=== PATIENT | male | born 1960 | race African-American/Black ===

== ENCOUNTER 2017-01-14 07:03 | Inpatient (IN) | payer BC, OTHER ==
--- NOTE | 2017-01-14 07:24 | PDOC ---
Attending Attestation - Resident Resident Name: Shane Bhatia - ED Attending Attestation I have performed the following: I have examined & evaluated the patient, The case was reviewed & discussed with the resident, I agree w/resident's findings & plan, Exceptions are as noted - HPI HPI: 56 yo M history COPD/asthma presents with SOB. He states that for the past 2 days he has had a cough producing yellow sputum. His shortness of breath has been progressively worsening. He denies fever, chills, chest pain. He tried nebs at home, but he has not improved. No recent abx. He has been admitted for COPD in the past. He smokes a few cigarettes per day, he has cut down over the past few years. - Physicial Exam PE: GENERAL: Awake, alert, and fully oriented, in no acute distress. HEAD: No signs of trauma EYES: PERRLA, EOMI, sclera anicteric, conjunctiva clear ENT: Auricles normal inspection, hearing grossly normal, nares patent, oropharynx clear without exudates. Moist mucosa NECK: Normal ROM, supple, no lymphadenopathy, JVD, or masses LUNGS: +Mild tachypnea. +Pursed lip breathing. Dec air entry B/L with diffuse rhonchi, exp wheezes. Speaking full sentences. HEART: Tachycardic, normal S1 and S2, no murmurs, rubs or gallops ABDOMEN: Soft, nontender, normoactive bowel sounds. No guarding, no rebound. No masses EXTREMITIES: Normal range of motion, no edema. No clubbing or cyanosis. No cords, erythema, or tenderness NEUROLOGICAL: Cranial nerves II through XII grossly intact. Normal speech, normal gait SKIN: Warm, Dry, normal turgor, no rashes or lesions noted. - Medical Decision Making 56 yo M with asthma/COPD presents with exacerbation. Will obtain labs, flu swab , CXR for further evaluation. Will give levaquin empirically for suspected bronchitis, which will also cover for pna if CXR is positive for infiltrate. Will admit.
[2017-01-14] MEDS ORDERED: MAGNESIUM SULF 50% (8.12 MEQ/2 ML-1 GM VIAL) IVPB ONE (07:45)
[2017-01-14] MEDS ORDERED: LEVOFLOXACIN 750 MG IVPB 150 ML IVPB ONE ×2 (07:53→08:06)
--- NOTE | 2017-01-14 07:53 | PDOC ---
History of Present Illness <Jaquelin De Leon - Last Filed: 01/14/17 10:48> - General History Source: Patient Exam Limitations: No Limitations - History of Present Illness Initial Comments: 01/14/17 07:49 56 yo M with significant PMHx of NIDDM, smoker, asthma and copd presents with 2 day history of increased shortness of breath. He states that for the past 2 days he has had cold symtoms and breathing has worsened. His home inhalers did not improve his breathing which prompted call to EMS. SOB accompanied by productive cough of yellow sputum. Multiple hospitalizations in past for similar issues , but never been intubated. Denies fevers, CP, REYNAGA, palpitations, N/V. 01/14/17 08:11 Timing/Duration: reports: getting worse Severity: reports: moderate Possible Cause: Yes: smoke exposure Modifying Factors: improves with: oxygen Associated Symptoms: reports: cough, nasal drainage, shortness of breath Aspirin Received prior to arrival: Yes: unknown Beta Blayne Contraindications(Core Measure): Yes: Not Prescribed Beta Blayne Given by EMS(Core Measure): No Beta Blayne Taken at Home(Core Measure): No Beta Blayne Not Indicated at this Time(Core Measure): No <Shane Bhatia - Last Filed: 01/14/17 14:44> - General Chief Complaint: Shortness of Breath Stated Complaint: DIFFICULTY BREATHING Time Seen by Provider: 01/14/17 07:18 Past History <Jaquelin De Leon - Last Filed: 01/14/17 10:48> - Travel Traveled outside of the country in the last 30 days: No Close contact w/someone who was outside of country & ill: No - Past Medical History Anemia: No Asthma: Yes Cancer: No Cardiac Disorders: No CVA: No COPD: Yes CHF: No Dementia: No Diabetes: Yes (DM) GI Disorders: No Disorders: No HTN: Yes Hypercholesterolemia: No Liver Disease: No Seizures: No Thyroid Disease: No - Surgical History Abdominal Surgery: No Appendectomy: No Cardiac Surgery: No Cholecystectomy: No Lung Surgery: No Neurologic Surgery: No - Immunization History Immunization Up to Date: Yes - Psycho/Social/Smoking Cessation Hx Anxiety: No Suicidal Ideation: No Smoking History: Current every day smoker Have you smoked in the past 12 months: No Number of Cigarettes Smoked Daily: 5 Information on smoking cessation initiated: No 'Breaking Loose' booklet given: 06/28/16 Hx Alcohol Use: No Drug/Substance Use Hx: No Substance Use Type: None Hx Substance Use Treatment: No <Shane Bhatia - Last Filed: 01/14/17 14:44> - Past Medical History Allergies/Adverse Reactions: Allergies Allergy/AdvReac Type Severity Reaction Status Date / Time No Known Allergies Allergy Verified 12/05/15 06:08 Home Medications: Ambulatory Orders Metformin HCl [Glucophage -] 500 mg PO BID 09/15/15 Ergocalciferol (Vitamin D2) [Vitamin D] 50,000 unit PO Q7D 10/09/15 Simvastatin [Zocor -] 20 mg PO HS 10/09/15 Budesonide/Formeterol Fumarate [SYMBICORT 160/4.5mcg -] 2 puff IH BID #0 inhaler 12/09/15 Albuterol Sulfate [Proair Respiclick] 90 mcg IH Q6H 06/28/16 Budesonide/Formeterol Fumarate [SYMBICORT 160/4.5mcg -] 1 inh PO BID 01/14/17 Tiotropium [place] [Spiriva] 1 inh IH DAILY 01/14/17 Respiratory Specific PMHX - Complaint Specific PMHX Angina: No Bronchitis: No Pneumonia: No Pulmonary Embolus: No TB (Tuberculosis): No <Shane Bhatia - Last Filed: 01/14/17 14:44> Review of Systems - Review of Systems Constitutional: No: Chills, Fever HEENTM: No: Throat Swelling, Difficulty Swallowing Respiratory: Yes: Cough, Shortness of Breath, Wheezing, Productive cough Cardiac (ROS): No: Chest Pain, Edema, Palpitations ABD/GI: No: Nausea, Vomiting : No: Dysuria Neurological: No: Headache <Shane Bhatia - Last Filed: 01/14/17 14:44> *Physical Exam - Vital Signs Last Vital Signs Temp Pulse Resp BP Pulse Ox 98.3 F 92 H 20 122/80 95 01/14/17 07:30 01/14/17 09:45 01/14/17 10:37 01/14/17 09:45 01/14/17 10:37 <Jaquelin De Leon - Last Filed: 01/14/17 10:48> - Vital Signs Last Vital Signs Temp Pulse Resp BP Pulse Ox 98.3 F 108 H 22 120/78 88 L 01/14/17 07:30 01/14/17 07:30 01/14/17 07:30 01/14/17 07:30 01/14/17 07:30 - Physical Exam General Appearance: Yes: Mild Distress HEENT: positive: ASHWINI, Normal ENT Inspection Neck: positive: Supple Respiratory/Chest: positive: Decreased Breath Sounds, Rhonchi, Wheezing Cardiovascular: positive: Regular Rhythm, Regular Rate, S1, S2. negative: Edema , JVD, Murmur Vascular Pulses: Dorsalis-Pedis (R): 2+, Doralis-Pedis (L): 2+ Gastrointestinal/Abdominal: positive: Normal Bowel Sounds, Soft. negative: Tender Neurologic: positive: Fully Oriented, Alert, Normal Mood/Affect <Shane Bhatia - Last Filed: 01/14/17 14:44> ED Treatment Course - LABORATORY CBC & Chemistry Diagram: 01/14/17 07:52 01/14/17 07:52 - ADDITIONAL ORDERS Additional order review: Laboratory Results 01/14/17 07:52 Sodium 145 Potassium 4.1 Chloride 104 Carbon Dioxide 38 H Anion Gap 3 L BUN 7 D Creatinine 1.1 Creat Clearance w eGFR > 60 Random Glucose 140 H Calcium 8.7 Total Bilirubin 0.5 D AST 14 L ALT 19 D Alkaline Phosphatase 100 Total Protein 6.8 Albumin 3.5 01/14/17 07:52 Influenza Types A,B Antigen (NEREIDA) - Final Nasopharyngeal Swab - Final 01/14/17 07:52 RBC 4.78 MCV 93.5 MCHC 32.3 RDW 13.5 MPV 9.4 Neutrophils % 82.9 H Lymphocytes % 11.2 Monocytes % 4.9 Eosinophils % 0.6 D Basophils % 0.4 - Medications Given in the ED: ED Medications Discontinued Medications Generic Name Dose Route Start Last Admin Trade Name Freq PRN Reason Stop Dose Admin Albuterol/Ipratropium 1 amp 01/14/17 08:00 01/14/17 08:51 Duoneb - NEB 01/14/17 08:46 1 amp Q15M [facility] Administration Levofloxacin 150 mls @ 100 mls/hr 01/14/17 07:53 01/14/17 08:47 Levaquin 750 Mg Premixed Ivpb - IVPB 01/14/17 09:22 100 mls/hr ONCE ONE Administration Magnesium Sulfate 2 gm 01/14/17 07:45 01/14/17 08:18 Magnesium Sulfate IVPB 01/14/17 07:46 2 gm ONCE ONE Administration <Jaquelin De Leon - Last Filed: 01/14/17 10:48> - LABORATORY CBC & Chemistry Diagram: 01/14/17 07:52 01/14/17 07:52 <Shane Bhatia - Last Filed: 01/14/17 14:44> Medical Decision Making - Medical Decision Making 01/14/17 08:04 56 yo M smoker with PMHx of NIDDM, asthma and COPD presents to ER with acute hypoxic respirtory failure. Given Decadron 10mg and Duoneb by EMS. O2 sat on arrival 85% on RA and Peak Flow 80. Will give Duonebs, Mg, Levaquin and supplemental O2 . Labs sent- CBC, CMP , CXR, and rapid Flu. 01/14/17 14:43 ABG shows chronic retention of CO2 O2 sat 94% on 3L NC Decision made to admit to non cardiac tele. <Shane Bhatia - Last Filed: 01/14/17 14:44> *DC/Admit/Observation/Transfer - Discharge Dispostion Admit: Yes <Jaquelin De Leon - Last Filed: 01/14/17 10:48> - Discharge Dispostion Admit: Yes <Shane Bhatia - Last Filed: 01/14/17 14:44> Diagnosis at time of Disposition: COPD exacerbation, Bronchitis, Asthma exacerbation, Hypoxia - Discharge Dispostion Condition at time of disposition: Guarded
[2017-01-14] MEDS: ALBUTEROL SO4 2.5/IPRATROPIUM 0.5 INH SOL 3 ML VIAL.NEB. NEB SCH ×6 (08:00→23:10)
[2017-01-14] MEDS ORDERED: MAGNESIUM SULF 50% (8.12 MEQ/2 ML-1 GM VIAL) ONE (08:06)
[2017-01-14] MEDS ORDERED: ALBUTEROL SO4 2.5/IPRATROPIUM 0.5 INH SOL 3 ML VIAL.NEB. NEB ONE (08:06)
[2017-01-14 08:28] LABS: BASOPHIL 0.4 % (0-2.0); EOSINOPHIL 0.6 % (0-4.5); MCH 30.2 pg (25.7-33.7); MCHC 32.3 g/dl (32.0-35.9); MEAN CELL VOLUME 93.5 fl (80-96); MEAN PLT VOLUME 9.4 fl (7.5-11.1); NEUTROPHILS 82.9 % (42.8-82.8); PLATELET COUNT 128 K/MM3 (134-434); RDW 13.5 % (11.9-15.9); WHITE BLOOD COUNT 8.3 K/mm3 (4.0-10.0)
[2017-01-14 08:56] LABS: ALBUMIN 3.5 g/dl (3.4-5.0); ALK PHOS 100 U/L (45-117); ANION GAP 3 (8-16); BILIRUBIN,TOTAL 0.5 mg/dL (0.2-1.0); CALCIUM 8.7 mg/dL (8.5-10.1); CO2 38 mmol/L (21-32); COCKROFT - GAULT 93.4; CREATININE 1.1 mg/dL (0.7-1.3); GLUCOSE,RANDOM 140 mg/dL (74-106); SGOT/AST 14 U/L (15-37); SGPT/ALT 19 U/L (12-78); TOT PROT 6.8 g/dl (6.4-8.2)
[2017-01-14 11:00] LABS: ARTERIAL BLD GAS O2 SATURATION 90.7 % (90-98.9); ARTERIAL BLOOD GAS BASE EXCESS 3.7 meq/l (-2-2); ARTERIAL BLOOD GAS HCO3 32.4 meq/L (22-26)
[2017-01-14 11:02] LABS: ARTERIAL BLOOD GAS pH 7.29 (7.35-7.45)
[2017-01-14 11:03] LABS: ALLENS TEST POSITIVE; ART PUNCT SITE RIGHT RADIAL; ARTERIAL BLOOD GAS PO2 67.9 mmHg (80-100); LPM/O2% 3LPM; PT. ON O2? YES; TYPE OF O2 NASAL
[2017-01-14] MEDS ORDERED: INSULIN REGULAR HUMAN 100 UNITS/ML *VIAL ONE (12:43)
[2017-01-14] MEDS ORDERED: INSULIN (NOVOLOG) ASPART 100 UNITS/ML 10ML VIAL SQ ONE (12:50)
--- NOTE | 2017-01-14 14:02 | HP ---
DATE OF ADMISSION: DATE OF DICTATION: 01/14/2017 HISTORY OF PRESENT ILLNESS: This is a 56-year-old male patient of known to have COPD, came to the emergency room this morning with complaints of short of breath. Patient received oxygen and antibiotics and steroids. Doing better now. Still complaining of short of breath. Being admitted with a diagnosis of acute exacerbation of bronchial asthma and COPD. PHYSICAL EXAMINATION: Vital Signs: Blood pressure is 140/80, pulse 72, respiration 20, temperature 98. HEENT: Unremarkable. Neck: Supple. No JVD. Lungs: Few wheezes in both bases. Heart: S1, S2 normal. No S3, S4. Abdomen: Soft. Extremities: Legs: No edema. Neurological: Alert, oriented. LABORATORY REPORTS: WBC 8, hemoglobin 14, hematocrit 44, platelet 128. Chemistry: Electrolytes are normal. Blood gas: PH 7.29, PCO2 70, PO2 67. This is on oxygen, 3 L, nasal cannula. Chest x-ray: No acute pathology. IMPRESSION: Exacerbation of chronic obstructive pulmonary disease. Bronchial asthma. PLAN: Admit to regular floor or telemetry. Continue present medications. Will follow. Erica [id number]
[2017-01-14 15:22] VITALS: BMI 24.5
--- NOTE | 2017-01-14 15:56 | CON.PULM ---
Consult Consult Specialty:: PULMONARY Referred by:: DAT Reason for Consultation:: SOB - History of Present Illness Chief Complaint: SOB History of Present Illness: 56 yo M history COPD/asthma presents with SOB. He states that for the past 2 days he has had a cough producing yellow sputum. His shortness of breath has been progressively worsening. He denies fever, chills, chest pain. He tried nebs at home, but he has not improved. No recent abx. He has been admitted for COPD in the past. He smokes a few cigarettes per day, he has cut down over the past few years. - History Source History Provided By: Patient, Medical Record Limitations to Obtaining History: No Limitations - Past Medical History PURCHASING ASSISTANT: No: Alzheimer's Cardio/Vascular: No: AFIB Pulmonary: Yes: COPD. No: O2 Dependent Gastrointestinal: No: Ascites Hepatobiliary: No: Cirrhosis Renal/: No: Renal Failure Heme/Onc: No: Anemia Infectious Disease: No: AIDS Psych: No: Addictions Endocrine: Yes: Diabetes Mellitus - Past Surgical History Past Surgical History: Yes: Tonsillectomy - Alcohol/Substance Use Hx Alcohol Use: No - Smoking History Smoking history: Current every day smoker Have you smoked in the past 12 months: No Aproximately how many cigarettes per day: 5 - Social History Place of : [facility] History of Recent Travel: No Home Medications - Allergies Allergies/Adverse Reactions: Allergies Allergy/AdvReac Type Severity Reaction Status Date / Time No Known Allergies Allergy Verified 12/05/15 06:08 - Home Medications Home Medications: Ambulatory Orders Metformin HCl [Glucophage -] 500 mg PO BID 09/15/15 Ergocalciferol (Vitamin D2) [Vitamin D] 50,000 unit PO Q7D 10/09/15 Simvastatin [Zocor -] 20 mg PO HS 10/09/15 Albuterol Sulfate [Proair Respiclick] 90 mcg IH Q6H 06/28/16 Budesonide/Formeterol Fumarate [SYMBICORT 160/4.5mcg -] 1 inh PO BID 01/14/17 Tiotropium [place] [Spiriva] 1 inh IH DAILY 01/14/17 Family Disease History - Family Disease History Family History: Unremarkable Review of Systems - Review of Systems Cardiovascular: denies: Chest Pain Respiratory: reports: Cough, Exercise Intolerance, SOB, SOB on Exertion, Wheezing. denies: Hemoptysis Gastrointestinal: reports: No Symptoms Genitourinary: reports: No Symptoms Musculoskeletal: reports: No Symptoms Physical Exam Vital Sings: Vital Signs Temperature 98.3 F 01/14/17 15:15 Pulse Rate 92 H 01/14/17 15:15 Respiratory Rate 28 H 01/14/17 15:15 Blood Pressure 133/82 01/14/17 15:15 O2 Sat by Pulse Oximetry (%) 94 L 01/14/17 15:15 Constitutional: Yes: Calm Eyes: Yes: EOM Intact HENT: Yes: Normocephalic Neck: Yes: Trachea Midline Cardiovascular: Yes: S1, S2 Respiratory: Yes: Diminished (BILATERALLY) Gastrointestinal: Yes: Soft Edema: No Neurological: Yes: Alert Labs: ABG Results ABG pH 7.29 (7.35-7.45) L 01/14/17 10:55 ABG pCO2 at Pt Temp 70.2 mmHg (35-45) H* 01/14/17 10:55 ABG pO2 at Pt Temp 67.9 mmHg (80-100) L 01/14/17 10:55 ABG HCO3 32.4 meq/L (22-26) H 01/14/17 10:55 ABG O2 Sat (Measured) 90.7 % (90-98.9) 01/14/17 10:55 ABG O2 Content 17.6 % vol (15-22) 01/14/17 10:55 ABG Base Excess 3.7 meq/l (-2-2) H 01/14/17 10:55 Imaging - Results Chest X-ray: Image Reviewed Cat Scan: Image Reviewed Problem List - Problems (1) COPD exacerbation Code(s): J44.1 - CHRONIC OBSTRUCTIVE PULMONARY DISEASE W (ACUTE) EXACERBATION (2) Hypoxia Code(s): R09.02 - HYPOXEMIA (3) Acute and chronic respiratory failure with hypercapnia Code(s): J96.22 - ACUTE AND CHRONIC RESPIRATORY FAILURE WITH HYPERCAPNIA Assessment/Plan ACUTE ON CHRONIC HYPERCAPNEIC RESPIRATORY FAILURE DUE TO A/E COPD ACTIVE SMOKER O2/MAY NEED NIPPV/BRONCHODILATORS/CHEST PT SPUTUM CULTURE/ANTIBIOTICS/STEROIDS WILL FOLLOW Kat CHEEMA MD
--- NOTE | 2017-01-14 16:19 | EKG ---
Test Reason : Blood Pressure : / mmHG Vent. Rate : 107 BPM Atrial Rate : 107 BPM P-R Int : 170 ms QRS Dur : 078 ms QT Int : 342 ms P-R-T Axes : 072 066 072 degrees QTc Int : 456 ms SINUS TACHYCARDIA SEPTAL INFARCT (CITED ON OR BEFORE 15-SEP-2015) ABNORMAL ECG WHEN COMPARED WITH ECG OF 05-DEC-2015 06:13, QUESTIONABLE CHANGE IN INITIAL FORCES OF SEPTAL LEADS Confirmed by SURESH GRANADOS MD ([id number]) on 01/14/2017 4:19:26 PM Referred By: Confirmed By:SURESH GRANADOS MD
[2017-01-14] MEDS: methylPREDNISolone NA SUCC 40 MG/1 ML VIAL IVPB SCH ×2 (17:38→22:18)
[2017-01-14] MEDS: ROFLUMILAST 500 MCG TABLET PO SCH (17:39)
[2017-01-14] MEDS: metFORMIN HCL 500 MG TABLET (FP) PO SCH (17:39)
[2017-01-14] MEDS: BUDESONIDE/FORMETEROL FUMARATE 160/4.5 mcg INHALER IH SCH (22:18)
[2017-01-14] MEDS: ATORVASTATIN CA 10 MG TABLET (FP) PO SCH (22:18)
[2017-01-14] MEDS: ACLIDINIUM BROMIDE 400 MCG/INH AERO.POWD IH SCH (22:19)
[2017-01-15] MEDS: methylPREDNISolone NA SUCC 40 MG/1 ML VIAL IVPB SCH ×4 (03:32→21:22)
[2017-01-15] MEDS: metFORMIN HCL 500 MG TABLET (FP) PO SCH ×2 (06:14→17:25)
[2017-01-15] MEDS: ALBUTEROL SO4 2.5/IPRATROPIUM 0.5 INH SOL 3 ML VIAL.NEB. NEB SCH (06:28)
[2017-01-15 08:09] LABS: MCH 30.5 pg (25.7-33.7); MCHC 32.4 g/dl (32.0-35.9); MEAN CELL VOLUME 94.1 fl (80-96); MEAN PLT VOLUME 9.5 fl (7.5-11.1); PLATELET COUNT 144 K/MM3 (134-434); RDW 13.6 % (11.9-15.9); WHITE BLOOD COUNT 7.3 K/mm3 (4.0-10.0)
[2017-01-15 08:39] LABS: CALCIUM 8.6 mg/dL (8.5-10.1); COCKROFT - GAULT 86.21
--- NOTE | 2017-01-15 09:54 | PN ---
Progress Note, Physician Chief Complaint: SOB less History of Present Illness: Case discussed with Dr Mora His RA O2 sat very low 76 % - Current Medication List Current Medications: Active Medications Aclidinium [place] (Tudorza -) 1 puff IH BID [facility] Last Admin: 01/14/17 22:19 Dose: 1 puff Albuterol/Ipratropium (Duoneb -) 1 amp NEB QIDR [facility] Last Admin: 01/15/17 06:28 Dose: 1 amp Atorvastatin Calcium (Lipitor -) 10 mg PO HS [facility] Last Admin: 01/14/17 22:18 Dose: 10 mg Budesonide/Formoterol Fumarate (Symbicort 160/4.5mcg -) 1 puff IH BID [facility] Last Admin: 01/14/17 22:18 Dose: 1 puff Ceftriaxone Sodium (Rocephin 1gm Ivpb (Pre-Docked)) 1 gm IVPB DAILY [facility] Metformin HCl (Glucophage -) 500 mg PO BIDAC [facility] Last Admin: 01/15/17 06:14 Dose: 500 mg Methylprednisolone Sodium Succinate (Solu-Medrol -) 40 mg IVPB Q6H-IV [facility] Last Admin: 01/15/17 08:53 Dose: 40 mg Roflumilast (Daliresp -) 500 mcg PO DAILY [facility] Last Admin: 01/14/17 17:39 Dose: 500 mcg - Objective Vital Signs: Vital Signs Temperature 97.9 F 01/15/17 08:39 Pulse Rate 93 H 01/15/17 08:39 Respiratory Rate 20 01/15/17 08:39 Blood Pressure 128/70 01/15/17 08:39 O2 Sat by Pulse Oximetry (%) 98 01/15/17 04:30 Constitutional: Yes: Calm Eyes: Yes: WNL HENT: Yes: WNL Neck: Yes: WNL Cardiovascular: Yes: Regular Rate and Rhythm Respiratory: Yes: Poor Air Entry Gastrointestinal: Yes: WNL ...Rectal Exam: Yes: Deferred Genitourinary: Yes: WNL Breast(s): Yes: WNL Musculoskeletal: Yes: WNL Neurological: Yes: Alert Labs: CBC, BMP 01/15/17 05:35 01/15/17 05:35 Assessment/Plan Continue same trt
[2017-01-15] MEDS ORDERED: CEFTRIAXONE 1 GM in DEXTROSE 5%-WATER - 50 ML IVPB SCH (10:00)
--- NOTE | 2017-01-15 10:25 | PN ---
Progress Note (short form) - Note Progress Note: PULMONARY SUBJECTIVE IMPROVEMENT VSS/AFEBRILE ANICTERIC DISTANT BREATH SOUNDS S1S2 BS+ SOFT NO EDEMA LABS/MEDS/NOTES/IMAGING REVIEWED (1) COPD exacerbation Code(s): J44.1 - CHRONIC OBSTRUCTIVE PULMONARY DISEASE W (ACUTE) EXACERBATION (2) Hypoxia Code(s): R09.02 - HYPOXEMIA (3) Acute and chronic respiratory failure with hypercapnia Code(s): J96.22 - ACUTE AND CHRONIC RESPIRATORY FAILURE WITH HYPERCAPNIA Assessment/Plan ACUTE ON CHRONIC HYPERCAPNEIC RESPIRATORY FAILURE DUE TO A/E COPD ACTIVE SMOKER O2/MAY NEED NIPPV/BRONCHODILATORS/CHEST PT SPUTUM CULTURE/ANTIBIOTICS/STEROIDS CT CHEST R DENI GONZALEZ Problem List - Problems (1) COPD exacerbation Code(s): J44.1 - CHRONIC OBSTRUCTIVE PULMONARY DISEASE W (ACUTE) EXACERBATION (2) Hypoxia Code(s): R09.02 - HYPOXEMIA (3) Acute and chronic respiratory failure with hypercapnia Code(s): J96.22 - ACUTE AND CHRONIC RESPIRATORY FAILURE WITH HYPERCAPNIA
[2017-01-15] MEDS ORDERED: PT OWN MED DRAWER 7, Y5N ONE (10:39)
[2017-01-15] MEDS: ACLIDINIUM BROMIDE 400 MCG/INH AERO.POWD IH SCH ×2 (10:47→21:22)
[2017-01-15] MEDS: BUDESONIDE/FORMETEROL FUMARATE 160/4.5 mcg INHALER IH SCH ×2 (10:47→21:22)
[2017-01-15] MEDS: cefTRIAXone 1 GM/50 ML BAG (PRE-DOCKED) IVPB SCH (10:47)
[2017-01-15] MEDS: ROFLUMILAST 500 MCG TABLET PO SCH (10:47)
[2017-01-15] MEDS: ALBUTEROL SO4 0.083% IH SOL 2.5 MG/3 ML VIAL.NEB. NEB SCH ×2 (17:58→23:21)
[2017-01-15] MEDS: ATORVASTATIN CA 10 MG TABLET (FP) PO SCH (21:22)
[2017-01-16] MEDS: methylPREDNISolone NA SUCC 40 MG/1 ML VIAL IVPB SCH ×3 (04:43→18:42)
[2017-01-16] MEDS: metFORMIN HCL 500 MG TABLET (FP) PO SCH ×2 (06:09→17:07)
[2017-01-16] MEDS: ALBUTEROL SO4 0.083% IH SOL 2.5 MG/3 ML VIAL.NEB. NEB SCH ×3 (06:30→18:19)
[2017-01-16] MEDS ORDERED: PT OWN MED DRAWER 7, Y5N ONE (09:25)
[2017-01-16] MEDS: cefTRIAXone 1 GM/50 ML BAG (PRE-DOCKED) IVPB SCH (09:27)
[2017-01-16] MEDS: ROFLUMILAST 500 MCG TABLET PO SCH (09:27)
[2017-01-16] MEDS: ACLIDINIUM BROMIDE 400 MCG/INH AERO.POWD IH SCH ×2 (09:28→21:27)
[2017-01-16] MEDS: BUDESONIDE/FORMETEROL FUMARATE 160/4.5 mcg INHALER IH SCH ×2 (09:29→21:26)
--- NOTE | 2017-01-16 09:45 | PN ---
Progress Note, Physician Chief Complaint: Feels better History of Present Illness: CT of chest no infiltrate - Current Medication List Current Medications: Active Medications Aclidinium [place] (Tudorza -) 1 puff IH BID [facility] Last Admin: 01/16/17 09:28 Dose: 1 puff Albuterol Sulfate (Ventolin 0.083% Nebulizer Soln -) 1 amp NEB QIDR [facility] Last Admin: 01/16/17 06:30 Dose: 1 amp Atorvastatin Calcium (Lipitor -) 10 mg PO HS [facility] Last Admin: 01/15/17 21:22 Dose: 10 mg Budesonide/Formoterol Fumarate (Symbicort 160/4.5mcg -) 1 puff IH BID [facility] Last Admin: 01/16/17 09:29 Dose: 1 puff Ceftriaxone Sodium (Rocephin 1gm Ivpb (Pre-Docked)) 1 gm IVPB DAILY [facility] Last Admin: 01/16/17 09:27 Dose: 1 gm Metformin HCl (Glucophage -) 500 mg PO BIDAC [facility] Last Admin: 01/16/17 06:09 Dose: 500 mg Methylprednisolone Sodium Succinate (Solu-Medrol -) 40 mg IVPB Q6H-IV [facility] Last Admin: 01/16/17 09:27 Dose: 40 mg Roflumilast (Daliresp -) 500 mcg PO DAILY [facility] Last Admin: 01/16/17 09:27 Dose: 500 mcg - Objective Vital Signs: Vital Signs Temperature 97.9 F 01/16/17 05:29 Pulse Rate 77 01/16/17 05:29 Respiratory Rate 20 01/16/17 05:29 Blood Pressure 131/79 01/16/17 05:29 O2 Sat by Pulse Oximetry (%) 98 01/16/17 01:34 Constitutional: Yes: No Distress Eyes: Yes: WNL HENT: Yes: WNL Neck: Yes: WNL Cardiovascular: Yes: WNL Respiratory: Yes: Poor Air Entry Gastrointestinal: Yes: WNL ...Rectal Exam: Yes: Deferred Genitourinary: Yes: WNL Breast(s): Yes: WNL Edema: No Integumentary: Yes: WNL Neurological: Yes: Alert Labs: CBC, BMP 01/15/17 05:35 01/15/17 05:35 Assessment/Plan O2 sat on 500cc nasal = 92%
--- NOTE | 2017-01-16 11:48 | PN ---
Progress Note, Physician History of Present Illness: PULMONARY ALERT,FEELING BETTER,LESS DYSPNEIC,-CP - Current Medication List Current Medications: Active Medications Aclidinium [place] (Tudorza -) 1 puff IH BID [facility] Last Admin: 01/16/17 09:28 Dose: 1 puff Albuterol Sulfate (Ventolin 0.083% Nebulizer Soln -) 1 amp NEB QIDR [facility] Last Admin: 01/16/17 06:30 Dose: 1 amp Atorvastatin Calcium (Lipitor -) 10 mg PO HS [facility] Last Admin: 01/15/17 21:22 Dose: 10 mg Budesonide/Formoterol Fumarate (Symbicort 160/4.5mcg -) 1 puff IH BID [facility] Last Admin: 01/16/17 09:29 Dose: 1 puff Ceftriaxone Sodium (Rocephin 1gm Ivpb (Pre-Docked)) 1 gm IVPB DAILY [facility] Last Admin: 01/16/17 09:27 Dose: 1 gm Metformin HCl (Glucophage -) 500 mg PO BIDAC [facility] Last Admin: 01/16/17 06:09 Dose: 500 mg Methylprednisolone Sodium Succinate (Solu-Medrol -) 40 mg IVPB Q6H-IV [facility] Last Admin: 01/16/17 09:27 Dose: 40 mg Roflumilast (Daliresp -) 500 mcg PO DAILY [facility] Last Admin: 01/16/17 09:27 Dose: 500 mcg - Objective Vital Signs: Vital Signs Temperature 97.9 F 01/16/17 05:29 Pulse Rate 77 01/16/17 05:29 Respiratory Rate 20 01/16/17 05:29 Blood Pressure 131/79 01/16/17 05:29 O2 Sat by Pulse Oximetry (%) 98 01/16/17 01:34 Constitutional: Yes: Well Nourished, Calm Eyes: Yes: WNL HENT: Yes: WNL Neck: Yes: WNL Cardiovascular: Yes: Regular Rate and Rhythm, S1, S2 Respiratory: Yes: Diminished Gastrointestinal: Yes: Normal Bowel Sounds, Soft Extremities: Yes: WNL Edema: No Labs: Assessment/Plan (1) COPD exacerbation Code(s): J44.1 - CHRONIC OBSTRUCTIVE PULMONARY DISEASE W (ACUTE) EXACERBATION (2) Hypoxia Code(s): R09.02 - HYPOXEMIA (3) Acute and chronic respiratory failure with hypercapnia Code(s): J96.22 - ACUTE AND CHRONIC RESPIRATORY FAILURE WITH HYPERCAPNIA Assessment/Plan ACUTE ON CHRONIC HYPERCAPNEIC RESPIRATORY FAILURE DUE TO A/E COPD IMPROVING ACTIVE SMOKER O2 INHALED BRONCHODILATORS CHEST PT ANTIBIOTICS STEROID TAPER OUTPATIENT PUL[facility] DR GUERRIER Problem List - Problems (1) COPD exacerbation Code(s): J44.1 - CHRONIC OBSTRUCTIVE PULMONARY DISEASE W (ACUTE) EXACERBATION (2) Hypoxia Code(s): R09.02 - HYPOXEMIA (3) Acute and chronic respiratory failure with hypercapnia Code(s): J96.22 - ACUTE AND CHRONIC RESPIRATORY FAILURE WITH HYPERCAPNIA
[2017-01-16] MEDS: ATORVASTATIN CA 10 MG TABLET (FP) PO SCH (21:26)
[2017-01-17] MEDS: ALBUTEROL SO4 0.083% IH SOL 2.5 MG/3 ML VIAL.NEB. NEB SCH ×4 (00:01→18:54)
[2017-01-17] MEDS: methylPREDNISolone NA SUCC 40 MG/1 ML VIAL IVPB SCH ×3 (01:41→17:01)
[2017-01-17] MEDS: metFORMIN HCL 500 MG TABLET (FP) PO SCH ×2 (06:36→17:01)
--- NOTE | 2017-01-17 09:29 | PN ---
Progress Note, Physician Chief Complaint: Feels better History of Present Illness: Pre and post exercise o2 sat ordered - Current Medication List Current Medications: Active Medications Aclidinium [place] (Tudorza -) 1 puff IH BID [facility] [place] Last Admin: 01/16/17 21:27 Dose: 1 puff Albuterol Sulfate (Ventolin 0.083% Nebulizer Soln -) 1 amp NEB QIDR [facility] Last Admin: 01/17/17 06:18 Dose: 1 amp Atorvastatin Calcium (Lipitor -) 10 mg PO HS [facility] [place] Last Admin: 01/16/17 21:26 Dose: 10 mg Budesonide/Formoterol Fumarate (Symbicort 160/4.5mcg -) 1 puff IH BID [facility] [place] Last Admin: 01/16/17 21:26 Dose: 1 puff Ceftriaxone Sodium (Rocephin 1gm Ivpb (Pre-Docked)) 1 gm IVPB DAILY [facility] [place] Last Admin: 01/16/17 09:27 Dose: 1 gm Metformin HCl (Glucophage -) 500 mg PO BIDAC [facility] [place] Last Admin: 01/17/17 06:36 Dose: 500 mg Methylprednisolone Sodium Succinate (Solu-Medrol -) 40 mg IVPB Q8H-IV [facility] Last Admin: 01/17/17 01:41 Dose: 40 mg Roflumilast (Daliresp -) 500 mcg PO DAILY [facility] Last Admin: 01/16/17 09:27 Dose: 500 mcg - Objective Vital Signs: Vital Signs Temperature 97.6 F 01/17/17 06:00 Pulse Rate 77 01/17/17 06:00 Respiratory Rate 20 01/17/17 06:00 Blood Pressure 115/70 01/17/17 06:00 O2 Sat by Pulse Oximetry (%) 95 01/17/17 01:13 Constitutional: Yes: No Distress Eyes: Yes: WNL HENT: Yes: WNL Cardiovascular: Yes: WNL Respiratory: Yes: WNL, Poor Air Entry Gastrointestinal: Yes: WNL ...Rectal Exam: Yes: Deferred Genitourinary: Yes: WNL Breast(s): Yes: WNL Edema: No Neurological: Yes: Alert ...Motor Strength: WNL Psychiatric: Yes: Alert Labs: CBC, BMP 01/15/17 05:35 01/15/17 05:35 Assessment/Plan will see how his pre and post o2 sat
[2017-01-17] MEDS: ACLIDINIUM BROMIDE 400 MCG/INH AERO.POWD IH SCH ×2 (09:56→21:24)
[2017-01-17] MEDS: cefTRIAXone 1 GM/50 ML BAG (PRE-DOCKED) IVPB SCH (09:56)
[2017-01-17] MEDS: ROFLUMILAST 500 MCG TABLET PO SCH (09:56)
[2017-01-17] MEDS: BUDESONIDE/FORMETEROL FUMARATE 160/4.5 mcg INHALER IH SCH ×2 (09:56→21:23)
--- NOTE | 2017-01-17 12:13 | PN ---
Progress Note, Physician History of Present Illness: PULMONARY ALERT,+PAEZ ,BUT OVERALL FEELING BETTER - Current Medication List Current Medications: Active Medications Aclidinium [place] (Tudorza -) 1 puff IH BID [facility] Last Admin: 01/17/17 09:56 Dose: 1 puff Albuterol Sulfate (Ventolin 0.083% Nebulizer Soln -) 1 amp NEB QIDR [facility] Last Admin: 01/17/17 06:18 Dose: 1 amp Atorvastatin Calcium (Lipitor -) 10 mg PO HS [facility] Last Admin: 01/16/17 21:26 Dose: 10 mg Budesonide/Formoterol Fumarate (Symbicort 160/4.5mcg -) 1 puff IH BID [facility] Last Admin: 01/17/17 09:56 Dose: 1 puff Ceftriaxone Sodium (Rocephin 1gm Ivpb (Pre-Docked)) 1 gm IVPB DAILY [facility] Last Admin: 01/17/17 09:56 Dose: 1 gm Metformin HCl (Glucophage -) 500 mg PO BIDAC [facility] Last Admin: 01/17/17 06:36 Dose: 500 mg Methylprednisolone Sodium Succinate (Solu-Medrol -) 40 mg IVPB Q8H-IV [facility] Last Admin: 01/17/17 09:56 Dose: 40 mg Roflumilast (Daliresp -) 500 mcg PO DAILY [facility] Last Admin: 01/17/17 09:56 Dose: 500 mcg - Objective Vital Signs: Vital Signs Temperature 98.0 F 01/17/17 09:00 Pulse Rate 92 H 01/17/17 11:28 Respiratory Rate 20 01/17/17 09:00 Blood Pressure 126/65 01/17/17 09:00 O2 Sat by Pulse Oximetry (%) 97 01/17/17 11:28 Constitutional: Yes: Well Nourished, Calm Eyes: Yes: WNL HENT: Yes: WNL Neck: Yes: WNL Cardiovascular: Yes: Regular Rate and Rhythm, S1, S2 Respiratory: Yes: Wheezes (FEW SCATTTERED ELSA WHEEZES) Gastrointestinal: Yes: Normal Bowel Sounds, Soft Extremities: Yes: WNL Edema: No Labs: CBC, BMP Assessment/Plan (1) COPD exacerbation Code(s): J44.1 - CHRONIC OBSTRUCTIVE PULMONARY DISEASE W (ACUTE) EXACERBATION (2) Hypoxia Code(s): R09.02 - HYPOXEMIA (3) Acute and chronic respiratory failure with hypercapnia Code(s): J96.22 - ACUTE AND CHRONIC RESPIRATORY FAILURE WITH HYPERCAPNIA Assessment/Plan ACUTE ON CHRONIC HYPERCAPNEIC RESPIRATORY FAILURE DUE TO A/E COPD IMPROVING ACTIVE SMOKER O2 INHALED BRONCHODILATORS CHEST PT ANTIBIOTICS CONTINUE STEROID TAPER OUTPATIENT PULMONARY REHAB DR GUERRIER Problem List - Problems (1) COPD exacerbation Code(s): J44.1 - CHRONIC OBSTRUCTIVE PULMONARY DISEASE W (ACUTE) EXACERBATION (2) Hypoxia Code(s): R09.02 - HYPOXEMIA (3) Acute and chronic respiratory failure with hypercapnia Code(s): J96.22 - ACUTE AND CHRONIC RESPIRATORY FAILURE WITH HYPERCAPNIA
[2017-01-17] MEDS: ATORVASTATIN CA 10 MG TABLET (FP) PO SCH (21:23)
[2017-01-18] MEDS: ALBUTEROL SO4 0.083% IH SOL 2.5 MG/3 ML VIAL.NEB. NEB SCH ×4 (00:12→18:30)
[2017-01-18] MEDS: methylPREDNISolone NA SUCC 40 MG/1 ML VIAL IVPB SCH ×3 (01:47→17:13)
[2017-01-18] MEDS: metFORMIN HCL 500 MG TABLET (FP) PO SCH ×2 (06:39→17:08)
--- NOTE | 2017-01-18 09:29 | PN ---
Progress Note, Physician Chief Complaint: Feels better History of Present Illness: Room air o2 sat low 86 Advised pulmonary rehab - Current Medication List Current Medications: Active Medications Aclidinium [place] (Tudorza -) 1 puff IH BID [facility] Last Admin: 01/17/17 21:24 Dose: 1 puff Albuterol Sulfate (Ventolin 0.083% Nebulizer Soln -) 1 amp NEB QIDR [facility] Last Admin: 01/18/17 06:41 Dose: 1 amp Atorvastatin Calcium (Lipitor -) 10 mg PO HS [facility] Last Admin: 01/17/17 21:23 Dose: 10 mg Budesonide/Formoterol Fumarate (Symbicort 160/4.5mcg -) 1 puff IH BID [facility] Last Admin: 01/17/17 21:23 Dose: 1 puff Ceftriaxone Sodium (Rocephin 1gm Ivpb (Pre-Docked)) 1 gm IVPB DAILY [facility] Last Admin: 01/17/17 09:56 Dose: 1 gm Metformin HCl (Glucophage -) 500 mg PO BIDAC [facility] Last Admin: 01/18/17 06:39 Dose: 500 mg Methylprednisolone Sodium Succinate (Solu-Medrol -) 40 mg IVPB Q8H-IV [facility] Last Admin: 01/18/17 01:47 Dose: 40 mg Roflumilast (Daliresp -) 500 mcg PO DAILY [facility] Last Admin: 01/17/17 09:56 Dose: 500 mcg - Objective Vital Signs: Vital Signs Temperature 97.9 F 01/18/17 06:00 Pulse Rate 80 01/18/17 06:00 Respiratory Rate 20 01/18/17 06:00 Blood Pressure 126/76 01/18/17 06:00 O2 Sat by Pulse Oximetry (%) 99 01/18/17 01:29 Constitutional: Yes: No Distress Eyes: Yes: WNL Cardiovascular: Yes: WNL Respiratory: Yes: Poor Air Entry Gastrointestinal: Yes: WNL ...Rectal Exam: Yes: Deferred Genitourinary: Yes: WNL Musculoskeletal: Yes: WNL Edema: No Labs: CBC, BMP 01/15/17 05:35 01/15/17 05:35 Assessment/Plan DC tele
[2017-01-18] MEDS ORDERED: PT OWN MED DRAWER 7, Y5N ONE (10:03)
[2017-01-18] MEDS: ACLIDINIUM BROMIDE 400 MCG/INH AERO.POWD IH SCH ×2 (10:16→22:16)
[2017-01-18] MEDS: BUDESONIDE/FORMETEROL FUMARATE 160/4.5 mcg INHALER IH SCH ×2 (10:16→22:17)
[2017-01-18] MEDS: cefTRIAXone 1 GM/50 ML BAG (PRE-DOCKED) IVPB SCH (10:16)
[2017-01-18] MEDS: ROFLUMILAST 500 MCG TABLET PO SCH (10:16)
--- NOTE | 2017-01-18 12:41 | PN ---
Progress Note, Physician History of Present Illness: pulmnonary alert,less dyspneic,O2sat 89% on ra - Current Medication List Current Medications: Active Medications Aclidinium [place] (Tudorza -) 1 puff IH BID [facility] Last Admin: 01/18/17 10:16 Dose: 1 puff Albuterol Sulfate (Ventolin 0.083% Nebulizer Soln -) 1 amp NEB QIDR [facility] Last Admin: 01/18/17 11:28 Dose: 1 amp Atorvastatin Calcium (Lipitor -) 10 mg PO HS [facility] Last Admin: 01/17/17 21:23 Dose: 10 mg Budesonide/Formoterol Fumarate (Symbicort 160/4.5mcg -) 1 puff IH BID [facility] Last Admin: 01/18/17 10:16 Dose: 1 puff Ceftriaxone Sodium (Rocephin 1gm Ivpb (Pre-Docked)) 1 gm IVPB DAILY [facility] Last Admin: 01/18/17 10:16 Dose: 1 gm Metformin HCl (Glucophage -) 500 mg PO BIDAC [facility] Last Admin: 01/18/17 06:39 Dose: 500 mg Methylprednisolone Sodium Succinate (Solu-Medrol -) 40 mg IVPB Q8H-IV [facility] Last Admin: 01/18/17 10:16 Dose: 40 mg Roflumilast (Daliresp -) 500 mcg PO DAILY [facility] Last Admin: 01/18/17 10:16 Dose: 500 mcg - Objective Vital Signs: Vital Signs Temperature 98.2 F 01/18/17 09:00 Pulse Rate 75 01/18/17 09:44 Respiratory Rate 20 01/18/17 09:00 Blood Pressure 132/62 01/18/17 09:00 O2 Sat by Pulse Oximetry (%) 94 L 01/18/17 09:44 Constitutional: Yes: Well Nourished, Calm Eyes: Yes: WNL HENT: Yes: WNL Neck: Yes: WNL Cardiovascular: Yes: Regular Rate and Rhythm, S1, S2 Respiratory: Yes: Diminished Gastrointestinal: Yes: WNL Extremities: Yes: WNL Edema: No Labs: Assessment/Plan (1) COPD exacerbation Code(s): J44.1 - CHRONIC OBSTRUCTIVE PULMONARY DISEASE W (ACUTE) EXACERBATION (2) Hypoxia Code(s): R09.02 - HYPOXEMIA (3) Acute and chronic respiratory failure with hypercapnia Code(s): J96.22 - ACUTE AND CHRONIC RESPIRATORY FAILURE WITH HYPERCAPNIA Assessment/Plan ACUTE ON CHRONIC HYPERCAPNEIC RESPIRATORY FAILURE DUE TO A/E COPD IMPROVING ACTIVE SMOKER O2 INHALED BRONCHODILATORS CHEST PT ANTIBIOTICS CONTINUE STEROID TAPER OUTPATIENT PULMONARY REHAB DR GUERRIER Problem List - Problems (1) COPD exacerbation Code(s): J44.1 - CHRONIC OBSTRUCTIVE PULMONARY DISEASE W (ACUTE) EXACERBATION (2) Hypoxia Code(s): R09.02 - HYPOXEMIA (3) Acute and chronic respiratory failure with hypercapnia Code(s): J96.22 - ACUTE AND CHRONIC RESPIRATORY FAILURE WITH HYPERCAPNIA
[2017-01-18 14:21] LABS: ARTERIAL BLD GAS O2 SATURATION 88.1 % (90-98.9); ARTERIAL BLOOD GAS BASE EXCESS 5.1 meq/l (-2-2); ARTERIAL BLOOD GAS HCO3 29.9 meq/L (22-26); ARTERIAL BLOOD GAS pH 7.43 (7.35-7.45)
[2017-01-18 14:22] LABS: ALLENS TEST POSITIVE; ART PUNCT SITE RIGHT RADIAL; LPM/O2% 21%; PT. ON O2? NO; TYPE OF O2 ROOM AIR
[2017-01-18 14:23] LABS: ARTERIAL BLOOD GAS PO2 58.1 mmHg (80-100)
[2017-01-18] MEDS: ATORVASTATIN CA 10 MG TABLET (FP) PO SCH (22:16)
[2017-01-19] MEDS: ALBUTEROL SO4 0.083% IH SOL 2.5 MG/3 ML VIAL.NEB. NEB SCH ×3 (00:05→11:05)
[2017-01-19] MEDS: methylPREDNISolone NA SUCC 40 MG/1 ML VIAL IVPB SCH ×2 (02:21→10:19)
[2017-01-19] MEDS: metFORMIN HCL 500 MG TABLET (FP) PO SCH (06:45)
--- NOTE | 2017-01-19 09:49 | DS ---
Physical Examination Vital Signs: Vital Signs Temperature 97.9 F 01/19/17 06:00 Pulse Rate 76 01/19/17 06:00 Respiratory Rate 20 01/19/17 06:00 Blood Pressure 137/60 01/19/17 06:00 O2 Sat by Pulse Oximetry (%) 96 01/18/17 21:00 Findings/Remarks: COPD admitted with exacerbation Improved, DC home Constitutional: Yes: No Distress Eyes: Yes: WNL HENT: Yes: WNL Neck: Yes: WNL Cardiovascular: Yes: WNL Respiratory: Yes: WNL Gastrointestinal: Yes: WNL ...Rectal Exam: Yes: Deferred Renal/: Yes: WNL Musculoskeletal: Yes: WNL Edema: No Neurological: Yes: Alert ...Motor Strength: WNL Psychiatric: Yes: Alert Labs: CBC, BMP 01/15/17 05:35 01/15/17 05:35 Discharge Summary Reason For Visit: COPD EXACERBATION,BRONCHITIS Current Active Problems Acute and chronic respiratory failure with hypercapnia (Acute) Asthma exacerbation (Acute) Bronchitis (Acute) COPD exacerbation (Acute) Hypoxia (Acute) Condition: Guarded - Instructions Referrals: Irvin Hernandez MD [Primary Care Provider] - - Home Medications Comprehensive Discharge Medication List: Ambulatory Orders Metformin HCl [Glucophage -] 500 mg PO BID 09/15/15 Ergocalciferol (Vitamin D2) [Vitamin D] 50,000 unit PO Q7D 10/09/15 Simvastatin [Zocor -] 20 mg PO HS 10/09/15 Albuterol Sulfate [Proair Respiclick] 90 mcg IH Q6H 06/28/16 Budesonide/Formeterol Fumarate [SYMBICORT 160/4.5mcg -] 1 inh PO BID 01/14/17 Tiotropium [place] [Spiriva] 1 inh IH DAILY 01/14/17
[2017-01-19] MEDS: BUDESONIDE/FORMETEROL FUMARATE 160/4.5 mcg INHALER IH SCH (10:19)
[2017-01-19] MEDS: ROFLUMILAST 500 MCG TABLET PO SCH (10:20)
[2017-01-19] MEDS: ACLIDINIUM BROMIDE 400 MCG/INH AERO.POWD IH SCH (10:20)
[2017-01-19] MEDS: cefTRIAXone 1 GM/50 ML BAG (PRE-DOCKED) IVPB SCH (10:36)
[2017-01-19 14:53] VITALS: BP 132/86; PULSE 98; TEMP 98.1
== END 2017-01-19 16:23 | disposition home or self-care (01) | DRG 189 ==
LOC: JER 07:03 → JERBED 10:48 → J4W 15:41 → J5S 01-18 21:11
PROVIDERS: ADMIT Internal Medicine; ATTEND Internal Medicine
PROC: 5A09357 Assistance with Respiratory Ventilation, Less than 24 Consecutive Hours, Continuous Positive Airway Pressure (ICD-10-PCS; principal; 2017-01-18)
DX: J96.22 Acute and chronic respiratory failure with hypercapnia (principal); J44.1 Chronic obstructive pulmonary disease with (acute) exacerbation; J44.0 Chronic obstructive pulmonary disease with (acute) lower respiratory infection; J45.901 Unspecified asthma with (acute) exacerbation; F17.210 Nicotine dependence, cigarettes, uncomplicated; E11.9 Type 2 diabetes mellitus without complications; J40 Bronchitis, not specified as acute or chronic
CPT/HCPCS: 36415; 36600; 71010-TC; 71250-TC; 80048; 80053; 82803; 85025; 85027; 87040; 87070; 87205; 87804; 93005; 93010; 94150; 94640; 94660; 94667; 94761; 97116-GP; 97161-GP; 99285-25

== ENCOUNTER 2017-02-02 00:17 | Emergency (ER) | payer BC, OTHER ==
--- NOTE | 2017-02-02 00:23 | PDOC ---
[id number]: No Limitations - History of Present Illness Initial Comments: 02/02/17 01:17 The patient is a 56 year old male brought via EMS, with a significant past medical history of COPD, Diabetes mellitus and HTN, who presents to the emergency department with fever, diaphoresis and shortness of breath onset today. The patient was in the ED on 01/14/2017 for COPD exacerbation and was admitted after a Chest X-Ray revealed pneumonia. The patient was discharged on with antibiotics which he finished 2 days ago. The patient denies chest pain, headache and dizziness. Denies chills, nausea, vomit, diarrhea and constipation. Denies dysuria, frequency, urgency and hematuria. Allergies: None Past surgical history: None reported Social history: Cigarette use (5 daily). No alcohol or drug use reported <Stephen Jimenez - Last Filed: 02/02/17 01:11> <Feng Harris - Last Filed: 02/12/17 09:06> - General Chief Complaint: Shortness of Breath Stated Complaint: FLU-LIKE SYMPTOMS Time Seen by Provider: 02/02/17 00:22 Past History <Stephen Jimenez - Last Filed: 02/02/17 01:11> - Past Medical History Anemia: No Asthma: Yes Cancer: No Cardiac Disorders: No CVA: No COPD: Yes CHF: No Dementia: No Diabetes: Yes (DM) GI Disorders: No Disorders: No HTN: Yes Hypercholesterolemia: No Liver Disease: No Seizures: No Thyroid Disease: No - Surgical History Abdominal Surgery: No Appendectomy: No Cardiac Surgery: No Cholecystectomy: No Lung Surgery: No Neurologic Surgery: No - Immunization History Immunization Up to Date: Yes - Psycho/Social/Smoking Cessation Hx Anxiety: No Suicidal Ideation: No Smoking History: Current every day smoker Have you smoked in the past 12 months: No Number of Cigarettes Smoked Daily: 5 'Breaking Loose' booklet given: 06/28/16 Hx Alcohol Use: No Drug/Substance Use Hx: No Substance Use Type: None Hx Substance Use Treatment: No <Feng Harris - Last Filed: 02/12/17 09:06> - Past Medical History Allergies/Adverse Reactions: Allergies Allergy/AdvReac Type Severity Reaction Status Date / Time No Known Allergies Allergy Verified 02/02/17 00:21 Home Medications: Ambulatory Orders Metformin HCl [Glucophage -] 500 mg PO BID 09/15/15 Ergocalciferol (Vitamin D2) [Vitamin D] 50,000 unit PO Q7D 10/09/15 Simvastatin [Zocor -] 20 mg PO HS 10/09/15 Albuterol Sulfate [Proair Respiclick] 90 mcg IH Q6H 06/28/16 Budesonide/Formeterol Fumarate [SYMBICORT 160/4.5mcg -] 1 inh PO BID 01/14/17 Tiotropium [place] [Spiriva] 1 inh IH DAILY 01/14/17 Levofloxacin [Levaquin] 750 mg PO DAILY #7 tablet 02/02/17 Methylprednisolone [Medrol Dose [place]] 4 mg PO ASDIR #21 tablet 02/02/17 Review of Systems - Review of Systems Able to Perform ROS?: Yes Comments:: 02/02/17 01:16 GENERAL/CONSTITUTIONAL: +Fever, diaphoresis. No chills. No weakness. HEAD, EYES, EARS, NOSE AND THROAT: No change in vision. No ear pain or discharge. No sore throat. CARDIOVASCULAR: +Shortness of breath. No chest pain. RESPIRATORY: No cough, wheezing, or hemoptysis. GASTROINTESTINAL: No nausea, vomiting, diarrhea or constipation. GENITOURINARY: No dysuria, frequency, or change in urination. MUSCULOSKELETAL: No joint or muscle swelling or pain. No neck or back pain. SKIN: No rash NEUROLOGIC: No headache, vertigo, loss of consciousness, or change in strength/ sensation. ENDOCRINE: No increased thirst. No abnormal weight change HEMATOLOGIC/LYMPHATIC: No anemia, easy bleeding, or history of blood clots. ALLERGIC/IMMUNOLOGIC: No hives or skin allergy. <Stephen Jimenez - Last Filed: 02/02/17 01:11> *Physical Exam - Vital Signs Last Vital Signs Temp Pulse Resp BP Pulse Ox 98.8 F 112 H 20 106/70 94 L 02/02/17 00:21 02/02/17 00:21 02/02/17 00:21 02/02/17 00:21 02/02/17 00:21 - Physical Exam Comments: 02/02/17 01:16 GENERAL: Awake, alert, and fully oriented, in no acute distress HEAD: No signs of trauma, normocephalic, atraumatic EYES: PERRLA, EOMI, sclera anicteric, conjunctiva clear ENT: Auricles normal inspection, hearing grossly normal, nares patent, oropharynx clear without exudates. Moist mucosa NECK: Normal ROM, supple, no lymphadenopathy, JVD, or masses LUNGS: No distress, speaks full sentences. +End expiratory wheezing bilaterally. HEART: Regular rate and rhythm, normal S1 and S2, no murmurs, rubs or gallops, peripheral pulses normal and equal bilaterally. ABDOMEN: Soft, nontender, normoactive bowel sounds. No guarding, no rebound. No masses EXTREMITIES: Normal inspection, Normal range of motion, no edema. No clubbing or cyanosis. NEUROLOGICAL: Cranial nerves II through XII grossly intact. Normal speech, normal gait, no focal sensorimotor deficits SKIN: Warm, Dry, normal turgor, no rashes or lesions noted. <Stephen Jimenez - Last Filed: 02/02/17 01:11> ED Treatment Course - LABORATORY CBC & Chemistry Diagram: 02/02/17 01:45 02/02/17 01:45 <Feng Harris - Last Filed: 02/12/17 09:06> *DC/Admit/Observation/Transfer - Attestations Scribe Attestion: 02/02/17 01:17 Documentation prepared by Stephen Jimenez, acting as medical accounts receivable specialist for Feng Harris DO <Stephen Jimenez - Last Filed: 02/02/17 01:11> - Attestations Physician Attestion: 02/02/17 00:23 I, Dr. Feng Harris, attest that this document has been prepared under my direction and personally reviewed by me in its entirety. I further attest, that it accurately reflects all work, treatment, procedures and medical decision -making performed by me. <Feng Harris - Last Filed: 02/12/17 09:06> Diagnosis at time of Disposition: COPD exacerbation - Discharge Dispostion Disposition: HOME Condition at time of disposition: Improved - Prescriptions Prescriptions: Levofloxacin [Levaquin] 750 mg PO DAILY #7 tablet Methylprednisolone [Medrol Dose [place]] 4 mg PO ASDIR #21 tablet - Referrals Referrals: Jose Deng [Primary Care Provider] - - Patient Instructions Printed Discharge Instructions: DI for Chronic Obstructive Pulmonary Disease
[2017-02-02] MEDS ORDERED: methylPREDNISolone NA SUCC 125 MG/2 ML VIAL IVPB ONE (00:32)
[2017-02-02] MEDS ORDERED: ALBUTEROL SO4 2.5/IPRATROPIUM 0.5 INH SOL 3 ML VIAL.NEB. NEB ONE (00:32)
[2017-02-02] MEDS ORDERED: ALBUTEROL SO4 0.083% IH SOL 2.5 MG/3 ML VIAL.NEB. NEB ONE (00:32)
[2017-02-02 00:43] VITALS: BP 106/70; PULSE 112; TEMP 98.8; BMI 21.8
[2017-02-02] MEDS ORDERED: LEVOFLOXACIN 750 MG IVPB 150 ML IVPB ONE (01:33)
[2017-02-02 02:03] LABS: VENOUS BLOOD GAS HCO3 31.6 meq/L (19-25)
[2017-02-02 02:04] LABS: VENOUS PH 7.31 (7.32-7.42)
[2017-02-02 02:06] LABS: BASOPHIL 0.2 % (0-2.0); EOSINOPHIL 0.2 % (0-4.5); MCH 29.2 pg (25.7-33.7); MCHC 31.8 g/dl (32.0-35.9); MEAN CELL VOLUME 91.7 fl (80-96); MEAN PLT VOLUME 8.8 fl (7.5-11.1); NEUTROPHILS 84.4 % (42.8-82.8); PLATELET COUNT 138 K/MM3 (134-434); RDW 13.5 % (11.9-15.9)
[2017-02-02 02:17] LABS: ARTERIAL BLOOD GAS BASE EXCESS 2.8 meq/l (-2-2); ARTERIAL BLOOD GAS HCO3 28.7 meq/L (22-26); ARTERIAL BLOOD GAS pH 7.36 (7.35-7.45)
[2017-02-02 02:18] LABS: ALLENS TEST POSITIVE; ART PUNCT SITE RIGHT RADIAL
[2017-02-02 02:19] LABS: LPM/O2% 4; PT. ON O2? YES; TYPE OF O2 NASAL CANNULA
[2017-02-02 02:20] LABS: ARTERIAL BLD GAS O2 SATURATION 99.6 % (90-98.9)
[2017-02-02 02:21] LABS: INR 0.95 (0.82-1.09); PROTHROMBIN TIME (PATIENT) 10.4 SEC (9.98-11.88)
[2017-02-02 02:22] LABS: METHEMOGLOBIN 1.1 % (0.4-1.5)
[2017-02-02 02:30] LABS: ALBUMIN 2.9 g/dl (3.4-5.0); ANION GAP 8 (8-16); BILIRUBIN,TOTAL 0.4 mg/dL (0.2-1.0); CALCIUM 8.8 mg/dL (8.5-10.1); CO2 32 mmol/L (21-32); COCKROFT - GAULT 71.84; CREATININE 1.2 mg/dL (0.7-1.3); GLUCOSE,RANDOM 146 mg/dL (74-106); SGPT/ALT 43 U/L (12-78); TOT PROT 5.9 g/dl (6.4-8.2)
[2017-02-02 02:32] LABS: ALK PHOS 102 U/L (45-117); TROPONIN I < 0.02 ng/ml (0.00-0.05)
[2017-02-02 02:34] LABS: SGOT/AST 19 U/L (15-37)
--- NOTE | 2017-02-02 05:00 | PDOC ---
*Physical Exam - Vital Signs Last Vital Signs Temp Pulse Resp BP Pulse Ox 98.8 F 112 H 20 106/70 94 L 02/02/17 00:21 02/02/17 00:21 02/02/17 00:21 02/02/17 00:21 02/02/17 00:21 ED Treatment Course - LABORATORY CBC & Chemistry Diagram: 02/02/17 01:45 02/02/17 01:45 - ADDITIONAL ORDERS Additional order review: Laboratory Results 02/02/17 02/02/17 02/02/17 02:10 02:10 02:00 INR Puncture Site Right radial ABG pH 7.36 ABG pCO2 at Pt Temp 51.6 H ABG pO2 at Pt Temp 188.0 H* ABG HCO3 28.7 H ABG O2 Sat (Measured) 99.6 H* ABG O2 Content 18.6 ABG Base Excess 2.8 H Keo Test Positive VBG pH 7.31 L POC VBG pCO2 65.4 H* POC VBG pO2 40.0 Mixed VBG HCO3 31.6 H Carboxyhemoglobin 3.1 H Methemoglobin 1.1 O2 Delivery Device Nasal cannula Oxygen Flow Rate 4 Sodium Potassium Chloride Carbon Dioxide Anion Gap BUN Creatinine Creat Clearance w eGFR Random Glucose Lactic Acid Calcium Total Bilirubin AST ALT Alkaline Phosphatase Creatine Kinase Creatine Kinase Index CK-MB (CK-2) CK-MB (CK-2) Rel Index Troponin I Total Protein Albumin 02/02/17 02/02/17 02/02/17 01:45 01:45 01:45 INR Puncture Site ABG pH ABG pCO2 at Pt Temp ABG pO2 at Pt Temp ABG HCO3 ABG O2 Sat (Measured) ABG O2 Content ABG Base Excess Keo Test VBG pH POC VBG pCO2 POC VBG pO2 Mixed VBG HCO3 Carboxyhemoglobin Methemoglobin O2 Delivery Device Oxygen Flow Rate Sodium 143 Potassium 4.7 Chloride 103 Carbon Dioxide 32 Anion Gap 8 BUN 11 Creatinine 1.2 Creat Clearance w eGFR > 60 Random Glucose 146 H Lactic Acid 1.227 Calcium 8.8 Total Bilirubin 0.4 AST 19 D ALT 43 D Alkaline Phosphatase 102 Creatine Kinase 180 Creatine Kinase Index 1.7 CK-MB (CK-2) 3.044 CK-MB (CK-2) Rel Index Cancelled Troponin I < 0.02 Total Protein 5.9 L Albumin 2.9 L 02/02/17 01:45 INR 0.95 Puncture Site ABG pH ABG pCO2 at Pt Temp ABG pO2 at Pt Temp ABG HCO3 ABG O2 Sat (Measured) ABG O2 Content ABG Base Excess Keo Test VBG pH POC VBG pCO2 POC VBG pO2 Mixed VBG HCO3 Carboxyhemoglobin Methemoglobin O2 Delivery Device Oxygen Flow Rate Sodium Potassium Chloride Carbon Dioxide Anion Gap BUN Creatinine Creat Clearance w eGFR Random Glucose Lactic Acid Calcium Total Bilirubin AST ALT Alkaline Phosphatase Creatine Kinase Creatine Kinase Index CK-MB (CK-2) CK-MB (CK-2) Rel Index Troponin I Total Protein Albumin 02/02/17 01:45 RBC 4.58 MCV 91.7 MCHC 31.8 L RDW 13.5 MPV 8.8 Neutrophils % 84.4 H Lymphocytes % 9.1 Monocytes % 6.1 Eosinophils % 0.2 Basophils % 0.2 - Medications Given in the ED: ED Medications Discontinued Medications Generic Name Dose Route Start Last Admin Trade Name Freq PRN Reason Stop Dose Admin Albuterol Sulfate 2 amp 02/02/17 00:32 02/02/17 02:14 Ventolin 0.083% Nebulizer Soln - NEB 02/02/17 00:33 2 amp ONCE ONE Administration Albuterol/Ipratropium 1 amp 02/02/17 00:32 02/02/17 02:14 Duoneb - NEB 02/02/17 00:33 1 amp ONCE ONE Administration Levofloxacin 150 mls @ 100 mls/hr 02/02/17 01:33 02/02/17 02:51 Levaquin 750 Mg Premixed Ivpb - IVPB 02/02/17 03:02 100 mls/hr ONCE ONE Administration Methylprednisolone Sodium Succinate 125 mg 02/02/17 00:32 02/02/17 02:14 Solu-Medrol - IVPB 02/02/17 00:33 125 mg ONCE ONE Administration *DC/Admit/Observation/Transfer Diagnosis at time of Disposition: COPD exacerbation - Discharge Dispostion Disposition: HOME Condition at time of disposition: Improved Admit: No - Referrals Referrals: Jose Deng [Primary Care Provider] - - Patient Instructions Printed Discharge Instructions: DI for Chronic Obstructive Pulmonary Disease - Post Discharge Activity
--- NOTE | 2017-02-02 13:25 | EKG ---
Test Reason : Blood Pressure : / mmHG Vent. Rate : 110 BPM Atrial Rate : 110 BPM P-R Int : 160 ms QRS Dur : 076 ms QT Int : 302 ms P-R-T Axes : 077 081 069 degrees QTc Int : 408 ms SINUS TACHYCARDIA OTHERWISE NORMAL ECG WHEN COMPARED WITH ECG OF 14-JAN-2017 07:36, QT HAS SHORTENED Confirmed by MICHELLE BUTLER MD ([id number]) on 02/02/2017 1:25:10 PM Referred By: Confirmed By:MICHELLE BUTLER MD
== END 2017-02-02 06:37 | disposition home or self-care (01) ==
LOC: JER 00:17
PROC: 3E0F7GC Introduction of Other Therapeutic Substance into Respiratory Tract, Via Natural or Artificial Opening (ICD-10-PCS; principal; 2017-02-02)
PROC: 3E0F7GC Introduction of Other Therapeutic Substance into Respiratory Tract, Via Natural or Artificial Opening (ICD-10-PCS; 2017-02-02)
PROC: 3E033GC Introduction of Other Therapeutic Substance into Peripheral Vein, Percutaneous Approach (ICD-10-PCS; 2017-02-02)
PROC: 3E03329 Introduction of Other Anti-infective into Peripheral Vein, Percutaneous Approach (ICD-10-PCS; 2017-02-02)
DX: J44.1 Chronic obstructive pulmonary disease with (acute) exacerbation (principal); J45.909 Unspecified asthma, uncomplicated; E11.9 Type 2 diabetes mellitus without complications; Z79.84 Long term (current) use of oral hypoglycemic drugs; I10 Essential (primary) hypertension; F17.210 Nicotine dependence, cigarettes, uncomplicated
CPT/HCPCS: 36415; 36600; 71010-TC; 80053; 82375; 82550; 82553; 82803; 83050; 83605; 84484; 85025; 85610; 87040; 93005; 93010; 99281-25; 99283-25

== ENCOUNTER 2017-07-16 08:07 | Inpatient (IN) | payer BC, OTHER ==
[2017-07-16] MEDS ORDERED: methylPREDNISolone NA SUCC 125 MG/2 ML VIAL IVPB ONE (08:50)
[2017-07-16] MEDS: ALBUTEROL SO4 2.5/IPRATROPIUM 0.5 INH SOL 3 ML VIAL.NEB. NEB SCH ×6 (08:56→23:10)
[2017-07-16] MEDS ORDERED: methylPREDNISolone NA SUCC 125 MG/2 ML VIAL ONE (09:12)
[2017-07-16 09:16] LABS: BASOPHIL 0.5 % (0-2.0); EOSINOPHIL 0.3 % (0-4.5); MCH 28.8 pg (25.7-33.7); MCHC 31.9 g/dl (32.0-35.9); MEAN CELL VOLUME 90.3 fl (80-96); MEAN PLT VOLUME 9.6 fl (7.5-11.1); NEUTROPHILS 82.1 % (42.8-82.8); PLATELET COUNT 180 K/MM3 (134-434); RDW 13.5 % (11.9-15.9); WHITE BLOOD COUNT 17.3 K/mm3 (4.0-10.0)
[2017-07-16] MEDS ORDERED: ALBUTEROL SO4 2.5/IPRATROPIUM 0.5 INH SOL 3 ML VIAL.NEB. NEB ONE (09:17)
[2017-07-16 09:42] LABS: ALBUMIN 3.3 g/dl (3.4-5.0); ALK PHOS 120 U/L (45-117); ANION GAP 3 (8-16); BILIRUBIN,TOTAL 0.3 mg/dL (0.2-1.0); CALCIUM 8.4 mg/dL (8.5-10.1); CO2 36 mmol/L (21-32); CREATININE 1.1 mg/dL (0.7-1.3); GLUCOSE,RANDOM 122 mg/dL (74-106); SGOT/AST 9 U/L (15-37); SGPT/ALT 15 U/L (12-78); TOT PROT 6.9 g/dl (6.4-8.2)
--- NOTE | 2017-07-16 10:46 | PDOC ---
History of Present Illness - General Chief Complaint: Asthma Stated Complaint: ASTHMA Time Seen by Provider: 07/16/17 08:34 History Source: Patient Exam Limitations: No Limitations - History of Present Illness Initial Comments: 07/16/17 11:31 56-year-old male with history of COPD, asthma and is a current every day smoker presents with cough, wheezing, and difficulty breathing with minimal exertion x 2 days. Patient states has been using his nebulizer machine along with his inhaler for the past day with minimal improvement and so decided to come to the ER today. Patient states last episode of bronchitis was approximately 4 months ago and denies any recent hospitalizations, recent travel, fever, chills, chest pain, nausea, or change in activity. Patient is a resident at [facility] and is currently on a Medrol pack. Timing/Duration: reports: yesterday Severity: reports: moderate Possible Cause: Yes: frequent episodes Modifying Factors: improves with: activity, albuterol inhaler, albuterol nebulizer, coughing Associated Symptoms: reports: cough, shortness of breath, wheezing. denies: fever/chills, headache, lightheadedness, muscle aches, nasal congestion, nasal drainage Past History - Travel Traveled outside of the country in the last 30 days: No Close contact w/someone who was outside of country & ill: No - Past Medical History Allergies/Adverse Reactions: Allergies Allergy/AdvReac Type Severity Reaction Status Date / Time No Known Allergies Allergy Verified 02/02/17 00:21 Home Medications: Ambulatory Orders Metformin HCl [Glucophage -] 500 mg PO BID 09/15/15 Ergocalciferol (Vitamin D2) [Vitamin D] 50,000 unit PO Q7D 10/09/15 Simvastatin [Zocor -] 20 mg PO HS 10/09/15 Albuterol Sulfate [Proair Respiclick] 90 mcg IH Q6H 06/28/16 Budesonide/Formeterol Fumarate [SYMBICORT 160/4.5mcg -] 1 inh PO BID 01/14/17 Tiotropium [place] [Spiriva] 1 inh IH DAILY 01/14/17 Methylprednisolone [Medrol Dose Andrew] 4 mg PO ASDIR #21 tablet 02/02/17 Anemia: No Asthma: Yes Cancer: No Cardiac Disorders: No CVA: No COPD: Yes CHF: No Dementia: No Diabetes: Yes (DM) GI Disorders: No Disorders: No HTN: Yes Hypercholesterolemia: No Liver Disease: No Seizures: No Thyroid Disease: No - Surgical History Abdominal Surgery: No Appendectomy: No Cardiac Surgery: No Cholecystectomy: No Lung Surgery: No Neurologic Surgery: No - Immunization History Immunization Up to Date: Yes - Suicide/Smoking/Psychosocial Hx Smoking History: Former smoker Have you smoked in the past 12 months: No Number of Cigarettes Smoked Daily: 5 Information on smoking cessation initiated: No 'Breaking Loose' booklet given: 06/28/16 Hx Alcohol Use: No Drug/Substance Use Hx: No Substance Use Type: None Hx Substance Use Treatment: No Patient Lives Alone: No Lives with/in: assisted living Respiratory Specific PMHX - Complaint Specific PMHX Angina: No Bronchitis: No Pneumonia: No Pulmonary Embolus: No TB (Tuberculosis): No Review of Systems - Review of Systems Able to Perform ROS?: No Is the patient limited Azeri proficient: No Constitutional: No: Symptoms Reported HEENTM: No: Symptoms Reported Respiratory: Yes: Cough, Shortness of Breath, Wheezing Cardiac (ROS): No: Symptoms Reported ABD/GI: No: Symptoms Reported : No: Symptoms Reported Musculoskeletal: No: Symptoms Reported Integumentary: No: Symptoms Reported Neurological: No: Symptoms reported Endocrine: No: Symptoms Reported Hematologic/Lymphatic: No: Symptoms Reported *Physical Exam - Vital Signs Last Vital Signs Temp Pulse Resp BP Pulse Ox 97.9 F 113 H 16 113/51 98 07/16/17 08:26 07/16/17 08:26 07/16/17 08:26 07/16/17 08:26 07/16/17 08:26 - Physical Exam General Appearance: Yes: Nourished, Appropriately Dressed. No: Apparent Distress HEENT: positive: EOMI, ASHWINI. negative: Pale Conjunctivae Neck: positive: Supple Respiratory/Chest: positive: Accessory Muscle Use (mild intercostal), Decreased Breath Sounds (at bases). negative: Respiratory Distress, Wheezing Cardiovascular: positive: Regular Rhythm, Regular Rate. negative: Murmur Gastrointestinal/Abdominal: positive: Soft. negative: Tenderness Musculoskeletal: negative: CVA Tenderness Extremity: positive: Normal Capillary Refill. negative: Pedal Edema Integumentary: positive: Normal Color, Warm, Moist Neurologic: positive: Motor Strength 5/5 (ambulatory) Heart Score/ECG Review - ECG Intrepretation Rhythm: Regular Rhythm (rate 109. no st elevation or depression. intervals are regular) ED Treatment Course - LABORATORY CBC & Chemistry Diagram: 07/16/17 08:55 07/16/17 08:55 - ADDITIONAL ORDERS Additional order review: Laboratory Results 07/16/17 10 08:55 08:55 Sodium 143 Potassium 4.7 Chloride 104 Carbon Dioxide 36 H Anion Gap 3 L BUN 10 Creatinine 1.1 Creat Clearance w eGFR > 60 Random Glucose 122 H Lactic Acid 1.0 Calcium 8.4 L Total Bilirubin 0.3 D AST 9 L D ALT 15 D Alkaline Phosphatase 120 H Total Protein 6.9 Albumin 3.3 L 07/16/17 08:55 RBC 4.80 MCV 90.3 MCHC 31.9 L RDW 13.5 MPV 9.6 Neutrophils % 82.1 Lymphocytes % 10.6 Monocytes % 6.5 Eosinophils % 0.3 Basophils % 0.5 - RADIOLOGY Radiology Studies Ordered: Category Date Time Status CHEST X-RAY PORTABLE* [RAD] Stat Radiology 07/16/17 08:50 Completed - Medications Given in the ED: ED Medications Discontinued Medications Generic Name Dose Route Start Last Admin Trade Name Freq PRN Reason Stop Dose Admin Albuterol/Ipratropium 1 amp 07/16/17 09:00 07/16/17 10:08 Duoneb - NEB 07/16/17 09:46 1 amp Q15M LAURITA Administration Methylprednisolone Sodium Succinate 125 mg 07/16/17 08:50 07/16/17 08:56 Solu-Medrol - IVPB 07/16/17 08:51 125 mg ONCE ONE Administration Medical Decision Making - Critical Care Time Total Critical Care Time (minutes): 50 Critical Care Statement: The care of this patient involved high complexity decision making to prevent further life threatening deterioration of the patient 's condition and/or to evaluate & treat vital organ system(s) failure or risk of failure. - Medical Decision Making 07/16/17 10:37 Patient with here complaining of respiratory difficulty wheezing along with cough. Patient is a current every day smoker and is also on Metro presently. Patient states completed his Levaquin about 4-5 months ago for bronchitis. Patient has no other complaints at this time. Patient exam has decreased breath sounds the bases along with an O2 sat of 91% at best dropping down to the mid 80s. patient also with expiratory wheeze bilateral. Patient ordered for labs including lactic acid and blood cultures. Patient also ordered for DuoNeb 4 along with Solu-Medrol IV. 07/16/17 11:39 Chest x-ray negative. Patient with heart rate ranging anywhere from 92-105. Patient be ordered for CT of the chest with contrast due to elevated d-dimer. Patient completed his for DuoNeb. no expiratory wheeze auscultated. Laboratory Tests 07/16/17 07/16/17 07/16/17 08:55 08:55 08:55 WBC 17.3 H Hgb 13.8 Hct 43.3 Plt Count 180 D Neutrophils % 82.1 D-Dimer 267 H Sodium 143 Potassium 4.7 Chloride 104 Carbon Dioxide 36 H Anion Gap 3 L BUN 10 Creatinine 1.1 Creat Clearance w eGFR > 60 Random Glucose 122 H Lactic Acid Calcium 8.4 L Alkaline Phosphatase 120 H Total Protein 6.9 Albumin 3.3 L 07/16/17 08:55 WBC Hgb Hct Plt Count Neutrophils % D-Dimer Sodium Potassium Chloride Carbon Dioxide Anion Gap BUN Creatinine Creat Clearance w eGFR Random Glucose Lactic Acid 1.0 Calcium Alkaline Phosphatase Total Protein Albumin 07/16/17 12:04 Patient while sleeping oxygen level did drop to 85% patient will be ordered for 2 L of oxygen via nasal cannula. Case discussed with Dr. Vito Donald and accepted to practice stating to admit under Dr. Hernandez. *DC/Admit/Observation/Transfer Diagnosis at time of Disposition: COPD exacerbation, Hypoxia - Discharge Dispostion Admit: Yes
--- NOTE | 2017-07-16 12:51 | PDOC ---
*Physical Exam - Vital Signs Last Vital Signs Temp Pulse Resp BP Pulse Ox 97.9 F 113 H 16 113/51 98 07/16/17 08:26 07/16/17 08:26 07/16/17 08:26 07/16/17 08:26 07/16/17 08:26 ED Treatment Course - LABORATORY CBC & Chemistry Diagram: 07/16/17 08:55 07/16/17 08:55 - ADDITIONAL ORDERS Additional order review: Laboratory Results 07/16/17 07/16/17 07/16/17 08:55 08:55 08:55 D-Dimer 267 H Sodium 143 Potassium 4.7 Chloride 104 Carbon Dioxide 36 H Anion Gap 3 L BUN 10 Creatinine 1.1 Creat Clearance w eGFR > 60 Random Glucose 122 H Lactic Acid 1.0 Calcium 8.4 L Total Bilirubin 0.3 D AST 9 L D ALT 15 D Alkaline Phosphatase 120 H Total Protein 6.9 Albumin 3.3 L 07/16/17 08:55 RBC 4.80 MCV 90.3 MCHC 31.9 L RDW 13.5 MPV 9.6 Neutrophils % 82.1 Lymphocytes % 10.6 Monocytes % 6.5 Eosinophils % 0.3 Basophils % 0.5 - Medications Given in the ED: ED Medications Discontinued Medications Generic Name Dose Route Start Last Admin Trade Name Freq PRN Reason Stop Dose Admin Albuterol/Ipratropium 1 amp 07/16/17 09:00 07/16/17 10:08 Duoneb - NEB 07/16/17 09:46 1 amp Q15M LAURITA Administration Methylprednisolone Sodium Succinate 125 mg 07/16/17 08:50 07/16/17 08:56 Solu-Medrol - IVPB 07/16/17 08:51 125 mg ONCE ONE Administration Medical Decision Making - Medical Decision Making 07/16/17 12:50 Pt seen by the Advanced Practice Provider under my direct supervision Ancillary studies reviewed I agree with plan as outlined by the Advanced Practice Provider *DC/Admit/Observation/Transfer Diagnosis at time of Disposition: COPD exacerbation, Hypoxia - Referrals Referrals: Irvin Hernandez MD [Primary Care Provider] - - Patient Instructions - Post Discharge Activity
[2017-07-16 15:09] VITALS: BMI 22.8
--- NOTE | 2017-07-16 15:27 | EKG ---
Test Reason : Blood Pressure : / mmHG Vent. Rate : 109 BPM Atrial Rate : 109 BPM P-R Int : 178 ms QRS Dur : 074 ms QT Int : 326 ms P-R-T Axes : 064 087 072 degrees QTc Int : 439 ms SINUS TACHYCARDIA BASELINE ARTIFACT SEPTAL INFARCT , AGE UNDETERMINED ABNORMAL ECG WHEN COMPARED WITH ECG OF 02-FEB-2017 02:24, NO SIGNIFICANT CHANGE WAS FOUND CLINICAL CORRELATION IS RECOMMENDED Confirmed by LATOYA HOWE MD ([id number]) on 07/16/2017 3:26:55 PM Referred By: Confirmed By:LATOYA HOWE MD
[2017-07-16] MEDS ORDERED: PT OWN MED DRAWER 7, Y5N ONE (17:20)
[2017-07-16] MEDS: methylPREDNISolone NA SUCC 125 MG/2 ML VIAL IVPB SCH (17:56)
[2017-07-16] MEDS: metFORMIN HCL 500 MG TABLET (FP) PO SCH (17:56)
[2017-07-16] MEDS: ATORVASTATIN CA 10 MG TABLET (FP) PO SCH (21:04)
[2017-07-17] MEDS: methylPREDNISolone NA SUCC 125 MG/2 ML VIAL IVPB SCH ×3 (03:21→17:38)
[2017-07-17] MEDS: metFORMIN HCL 500 MG TABLET (FP) PO SCH ×2 (06:06→17:37)
[2017-07-17] MEDS: ALBUTEROL SO4 2.5/IPRATROPIUM 0.5 INH SOL 3 ML VIAL.NEB. NEB SCH ×2 (06:50→11:05)
[2017-07-17 07:46] LABS: MCH 28.6 pg (25.7-33.7); MCHC 31.3 g/dl (32.0-35.9); MEAN CELL VOLUME 91.3 fl (80-96); MEAN PLT VOLUME 9.9 fl (7.5-11.1); PLATELET COUNT 184 K/MM3 (134-434); WHITE BLOOD COUNT 15.8 K/mm3 (4.0-10.0)
[2017-07-17 08:12] LABS: ALBUMIN 3.1 g/dl (3.4-5.0); ANION GAP 4 (8-16); CALCIUM 9.3 mg/dL (8.5-10.1); CO2 35 mmol/L (21-32)
[2017-07-17 08:18] LABS: ALK PHOS 117 U/L (45-117); BILIRUBIN,TOTAL 0.2 mg/dL (0.2-1.0); GLUCOSE,RANDOM 134 mg/dL (74-106); SGOT/AST 8 U/L (15-37); SGPT/ALT 15 U/L (12-78); TOT PROT 6.7 g/dl (6.4-8.2)
--- NOTE | 2017-07-17 09:43 | HP ---
DATE OF ADMISSION: HISTORY: The patient is a 56-year-old male with a past medical history of COPD, asthma, diabetes who came to the emergency room with complaints of cough, wheezing, difficulty breathing with minimal exertion for 2 days. The patient is a chronic smoker. The patient used a nebulizer machine at home, but there was no relief, so the patient decided to come to the emergency room. The patient has a history of bronchitis 4 months ago. No chest pain, no palpitations, no fever. The patient lives in [facility]. The patient is currently on Medrol starr prescribed by physician outside. States that the symptoms were persistent and getting worse and came to the emergency room. PAST MEDICAL HISTORY: Significant for asthma, COPD, diabetes, hypertension, smoker. SOCIAL HISTORY: Living at assisted living. MEDICATIONS: Metformin, Zocor, vitamin D2, ProAir, Symbicort, Spiriva, Medrol starr. ALLERGIES: No known drug allergies. REVIEW OF SYSTEMS: General Examination: No apparent distress. Respiratory: Shortness of breath, wheezing. Cardiovascular: Nothing significant. Endocrine: The patient is diabetic. Central nervous system: Nothing significant. Neuromuscular: Nothing significant. PHYSICAL EXAMINATION: Vital Signs: In the emergency room, temperature 97.9, blood pressure 113/51, pulse rate 113, respirations 18. As per the ER, the saturation was 91% at rest, and it was dropping down to mid 80s when he was getting up from the bed. Expiratory wheezing was present. Chest: Bilateral wheezing and rhonchi present. Cardiovascular: First and 2nd sound normal. Abdomen: Soft. No tenderness. No distention. Bowel sounds present. Extremities: No edema. Musculoskeletal: Normal. Central Nervous System: No apparent motor or sensory deficit. Reflex normal. LABORATORIES: WBC 17.3, hemoglobin 13.8, hematocrit 43.3, platelets 180. Comprehensive panel normal. Lactic acid , calcium 8.4, D-dimer 267, ALT 16, alkaline phosphatase 120. Blood culture no growth. Chest x-ray, no acute pathology. Calcification at the humeral head present. EKG: Sinus rhythm, septal infarct. CT chest, no pulmonary embolism, no pneumonia. Upper lobe central lobular emphysematous lung. Bilateral pulmonary nodule. Recommend short-term follow up. The patient was given oxygen and nebulizer treatment in the emergency room. IMPRESSION: Admitted on the floor with admitting diagnosis of COPD exacerbation, hypoxemia, diabetes. PLAN: Nasal oxygen, bronchodilators, IV steroids, Symbicort, Spiriva, Solu-Medrol IV 60 mg IV 8 hours. Pulmonary consult. ADA diet ordered. Patient stable on the floor. LILIA LAYTON M.D. [id number]
--- NOTE | 2017-07-17 09:46 | PN ---
Progress Note, Physician Chief Complaint: Pt lying in bed,afebrile,Wheezing present,mild sob present Pt is on nasal oxygen labs noted blood cul negative,Ct chest findings noted showscentrilobular emphysematous changes,bilateral pul nodules,no pneumonia,no PE - Current Medication List Current Medications: Active Medications Albuterol/Ipratropium (Duoneb -) 1 amp NEB QIDR [facility] Last Admin: 07/17/17 06:50 Dose: Not Given Atorvastatin Calcium (Lipitor -) 10 mg PO HS [facility] Last Admin: 07/16/17 21:04 Dose: 10 mg Ergocalciferol (Drisdol -) 50,000 unit PO Q7D@1000 [facility] Influenza Virus Vaccine Quadrival (Flulaval Quad [id number]) 60 mcg IM .ONCE ONE Stop: 07/17/17 10:01 Metformin HCl (Glucophage -) 500 mg PO BIDAC [facility] Last Admin: 07/17/17 06:06 Dose: 500 mg Methylprednisolone Sodium Succinate (Solu-Medrol -) 60 mg IVPB Q8H-IV [facility] Last Admin: 07/17/17 03:21 Dose: 60 mg Tiotropium [place] (Spiriva -) 1 puff IH DAILY [facility] - Objective Vital Signs: Vital Signs Temperature 98.1 F 07/17/17 06:37 Pulse Rate 92 H 07/17/17 06:37 Respiratory Rate 20 07/17/17 06:37 Blood Pressure 121/79 07/17/17 06:37 O2 Sat by Pulse Oximetry (%) 95 07/16/17 21:00 Constitutional: Yes: No Distress Eyes: Yes: Conjunctiva Clear HENT: Yes: Atraumatic Neck: Yes: Supple Cardiovascular: Yes: Regular Rate and Rhythm Respiratory: Yes: Regular, Diminished, On Nasal O2, Rhonchi, Wheezes Gastrointestinal: Yes: Normal Bowel Sounds, Soft Musculoskeletal: Yes: WNL Extremities: Yes: WNL Edema: No Peripheral Pulses WNL: Yes Neurological: Yes: WNL, Alert, Oriented ...Motor Strength: WNL Psychiatric: Yes: WNL, Alert Labs: CBC, BMP 07/17/17 06:45 07/17/17 06:45 - ....Imaging Chest X-ray: Report Reviewed Cat Scan: Report Reviewed EKG: Report Reviewed Assessment/Plan SOB,COPD excacerbation./ASTHMA Hypoxia URI DM Hypercholestrolemia, Hyperkalemia PLAN OXYGEN continue Bronchodialators IV steroids monitor sugar ZPAK Keyexalate Monitor LABS Pul consult
[2017-07-17] MEDS ORDERED: FLU VACCINE QUAD 60 MCG/0.5 ML (MDV 17-18) IM ONE (10:00)
[2017-07-17] MEDS ORDERED: SODIUM POLYSTYRENE SULFONATE 15 GM/60 ML BOTTLE PO ONE (10:15)
[2017-07-17] MEDS ORDERED: PT OWN MED DRAWER 7, Y5N ONE (10:30)
[2017-07-17] MEDS: AZITHROMYCIN 250 MG TABLET PO SCH (10:39)
[2017-07-17] MEDS: TIOTROPIUM BROMIDE 18 MCG/INH (DEVICE W/ 5 CAPSULES) IH SCH (10:41)
--- NOTE | 2017-07-17 11:49 | CON.PULM ---
Consult Consult Specialty:: PULM/CCM Referred by:: DAT Reason for Consultation:: SOB - History of Present Illness Chief Complaint: SOB History of Present Illness: 56 F, COPD due to previous smoking. He tells me that he quit last year since he stopped hanging out with people who smoke. Apparent history of asthma as well. Admitted via the ER due to a few days of progressive cough, wheezing, and PAEZ with minimal exertion. Reports that his BD TX have been providing minimal improvement. No travel history or sick contacts. No fever or chills. No hemoptysis. CT : Bilateral emphysematous changes. Bilateral calcified and noncalcified nodules, the largest being 7 mm. Some of these nodules were present on previous imaging. - History Source History Provided By: Patient Limitations to Obtaining History: No Limitations - Past Medical History Pulmonary: Yes: COPD. No: O2 Dependent Endocrine: Yes: Diabetes Mellitus - Past Surgical History Past Surgical History: Yes: Tonsillectomy - Alcohol/Substance Use Hx Alcohol Use: No - Smoking History Smoking history: Former smoker Have you smoked in the past 12 months: No Aproximately how many cigarettes per day: 5 - Social History History of Recent Travel: No Home Medications - Allergies Allergies/Adverse Reactions: Allergies Allergy/AdvReac Type Severity Reaction Status Date / Time No Known Allergies Allergy Verified 02/02/17 00:21 - Home Medications Home Medications: Ambulatory Orders Metformin HCl [Glucophage -] 500 mg PO BID 09/15/15 Ergocalciferol (Vitamin D2) [Vitamin D] 50,000 unit PO Q7D 10/09/15 Simvastatin [Zocor -] 20 mg PO HS 10/09/15 Albuterol Sulfate [Proair Respiclick] 90 mcg IH Q6H 06/28/16 Tiotropium [place] [Spiriva] 1 inh IH DAILY 01/14/17 Albuterol 0.083% Nebulizer Ema [Ventolin 0.083% Nebulizer Soln -] 1 neb NEB Q6H PRN 07/16/17 Review of Systems - Review of Systems Constitutional: reports: Lethargy, Malaise, Weakness. denies: Chills, Fever, Night Sweats, Unintentional Wgt. Loss Eyes: reports: No Symptoms HENT: reports: No Symptoms Neck: reports: No Symptoms Cardiovascular: reports: Shortness of Breath. denies: Chest Pain, Edema, Palpitations Respiratory: reports: Cough, Exercise Intolerance, SOB, SOB on Exertion, Wheezing. denies: Hemoptysis, Snoring Gastrointestinal: reports: No Symptoms Genitourinary: reports: No Symptoms Breasts: reports: No Symptoms Reported Musculoskeletal: reports: No Symptoms Integumentary: reports: No Symptoms Neurological: reports: No Symptoms Endocrine: reports: No Symptoms Hematology/Lymphatic: reports: No Symptoms Psychiatric: reports: No Symptoms Physical Exam Vital Sings: Vital Signs Temperature 98.1 F 07/17/17 06:37 Pulse Rate 92 H 07/17/17 06:37 Respiratory Rate 20 07/17/17 06:37 Blood Pressure 121/79 07/17/17 06:37 O2 Sat by Pulse Oximetry (%) 95 07/16/17 21:00 Constitutional: Yes: No Distress Eyes: Yes: Conjunctiva Clear, EOM Intact HENT: Yes: Atraumatic, Normocephalic Neck: Yes: Supple, Trachea Midline Cardiovascular: Yes: Regular Rate and Rhythm Respiratory: Yes: Cough, Diminished, On BiPap, Rhonchi, Tachypnea, Wheezes. No : Accessory Muscle Use, Stridor ...Inspection: Yes: WNL ...Clubbing: No Gastrointestinal: Yes: Normal Bowel Sounds, Soft Renal/: Yes: WNL Musculoskeletal: Yes: WNL Extremities: Yes: WNL Edema: No Peripheral Pulses WNL: Yes Integumentary: Yes: WNL Neurological: Yes: WNL, Alert, Oriented ...Motor Strength: WNL Psychiatric: Yes: WNL, Alert, Oriented Labs: CBC, BMP 07/17/17 06:45 07/17/17 06:45 Imaging - Results Chest X-ray: Report Reviewed, Image Reviewed Cat Scan: Report Reviewed, Image Reviewed Problem List - Problems (1) COPD exacerbation Code(s): J44.1 - CHRONIC OBSTRUCTIVE PULMONARY DISEASE W (ACUTE) EXACERBATION (2) Hypoxia Code(s): R09.02 - HYPOXEMIA (3) Bronchitis Code(s): J40 - BRONCHITIS, NOT SPECIFIED ACUTE OR CHRONIC (4) COPD (chronic obstructive pulmonary disease) Code(s): J44.9 - CHRONIC OBSTRUCTIVE PULMONARY DISEASE, UNSPECIFIED Qualifiers : COPD type: unspecified COPD Qualified Code(s): J44.9 - Chronic obstructive pulmonary disease, unspecified; J44.9 - Chronic obstructive pulmonary disease, unspecified; J44.9 - Chronic obstructive pulmonary disease, unspecified; J44.9 - Chronic obstructive pulmonary disease, unspecified (5) Pulmonary nodules Code(s): R91.8 - OTHER NONSPECIFIC ABNORMAL FINDING OF LUNG FIELD Assessment/Plan Medrol BD TX O2 as needed Smoking cessation discussed Avoid IRAIS with LAMA -> change to Albuterol PRN PFTs once stable as an outpatient Noted Z max Will need repeat CT In 3 months to follow 7 mm nodule. VTE prophylaxis Will follow Thank you. Dr Kelsey
[2017-07-17] MEDS ORDERED: ALBUTEROL SO4 0.083% IH SOL 2.5 MG/3 ML VIAL.NEB. NEB PRN (11:54)
[2017-07-17] MEDS: ARFORMOTEROL TARTRATE 15 MCG/2 ML VIAL NEB SCH ×2 (14:05→22:29)
[2017-07-17] MEDS: ERGOCALCIFEROL (VITAMIN D2) 50,000 UNIT CAPSULE (FP) PO SCH (15:16)
[2017-07-17] MEDS: ATORVASTATIN CA 10 MG TABLET (FP) PO SCH (21:28)
[2017-07-18] MEDS: methylPREDNISolone NA SUCC 125 MG/2 ML VIAL IVPB SCH ×3 (01:18→17:47)
[2017-07-18] MEDS: metFORMIN HCL 500 MG TABLET (FP) PO SCH ×2 (06:17→17:48)
[2017-07-18 07:15] LABS: BASOPHIL 0.3 % (0-2.0); MCH 28.3 pg (25.7-33.7); MCHC 31.4 g/dl (32.0-35.9); MEAN PLT VOLUME 9.7 fl (7.5-11.1); NEUTROPHILS 91.7 % (42.8-82.8); PLATELET COUNT 209 K/MM3 (134-434); RDW 13.6 % (11.9-15.9); WHITE BLOOD COUNT 15.2 K/mm3 (4.0-10.0)
[2017-07-18 07:40] LABS: ALBUMIN 3.1 g/dl (3.4-5.0); ANION GAP 6 (8-16); BILIRUBIN,TOTAL 0.3 mg/dL (0.2-1.0); CALCIUM 9.1 mg/dL (8.5-10.1); CO2 35 mmol/L (21-32); CREATININE 1.1 mg/dL (0.7-1.3); GLUCOSE,RANDOM 138 mg/dL (74-106); SGPT/ALT 13 U/L (12-78); TOT PROT 6.7 g/dl (6.4-8.2)
[2017-07-18 07:41] LABS: ALK PHOS 101 U/L (45-117); SGOT/AST 4 U/L (15-37)
[2017-07-18] MEDS: ARFORMOTEROL TARTRATE 15 MCG/2 ML VIAL NEB SCH ×2 (09:18→22:00)
[2017-07-18] MEDS ORDERED: PT OWN MED DRAWER 7, Y5N ONE (09:26)
--- NOTE | 2017-07-18 09:34 | PN ---
Progress Note, Physician Chief Complaint: Pt lying in bed,afebrile,Wheezing present,mild sob present Pt is on nasal oxygen labs noted blood cul negative,Ct chest findings noted showscentrilobular emphysematous changes,bilateral pul nodules,no pneumonia,no PE - Current Medication List Current Medications: Active Medications Albuterol Sulfate (Ventolin 0.083% Nebulizer Soln -) 1 amp NEB Q4H PRN PRN Reason: SHORT OF BREATH/WHEEZING Arformoterol Tartrate ([place]rov[place] (Restricted To Pulmonology/Resp) -) 1 amp NEB BID [facility] Last Admin: 07/18/17 09:18 Dose: 1 amp Atorvastatin Calcium (Lipitor -) 10 mg PO HS [facility] Last Admin: 07/17/17 21:28 Dose: 10 mg Azithromycin (Zithromax -) 500 mg PO DAILY [facility] Last Admin: 07/17/17 10:39 Dose: 500 mg Ergocalciferol (Drisdol -) 50,000 unit PO Q7D@1000 [facility] Last Admin: 07/17/17 15:16 Dose: 50,000 unit Metformin HCl (Glucophage -) 500 mg PO BIDAC [facility] Last Admin: 07/18/17 06:17 Dose: 500 mg Methylprednisolone Sodium Succinate (Solu-Medrol -) 60 mg IVPB Q8H-IV [facility] Last Admin: 07/18/17 01:18 Dose: 60 mg Tiotropium [place] (Spiriva -) 1 puff IH DAILY [facility] Last Admin: 07/17/17 10:41 Dose: 1 puff - Objective Vital Signs: Vital Signs Temperature 97.8 F 07/18/17 06:00 Pulse Rate 88 07/18/17 06:00 Respiratory Rate 20 07/18/17 06:00 Blood Pressure 149/69 07/18/17 06:00 O2 Sat by Pulse Oximetry (%) 95 07/17/17 21:00 Constitutional: Yes: No Distress Eyes: Yes: Conjunctiva Clear HENT: Yes: Atraumatic, Normocephalic Neck: Yes: Supple, Trachea Midline Cardiovascular: Yes: Regular Rate and Rhythm Respiratory: Yes: Regular, Cough, On Nasal O2, Rhonchi, Wheezes Gastrointestinal: Yes: Normal Bowel Sounds Musculoskeletal: Yes: WNL Extremities: Yes: WNL Edema: No Peripheral Pulses WNL: Yes Neurological: Yes: WNL, Alert ...Motor Strength: WNL Psychiatric: Yes: WNL, Alert Labs: CBC, BMP 07/18/17 06:30 07/18/17 06:30 Assessment/Plan SOB,COPD excacerbation./ASTHMA Hypoxia URI DM Hypercholestrolemia, PLAN OXYGEN continue Bronchodialators IV steroids monitor sugar ZPAK Monitor LABS Pul f/u
[2017-07-18] MEDS: AZITHROMYCIN 250 MG TABLET PO SCH (09:39)
[2017-07-18] MEDS: TIOTROPIUM BROMIDE 18 MCG/INH (DEVICE W/ 5 CAPSULES) IH SCH (09:41)
--- NOTE | 2017-07-18 10:48 | PN ---
Progress Note (short form) - Note Progress Note: Ambulating in the hallway. Feels better but still with congested cough with thick/green secretions. No CP. Intake & Output 07/15/17 07/16/17 07/17/17 07/18/17 23:59 23:59 23:59 23:59 Intake Total 1100 Balance 1100 Weight 150 lb Last Vital Signs Temp Pulse Resp BP Pulse Ox 97.8 F 88 20 149/69 95 07/18/17 06:00 07/18/17 06:00 07/18/17 06:00 07/18/17 06:00 07/17/17 21:00 Active Medications Albuterol Sulfate (Ventolin 0.083% Nebulizer Soln -) 1 amp NEB Q4H PRN PRN Reason: SHORT OF BREATH/WHEEZING Arformoterol Tartrate (Brovana (Restricted To Pulmonology/Resp) -) 1 amp NEB BID [facility] Last Admin: 07/18/17 09:18 Dose: 1 amp Atorvastatin Calcium (Lipitor -) 10 mg PO HS [facility] Last Admin: 07/17/17 21:28 Dose: 10 mg Azithromycin (Zithromax -) 500 mg PO DAILY [facility] Last Admin: 07/18/17 09:39 Dose: 500 mg Ergocalciferol (Drisdol -) 50,000 unit PO Q7D@1000 [facility] Last Admin: 07/17/17 15:16 Dose: 50,000 unit Metformin HCl (Glucophage -) 500 mg PO BIDAC [facility] Last Admin: 07/18/17 06:17 Dose: 500 mg Methylprednisolone Sodium Succinate (Solu-Medrol -) 60 mg IVPB Q8H-IV [facility] Last Admin: 07/18/17 09:39 Dose: 60 mg Tiotropium [place] (Spiriva -) 1 puff IH DAILY [facility] Last Admin: 07/18/17 09:41 Dose: 1 puff Constitutional: Yes: No Distress Eyes: Yes: Conjunctiva Clear, EOM Intact HENT: Yes: Atraumatic, Normocephalic Neck: Yes: Supple, Trachea Midline Cardiovascular: Yes: Regular Rate and Rhythm Respiratory: Yes: Cough, Diminished, rhonchi, less wheezes. No: Accessory Muscle Use, Stridor ...Inspection: Yes: WNL ...Clubbing: No Gastrointestinal: Yes: Normal Bowel Sounds, Soft Renal/: Yes: WNL Musculoskeletal: Yes: WNL Extremities: Yes: WNL Edema: No Peripheral Pulses WNL: Yes Integumentary: Yes: WNL Neurological: Yes: WNL, Alert, Oriented ...Motor Strength: WNL Psychiatric: Yes: WNL, Alert, Oriented Labs: Laboratory Results - last 24 hr 07/17/17 07/17/17 07/18/17 16:43 21:29 05:33 WBC RBC Hgb Hct MCV MCH MCHC RDW Plt Count MPV Neutrophils % Lymphocytes % Monocytes % Eosinophils % Basophils % Sodium Potassium Chloride Carbon Dioxide Anion Gap BUN Creatinine Creat Clearance w eGFR POC Glucometer 148 130 166 Random Glucose Calcium Total Bilirubin AST ALT Alkaline Phosphatase Total Protein Albumin 07/18/17 07/18/17 06:30 06:30 WBC 15.2 H RBC 4.77 Hgb 13.5 Hct 42.9 MCV 90.0 MCH 28.3 MCHC 31.4 L RDW 13.6 Plt Count 209 MPV 9.7 Neutrophils % 91.7 H Lymphocytes % 5.5 L D Monocytes % 2.5 L Eosinophils % 0.0 D Basophils % 0.3 Sodium 142 Potassium 4.9 Chloride 101 Carbon Dioxide 35 H Anion Gap 6 L BUN 25 H D Creatinine 1.1 Creat Clearance w eGFR > 60 POC Glucometer Random Glucose 138 H Calcium 9.1 Total Bilirubin 0.3 D AST 4 L D ALT 13 Alkaline Phosphatase 101 Total Protein 6.7 Albumin 3.1 L Problem List - Problems (1) COPD exacerbation Code(s): J44.1 - CHRONIC OBSTRUCTIVE PULMONARY DISEASE W (ACUTE) EXACERBATION (2) Hypoxia Code(s): R09.02 - HYPOXEMIA (3) Bronchitis Code(s): J40 - BRONCHITIS, NOT SPECIFIED ACUTE OR CHRONIC (4) COPD (chronic obstructive pulmonary disease) Code(s): J44.9 - CHRONIC OBSTRUCTIVE PULMONARY DISEASE, UNSPECIFIED Qualifiers : COPD type: unspecified COPD Qualified Code(s): J44.9 - Chronic obstructive pulmonary disease, unspecified; J44.9 - Chronic obstructive pulmonary disease, unspecified; J44.9 - Chronic obstructive pulmonary disease, unspecified; J44.9 - Chronic obstructive pulmonary disease, unspecified (5) Pulmonary nodules Code(s): R91.8 - OTHER NONSPECIFIC ABNORMAL FINDING OF LUNG FIELD Assessment/Plan Medrol -> Can likely change to daily Prednisone in the AM if he is stable/ improved and D/C home BD TX O2 as needed Smoking cessation discussed PFTs once stable as an outpatient Noted Zmax Will need repeat CT In 3 months to follow 7 mm nodule. VTE prophylaxis Dr Kelsey Problem List - Problems (1) COPD exacerbation Code(s): J44.1 - CHRONIC OBSTRUCTIVE PULMONARY DISEASE W (ACUTE) EXACERBATION (2) Hypoxia Code(s): R09.02 - HYPOXEMIA (3) Bronchitis Code(s): J40 - BRONCHITIS, NOT SPECIFIED ACUTE OR CHRONIC (4) COPD (chronic obstructive pulmonary disease) Code(s): J44.9 - CHRONIC OBSTRUCTIVE PULMONARY DISEASE, UNSPECIFIED Qualifiers : COPD type: unspecified COPD Qualified Code(s): J44.9 - Chronic obstructive pulmonary disease, unspecified; J44.9 - Chronic obstructive pulmonary disease, unspecified; J44.9 - Chronic obstructive pulmonary disease, unspecified; J44.9 - Chronic obstructive pulmonary disease, unspecified (5) Pulmonary nodules Code(s): R91.8 - OTHER NONSPECIFIC ABNORMAL FINDING OF LUNG FIELD
[2017-07-18] MEDS: ATORVASTATIN CA 10 MG TABLET (FP) PO SCH (22:38)
[2017-07-19] MEDS: methylPREDNISolone NA SUCC 125 MG/2 ML VIAL IVPB SCH ×3 (02:24→17:38)
[2017-07-19] MEDS: metFORMIN HCL 500 MG TABLET (FP) PO SCH ×2 (06:46→17:38)
--- NOTE | 2017-07-19 09:40 | PN ---
Progress Note, Physician Chief Complaint: Pt lying in bed,afebrile,Wheezing present Pt is on nasal oxygen and brovana labs noted blood cul negative,Ct chest findings noted showscentrilobular emphysematous changes,bilateral pul nodules,no pneumonia,no PE - Current Medication List Current Medications: Active Medications Albuterol Sulfate (Ventolin 0.083% Nebulizer Soln -) 1 amp NEB Q4H PRN PRN Reason: SHORT OF BREATH/WHEEZING Arformoterol Tartrate (Brovana (Restricted To Pulmonology/Resp) -) 1 amp NEB BID [facility] Last Admin: 07/18/17 22:00 Dose: 1 amp Atorvastatin Calcium (Lipitor -) 10 mg PO HS [facility] Last Admin: 07/18/17 22:38 Dose: 10 mg Azithromycin (Zithromax -) 500 mg PO DAILY [facility] Last Admin: 07/18/17 09:39 Dose: 500 mg Ergocalciferol (Drisdol -) 50,000 unit PO Q7D@1000 [facility] Last Admin: 07/17/17 15:16 Dose: 50,000 unit Metformin HCl (Glucophage -) 500 mg PO BIDAC [facility] Last Admin: 07/19/17 06:46 Dose: 500 mg Methylprednisolone Sodium Succinate (Solu-Medrol -) 60 mg IVPB Q8H-IV [facility] Last Admin: 07/19/17 02:24 Dose: 60 mg Tiotropium [place] (Spiriva -) 1 puff IH DAILY [facility] Last Admin: 07/18/17 09:41 Dose: 1 puff - Objective Vital Signs: Vital Signs Temperature 97.2 F L 07/19/17 06:00 Pulse Rate 66 07/19/17 06:00 Respiratory Rate 20 07/19/17 06:00 Blood Pressure 126/72 07/19/17 06:00 O2 Sat by Pulse Oximetry (%) 95 07/17/17 21:00 Constitutional: Yes: No Distress Eyes: Yes: Conjunctiva Clear HENT: Yes: Atraumatic Neck: Yes: Supple, Trachea Midline Cardiovascular: Yes: Regular Rate and Rhythm Respiratory: Yes: Regular, Cough, On Nasal O2, Wheezes Gastrointestinal: Yes: Normal Bowel Sounds, Soft Musculoskeletal: Yes: WNL Extremities: Yes: WNL Edema: No Peripheral Pulses WNL: Yes Neurological: Yes: WNL, Alert ...Motor Strength: WNL Psychiatric: Yes: WNL, Alert Labs: CBC, BMP 07/18/17 06:30 07/18/17 06:30 - ....Imaging Chest X-ray: Report Reviewed Cat Scan: Report Reviewed Assessment/Plan SOB,COPD excacerbation./ASTHMA,bronchitis URI DM Hypercholestrolemia, PLAN OXYGEN continue Bronchodialators IV steroids monitor sugar ZPAK Monitor LABS Pul f/u
[2017-07-19] MEDS: AZITHROMYCIN 250 MG TABLET PO SCH (09:45)
[2017-07-19] MEDS: TIOTROPIUM BROMIDE 18 MCG/INH (DEVICE W/ 5 CAPSULES) IH SCH (09:45)
[2017-07-19] MEDS: ARFORMOTEROL TARTRATE 15 MCG/2 ML VIAL NEB SCH ×2 (10:40→22:05)
--- NOTE | 2017-07-19 11:45 | PN ---
Progress Note (short form) - Note Progress Note: PULMONARY VSS/AFEBRILE CONGESTED COUGH ANICTERIC DIMINISHED BREATH SOUNDS BILATERALLY S1S2 BS+ NO EDEMA LABS/MEDS/NOTES/IMAGES/REVIEWED (1) COPD exacerbation Code(s): J44.1 - CHRONIC OBSTRUCTIVE PULMONARY DISEASE W (ACUTE) EXACERBATION (2) Hypoxia Code(s): R09.02 - HYPOXEMIA (3) Bronchitis Code(s): J40 - BRONCHITIS, NOT SPECIFIED ACUTE OR CHRONIC (4) COPD (chronic obstructive pulmonary disease) Code(s): J44.9 - CHRONIC OBSTRUCTIVE PULMONARY DISEASE, UNSPECIFIED Qualifiers : COPD type: unspecified COPD Qualified Code(s): J44.9 - Chronic obstructive pulmonary disease, unspecified; J44.9 - Chronic obstructive pulmonary disease, unspecified; J44.9 - Chronic obstructive pulmonary disease, unspecified; J44.9 - Chronic obstructive pulmonary disease, unspecified (5) Pulmonary nodules Code(s): R91.8 - OTHER NONSPECIFIC ABNORMAL FINDING OF LUNG FIELD TAPER MEDROL CHECK PRE/POST O2 AMB CONTINUE BD TREATMENT WILL FOLLOW Kat CHEEMA MD
[2017-07-19] MEDS: ATORVASTATIN CA 10 MG TABLET (FP) PO SCH (20:59)
[2017-07-20] MEDS: methylPREDNISolone NA SUCC 125 MG/2 ML VIAL IVPB SCH (01:54)
[2017-07-20] MEDS: metFORMIN HCL 500 MG TABLET (FP) PO SCH ×2 (06:30→18:13)
[2017-07-20 07:41] LABS: BASOPHIL 0.3 % (0-2.0); MCH 29.1 pg (25.7-33.7); MCHC 32.4 g/dl (32.0-35.9); MEAN CELL VOLUME 89.8 fl (80-96); MEAN PLT VOLUME 9.7 fl (7.5-11.1); NEUTROPHILS 79.7 % (42.8-82.8); PLATELET COUNT 207 K/MM3 (134-434); RDW 13.4 % (11.9-15.9); WHITE BLOOD COUNT 9.5 K/mm3 (4.0-10.0)
--- NOTE | 2017-07-20 09:13 | PN ---
Progress Note (short form) - Note Progress Note: Feels overall better. Still with some congested cough, but better. No CP. Intake & Output 07/17/17 07/18/17 07/19/17 07/20/17 23:59 23:59 23:59 23:59 Intake Total 1100 1800 900 Output Total 4 Balance 1100 1800 896 Last Vital Signs Temp Pulse Resp BP Pulse Ox 97.7 F 66 20 132/74 95 07/20/17 06:38 07/20/17 06:38 07/20/17 06:38 07/20/17 06:38 07/19/17 21:00 Active Medications Albuterol Sulfate (Ventolin 0.083% Nebulizer Soln -) 1 amp NEB Q4H PRN PRN Reason: SHORT OF BREATH/WHEEZING Arformoterol Tartrate (Brovana (Restricted To Pulmonology/Resp) -) 1 amp NEB BID [facility] Last Admin: 07/19/17 22:05 Dose: 1 amp Atorvastatin Calcium (Lipitor -) 10 mg PO HS [facility] Last Admin: 07/19/17 20:59 Dose: 10 mg Azithromycin (Zithromax -) 500 mg PO DAILY [facility] Last Admin: 07/19/17 09:45 Dose: 500 mg Ergocalciferol (Drisdol -) 50,000 unit PO Q7D@1000 [facility] Last Admin: 07/17/17 15:16 Dose: 50,000 unit Metformin HCl (Glucophage -) 500 mg PO BIDAC [facility] Last Admin: 07/20/17 06:30 Dose: 500 mg Prednisone (Deltasone -) 40 mg PO DAILY [facility] Tiotropium [place] (Spiriva -) 1 puff IH DAILY [facility] Last Admin: 07/19/17 09:45 Dose: 1 puff Constitutional: Yes: No Distress Eyes: Yes: Conjunctiva Clear, EOM Intact HENT: Yes: Atraumatic, Normocephalic Neck: Yes: Supple, Trachea Midline Cardiovascular: Yes: Regular Rate and Rhythm Respiratory: Yes: Cough, Diminished, rhonchi No: Wheeze, Accessory Muscle Use, Stridor ...Inspection: Yes: WNL ...Clubbing: No Gastrointestinal: Yes: Normal Bowel Sounds, Soft Renal/: Yes: WNL Musculoskeletal: Yes: WNL Extremities: Yes: WNL Edema: No Peripheral Pulses WNL: Yes Integumentary: Yes: WNL Neurological: Yes: WNL, Alert, Oriented ...Motor Strength: WNL Psychiatric: Yes: WNL, Alert, Oriented Labs: Laboratory Results - last 24 hr 07/19/17 07/20/17 07/20/17 17:31 06:25 06:29 WBC 9.5 D RBC 4.75 Hgb 13.8 Hct 42.6 MCV 89.8 MCH 29.1 MCHC 32.4 RDW 13.4 Plt Count 207 MPV 9.7 Neutrophils % 79.7 Lymphocytes % 13.6 D Monocytes % 6.4 D Eosinophils % 0.0 Basophils % 0.3 POC Glucometer 109 132 Problem List - Problems (1) COPD exacerbation Code(s): J44.1 - CHRONIC OBSTRUCTIVE PULMONARY DISEASE W (ACUTE) EXACERBATION (2) Hypoxia Code(s): R09.02 - HYPOXEMIA (3) Bronchitis Code(s): J40 - BRONCHITIS, NOT SPECIFIED ACUTE OR CHRONIC (4) COPD (chronic obstructive pulmonary disease) Code(s): J44.9 - CHRONIC OBSTRUCTIVE PULMONARY DISEASE, UNSPECIFIED Qualifiers : COPD type: unspecified COPD Qualified Code(s): J44.9 - Chronic obstructive pulmonary disease, unspecified; J44.9 - Chronic obstructive pulmonary disease, unspecified; J44.9 - Chronic obstructive pulmonary disease, unspecified; J44.9 - Chronic obstructive pulmonary disease, unspecified (5) Pulmonary nodules Code(s): R91.8 - OTHER NONSPECIFIC ABNORMAL FINDING OF LUNG FIELD Assessment/Plan Change to Prednisone : can give a short course of 5 to 7 days as an outpatient as he is not steroid dependent Check Pre and Post O2 saturation Would D/C home on Spiriva daily and Albuterol HFA Q 4h PRN Smoking cessation discussed again PFTs once stable as an outpatient Will need repeat CT in 3 months to follow 7 mm nodule No Pulmonary contraindication for D/C Dr Kelsey Problem List - Problems (1) COPD exacerbation Code(s): J44.1 - CHRONIC OBSTRUCTIVE PULMONARY DISEASE W (ACUTE) EXACERBATION (2) Hypoxia Code(s): R09.02 - HYPOXEMIA (3) Bronchitis Code(s): J40 - BRONCHITIS, NOT SPECIFIED ACUTE OR CHRONIC (4) COPD (chronic obstructive pulmonary disease) Code(s): J44.9 - CHRONIC OBSTRUCTIVE PULMONARY DISEASE, UNSPECIFIED Qualifiers : COPD type: unspecified COPD Qualified Code(s): J44.9 - Chronic obstructive pulmonary disease, unspecified; J44.9 - Chronic obstructive pulmonary disease, unspecified; J44.9 - Chronic obstructive pulmonary disease, unspecified; J44.9 - Chronic obstructive pulmonary disease, unspecified (5) Pulmonary nodules Code(s): R91.8 - OTHER NONSPECIFIC ABNORMAL FINDING OF LUNG FIELD
[2017-07-20] MEDS: AZITHROMYCIN 250 MG TABLET PO SCH (09:30)
[2017-07-20] MEDS: predniSONE 20 MG TABLET (UD) PO SCH (09:30)
[2017-07-20] MEDS: TIOTROPIUM BROMIDE 18 MCG/INH (DEVICE W/ 5 CAPSULES) IH SCH (09:31)
[2017-07-20] MEDS: ARFORMOTEROL TARTRATE 15 MCG/2 ML VIAL NEB SCH ×2 (10:28→22:28)
--- NOTE | 2017-07-20 11:49 | PN ---
Progress Note, Physician Chief Complaint: Pt lying in bed,afebrile,no wheezing Pt is on nasal oxygen labs noted blood cul negative,Ct chest findings noted showscentrilobular emphysematous changes,bilateral pul nodules,no pneumonia,no PE As per pt can go home on O2 Pt is on Oral prednisone - Current Medication List Current Medications: Active Medications Albuterol Sulfate (Ventolin 0.083% Nebulizer Soln -) 1 amp NEB Q4H PRN PRN Reason: SHORT OF BREATH/WHEEZING Arformoterol Tartrate (Brovana (Restricted To Pulmonology/Resp) -) 1 amp NEB BID [facility] Last Admin: 07/20/17 10:28 Dose: 1 amp Atorvastatin Calcium (Lipitor -) 10 mg PO HS [facility] Last Admin: 07/19/17 20:59 Dose: 10 mg Azithromycin (Zithromax -) 500 mg PO DAILY [facility] Last Admin: 07/20/17 09:30 Dose: 500 mg Ergocalciferol (Drisdol -) 50,000 unit PO Q7D@1000 [facility] Last Admin: 07/17/17 15:16 Dose: 50,000 unit Metformin HCl (Glucophage -) 500 mg PO BIDAC [facility] Last Admin: 07/20/17 06:30 Dose: 500 mg Prednisone (Deltasone -) 40 mg PO DAILY [facility] Last Admin: 07/20/17 09:30 Dose: 40 mg Tiotropium [place] (Spiriva -) 1 puff IH DAILY [facility] Last Admin: 07/20/17 09:31 Dose: 1 puff - Objective Vital Signs: Vital Signs Temperature 98.6 F 07/20/17 09:00 Pulse Rate 91 H 07/20/17 10:25 Respiratory Rate 18 07/20/17 09:00 Blood Pressure 127/78 07/20/17 09:00 O2 Sat by Pulse Oximetry (%) 96 07/20/17 10:25 Constitutional: Yes: No Distress Eyes: Yes: Conjunctiva Clear HENT: Yes: Atraumatic Neck: Yes: Supple Cardiovascular: Yes: Regular Rate and Rhythm Respiratory: Yes: Regular Gastrointestinal: Yes: Normal Bowel Sounds Musculoskeletal: Yes: WNL Extremities: Yes: WNL Edema: No Peripheral Pulses WNL: Yes Neurological: Yes: WNL, Alert Psychiatric: Yes: WNL, Alert Labs: CBC, BMP 07/20/17 06:25 07/18/17 06:30 Assessment/Plan SOB,COPD excacerbation./ASTHMA,bronchitis URI DM Hypercholestrolemia, PLAN OXYGEN continue Bronchodialators po perdnisone RENE d/c planing
[2017-07-20] MEDS: ATORVASTATIN CA 10 MG TABLET (FP) PO SCH (20:59)
[2017-07-21] MEDS: metFORMIN HCL 500 MG TABLET (FP) PO SCH ×2 (06:30→19:03)
--- NOTE | 2017-07-21 09:16 | PN ---
Progress Note, Physician Chief Complaint: Pt lying in bed,afebrile,no wheezing Pt is on nasal oxygen labs noted blood cul negative,Ct chest findings noted showscentrilobular emphysematous changes,bilateral pul nodules,no pneumonia,no PE Pt is on Oral prednisone d/c planing - Current Medication List Current Medications: Active Medications Albuterol Sulfate (Ventolin 0.083% Nebulizer Soln -) 1 amp NEB Q4H PRN PRN Reason: SHORT OF BREATH/WHEEZING Arformoterol Tartrate (Brovana (Restricted To Pulmonology/Resp) -) 1 amp NEB BID [facility] Last Admin: 07/20/17 22:28 Dose: 1 amp Atorvastatin Calcium (Lipitor -) 10 mg PO HS [facility] Last Admin: 07/20/17 20:59 Dose: 10 mg Azithromycin (Zithromax -) 500 mg PO DAILY [facility] Last Admin: 07/20/17 09:30 Dose: 500 mg Ergocalciferol (Drisdol -) 50,000 unit PO Q7D@1000 [facility] Last Admin: 07/17/17 15:16 Dose: 50,000 unit Metformin HCl (Glucophage -) 500 mg PO BIDAC [facility] Last Admin: 07/21/17 06:30 Dose: 500 mg Prednisone (Deltasone -) 40 mg PO DAILY [facility] Last Admin: 07/20/17 09:30 Dose: 40 mg Tiotropium [place] (Spiriva -) 1 puff IH DAILY [facility] Last Admin: 07/20/17 09:31 Dose: 1 puff - Objective Vital Signs: Vital Signs Temperature 97.7 F 07/21/17 06:00 Pulse Rate 83 07/21/17 06:00 Respiratory Rate 18 07/21/17 06:00 Blood Pressure 127/78 07/21/17 06:00 O2 Sat by Pulse Oximetry (%) 94 L 07/20/17 21:00 Constitutional: Yes: No Distress Eyes: Yes: Conjunctiva Clear HENT: Yes: Atraumatic Neck: Yes: Supple, Trachea Midline Cardiovascular: Yes: Regular Rate and Rhythm Respiratory: Yes: Regular, On Nasal O2, Wheezes Gastrointestinal: Yes: Normal Bowel Sounds, Soft Musculoskeletal: Yes: WNL Extremities: Yes: WNL Edema: No Peripheral Pulses WNL: Yes Neurological: Yes: WNL, Alert ...Motor Strength: WNL Psychiatric: Yes: WNL Labs: CBC, BMP 07/20/17 06:25 07/18/17 06:30 Assessment/Plan SOB,COPD excacerbation./ASTHMA,bronchitis URI DM Hypercholestrolemia, PLAN OXYGEN continue Bronchodialators po perdnisone ZPAK d/c planing
[2017-07-21] MEDS: AZITHROMYCIN 250 MG TABLET PO SCH (09:38)
[2017-07-21] MEDS: predniSONE 20 MG TABLET (UD) PO SCH (09:39)
[2017-07-21] MEDS: TIOTROPIUM BROMIDE 18 MCG/INH (DEVICE W/ 5 CAPSULES) IH SCH (09:40)
[2017-07-21] MEDS ORDERED: guaiFENesin 200 MG/10 ML 10 ML UNIT-DOSE CUPS PO PRN (09:51)
--- NOTE | 2017-07-21 10:21 | PN ---
Progress Note (short form) - Note Progress Note: PULMONARY VSS/AFEBRILE LESS CONGESTED COUGH ANICTERIC DIMINISHED BREATH SOUNDS BILATERALLY S1S2 BS+ NO EDEMA LABS/MEDS/NOTES/IMAGES/REVIEWED (1) COPD exacerbation Code(s): J44.1 - CHRONIC OBSTRUCTIVE PULMONARY DISEASE W (ACUTE) EXACERBATION (2) Hypoxia Code(s): R09.02 - HYPOXEMIA (3) Bronchitis Code(s): J40 - BRONCHITIS, NOT SPECIFIED ACUTE OR CHRONIC (4) COPD (chronic obstructive pulmonary disease) Code(s): J44.9 - CHRONIC OBSTRUCTIVE PULMONARY DISEASE, UNSPECIFIED Qualifiers : COPD type: unspecified COPD Qualified Code(s): J44.9 - Chronic obstructive pulmonary disease, unspecified; J44.9 - Chronic obstructive pulmonary disease, unspecified; J44.9 - Chronic obstructive pulmonary disease, unspecified; J44.9 - Chronic obstructive pulmonary disease, unspecified (5) Pulmonary nodules Code(s): R91.8 - OTHER NONSPECIFIC ABNORMAL FINDING OF LUNG FIELD TAPER PREDNISONE OUTPATIENT PATIENT REQUIRES O2 OUTPATIENT CONTINUE BD TREATMENT/ABS SNF REHAB REQUESTED NO OBJECTION TO CONTINUING TREATMENT IN SNF OR AT HOME Kat CHEEMA MD
[2017-07-21] MEDS: ARFORMOTEROL TARTRATE 15 MCG/2 ML VIAL NEB SCH ×2 (10:26→21:35)
[2017-07-21] MEDS: ATORVASTATIN CA 10 MG TABLET (FP) PO SCH (20:59)
[2017-07-22] MEDS: metFORMIN HCL 500 MG TABLET (FP) PO SCH ×2 (06:14→18:10)
[2017-07-22] MEDS ORDERED: PT OWN MED DRAWER 7, Y5N ONE (09:14)
[2017-07-22] MEDS: TIOTROPIUM BROMIDE 18 MCG/INH (DEVICE W/ 5 CAPSULES) IH SCH (09:17)
[2017-07-22] MEDS: AZITHROMYCIN 250 MG TABLET PO SCH (09:17)
[2017-07-22] MEDS: predniSONE 20 MG TABLET (UD) PO SCH (09:17)
--- NOTE | 2017-07-22 10:01 | PN ---
Progress Note (short form) - Note Progress Note: Feels overall better. Still with some congested cough, but better. No CP. Qualified for O2. Intake & Output 07/19/17 07/20/17 07/21/17 07/22/17 23:59 23:59 23:59 23:59 Intake Total 900 1410 2100 Output Total 4 Balance 896 1410 2100 Last Vital Signs Temp Pulse Resp BP Pulse Ox 97.8 F 80 20 115/71 98 07/22/17 06:00 07/22/17 06:00 07/22/17 06:00 07/22/17 06:00 07/21/17 20:59 Active Medications Albuterol Sulfate (Ventolin 0.083% Nebulizer Soln -) 1 amp NEB Q4H PRN PRN Reason: SHORT OF BREATH/WHEEZING Arformoterol Tartrate (Brovana (Restricted To Pulmonology/Resp) -) 1 amp NEB BID [facility] Last Admin: 07/21/17 21:35 Dose: 1 amp Atorvastatin Calcium (Lipitor -) 10 mg PO HS [facility] Last Admin: 07/21/17 20:59 Dose: 10 mg Azithromycin (Zithromax -) 500 mg PO DAILY [facility] Last Admin: 07/22/17 09:17 Dose: 500 mg Ergocalciferol (Drisdol -) 50,000 unit PO Q7D@1000 [facility] Last Admin: 07/17/17 15:16 Dose: 50,000 unit Guaifenesin (Robitussin -) 10 ml PO Q8H PRN PRN Reason: COUGH Last Admin: 07/22/17 09:17 Dose: 10 ml Metformin HCl (Glucophage -) 500 mg PO BIDAC [facility] Last Admin: 07/22/17 06:14 Dose: 500 mg Prednisone (Deltasone -) 40 mg PO DAILY [facility] Last Admin: 07/22/17 09:17 Dose: 40 mg Tiotropium [place] (Spiriva -) 1 puff IH DAILY [facility] Last Admin: 07/22/17 09:17 Dose: 1 puff Constitutional: Yes: No Distress Eyes: Yes: Conjunctiva Clear, EOM Intact HENT: Yes: Atraumatic, Normocephalic Neck: Yes: Supple, Trachea Midline Cardiovascular: Yes: Regular Rate and Rhythm Respiratory: Yes: Cough, Diminished, rhonchi No: Wheeze, Accessory Muscle Use, Stridor ...Inspection: Yes: WNL ...Clubbing: No Gastrointestinal: Yes: Normal Bowel Sounds, Soft Renal/: Yes: WNL Musculoskeletal: Yes: WNL Extremities: Yes: WNL Edema: No Peripheral Pulses WNL: Yes Integumentary: Yes: WNL Neurological: Yes: WNL, Alert, Oriented ...Motor Strength: WNL Psychiatric: Yes: WNL, Alert, Oriented Labs: Laboratory Results - last 24 hr 07/22/17 06:16 POC Glucometer 132 Problem List - Problems (1) COPD exacerbation Code(s): J44.1 - CHRONIC OBSTRUCTIVE PULMONARY DISEASE W (ACUTE) EXACERBATION (2) Hypoxia Code(s): R09.02 - HYPOXEMIA (3) Bronchitis Code(s): J40 - BRONCHITIS, NOT SPECIFIED ACUTE OR CHRONIC (4) COPD (chronic obstructive pulmonary disease) Code(s): J44.9 - CHRONIC OBSTRUCTIVE PULMONARY DISEASE, UNSPECIFIED Qualifiers : COPD type: unspecified COPD Qualified Code(s): J44.9 - Chronic obstructive pulmonary disease, unspecified; J44.9 - Chronic obstructive pulmonary disease, unspecified; J44.9 - Chronic obstructive pulmonary disease, unspecified; J44.9 - Chronic obstructive pulmonary disease, unspecified (5) Pulmonary nodules Code(s): R91.8 - OTHER NONSPECIFIC ABNORMAL FINDING OF LUNG FIELD Assessment/Plan Change to Prednisone : can give a short course of 5 to 7 days as an outpatient as he is not steroid dependent Would D/C home on Spiriva daily and Albuterol HFA Q 4h PRN Will be discharged with supplemental O2 Smoking cessation discussed again PFTs once stable as an outpatient Will need repeat CT in 3 months to follow 7 mm nodule No Pulmonary contraindication for D/C : for placement Dr Kelsey Problem List - Problems (1) COPD exacerbation Code(s): J44.1 - CHRONIC OBSTRUCTIVE PULMONARY DISEASE W (ACUTE) EXACERBATION (2) Hypoxia Code(s): R09.02 - HYPOXEMIA (3) Bronchitis Code(s): J40 - BRONCHITIS, NOT SPECIFIED ACUTE OR CHRONIC (4) COPD (chronic obstructive pulmonary disease) Code(s): J44.9 - CHRONIC OBSTRUCTIVE PULMONARY DISEASE, UNSPECIFIED Qualifiers : COPD type: unspecified COPD Qualified Code(s): J44.9 - Chronic obstructive pulmonary disease, unspecified; J44.9 - Chronic obstructive pulmonary disease, unspecified; J44.9 - Chronic obstructive pulmonary disease, unspecified; J44.9 - Chronic obstructive pulmonary disease, unspecified (5) Pulmonary nodules Code(s): R91.8 - OTHER NONSPECIFIC ABNORMAL FINDING OF LUNG FIELD
[2017-07-22] MEDS: ARFORMOTEROL TARTRATE 15 MCG/2 ML VIAL NEB SCH ×2 (10:12→21:57)
--- NOTE | 2017-07-22 14:36 | PN ---
Progress Note, Physician Chief Complaint: Pt lying in bed,afebrile,no wheezing Pt is on nasal oxygen labs noted blood cul negative,Ct chest findings noted showscentrilobular emphysematous changes,bilateral pul nodules,no pneumonia,no PE Pt is on Oral prednisone d/c planing for snf - Current Medication List Current Medications: Active Medications Arformoterol Tartrate (Brovana (Restricted To Pulmonology/Resp) -) 1 amp NEB BID [facility] Last Admin: 07/22/17 10:12 Dose: 1 amp Atorvastatin Calcium (Lipitor -) 10 mg PO HS [facility] Last Admin: 07/21/17 20:59 Dose: 10 mg Azithromycin (Zithromax -) 500 mg PO DAILY [facility] Last Admin: 07/22/17 09:17 Dose: 500 mg Ergocalciferol (Drisdol -) 50,000 unit PO Q7D@1000 [facility] Last Admin: 07/17/17 15:16 Dose: 50,000 unit Guaifenesin (Robitussin -) 10 ml PO Q8H PRN PRN Reason: COUGH Last Admin: 07/22/17 09:17 Dose: 10 ml Metformin HCl (Glucophage -) 500 mg PO BIDAC [facility] Last Admin: 07/22/17 06:14 Dose: 500 mg Prednisone (Deltasone -) 40 mg PO DAILY [facility] Last Admin: 07/22/17 09:17 Dose: 40 mg Tiotropium [place] (Spiriva -) 1 puff IH DAILY [facility] Last Admin: 07/22/17 09:17 Dose: 1 puff - Objective Vital Signs: Vital Signs Temperature 98.1 F 07/22/17 08:35 Pulse Rate 100 H 07/22/17 08:35 Respiratory Rate 18 07/22/17 08:35 Blood Pressure 119/68 07/22/17 08:35 O2 Sat by Pulse Oximetry (%) 98 07/21/17 20:59 Constitutional: Yes: No Distress Eyes: Yes: Conjunctiva Clear HENT: Yes: Atraumatic Neck: Yes: Supple, Trachea Midline Cardiovascular: Yes: Regular Rate and Rhythm Respiratory: Yes: Regular, Cough, On Nasal O2, Rhonchi Gastrointestinal: Yes: Normal Bowel Sounds, Soft Musculoskeletal: Yes: WNL Extremities: Yes: WNL Edema: No Peripheral Pulses WNL: Yes Neurological: Yes: WNL, Alert ...Motor Strength: WNL Psychiatric: Yes: WNL Labs: CBC, BMP 07/20/17 06:25 07/18/17 06:30 Assessment/Plan SOB,COPD excacerbation./ASTHMA,bronchitis URI DM Hypercholestrolemia, PLAN OXYGEN continue Bronchodialators po perdnisone ZPAK d/c planing
[2017-07-22] MEDS: ATORVASTATIN CA 10 MG TABLET (FP) PO SCH (21:50)
[2017-07-23] MEDS: metFORMIN HCL 500 MG TABLET (FP) PO SCH ×2 (06:45→17:47)
[2017-07-23] MEDS: predniSONE 20 MG TABLET (UD) PO SCH (10:22)
[2017-07-23] MEDS: AZITHROMYCIN 250 MG TABLET PO SCH (10:22)
[2017-07-23] MEDS: TIOTROPIUM BROMIDE 18 MCG/INH (DEVICE W/ 5 CAPSULES) IH SCH (10:24)
--- NOTE | 2017-07-23 10:46 | PN ---
Progress Note (short form) - Note Progress Note: Feels overall better. Still with some congested cough, but better. No CP. Intake & Output 07/20/17 07/21/17 07/22/17 07/23/17 23:59 23:59 23:59 23:59 Intake Total 1410 2100 900 Balance 1410 2100 900 Last Vital Signs Temp Pulse Resp BP Pulse Ox 98.2 F 80 20 154/74 96 07/23/17 10:26 07/23/17 10:26 07/23/17 10:26 07/23/17 10:26 07/22/17 20:45 Active Medications Arformoterol Tartrate (Brovana (Restricted To Pulmonology/Resp) -) 1 amp NEB BID [facility] Last Admin: 07/22/17 21:57 Dose: 1 amp Atorvastatin Calcium (Lipitor -) 10 mg PO HS [facility] Last Admin: 07/22/17 21:50 Dose: 10 mg Azithromycin (Zithromax -) 500 mg PO DAILY [facility] Last Admin: 07/23/17 10:22 Dose: 500 mg Ergocalciferol (Drisdol -) 50,000 unit PO Q7D@1000 [facility] Last Admin: 07/17/17 15:16 Dose: 50,000 unit Guaifenesin (Robitussin -) 10 ml PO Q8H PRN PRN Reason: COUGH Last Admin: 07/22/17 09:17 Dose: 10 ml Metformin HCl (Glucophage -) 500 mg PO BIDAC [facility] Last Admin: 07/23/17 06:45 Dose: 500 mg Prednisone (Deltasone -) 40 mg PO DAILY [facility] Last Admin: 07/23/17 10:22 Dose: 40 mg Tiotropium [place] (Spiriva -) 1 puff IH DAILY [facility] Last Admin: 07/23/17 10:24 Dose: 1 puff Constitutional: Yes: No Distress Eyes: Yes: Conjunctiva Clear, EOM Intact HENT: Yes: Atraumatic, Normocephalic Neck: Yes: Supple, Trachea Midline Cardiovascular: Yes: Regular Rate and Rhythm Respiratory: Yes: Cough, Diminished, rhonchi No: Wheeze, Accessory Muscle Use, Stridor ...Inspection: Yes: WNL ...Clubbing: No Gastrointestinal: Yes: Normal Bowel Sounds, Soft Renal/: Yes: WNL Musculoskeletal: Yes: WNL Extremities: Yes: WNL Edema: No Peripheral Pulses WNL: Yes Integumentary: Yes: WNL Neurological: Yes: WNL, Alert, Oriented ...Motor Strength: WNL Psychiatric: Yes: WNL, Alert, Oriented Labs: Laboratory Results - last 24 hr 07/22/17 07/22/17 07/23/17 11:09 17:15 05:46 POC Glucometer 139 120 95 Problem List - Problems (1) COPD exacerbation Code(s): J44.1 - CHRONIC OBSTRUCTIVE PULMONARY DISEASE W (ACUTE) EXACERBATION (2) Hypoxia Code(s): R09.02 - HYPOXEMIA (3) Bronchitis Code(s): J40 - BRONCHITIS, NOT SPECIFIED ACUTE OR CHRONIC (4) COPD (chronic obstructive pulmonary disease) Code(s): J44.9 - CHRONIC OBSTRUCTIVE PULMONARY DISEASE, UNSPECIFIED Qualifiers : COPD type: unspecified COPD Qualified Code(s): J44.9 - Chronic obstructive pulmonary disease, unspecified; J44.9 - Chronic obstructive pulmonary disease, unspecified; J44.9 - Chronic obstructive pulmonary disease, unspecified; J44.9 - Chronic obstructive pulmonary disease, unspecified (5) Pulmonary nodules Code(s): R91.8 - OTHER NONSPECIFIC ABNORMAL FINDING OF LUNG FIELD Assessment/Plan Prednisone: can give a short course of 5 to 7 days as an outpatient as he is not steroid dependent Would D/C home on Spiriva daily and Albuterol HFA Q 4h PRN Will be discharged with supplemental O2 Smoking cessation discussed again PFTs once stable as an outpatient Will need repeat CT in 3 months to follow 7 mm nodule No Pulmonary contraindication for D/C : for placement Dr Kelsey Problem List - Problems (1) COPD exacerbation Code(s): J44.1 - CHRONIC OBSTRUCTIVE PULMONARY DISEASE W (ACUTE) EXACERBATION (2) Hypoxia Code(s): R09.02 - HYPOXEMIA (3) Bronchitis Code(s): J40 - BRONCHITIS, NOT SPECIFIED ACUTE OR CHRONIC (4) COPD (chronic obstructive pulmonary disease) Code(s): J44.9 - CHRONIC OBSTRUCTIVE PULMONARY DISEASE, UNSPECIFIED Qualifiers : COPD type: unspecified COPD Qualified Code(s): J44.9 - Chronic obstructive pulmonary disease, unspecified; J44.9 - Chronic obstructive pulmonary disease, unspecified; J44.9 - Chronic obstructive pulmonary disease, unspecified; J44.9 - Chronic obstructive pulmonary disease, unspecified (5) Pulmonary nodules Code(s): R91.8 - OTHER NONSPECIFIC ABNORMAL FINDING OF LUNG FIELD
[2017-07-23] MEDS ORDERED: PT OWN MED DRAWER 7, Y5N ONE (10:54)
[2017-07-23] MEDS: ARFORMOTEROL TARTRATE 15 MCG/2 ML VIAL NEB SCH ×2 (12:02→22:19)
--- NOTE | 2017-07-23 12:54 | PN ---
Progress Note, Physician Chief Complaint: Pt lying in bed,afebrile,no wheezing Pt is on nasal oxygen labs noted blood cul negative,Ct chest findings noted showscentrilobular emphysematous changes,bilateral pul nodules,no pneumonia,no PE Pt is on Oral prednisone d/c planing for snf - Current Medication List Current Medications: Active Medications Arformoterol Tartrate (Brovana (Restricted To Pulmonology/Resp) -) 1 amp NEB BID [facility] Last Admin: 07/23/17 12:02 Dose: 1 amp Atorvastatin Calcium (Lipitor -) 10 mg PO HS [facility] Last Admin: 07/22/17 21:50 Dose: 10 mg Azithromycin (Zithromax -) 500 mg PO DAILY [facility] Last Admin: 07/23/17 10:22 Dose: 500 mg Ergocalciferol (Drisdol -) 50,000 unit PO Q7D@1000 [facility] Last Admin: 07/17/17 15:16 Dose: 50,000 unit Guaifenesin (Robitussin -) 10 ml PO Q8H PRN PRN Reason: COUGH Last Admin: 07/22/17 09:17 Dose: 10 ml Metformin HCl (Glucophage -) 500 mg PO BIDAC [facility] Last Admin: 07/23/17 06:45 Dose: 500 mg Prednisone (Deltasone -) 40 mg PO DAILY [facility] Last Admin: 07/23/17 10:22 Dose: 40 mg Tiotropium [place] (Spiriva -) 1 puff IH DAILY [facility] Last Admin: 07/23/17 10:24 Dose: 1 puff - Objective Vital Signs: Vital Signs Temperature 98.2 F 07/23/17 10:26 Pulse Rate 80 07/23/17 10:26 Respiratory Rate 20 07/23/17 10:26 Blood Pressure 154/74 07/23/17 10:26 O2 Sat by Pulse Oximetry (%) 95 07/23/17 09:00 Constitutional: Yes: No Distress Eyes: Yes: Conjunctiva Clear HENT: Yes: Atraumatic, Normocephalic Neck: Yes: Supple, Trachea Midline Cardiovascular: Yes: Regular Rate and Rhythm Respiratory: Yes: Regular, On Nasal O2 Gastrointestinal: Yes: Normal Bowel Sounds, Soft Musculoskeletal: Yes: WNL Extremities: Yes: WNL Edema: No Peripheral Pulses WNL: Yes Neurological: Yes: WNL, Alert, Oriented ...Motor Strength: WNL Psychiatric: Yes: WNL Labs: CBC, BMP 07/20/17 06:25 07/18/17 06:30 Assessment/Plan SOB,COPD excacerbation./ASTHMA,bronchitis URI DM Hypercholestrolemia, PLAN OXYGEN continue Bronchodialators po perdnisone d/c antibiotics d/c planing
[2017-07-23] MEDS: ATORVASTATIN CA 10 MG TABLET (FP) PO SCH (23:23)
[2017-07-24] MEDS: metFORMIN HCL 500 MG TABLET (FP) PO SCH (06:47)
[2017-07-24 08:25] LABS: BASOPHIL 0.2 % (0-2.0); EOSINOPHIL 0.6 % (0-4.5); MCH 28.4 pg (25.7-33.7); MCHC 32.1 g/dl (32.0-35.9); MEAN CELL VOLUME 88.7 fl (80-96); MEAN PLT VOLUME 9.2 fl (7.5-11.1); NEUTROPHILS 58.9 % (42.8-82.8); PLATELET COUNT 202 K/MM3 (134-434); RDW 13.5 % (11.9-15.9); WHITE BLOOD COUNT 12.7 K/mm3 (4.0-10.0)
[2017-07-24 08:57] LABS: ALBUMIN 3.4 g/dl (3.4-5.0); ANION GAP 7 (8-16); BILIRUBIN,TOTAL 0.5 mg/dL (0.2-1.0); CALCIUM 9.4 mg/dL (8.5-10.1); CO2 35 mmol/L (21-32); CREATININE 1.2 mg/dL (0.7-1.3); GLUCOSE,RANDOM 87 mg/dL (74-106); SGOT/AST 7 U/L (15-37); SGPT/ALT 20 U/L (12-78); TOT PROT 6.7 g/dl (6.4-8.2)
[2017-07-24 08:58] LABS: ALK PHOS 84 U/L (45-117)
[2017-07-24] MEDS ORDERED: PT OWN MED DRAWER 7, Y5N ONE (09:34)
[2017-07-24] MEDS: TIOTROPIUM BROMIDE 18 MCG/INH (DEVICE W/ 5 CAPSULES) IH SCH (09:36)
[2017-07-24] MEDS: ERGOCALCIFEROL (VITAMIN D2) 50,000 UNIT CAPSULE (FP) PO SCH (09:36)
--- NOTE | 2017-07-24 09:38 | PN ---
Progress Note, Physician Chief Complaint: Pt lying in bed,afebrile,no wheezing Pt is on nasal oxygen labs noted blood cul negative,Ct chest findings noted showscentrilobular emphysematous changes,bilateral pul nodules,no pneumonia,no PE Pt is on Oral prednisone 30 mg po daily d/c planing for snf - Current Medication List Current Medications: Active Medications Arformoterol Tartrate (Brovana (Restricted To Pulmonology/Resp) -) 1 amp NEB BID [facility] Last Admin: 07/23/17 22:19 Dose: 1 amp Atorvastatin Calcium (Lipitor -) 10 mg PO HS [facility] Last Admin: 07/23/17 23:23 Dose: 10 mg Ergocalciferol (Drisdol -) 50,000 unit PO Q7D@1000 [facility] Last Admin: 07/17/17 15:16 Dose: 50,000 unit Guaifenesin (Robitussin -) 10 ml PO Q8H PRN PRN Reason: COUGH Last Admin: 07/22/17 09:17 Dose: 10 ml Metformin HCl (Glucophage -) 500 mg PO BIDAC [facility] Last Admin: 07/24/17 06:47 Dose: 500 mg Prednisone (Deltasone -) 30 mg PO DAILY [facility] Tiotropium [place] (Spiriva -) 1 puff IH DAILY [facility] Last Admin: 07/23/17 10:24 Dose: 1 puff - Objective Vital Signs: Vital Signs Temperature 97.9 F 07/24/17 06:00 Pulse Rate 78 07/24/17 06:00 Respiratory Rate 18 07/24/17 06:00 Blood Pressure 107/65 07/24/17 06:00 O2 Sat by Pulse Oximetry (%) 100 07/23/17 21:00 Constitutional: Yes: No Distress Eyes: Yes: Conjunctiva Clear HENT: Yes: Atraumatic Neck: Yes: Supple, Trachea Midline Cardiovascular: Yes: Regular Rate and Rhythm Respiratory: Yes: Regular, Cough, On Nasal O2 Gastrointestinal: Yes: Normal Bowel Sounds, Soft Musculoskeletal: Yes: WNL Extremities: Yes: WNL Edema: No Peripheral Pulses WNL: Yes Neurological: Yes: WNL, Alert ...Motor Strength: WNL Psychiatric: Yes: WNL, Alert Labs: CBC, BMP 07/24/17 06:00 07/24/17 06:00 Assessment/Plan SOB,COPD excacerbation./ASTHMA,bronchitis URI [id number] DM Hypercholestrolemia, PLAN OXYGEN continue Bronchodialators po perdnisone d/c planing for placement
[2017-07-24] MEDS: ARFORMOTEROL TARTRATE 15 MCG/2 ML VIAL NEB SCH (09:50)
--- NOTE | 2017-07-24 09:59 | PN ---
Progress Note (short form) - Note Progress Note: PULMONARY Breathing continues to improve but not at baseline. Minimal cough, denies wheezing. Last Vital Signs Temp Pulse Resp BP Pulse Ox 97.9 F 78 18 107/65 100 07/24/17 06:00 07/24/17 06:00 07/24/17 06:00 07/24/17 06:00 07/23/17 21:00 Gen: NAD at rest Heart: RRR Lung: distant breath sounds, no wheezes Abd: soft, nontender Ext: no edema CBC, BMP 07/24/17 06:00 07/24/17 06:00 Active Medications Arformoterol Tartrate (Brovana (Restricted To Pulmonology/Resp) -) 1 amp NEB BID [facility] Last Admin: 07/23/17 22:19 Dose: 1 amp Atorvastatin Calcium (Lipitor -) 10 mg PO HS [facility] Last Admin: 07/23/17 23:23 Dose: 10 mg Ergocalciferol (Drisdol -) 50,000 unit PO Q7D@1000 [facility] Last Admin: 07/24/17 09:36 Dose: 50,000 unit Guaifenesin (Robitussin -) 10 ml PO Q8H PRN PRN Reason: COUGH Last Admin: 07/22/17 09:17 Dose: 10 ml Metformin HCl (Glucophage -) 500 mg PO BIDAC [facility] Last Admin: 07/24/17 06:47 Dose: 500 mg Prednisone (Deltasone -) 30 mg PO DAILY [facility] Last Admin: 07/24/17 09:36 Dose: 30 mg Tiotropium [place] (Spiriva -) 1 puff IH DAILY [facility] Last Admin: 07/24/17 09:36 Dose: 1 puff A/P Acute COPD Exacerbation Acute Bronchitis/URI DM Hypercholesterolemia - prednisone taper - inhaled bronchodilators - O2 to keep SpO2 >90% - for short term rehab placement
[2017-07-24] MEDS ORDERED: predniSONE 10 MG TABLET (UD) PO SCH (10:00)
[2017-07-24 11:20] VITALS: PULSE 92
[2017-07-24 12:37] VITALS: BP 98/65; TEMP 98.1
--- NOTE | 2017-07-25 14:31 | DS ---
Physical Examination Vital Signs: Vital Signs Temperature 98.1 F 07/24/17 10:00 Pulse Rate 92 H 07/24/17 11:19 Respiratory Rate 20 07/24/17 10:00 Blood Pressure 98/65 07/24/17 10:00 O2 Sat by Pulse Oximetry (%) 92 L 07/24/17 11:19 Labs: CBC, BMP 07/24/17 06:00 07/24/17 06:00 Discharge Summary Reason For Visit: COPD EXACERBATION, HYPOXIA COPD excerbation HYPOXIA ASTHMA HTN Chronic smoker DM Hospital Course: Pt wiyh h/o copd,asthma,HTN,Hypercholestrolemia,Chronic smoker admitted with sob , COPD excacerbation,Hypoxia,Cough.Pt was using bronchodialator,Steroid But no relief.At the time of admission WBC was !7,CMP NL,D [id number],Lactic acid1 ,Blood cul negative.O2 sat was 91% at rest .Chest x rayNAD,CT chest0 no pneumonia,No PE,Upper lobe centrilobular Emphysematous changes and bilateral pul nodule.Pt was treated with IV sterods,Bronchodialators,Antibiotics and Nasal O2.Pt was followed by pul.Pt was stable on the floor.D/c to [facility] in a stable condition on Perdnisone Tapering dose, Bronchodialotors,spiriva.Rec to f/u with PMD, pul for PFT and rpt Ct chest after 3 months. Condition: Stable - Instructions Referrals: Irvin Hernandez MD [Primary Care Provider] - Disposition: HOME - Home Medications Comprehensive Discharge Medication List: Ambulatory Orders Metformin HCl [Glucophage -] 500 mg PO BID 09/15/15 Ergocalciferol (Vitamin D2) [Vitamin D] 50,000 unit PO Q7D 10/09/15 Simvastatin [Zocor -] 20 mg PO HS 10/09/15 Albuterol Sulfate [Proair Respiclick] 90 mcg IH Q6H 06/28/16 Tiotropium [place] [Spiriva] 1 inh IH DAILY 01/14/17 Albuterol 0.083% Nebulizer Ema [Ventolin 0.083% Nebulizer Soln -] 1 neb NEB Q6H PRN 07/16/17
== END 2017-07-24 17:11 | disposition home or self-care (01) | DRG 192 ==
LOC: JER 08:07 → JERBED 12:06 → J8W 14:47
PROVIDERS: ADMIT Family Medicine; ATTEND Family Medicine
DX: J44.1 Chronic obstructive pulmonary disease with (acute) exacerbation (principal); F17.210 Nicotine dependence, cigarettes, uncomplicated; E11.9 Type 2 diabetes mellitus without complications; I10 Essential (primary) hypertension; Z79.84 Long term (current) use of oral hypoglycemic drugs; E87.5 Hyperkalemia; E78.00 Pure hypercholesterolemia, unspecified; R91.1 Solitary pulmonary nodule; J44.0 Chronic obstructive pulmonary disease with (acute) lower respiratory infection; J20.9 Acute bronchitis, unspecified
CPT/HCPCS: 36415; 71010-TC; 71275-TC; 80053; 83605; 85025; 85027; 85379; 87040; 90688; 93005; 93010; 94640; 94761; 99284-25; G0008

== ENCOUNTER 2018-02-07 12:46 | Inpatient (IN) | payer OTHER ==
--- NOTE | 2018-02-07 13:39 | PDOC ---
History of Present Illness - General Chief Complaint: Shortness of Breath Stated Complaint: SOB Time Seen by Provider: 02/07/18 13:31 History Source: Patient - History of Present Illness Initial Comments: 02/07/18 13:41 Patient is a 57 year old male with a PMH of COPD, NIDDM and asthma who presents to our ED with a 2 day h/o dyspnea. Patient states he woke up from sleeping last night and was short of breath. Denies any associated chest pain, limb edema, nausea, diaphoresis, palpitations. States he had a similar episode one year previous around the same time of year. Notes Oct 2017 evaluation with pulmonology but is unsure of any abnormal findings. Patient denies fevers, chills, cough, abdominal pain, diarrhea/constipation, nausea/vomiting. NKDA Surgical: LUE - unknown surgery, childhood Social: current non-smoker, previously > 1 ppd for 40 years, denies alcohol, denies recreational drugs PMD: Dr. Hernandez Past History - Past Medical History Allergies/Adverse Reactions: Allergies Allergy/AdvReac Type Severity Reaction Status Date / Time No Known Allergies Allergy Verified 02/07/18 12:54 Home Medications: Ambulatory Orders metFORMIN HCL [Glucophage -] 500 mg PO BID 09/15/15 Ergocalciferol (Vitamin D2) [Vitamin D] 50,000 unit PO Q7D 10/09/15 Simvastatin [Zocor -] 20 mg PO HS 10/09/15 Tiotropium [place] [Spiriva] 1 inh IH DAILY 01/14/17 Albuterol 0.083% Nebulizer Ema [Ventolin 0.083% Nebulizer Soln -] 1 neb NEB Q6H PRN 07/16/17 Prednisone 10 mg PO DAILY 11 Days #27 tablet 02/12/18 Anemia: No Asthma: Yes Cancer: No Cardiac Disorders: No CVA: No COPD: Yes CHF: No Dementia: No Diabetes: Yes (DM) GI Disorders: No Disorders: No HTN: Yes Hypercholesterolemia: Yes Liver Disease: No Seizures: No Thyroid Disease: No - Surgical History Abdominal Surgery: No Appendectomy: No Cardiac Surgery: No Cholecystectomy: No Lung Surgery: No Neurologic Surgery: No Orthopedic Surgery: No - Immunization History Immunization Up to Date: Yes - Suicide/Smoking/Psychosocial Hx Smoking History: Former smoker Have you smoked in the past 12 months: No Number of Cigarettes Smoked Daily: 5 Information on smoking cessation initiated: No 'Breaking Loose' booklet given: 06/28/16 Hx Alcohol Use: No Drug/Substance Use Hx: No Substance Use Type: None Hx Substance Use Treatment: No Review of Systems - Review of Systems Constitutional: No: Chills, Fever HEENTM: No: Recent change in vision Respiratory: Yes: SOB with Exertion, SOB at Rest. No: Cough, Hemoptysis Cardiac (ROS): No: Chest Pain, Edema, Lightheadedness, Palpitations, Syncope ABD/GI: No: Constipated, Diarrhea, Nausea, Vomiting : No: Burning, Dysuria *Physical Exam - Vital Signs Last Vital Signs Temp Pulse Resp BP Pulse Ox 97.9 F 94 H 20 139/84 91 L 02/07/18 12:54 02/07/18 12:54 02/07/18 12:54 02/07/18 12:54 02/07/18 12:54 - Physical Exam General Appearance: Yes: Nourished, Appropriately Dressed Neck: positive: Trachea midline, Supple Respiratory/Chest: positive: Rapid RR. negative: Rhonchi, Wheezing, Hyperresonant, Dullness Cardiovascular: positive: S1, S2. negative: Edema, JVD Gastrointestinal/Abdominal: positive: Normal Bowel Sounds, Soft Musculoskeletal: negative: CVA Tenderness (R), CVA Tenderness (L) Integumentary: positive: Normal Color, Dry, Warm Neurologic: positive: Fully Oriented, Alert ED Treatment Course - LABORATORY CBC & Chemistry Diagram: 02/08/18 07:45 02/09/18 06:40 Medical Decision Making - Medical Decision Making 02/07/18 13:45 57 year old male presents with 2 day h/o worsening dyspnea. Frontal diagnosis: COPD exacerbation, asthma exacerbation, r/o ACS, r/o PE. Will obtain ABG, D- Dimer, Trop x1. Reassess. 02/07/18 14:33 ECG shows NSR, right axis deviation, no CHRISTOPHER/STD/TWI -- ECG suggestive of RVH 2/ 2 to COPD. Non-ischemic ECG. 02/07/18 15:25 Case d/w Dr. Hernandez, patient's PMD. CXR, ABG pending. 02/07/18 15:39 CXR shows increased interstitial markings c/w COPD. ABG significant for CO2 74.3 - consistent w/COPD and CO2 retention; Troponin (-) will page for admission. 02/07/18 16:36 D-Dimer negative. Patient resting comfortably. Patient admitted for further evaluation. Will continue to monitor while in ED. *DC/Admit/Observation/Transfer Diagnosis at time of Disposition: COPD exacerbation - Discharge Dispostion Condition at time of disposition: Fair Decision to Admit order: Yes - Prescriptions - Referrals - Patient Instructions - Post Discharge Activity
--- NOTE | 2018-02-07 13:43 | PDOC ---
Attending Attestation - Resident Resident Name: Mercedes Hernandez - ED Attending Attestation I have performed the following: I have examined & evaluated the patient, The case was reviewed & discussed with the resident, I agree w/resident's findings & plan, Exceptions are as noted - HPI HPI: 02/09/18 10:25 Mr Ulrich is a 57 yo M with a PMH of COPD, NIDDM and asthma who presents to our ED with a 2 day h/o dyspnea. Patient states he woke up from sleeping last night and was short of breath. No chest pain, no lower extremity edema Patient denies fevers, chills, cough, abdominal pain, diarrhea/constipation, nausea/vomiting. - Physicial Exam PE: 02/09/18 10:27 GENERAL: The patient is in no acute distress. LUNGS: Breath sounds equal, clear to auscultation bilaterally. No wheezes HEART:Regular rate and rhythm, normal S1 and S2 without murmur ABDOMEN: Soft, nontender, normoactive bowel sounds. No guarding, no rebound. No masses palpable. EXTREMITIES: Normal range of motion, no edema. NEUROLOGICAL: Cranial nerves II through XII grossly intact. Normal speech. No focal neurological deficits. - Medical Decision Making 02/09/18 10:28 57 yo M presenting with shortness of breath Pt is hypoxic Laboratory Tests 02/07/18 02/07/18 02/07/18 14:07 14:07 15:27 WBC 6.8 Hgb 13.6 Hct 41.9 Plt Count 156 ABG pH 7.29 L ABG pCO2 at Pt Temp 74.3 H* ABG pO2 at Pt Temp 59.8 L BUN 14 D Creatinine 1.2 Creatine Kinase 194 Creatine Kinase Index 1.8 CK-MB (CK-2) 3.558 Troponin I < 0.02 D B-Natriuretic Peptide 298.62 H CXR no infiltrate Will admit Clinical Impression: COPD exacerbation, initial presentation hypoxia, initial presentation
[2018-02-07 14:23] LABS: BASO % 0.6 % (0-2.0); EOS % 0.5 % (0-4.5); HEMATOCRIT 41.9 % (35.4-49); HEMOGLOBIN 13.6 GM/dL (11.7-16.9); MCH 30.4 pg (25.7-33.7); MCHC 32.5 g/dl (32.0-35.9); MEAN CELL VOLUME 93.8 fl (80-96); MEAN PLT VOLUME 8.8 fl (7.5-11.1); MONO % 8.3 % (3.8-10.2); NEUT % 70.6 % (42.8-82.8); PLATELET COUNT 156 K/MM3 (134-434); RBC 4.46 M/mm3 (4.00-5.60); RDW 14.4 % (11.9-15.9); WHITE BLOOD COUNT 6.8 K/mm3 (4.0-10.0)
[2018-02-07 14:47] LABS: ALBUMIN 3.4 g/dl (3.4-5.0); ANION GAP 1 (8-16); BLOOD UREA NITROGEN 14 mg/dL (7-18); CALCIUM 8.4 mg/dL (8.5-10.1); CHLORIDE 106 mmol/L (98-107); CO2 37 mmol/L (21-32); CREATININE 1.2 mg/dL (0.7-1.3); GLUCOSE,RANDOM 128 mg/dL (74-106); POTASSIUM 4.6 mmol/L (3.5-5.1); SGOT/AST 12 U/L (15-37); SGPT/ALT 13 U/L (12-78); SODIUM 144 mmol/L (136-145)
[2018-02-07 14:52] LABS: ALK PHOS 101 U/L (45-117); BILIRUBIN,TOTAL 0.4 mg/dL (0.2-1.0); N-TERMINAL BNP 298.62 pg/ml (5-125); TOT PROT 6.5 g/dl (6.4-8.2)
[2018-02-07 15:30] LABS: ARTERIAL BLD GAS O2 SATURATION 87.2 % (90-98.9); ARTERIAL BLOOD GAS BASE EXCESS 5.6 meq/l (-2-2); ARTERIAL BLOOD GAS PO2 59.8 mmHg (80-100); ARTERIAL BLOOD GAS pH 7.29 (7.35-7.45); CARBOXYHEMOGLOBIN 3.1 gm% (0.5-2.0)
[2018-02-07 15:34] LABS: ARTERIAL BLOOD GAS PCO2 74.3 mmHg (35-45)
--- NOTE | 2018-02-07 19:51 | EKG ---
Test Reason : Blood Pressure : / mmHG Vent. Rate : 093 BPM Atrial Rate : 093 BPM P-R Int : 174 ms QRS Dur : 076 ms QT Int : 354 ms P-R-T Axes : 074 096 075 degrees QTc Int : 440 ms NORMAL SINUS RHYTHM RIGHTWARD AXIS SEPTAL INFARCT (CITED ON OR BEFORE 16-JUL-2017) ABNORMAL ECG WHEN COMPARED WITH ECG OF 01-AUG-2017 00:45, NO SIGNIFICANT CHANGE WAS FOUND Confirmed by MOOSE GONZALEZ, UMAIR ([id number]) on 02/07/2018 7:50:49 PM Referred By: Confirmed By:UMAIR VIRK MD
[2018-02-07] MEDS ORDERED: ALBUTEROL SO4 0.083% IH SOL 2.5 MG/3 ML VIAL.NEB. NEB PRN (23:05)
[2018-02-07 23:24] VITALS: BMI 20.7
--- NOTE | 2018-02-07 23:42 | HP ---
DATE OF ADMISSION: 02/07/2018 The patient is a 57-year-old male with a past medical history of COPD, noninsulin-dependent diabetes, asthma, hyperlipidemia who came to the emergency room with the complaint of 2-day history of dyspnea. Patient states that he woke up from sleeping last night with shortness of breath. Denies any chest pain, pedal edema, nausea, diaphoresis, or palpitations. As per the patient, he had a similar episode in the past and was hospitalized and evaluated further with home O2 therapy, but he was not meeting criteria. Patient is following with a pulmonary physician. No fever. No chills. No diarrhea, no vomiting. ALLERGIES: No known drug allergies. SURGERIES: Patient had a history of surgery on the left foot. SOCIAL HISTORY: Ex-smoker. Patient smoked cigarettes at 1 pack per day for 40 years, quit smoking now. No history of any alcohol or drugs. HOME MEDICATIONS: Patient is on metformin 500 mg p.o. b.i.d., vitamin D2, simvastatin 10 mg p.o. daily, Spiriva and Ventolin nebulizer. PAST MEDICAL HISTORY: Significant for asthma, COPD, hypertension, hypercholesterolemia, and diabetes. REVIEW OF SYSTEMS: Constitutional: No fever. Shortness of breath present. Head and Neck: No change in vision. Respiratory: Shortness of breath with exertion. No hematemesis. Cardiac: No chest pain. No palpitations. No syncope. Abdomen: No constipation. No diarrhea. Genitourinary: Nothing significant. PHYSICAL EXAMINATION: General: Mild shortness of breath present. Well-nourished, mild distress present. Vital Signs: Temperature 97.9, pulse rate 94, respirations 20, blood pressure 139/84, pulse oximetry 91% Neck: No JVD. Respiratory: A lot of wheezing and rhonchi present. Tachypnea present. Cardiovascular: First and second sounds are normal. Abdomen: Soft. No tenderness. No distention. Bowel sounds are present. Extremities: No edema. Neurologic: Alert and oriented x3. No apparent motor or sensory deficits. Reflexes are normal. LABORATORY: CBC: WBC 6.8, hemoglobin 13.8, hematocrit 41.9, platelets 156. CMP: Normal. Blood gas: pH is 7.29, PCO2 74.3, PO2 59.8, bicarbonate 34.8, O2 saturation is 87.2 on nasal oxygen. Calcium 8.4, BNP 298.62. Troponin negative. D-dimer 354. CK 194. Chest x-ray: COPD. No acute disease. Lung vazquez are hyperaerated with some interstitial markings consistent with COPD. EKG done shows normal sinus rhythm with right axis deviation. No ST-T wave changes. Right ventricular hypertrophy. DIAGNOSIS: Patient is admitted to the floor with admission diagnosis of chronic obstructive pulmonary disease exacerbation/bronchitis. PLAN: Oxygen, albuterol nebulizer liquid 1 unit every 4 hours. Spiriva to be continued. Continue home medications. Pulmonary consultation called. Patient is stable. Erica [id number]
[2018-02-08] MEDS: metFORMIN HCL 500 MG TABLET (FP) PO SCH ×2 (06:38→17:06)
[2018-02-08 08:31] LABS: BASO % 0.8 % (0-2.0); EOS % 0.8 % (0-4.5); HEMATOCRIT 43.3 % (35.4-49); LYMPH % 18.8 % (8-40); MCH 30.1 pg (25.7-33.7); MCHC 32.3 g/dl (32.0-35.9); MEAN CELL VOLUME 93.4 fl (80-96); MEAN PLT VOLUME 8.6 fl (7.5-11.1); MONO % 7.3 % (3.8-10.2); NEUT % 72.3 % (42.8-82.8); PLATELET COUNT 176 K/MM3 (134-434); RBC 4.64 M/mm3 (4.00-5.60); RDW 14.4 % (11.9-15.9); WHITE BLOOD COUNT 7.8 K/mm3 (4.0-10.0)
[2018-02-08 08:56] LABS: ALBUMIN 3.9 g/dl (3.4-5.0); ANION GAP 5 (8-16); BILIRUBIN,TOTAL 0.6 mg/dL (0.2-1.0); BLOOD UREA NITROGEN 15 mg/dL (7-18); CALCIUM 10.2 mg/dL (8.5-10.1); CHLORIDE 100 mmol/L (98-107); CO2 37 mmol/L (21-32); CREATININE 1.2 mg/dL (0.7-1.3); GLUCOSE,RANDOM 115 mg/dL (74-106); POTASSIUM 5.7 mmol/L (3.5-5.1); SGOT/AST 12 U/L (15-37); SGPT/ALT 14 U/L (12-78); SODIUM 142 mmol/L (136-145); TOT PROT 7.3 g/dl (6.4-8.2)
[2018-02-08 08:57] LABS: ALK PHOS 112 U/L (45-117)
[2018-02-08] MEDS ORDERED: PT OWN MED DRAWER 7, Y5N ONE ×2 (09:02→10:58)
--- NOTE | 2018-02-08 09:35 | PN ---
Progress Note, Physician Chief Complaint: Pt lying in bed Sob improved Pt is on Nasal O2 saturation 90% on 2 liters of O2 - Current Medication List Current Medications: Active Medications Albuterol Sulfate (Ventolin 0.083% Nebulizer Soln -) 1 amp NEB Q6H PRN PRN Reason: SHORT OF BREATH/WHEEZING Last Admin: 02/08/18 08:07 Dose: 1 amp Atorvastatin Calcium (Lipitor -) 10 mg PO HS [facility] Ergocalciferol (Drisdol -) 50,000 unit PO We@1000 [facility] Metformin HCl (Glucophage -) 500 mg PO BIDAC [facility] Last Admin: 02/08/18 06:38 Dose: 500 mg Tiotropium Topping (Spiriva -) 1 puff IH DAILY [facility] - Objective Vital Signs: Vital Signs Temperature 98.2 F 02/08/18 06:00 Pulse Rate 78 02/08/18 06:00 Respiratory Rate 20 02/08/18 06:00 Blood Pressure 111/68 02/08/18 06:00 O2 Sat by Pulse Oximetry (%) 90 L 02/07/18 22:55 Constitutional: Yes: No Distress Eyes: Yes: Conjunctiva Clear HENT: Yes: Atraumatic Neck: Yes: Supple, Trachea Midline Cardiovascular: Yes: Regular Rate and Rhythm Respiratory: Yes: Regular, Cough, On Nasal O2, Wheezes Gastrointestinal: Yes: Normal Bowel Sounds, Soft Musculoskeletal: Yes: WNL Extremities: Yes: WNL Edema: No Peripheral Pulses WNL: Yes Neurological: Yes: WNL, Alert ...Motor Strength: WNL Psychiatric: Yes: WNL Labs: CBC, BMP 02/08/18 07:45 02/08/18 07:45 - ....Imaging X-ray: Report Reviewed Assessment/Plan COPD excacerbation Asthma DM SOB PLAN Continue O2 Continue home meds Pulmonary consult
[2018-02-08] MEDS ORDERED: TIOTROPIUM BROMIDE 18 MCG CAPSULES IH SCH (10:00)
[2018-02-08] MEDS ORDERED: SODIUM POLYSTYRENE SULFONATE 15 GM/60 ML BOTTLE PO ONE (10:00)
--- NOTE | 2018-02-08 11:15 | CON.PULM ---
Consult Consult Specialty:: PULMONARY Referred by:: Dr. Hernandez Reason for Consultation:: COPD exacerbation - History of Present Illness Chief Complaint: shortness of breath History of Present Illness: 57yo male with h/o DM, COPD who was admitted with worsening shortness of breath x 2 days. Denies any chest pain or palpitations. +cough productive of yellow sputum without wheezing. No fevers, chills or sweats. Exposed to sick friend. Maintained at home on Anoro and Proair. No home O2. Quit smoking last year. Started at age 13, smoked on average 1 PPD. ABG done in the ER showing acute on chronic respiratory acidosis. - History Source History Provided By: Patient, Medical Record Limitations to Obtaining History: No Limitations - Past Medical History Pulmonary: Yes: COPD. No: O2 Dependent Endocrine: Yes: Diabetes Mellitus - Past Surgical History Past Surgical History: Yes: Tonsillectomy - Alcohol/Substance Use Hx Alcohol Use: No - Smoking History Smoking history: Former smoker Have you smoked in the past 12 months: No Aproximately how many cigarettes per day: 0 - Social History Usual Living Arrangement: With Spouse History of Recent Travel: No Home Medications - Allergies Allergies/Adverse Reactions: Allergies Allergy/AdvReac Type Severity Reaction Status Date / Time No Known Allergies Allergy Verified 02/07/18 12:54 - Home Medications Home Medications: Ambulatory Orders metFORMIN HCL [Glucophage -] 500 mg PO BID 09/15/15 Ergocalciferol (Vitamin D2) [Vitamin D] 50,000 unit PO Q7D 10/09/15 Simvastatin [Zocor -] 20 mg PO HS 10/09/15 Tiotropium Tunica [Spiriva] 1 inh IH DAILY 01/14/17 Albuterol 0.083% Nebulizer Ema [Ventolin 0.083% Nebulizer Soln -] 1 neb NEB Q6H PRN 07/16/17 Review of Systems - Review of Systems Constitutional: reports: Weakness. denies: Chills, Fever Eyes: denies: Recent Change in Vision HENT: denies: Nasal Congestion, Throat Pain Neck: denies: Stiffness, Tenderness Cardiovascular: reports: Shortness of Breath. denies: Chest Pain, Edema, Palpitations Respiratory: reports: Cough, Exercise Intolerance, SOB on Exertion. denies: Hemoptysis, Wheezing Gastrointestinal: denies: Abdominal Pain, Nausea, Vomiting Genitourinary: denies: Dysuria, Hematuria Neurological: denies: Dizziness, Headache Endocrine: denies: Unexplained Weight Loss Physical Exam Vital Sings: Vital Signs Temperature 98.2 F 02/08/18 06:00 Pulse Rate 78 02/08/18 06:00 Respiratory Rate 20 02/08/18 06:00 Blood Pressure 111/68 02/08/18 06:00 O2 Sat by Pulse Oximetry (%) 90 L 02/07/18 22:55 Constitutional: Yes: Calm Eyes: Yes: Conjunctiva Clear, EOM Intact HENT: Yes: Atraumatic, Normocephalic Neck: Yes: Supple, Trachea Midline Cardiovascular: Yes: Regular Rate and Rhythm Respiratory: Yes: Poor Air Entry. No: Wheezes ...Clubbing: No Gastrointestinal: Yes: Normal Bowel Sounds, Soft. No: Tenderness Edema: No Neurological: Yes: Alert, Oriented Labs: CBC, BMP 02/08/18 07:45 02/08/18 07:45 ABG Results ABG pH 7.29 (7.35-7.45) L 02/07/18 15:27 ABG pCO2 at Pt Temp 74.3 mmHg (35-45) H* 02/07/18 15:27 ABG pO2 at Pt Temp 59.8 mmHg (80-100) L 02/07/18 15:27 ABG HCO3 34.8 meq/L (22-26) H 02/07/18 15:27 ABG O2 Sat (Measured) 87.2 % (90-98.9) L 02/07/18 15:27 ABG O2 Content 17.2 % vol (15-22) 02/07/18 15:27 ABG Base Excess 5.6 meq/l (-2-2) H 02/07/18 15:27 Imaging - Results Chest X-ray: Report Reviewed, Image Reviewed (no infiltrates) Problem List - Problems (1) COPD exacerbation Code(s): J44.1 - CHRONIC OBSTRUCTIVE PULMONARY DISEASE W (ACUTE) EXACERBATION Assessment/Plan Acute COPD Exacerbation Acute Bronchitis DM Hypercholesterolemia - IV medrol - inhaled bronchodilators standing and PRN - O2 to keep SpO2 >90% - glucose control while on systemic steroids - DVT prophylaxis - outpt PFTs - will need to check ambulatory SpO2 on room air when ready for discharge to assess for home O2 Thank you for this consult Jus Shafer MD
[2018-02-08] MEDS: ALBUTEROL SO4 2.5/IPRATROPIUM 0.5 INH SOL 3 ML VIAL.NEB. NEB SCH ×3 (11:46→20:08)
[2018-02-08] MEDS: methylPREDNISolone NA SUCC 40 MG/1 ML VIAL IVPUSH SCH ×2 (11:52→18:15)
[2018-02-08] MEDS: AZITHROMYCIN IVPB 500 MG in DEXTROSE 5%-WATER - 250 ML IVPB SCH (12:20)
[2018-02-08] MEDS: INSULIN SLIDING SCALE (NOVOLOG) 1 VIAL SQ SCH ×2 (18:15→21:36)
[2018-02-08] MEDS ORDERED: INSULIN (NOVOLOG) ASPART 100 UNITS/ML 10ML VIAL ONE (21:26)
[2018-02-08] MEDS: ATORVASTATIN CA 10 MG TABLET (FP) PO SCH (21:35)
[2018-02-09] MEDS: methylPREDNISolone NA SUCC 40 MG/1 ML VIAL IVPUSH SCH ×3 (02:05→17:50)
[2018-02-09] MEDS: INSULIN SLIDING SCALE (NOVOLOG) 1 VIAL SQ SCH ×4 (06:27→21:34)
[2018-02-09] MEDS: metFORMIN HCL 500 MG TABLET (FP) PO SCH ×2 (06:28→16:45)
[2018-02-09] MEDS: ALBUTEROL SO4 2.5/IPRATROPIUM 0.5 INH SOL 3 ML VIAL.NEB. NEB SCH ×4 (07:20→20:30)
[2018-02-09 08:51] LABS: CHLORIDE 100 mmol/L (98-107); POTASSIUM 4.9 mmol/L (3.5-5.1); SODIUM 143 mmol/L (136-145)
[2018-02-09 08:58] LABS: ALBUMIN 3.7 g/dl (3.4-5.0); ALK PHOS 100 U/L (45-117); ANION GAP 6 (8-16); BILIRUBIN,TOTAL 0.5 mg/dL (0.2-1.0); BLOOD UREA NITROGEN 23 mg/dL (7-18); CALCIUM 9.3 mg/dL (8.5-10.1); CO2 37 mmol/L (21-32); CREATININE 1.1 mg/dL (0.7-1.3); GLUCOSE,RANDOM 124 mg/dL (74-106); SGOT/AST 13 U/L (15-37); SGPT/ALT 13 U/L (12-78); TOT PROT 7.1 g/dl (6.4-8.2)
[2018-02-09] MEDS ORDERED: PT OWN MED DRAWER 7, Y5N ONE (09:35)
[2018-02-09] MEDS: AZITHROMYCIN IVPB 500 MG in DEXTROSE 5%-WATER - 250 ML IVPB SCH (09:45)
--- NOTE | 2018-02-09 09:45 | PN ---
Progress Note, Physician Chief Complaint: Pt lying in bed Sob improved Pt is on Nasal O2,Iv steroid and IV antibiotics saturation 90% on 2 liters of O2 - Current Medication List Current Medications: Active Medications Albuterol Sulfate (Ventolin 0.083% Nebulizer Soln -) 1 amp NEB Q6H PRN PRN Reason: SHORT OF BREATH/WHEEZING Last Admin: 02/08/18 08:07 Dose: 1 amp Albuterol/Ipratropium (Duoneb -) 1 amp NEB RQID [facility] Last Admin: 02/09/18 07:20 Dose: 1 amp Atorvastatin Calcium (Lipitor -) 10 mg PO HS [facility] Last Admin: 02/08/18 21:35 Dose: 10 mg Ergocalciferol (Drisdol -) 50,000 unit PO We@1000 [facility] Azithromycin 500 mg/ Dextrose 250 mls @ 250 mls/hr IVPB DAILY [facility] Stop: 02/12/18 10:59 Last Admin: 02/08/18 12:20 Dose: 250 mls/hr Insulin Aspart (Novolog Vial Sliding Scale -) 1 vial SQ ACHS [facility] PRN Reason: Protocol Last Admin: 02/09/18 06:27 Dose: 6 units Metformin HCl (Glucophage -) 500 mg PO BIDAC [facility] Last Admin: 02/09/18 06:28 Dose: 500 mg Methylprednisolone Sodium Succinate (Solu-Medrol -) 40 mg IVPUSH Q8H-IV [facility] Last Admin: 02/09/18 02:05 Dose: 40 mg - Objective Vital Signs: Vital Signs Temperature 98.0 F 02/09/18 06:00 Pulse Rate 77 02/09/18 06:00 Respiratory Rate 20 02/09/18 06:00 Blood Pressure 111/58 02/09/18 06:00 O2 Sat by Pulse Oximetry (%) 94 L 02/08/18 16:37 Constitutional: Yes: No Distress Eyes: Yes: Conjunctiva Clear HENT: Yes: Atraumatic Neck: Yes: Supple Cardiovascular: Yes: Regular Rate and Rhythm Respiratory: Yes: Regular, On Nasal O2, Wheezes Gastrointestinal: Yes: WNL Musculoskeletal: Yes: WNL Extremities: Yes: WNL Edema: No Peripheral Pulses WNL: Yes Neurological: Yes: WNL, Alert ...Motor Strength: WNL Psychiatric: Yes: WNL Labs: CBC, BMP 02/08/18 07:45 02/09/18 06:40 Assessment/Plan COPD excacerbation Asthma DM SOB PLAN Continue O2,IV steroid and Iv steroid Continue home meds Pulmonary F/u
--- NOTE | 2018-02-09 13:29 | PN ---
Progress Note, Physician History of Present Illness: PULMONARY ALERT,FEELING BETTER LESS DYSPNEIC. O2 SAT 85% ON RA - Current Medication List Current Medications: Active Medications Albuterol Sulfate (Ventolin 0.083% Nebulizer Soln -) 1 amp NEB Q6H PRN PRN Reason: SHORT OF BREATH/WHEEZING Last Admin: 02/08/18 08:07 Dose: 1 amp Albuterol/Ipratropium (Duoneb -) 1 amp NEB RQID [facility] Last Admin: 02/09/18 11:36 Dose: 1 amp Atorvastatin Calcium (Lipitor -) 10 mg PO HS [facility] Last Admin: 02/08/18 21:35 Dose: 10 mg Ergocalciferol (Drisdol -) 50,000 unit PO We@1000 [facility] Azithromycin 500 mg/ Dextrose 250 mls @ 250 mls/hr IVPB DAILY [facility] Stop: 02/12/18 10:59 Last Admin: 02/09/18 09:45 Dose: 250 mls/hr Insulin Aspart (Novolog Vial Sliding Scale -) 1 vial SQ ACHS [facility] PRN Reason: Protocol Last Admin: 02/09/18 11:43 Dose: Not Given Metformin HCl (Glucophage -) 500 mg PO BIDAC [facility] Last Admin: 02/09/18 06:28 Dose: 500 mg Methylprednisolone Sodium Succinate (Solu-Medrol -) 40 mg IVPUSH Q8H-IV [facility] Last Admin: 02/09/18 09:45 Dose: 40 mg - Objective Vital Signs: Vital Signs Temperature 97.7 F 02/09/18 10:00 Pulse Rate 80 02/09/18 10:00 Respiratory Rate 18 02/09/18 10:00 Blood Pressure 119/62 02/09/18 10:00 O2 Sat by Pulse Oximetry (%) 93 L 02/09/18 09:00 Constitutional: Yes: Well Nourished, Calm Eyes: Yes: WNL HENT: Yes: WNL Neck: Yes: WNL Cardiovascular: Yes: Regular Rate and Rhythm, S1, S2 Respiratory: Yes: Diminished, Wheezes (FEW SCATTERED WHEEZES) Gastrointestinal: Yes: Normal Bowel Sounds, Soft Extremities: Yes: WNL Edema: No Labs: CBC, BMP 02/08/18 07:45 02/09/18 06:40 Problem List - Problems (1) Hypoxia Code(s): R09.02 - HYPOXEMIA (2) Acute on chronic respiratory failure with hypoxia and hypercapnia Code(s): J96.21 - ACUTE AND CHRONIC RESPIRATORY FAILURE WITH HYPOXIA; J96.22 - ACUTE AND CHRONIC RESPIRATORY FAILURE WITH HYPERCAPNIA (3) Bronchitis Code(s): J40 - BRONCHITIS, NOT SPECIFIED ACUTE OR CHRONIC Assessment/Plan Problem List - Problems (1) COPD exacerbation Code(s): J44.1 - CHRONIC OBSTRUCTIVE PULMONARY DISEASE W (ACUTE) EXACERBATION Assessment/Plan Acute on chronic hypoxemic/hypercapneic respiratory failure Acute COPD Exacerbation Hypoxemia Acute Bronchitis DM Hypercholesterolemia - IV medrol same dose - inhaled bronchodilators standing and PRN - O2 to keep SpO2 >90% - glucose control while on systemic steroids - DVT prophylaxis - outpt PFTs - f/u abgs - will need to check ambulatory SpO2 on room air when ready for discharge to assess for home O2 DR GUERRIER
[2018-02-09] MEDS: ATORVASTATIN CA 10 MG TABLET (FP) PO SCH (21:34)
[2018-02-10] MEDS: methylPREDNISolone NA SUCC 40 MG/1 ML VIAL IVPUSH SCH ×3 (01:10→17:33)
[2018-02-10] MEDS: metFORMIN HCL 500 MG TABLET (FP) PO SCH ×2 (06:26→17:32)
[2018-02-10] MEDS: INSULIN SLIDING SCALE (NOVOLOG) 1 VIAL SQ SCH ×4 (06:26→21:41)
--- NOTE | 2018-02-10 07:15 | PN ---
Progress Note, Physician Chief Complaint: Pt lying in bed Sob improved Pt is on Nasal O2,Iv steroid and IV antibiotics saturation 90% on 2 liters of O2 - Current Medication List Current Medications: Active Medications Albuterol Sulfate (Ventolin 0.083% Nebulizer Soln -) 1 amp NEB Q6H PRN PRN Reason: SHORT OF BREATH/WHEEZING Last Admin: 02/08/18 08:07 Dose: 1 amp Albuterol/Ipratropium (Duoneb -) 1 amp NEB RQID [facility] Last Admin: 02/09/18 20:30 Dose: 1 amp Atorvastatin Calcium (Lipitor -) 10 mg PO HS [facility] Last Admin: 02/09/18 21:34 Dose: 10 mg Ergocalciferol (Drisdol -) 50,000 unit PO We@1000 [facility] Azithromycin 500 mg/ Dextrose 250 mls @ 250 mls/hr IVPB DAILY [facility] Stop: 02/12/18 10:59 Last Admin: 02/09/18 09:45 Dose: 250 mls/hr Insulin Aspart (Novolog Vial Sliding Scale -) 1 vial SQ ACHS [facility] PRN Reason: Protocol Last Admin: 02/10/18 06:26 Dose: 2 units Metformin HCl (Glucophage -) 500 mg PO BIDAC [facility] Last Admin: 02/10/18 06:26 Dose: 500 mg Methylprednisolone Sodium Succinate (Solu-Medrol -) 40 mg IVPUSH Q8H-IV [facility] Last Admin: 02/10/18 01:10 Dose: 40 mg - Objective Vital Signs: Vital Signs Temperature 98.0 F 02/10/18 07:06 Pulse Rate 77 02/10/18 07:06 Respiratory Rate 16 02/10/18 07:06 Blood Pressure 122/58 02/10/18 07:06 O2 Sat by Pulse Oximetry (%) 96 02/10/18 00:08 Constitutional: Yes: No Distress Eyes: Yes: Conjunctiva Clear HENT: Yes: Atraumatic Neck: Yes: Supple, Trachea Midline Cardiovascular: Yes: Regular Rate and Rhythm Respiratory: Yes: Regular, CTA Bilaterally, On Nasal O2 Gastrointestinal: Yes: Normal Bowel Sounds, Soft Musculoskeletal: Yes: WNL Extremities: Yes: WNL Edema: No Peripheral Pulses WNL: Yes Neurological: Yes: WNL, Alert ...Motor Strength: WNL Psychiatric: Yes: WNL Labs: CBC, BMP 02/08/18 07:45 05/04/18 06:40 Assessment/Plan COPD excacerbation Asthma DM SOB PLAN Continue O2,IV steroid and Iv steroid Continue home meds Pulmonary F/u
[2018-02-10] MEDS: ALBUTEROL SO4 2.5/IPRATROPIUM 0.5 INH SOL 3 ML VIAL.NEB. NEB SCH ×4 (07:20→19:45)
[2018-02-10] MEDS ORDERED: PT OWN MED DRAWER 7, Y5N ONE ×2 (09:13→18:44)
[2018-02-10] MEDS: AZITHROMYCIN IVPB 500 MG in DEXTROSE 5%-WATER - 250 ML IVPB SCH (09:26)
--- NOTE | 2018-02-10 12:27 | PN ---
Progress Note, Physician History of Present Illness: PULMONARY ALERT,FEELING BETTER,LESS DYSPNEIC - Current Medication List Current Medications: Active Medications Albuterol Sulfate (Ventolin 0.083% Nebulizer Soln -) 1 amp NEB Q6H PRN PRN Reason: SHORT OF BREATH/WHEEZING Last Admin: 02/08/18 08:07 Dose: 1 amp Albuterol/Ipratropium (Duoneb -) 1 amp NEB RQID [facility] Last Admin: 02/10/18 11:14 Dose: 1 amp Atorvastatin Calcium (Lipitor -) 10 mg PO HS [facility] Last Admin: 02/09/18 21:34 Dose: 10 mg Ergocalciferol (Drisdol -) 50,000 unit PO We@1000 [facility] Azithromycin 500 mg/ Dextrose 250 mls @ 250 mls/hr IVPB DAILY [facility] Stop: 02/12/18 10:59 Last Admin: 02/10/18 09:26 Dose: 250 mls/hr Insulin Aspart (Novolog Vial Sliding Scale -) 1 vial SQ ACHS [facility] PRN Reason: Protocol Last Admin: 02/10/18 06:26 Dose: 2 units Metformin HCl (Glucophage -) 500 mg PO BIDAC [facility] Last Admin: 02/10/18 06:26 Dose: 500 mg Methylprednisolone Sodium Succinate (Solu-Medrol -) 40 mg IVPUSH Q8H-IV [facility] Last Admin: 02/10/18 09:26 Dose: 40 mg - Objective Vital Signs: Vital Signs Temperature 98 F 02/10/18 09:25 Pulse Rate 106 H 02/10/18 09:25 Respiratory Rate 18 02/10/18 09:25 Blood Pressure 132/65 02/10/18 09:25 O2 Sat by Pulse Oximetry (%) 96 02/10/18 00:08 Constitutional: Yes: Well Nourished, Calm Eyes: Yes: WNL HENT: Yes: WNL Neck: Yes: WNL Cardiovascular: Yes: Regular Rate and Rhythm, S1, S2 Respiratory: Yes: Diminished Gastrointestinal: Yes: Normal Bowel Sounds, Soft Extremities: Yes: WNL Edema: No Labs: Problem List - Problems (1) Hypoxia Code(s): R09.02 - HYPOXEMIA (2) Acute on chronic respiratory failure with hypoxia and hypercapnia Code(s): J96.21 - ACUTE AND CHRONIC RESPIRATORY FAILURE WITH HYPOXIA; J96.22 - ACUTE AND CHRONIC RESPIRATORY FAILURE WITH HYPERCAPNIA (3) Bronchitis Code(s): J40 - BRONCHITIS, NOT SPECIFIED ACUTE OR CHRONIC Assessment/Plan Problem List - Problems (1) COPD exacerbation Code(s): J44.1 - CHRONIC OBSTRUCTIVE PULMONARY DISEASE W (ACUTE) EXACERBATION Assessment/Plan Acute on chronic hypoxemic/hypercapneic respiratory failure Acute COPD Exacerbation Hypoxemia Acute Bronchitis DM Hypercholesterolemia - IV medrol taper - inhaled bronchodilators standing and PRN - O2 to keep SpO2 >90% - glucose control while on systemic steroids - DVT prophylaxis - outpt PFTs - f/u abgs - will need to check ambulatory SpO2 on room air when ready for discharge to assess for home O2 DR GUERRIER
[2018-02-10] MEDS: ATORVASTATIN CA 10 MG TABLET (FP) PO SCH (21:41)
[2018-02-11] MEDS: methylPREDNISolone NA SUCC 40 MG/1 ML VIAL IVPUSH SCH ×4 (01:18→21:52)
[2018-02-11] MEDS: metFORMIN HCL 500 MG TABLET (FP) PO SCH ×2 (06:09→17:08)
[2018-02-11] MEDS: INSULIN SLIDING SCALE (NOVOLOG) 1 VIAL SQ SCH ×4 (06:09→21:29)
[2018-02-11] MEDS ORDERED: INSULIN (NOVOLOG) ASPART 100 UNITS/ML 10ML VIAL ONE (06:18)
[2018-02-11] MEDS: ALBUTEROL SO4 2.5/IPRATROPIUM 0.5 INH SOL 3 ML VIAL.NEB. NEB SCH ×4 (07:20→19:40)
--- NOTE | 2018-02-11 07:50 | PN ---
Progress Note, Physician Chief Complaint: Pt lying in bed Sob improved Pt is on Nasal O2,Iv steroid and IV antibiotics saturation 90% on 2 liters of O2 On iv steroid and antibiotics - Current Medication List Current Medications: Active Medications Albuterol Sulfate (Ventolin 0.083% Nebulizer Soln -) 1 amp NEB Q6H PRN PRN Reason: SHORT OF BREATH/WHEEZING Last Admin: 02/08/18 08:07 Dose: 1 amp Albuterol/Ipratropium (Duoneb -) 1 amp NEB RQID [facility] Last Admin: 02/10/18 19:45 Dose: 1 amp Atorvastatin Calcium (Lipitor -) 10 mg PO HS [facility] Last Admin: 02/10/18 21:41 Dose: 10 mg Ergocalciferol (Drisdol -) 50,000 unit PO We@1000 [facility] Azithromycin 500 mg/ Dextrose 250 mls @ 250 mls/hr IVPB DAILY [facility] Stop: 02/12/18 10:59 Last Admin: 02/10/18 09:26 Dose: 250 mls/hr Insulin Aspart (Novolog Vial Sliding Scale -) 1 vial SQ ACHS [facility] PRN Reason: Protocol Last Admin: 02/11/18 06:09 Dose: 2 units Metformin HCl (Glucophage -) 500 mg PO BIDAC [facility] Last Admin: 02/11/18 06:09 Dose: 500 mg Methylprednisolone Sodium Succinate (Solu-Medrol -) 40 mg IVPUSH Q8H-IV [facility] Last Admin: 02/11/18 01:18 Dose: 40 mg - Objective Vital Signs: Vital Signs Temperature 97.8 F 02/11/18 07:26 Pulse Rate 89 02/11/18 07:26 Respiratory Rate 18 02/11/18 07:26 Blood Pressure 130/63 02/11/18 07:26 O2 Sat by Pulse Oximetry (%) 96 02/10/18 21:00 Constitutional: Yes: No Distress Eyes: Yes: Conjunctiva Clear HENT: Yes: Atraumatic Neck: Yes: Supple Cardiovascular: Yes: Regular Rate and Rhythm Respiratory: Yes: Regular, CTA Bilaterally Gastrointestinal: Yes: Normal Bowel Sounds, Soft Musculoskeletal: Yes: WNL Extremities: Yes: WNL Edema: No Peripheral Pulses WNL: Yes Neurological: Yes: WNL, Alert ...Motor Strength: WNL Psychiatric: Yes: WNL Labs: CBC, BMP 02/08/18 07:45 02/09/18 06:40 Assessment/Plan COPD excacerbation Asthma bronchitis DM SOB PLAN Continue O2,IV steroid and Iv steroid Continue home meds Pulmonary F/u
[2018-02-11] MEDS: AZITHROMYCIN IVPB 500 MG in DEXTROSE 5%-WATER - 250 ML IVPB SCH (09:09)
--- NOTE | 2018-02-11 13:22 | PN ---
Progress Note, Physician History of Present Illness: PULMONARY ALERT FEELING BETTER ,-SOB IMPROVING,O2 SAT 92% ON RA - Current Medication List Current Medications: Active Medications Albuterol Sulfate (Ventolin 0.083% Nebulizer Soln -) 1 amp NEB Q6H PRN PRN Reason: SHORT OF BREATH/WHEEZING Last Admin: 02/08/18 08:07 Dose: 1 amp Albuterol/Ipratropium (Duoneb -) 1 amp NEB RQID [facility] Last Admin: 02/11/18 11:38 Dose: 1 amp Atorvastatin Calcium (Lipitor -) 10 mg PO HS [facility] Last Admin: 02/10/18 21:41 Dose: 10 mg Ergocalciferol (Drisdol -) 50,000 unit PO We@1000 [facility] Azithromycin 500 mg/ Dextrose 250 mls @ 250 mls/hr IVPB DAILY [facility] Stop: 02/12/18 10:59 Last Admin: 02/11/18 09:09 Dose: 250 mls/hr Insulin Aspart (Novolog Vial Sliding Scale -) 1 vial SQ ACHS [facility] PRN Reason: Protocol Last Admin: 02/11/18 12:20 Dose: Not Given Metformin HCl (Glucophage -) 500 mg PO BIDAC [facility] Last Admin: 02/11/18 06:09 Dose: 500 mg Methylprednisolone Sodium Succinate (Solu-Medrol -) 40 mg IVPUSH Q8H-IV [facility] Last Admin: 02/11/18 09:09 Dose: 40 mg - Objective Vital Signs: Vital Signs Temperature 98 F 02/11/18 11:00 Pulse Rate 86 02/11/18 11:00 Respiratory Rate 18 02/11/18 11:00 Blood Pressure 126/71 02/11/18 11:00 O2 Sat by Pulse Oximetry (%) 92 L 02/11/18 09:00 Constitutional: Yes: Well Nourished, Calm Eyes: Yes: WNL HENT: Yes: WNL Neck: Yes: WNL Cardiovascular: Yes: Regular Rate and Rhythm, S1, S2 Respiratory: Yes: Diminished Gastrointestinal: Yes: Normal Bowel Sounds, Soft Extremities: Yes: WNL Edema: No Labs: CBC, BMP Problem List - Problems (1) Hypoxia Code(s): R09.02 - HYPOXEMIA (2) Acute on chronic respiratory failure with hypoxia and hypercapnia Code(s): J96.21 - ACUTE AND CHRONIC RESPIRATORY FAILURE WITH HYPOXIA; J96.22 - ACUTE AND CHRONIC RESPIRATORY FAILURE WITH HYPERCAPNIA (3) Bronchitis Code(s): J40 - BRONCHITIS, NOT SPECIFIED ACUTE OR CHRONIC Assessment/Plan Problem List - Problems (1) COPD exacerbation Code(s): J44.1 - CHRONIC OBSTRUCTIVE PULMONARY DISEASE W (ACUTE) EXACERBATION Assessment/Plan Acute on chronic hypoxemic/hypercapneic respiratory failure Acute COPD Exacerbation Hypoxemia Acute Bronchitis DM Hypercholesterolemia - prednisone in am - inhaled bronchodilators standing and PRN - O2 to keep SpO2 >90% - glucose control while on systemic steroids - DVT prophylaxis - outpt PFTs - f/u abgs - will need to check ambulatory SpO2 on room air when ready for discharge to assess for home O2 DR GUERRIER
[2018-02-11] MEDS: ATORVASTATIN CA 10 MG TABLET (FP) PO SCH (21:29)
[2018-02-12] MEDS: metFORMIN HCL 500 MG TABLET (FP) PO SCH (06:11)
[2018-02-12] MEDS: INSULIN SLIDING SCALE (NOVOLOG) 1 VIAL SQ SCH ×2 (06:11→11:49)
[2018-02-12] MEDS: ALBUTEROL SO4 2.5/IPRATROPIUM 0.5 INH SOL 3 ML VIAL.NEB. NEB SCH ×2 (07:30→11:38)
[2018-02-12] MEDS ORDERED: predniSONE 20 MG TABLET (UD) PO SCH (10:00)
--- NOTE | 2018-02-12 10:14 | PN ---
Progress Note, Physician Chief Complaint: Pt lying in bed Sob improved,feels better Pt is on Nasal O2,Iv steroid and IV antibiotics saturation 91% on 2 liters of O2 On iv steroid and antibiotics d/c planing - Current Medication List Current Medications: Active Medications Albuterol Sulfate (Ventolin 0.083% Nebulizer Soln -) 1 amp NEB Q6H PRN PRN Reason: SHORT OF BREATH/WHEEZING Last Admin: 02/08/18 08:07 Dose: 1 amp Albuterol/Ipratropium (Duoneb -) 1 amp NEB RQID [facility] Last Admin: 02/12/18 07:30 Dose: 1 amp Atorvastatin Calcium (Lipitor -) 10 mg PO HS [facility] Last Admin: 02/11/18 21:29 Dose: 10 mg Ergocalciferol (Drisdol -) 50,000 unit PO We@1000 [facility] Azithromycin 500 mg/ Dextrose 250 mls @ 250 mls/hr IVPB DAILY [facility] Stop: 02/12/18 10:59 Last Admin: 02/11/18 09:09 Dose: 250 mls/hr Insulin Aspart (Novolog Vial Sliding Scale -) 1 vial SQ ACHS [facility] PRN Reason: Protocol Last Admin: 02/12/18 06:11 Dose: 2 units Metformin HCl (Glucophage -) 500 mg PO BIDAC [facility] Last Admin: 02/12/18 06:11 Dose: 500 mg Methylprednisolone Sodium Succinate (Solu-Medrol -) 40 mg IVPUSH BID [facility] Last Admin: 02/11/18 21:52 Dose: 40 mg Prednisone (Deltasone -) 40 mg PO DAILY [facility] - Objective Vital Signs: Vital Signs Temperature 97.9 F 02/12/18 05:20 Pulse Rate 89 02/12/18 09:37 Respiratory Rate 18 02/12/18 05:20 Blood Pressure 132/83 02/12/18 05:20 O2 Sat by Pulse Oximetry (%) 91 L 02/12/18 09:37 Constitutional: Yes: No Distress HENT: Yes: Atraumatic Neck: Yes: Supple Cardiovascular: Yes: Regular Rate and Rhythm Respiratory: Yes: Regular, Other (occasionai wheezing) Gastrointestinal: Yes: Normal Bowel Sounds Musculoskeletal: Yes: WNL Edema: No Neurological: Yes: WNL ...Motor Strength: WNL Labs: CBC, BMP 02/08/18 07:45 02/09/18 06:40 Assessment/Plan COPD excacerbation hypoxia Asthma bronchitis DM SOB PLAN Continue O2,po steroid Continue home meds will f/u pul rec regarding d/c
[2018-02-12] MEDS: AZITHROMYCIN IVPB 500 MG in DEXTROSE 5%-WATER - 250 ML IVPB SCH (10:16)
[2018-02-12] MEDS: methylPREDNISolone NA SUCC 40 MG/1 ML VIAL IVPUSH SCH (11:44)
[2018-02-12 13:12] VITALS: BP 161/68; PULSE 102; TEMP 98.5
--- NOTE | 2018-02-12 13:48 | PN ---
Progress Note, Physician History of Present Illness: PULMONARY ALERT,NO DISTRESS,-SOB,-COUGH. PT DOES QUALIFY FOR HOME O2 - Current Medication List Current Medications: Active Medications Albuterol Sulfate (Ventolin 0.083% Nebulizer Soln -) 1 amp NEB Q6H PRN PRN Reason: SHORT OF BREATH/WHEEZING Last Admin: 02/08/18 08:07 Dose: 1 amp Albuterol/Ipratropium (Duoneb -) 1 amp NEB RQID [facility] Last Admin: 02/12/18 11:38 Dose: 1 amp Atorvastatin Calcium (Lipitor -) 10 mg PO HS [facility] Last Admin: 02/11/18 21:29 Dose: 10 mg Ergocalciferol (Drisdol -) 50,000 unit PO We@1000 [facility] Insulin Aspart (Novolog Vial Sliding Scale -) 1 vial SQ ACHS [facility] PRN Reason: Protocol Last Admin: 02/12/18 11:49 Dose: Not Given Metformin HCl (Glucophage -) 500 mg PO BIDAC [facility] Last Admin: 02/12/18 06:11 Dose: 500 mg Methylprednisolone Sodium Succinate (Solu-Medrol -) 40 mg IVPUSH BID [facility] Last Admin: 02/12/18 11:44 Dose: Not Given Prednisone (Deltasone -) 40 mg PO DAILY [facility] Last Admin: 02/12/18 11:43 Dose: 40 mg - Objective Vital Signs: Vital Signs Temperature 98.5 F 02/12/18 13:12 Pulse Rate 102 H 02/12/18 13:12 Respiratory Rate 18 02/12/18 13:12 Blood Pressure 161/68 02/12/18 13:12 O2 Sat by Pulse Oximetry (%) 91 L 02/12/18 09:37 Constitutional: Yes: Well Nourished, Calm Eyes: Yes: WNL HENT: Yes: WNL Neck: Yes: WNL, Supple Cardiovascular: Yes: Regular Rate and Rhythm, S1, S2 Respiratory: Yes: Diminished Gastrointestinal: Yes: Normal Bowel Sounds, Soft Extremities: Yes: WNL Edema: No Labs: CBC, BMP Problem List - Problems (1) Hypoxia Code(s): R09.02 - HYPOXEMIA (2) Acute on chronic respiratory failure with hypoxia and hypercapnia Code(s): J96.21 - ACUTE AND CHRONIC RESPIRATORY FAILURE WITH HYPOXIA; J96.22 - ACUTE AND CHRONIC RESPIRATORY FAILURE WITH HYPERCAPNIA (3) Bronchitis Code(s): J40 - BRONCHITIS, NOT SPECIFIED ACUTE OR CHRONIC Assessment/Plan Problem List - Problems (1) COPD exacerbation Code(s): J44.1 - CHRONIC OBSTRUCTIVE PULMONARY DISEASE W (ACUTE) EXACERBATION Assessment/Plan Acute on chronic hypoxemic/hypercapneic respiratory failure Acute COPD Exacerbation Hypoxemia Acute Bronchitis DM Hypercholesterolemia - prednisone - LABA/LAMA - inhaled bronchodilators standing and PRN - O2 to keep SpO2 >90% - glucose control while on systemic steroids - DVT prophylaxis - outpt PFTs - will need to check ambulatory SpO2 on room air when ready for discharge to assess for home O2 DR GUERRIER
--- NOTE | 2018-02-13 07:43 | DS ---
DATE OF ADMISSION: 02/09/2018 DATE OF DISCHARGE: 02/12/2018 The patient is a 57-year-old male with a history of diabetes, hypertension, asthma and COPD, admitted with hypoxemia, increased shortness of breath, wheezing and COPD exacerbation. As per the patient, no relief with home medications, so came to the emergency room. The patient is an ex-smoker. In the ER, the patient's temperature was 97.9, pulse 94, respirations 20, blood pressure 139/84. Saturation was 91%. On examination, the patient was tachypneic, rapid respiratory rate. Chest: Wheezing present, rhonchi present. Cardiovascular system: First and second sounds normal. Abdomen soft, no tenderness, no distention. Bowel sounds present. The patient had a chest x-ray done, which showed increased interstitial markings, findings consistent with COPD. EKG showed normal sinus rhythm, right axis deviation, no ST or T-wave changes, right ventricular hypertrophy present. Labs done in the emergency room: White count 6.8, hemoglobin 13.6, hematocrit 41.9, platelets 156. Comprehensive panel: Sodium 145, potassium 4.6, chloride 106, bicarbonate 37, BUN 14, creatinine 1.2, sugar 128. The patient was given oxygen by nasal cannula. The patient's D-Dimer was 354. BNP was 298.62. Cardiac enzymes negative. ABG showed pH 7.2, pCO2 of 74.3, pO2 of 59.8, bicarbonate 34.8, saturation 87.2. The patient was admitted to the floor, with admitting diagnoses of: 1. Chronic obstructive pulmonary disease exacerbation. 2. Hypoxia. 3. Bronchitis. Pulmonary consultation called. The patient was given IV steroids, IV antibiotics (Zithromax), home medications and nasal oxygen. Pulse oximetry tested pre- and post-exercise. Not a candidate for home oxygen therapy. The patient was stable on the floor. The patient was discharged home on oral steroids and home medications of: 1. Metformin. 2. Simvastatin. 3. Spiriva. 4. Albuterol nebulization. The patient was stable at the time of discharge. Pulse oximetry was 94%. Recommended to follow up with Pulmonology and primary care physician in 1 week. Recommended to do an outpatient pulmonary function test. The patient was discharged home in stable condition. LILIA HUGHES M.D. [id number]
[2018-02-14] MEDS ORDERED: ERGOCALCIFEROL (VITAMIN D2) 50,000 UNIT CAPSULE (FP) PO SCH (10:00)
== END 2018-02-12 15:19 | disposition home or self-care (01) | DRG 190 ==
LOC: JER 12:46 → JERBED 16:42 → J5S 22:45 → OBSVTOIN 02-09 13:54
PROVIDERS: ADMIT Family Medicine; ATTEND Family Medicine
DX: J44.1 Chronic obstructive pulmonary disease with (acute) exacerbation (principal); J96.21 Acute and chronic respiratory failure with hypoxia; J96.22 Acute and chronic respiratory failure with hypercapnia; J44.0 Chronic obstructive pulmonary disease with (acute) lower respiratory infection; J20.9 Acute bronchitis, unspecified; E11.9 Type 2 diabetes mellitus without complications; E78.00 Pure hypercholesterolemia, unspecified; I10 Essential (primary) hypertension; Z87.891 Personal history of nicotine dependence
CPT/HCPCS: 36415; 36600; 71046-TC-FY; 80053; 82375; 82550; 82553; 82803; 82962; 83050; 83880; 84484; 85025; 85379; 93005; 93010; 94640; 94761; 99285-25; G0378; J7620

== ENCOUNTER 2018-03-26 09:21 | Inpatient (IN) | payer OTHER ==
[2018-03-26] MEDS ORDERED: ALBUTEROL SO4 2.5/IPRATROPIUM 0.5 INH SOL 3 ML VIAL.NEB. NEB ONE ×3 (09:26→11:48)
[2018-03-26] MEDS ORDERED: methylPREDNISolone NA SUCC 125 MG/2 ML VIAL ONE (09:27)
[2018-03-26] MEDS ORDERED: methylPREDNISolone NA SUCC 125 MG/2 ML VIAL IVPB ONE (09:29)
--- NOTE | 2018-03-26 09:29 | PDOC ---
History of Present Illness - General History Source: Patient Exam Limitations: No Limitations <Rhea Ozuna - Last Filed: 03/26/18 11:43> - General History Source: Patient Exam Limitations: No Limitations - History of Present Illness Initial Comments: 03/26/18 09:33 The patient is a 57 year old male, with a significant past medical history of COPD, asthma,(no previous intubations), hypertension, and NIDDM, who presents to the emergency department from Assisted Living facility with shortness of breath since earlier today. The patient reports waking up short of breath. Patient reports his usual triggers are warm weather. He reports associated chest tightness, but denies any chest pain, diaphoresis, palpitations, or lower extremity edema. Patient states his symptoms are similar to his prior COPD/ asthma exacerbation episodes, and reports taking his rescue inhaler and a steroid, which he does not recall the name of, with mild relief of symptoms. Patient reports his shortness of breath is exacerbated with exertion. Per EMs, patients baseline sat is in the 80s and he does not require home O2. He denies any recent fever, chills, cough, headache, or dizziness. He denies any abdominal pain, nausea, or vomiting. He denies any recent travel or sick contacts. Allergies: NKDA Past Surgical History: LUE - unknown surgery, childhood Social History: Current everyday smoker (previously > 1 ppd for 40 years). No ETOH or recreational drug use. PCP: Dr. Hernandez <Bette Lerner - Last Filed: 03/26/18 17:16> - General Chief Complaint: Asthma Stated Complaint: ASTHMA Time Seen by Provider: 03/26/18 09:24 Past History - Past Medical History Anemia: No Asthma: Yes Cancer: No Cardiac Disorders: No CVA: No COPD: Yes CHF: No Dementia: No Diabetes: Yes (DM) GI Disorders: No Disorders: No HTN: Yes Hypercholesterolemia: Yes Liver Disease: No Seizures: No Thyroid Disease: No - Surgical History Abdominal Surgery: No Appendectomy: No Cardiac Surgery: No Cholecystectomy: No Lung Surgery: No Neurologic Surgery: No Orthopedic Surgery: No - Immunization History Immunization Up to Date: Yes - Suicide/Smoking/Psychosocial Hx Smoking History: Former smoker Have you smoked in the past 12 months: No Number of Cigarettes Smoked Daily: 5 'Breaking Loose' booklet given: 06/28/16 Hx Alcohol Use: No Drug/Substance Use Hx: No Substance Use Type: None Hx Substance Use Treatment: No <Rhea Ozuna - Last Filed: 03/26/18 11:43> <Bette Lerner - Last Filed: 03/26/18 17:16> - Past Medical History Allergies/Adverse Reactions: Allergies Allergy/AdvReac Type Severity Reaction Status Date / Time No Known Allergies Allergy Verified 02/07/18 12:54 Home Medications: Ambulatory Orders metFORMIN HCL [Glucophage -] 500 mg PO BID 09/15/15 Ergocalciferol (Vitamin D2) [Vitamin D] 50,000 unit PO Q7D 10/09/15 Simvastatin [Zocor -] 20 mg PO HS 10/09/15 Tiotropium [place] [Spiriva] 1 inh IH DAILY 01/14/17 Albuterol 0.083% Nebulizer Ema [Ventolin 0.083% Nebulizer Soln -] 1 neb NEB Q6H PRN 07/16/17 Albuterol Sulfate [Proair Hfa] 8.5 gm IH Q6H 03/26/18 Umeclidinium Brm/Vilanterol Tr [Anoro Ellipta 62.5-25 Mcg INH] 1 each IH DAILY 03/26/18 Review of Systems - Review of Systems Able to Perform ROS?: Yes Comments:: 03/26/18 09:33 GENERAL/CONSTITUTIONAL: No fever or chills. No weakness. HEAD, EYES, EARS, NOSE AND THROAT: No change in vision. No ear pain or discharge. No sore throat. CARDIOVASCULAR:+Chest tightness, shortness of breath. No chest pain, diaphoresis , or palpitations. RESPIRATORY: +Shortness of breath with exertion. No cough, wheezing, or hemoptysis. GASTROINTESTINAL: No nausea, vomiting, diarrhea or constipation. GENITOURINARY: No dysuria, frequency, or change in urination. MUSCULOSKELETAL: No joint or muscle swelling or pain. No neck or back pain. SKIN: No rash NEUROLOGIC: No headache, vertigo, loss of consciousness, or change in strength/ sensation. ENDOCRINE: No increased thirst. No abnormal weight change. HEMATOLOGIC/LYMPHATIC: No anemia, easy bleeding, or history of blood clots. ALLERGIC/IMMUNOLOGIC: No hives or skin allergy. <Bette Lerner - Last Filed: 03/26/18 17:16> *Physical Exam - Vital Signs Last Vital Signs Temp Pulse Resp BP Pulse Ox 97.9 F 110 H 26 H 124/76 90 L 03/26/18 09:25 03/26/18 09:25 03/26/18 09:25 03/26/18 09:25 03/26/18 09:25 - Physical Exam Comments: 03/26/18 09:34 GENERAL: Awake, alert, and fully oriented, in no acute distress HEAD: No signs of trauma EYES: PERRLA, EOMI, sclera anicteric, conjunctiva clear ENT: Auricles normal inspection, hearing grossly normal, nares patent. Moist mucosa NECK: Normal ROM, supple, no lymphadenopathy, JVD, or masses LUNGS: Poor air entry bilaterally, but no accessory muscle use. Minimal wheezing at the bases. No rales, ronchi, or crackles HEART: Regular rate and rhythm, normal S1 and S2, no murmurs, rubs or gallops ABDOMEN: Soft, nontender, normoactive bowel sounds. No guarding, no rebound. No masses EXTREMITIES: Normal range of motion, no edema. No clubbing or cyanosis. No cords, erythema, or tenderness. DP/PT pulses 2+ and symmetric. Warm and well perfused NEUROLOGICAL: Moves all extremities. Normal speech, normal gait SKIN: Warm, Dry, normal turgor, no rashes or lesions noted. <YannIngridjack - Last Filed: 03/26/18 17:16> Heart Score/ECG Review #1 ECG reviewed & interpreted by me at: 10:25 General ECG Interpretation: Sinus Rhythm, Normal Rate (110 sinus tachycardia), Normal Intervals, No acute ischemic changes <Rhea Ozuna - Last Filed: 03/26/18 11:43> ED Treatment Course - LABORATORY CBC & Chemistry Diagram: 03/26/18 09:55 03/26/18 09:55 <Rhea Ozuna - Last Filed: 03/26/18 11:43> - LABORATORY CBC & Chemistry Diagram: 03/26/18 09:55 03/26/18 09:55 - RADIOLOGY Radiograph Interpretation: 03/26/18 17:16 EXAM: CXR INTERPRETED BY: Dr. Valdivia REVIEWED BY: Dr. Ozuna IMPRESSION: No evidence of active pulmonary disease. <Bette Lerner - Last Filed: 03/26/18 17:16> Medical Decision Making - Medical Decision Making 03/26/18 09:25 57-year-old male history of COPD/asthma here today complaining of shortness of breath. States his usual triggers are hot weather states he woke up this morning feeling short of breath denies chest pain but does have some chest tightness with usual COPD and asthma exacerbations. Took one inhaler at home with some relief patient is currently in assisted living states his baseline sats are in the ED use he does not wear oxygen at facility he still smokes no fever no chills no leg swelling no other complaints no prior intubations states he is currently taking a baseline steroid but unsure of the current dose Exam he is awake alert no acute distress he has poor air entry bilaterally but no accessory muscle use. Minimal wheezing at the bases heart is regular without any murmurs rubs or gallops abdomen soft nontender extremities are warm well perfused no edema Differential diagnosis includes pneumonia, CHF, COPD/asthma exacerbation, angina , plan DuoNeb steroids chest x-ray baseline labs EKG including troponin patient will likely require admission repeat assessment following labs <Rhea Ozuna - Last Filed: 03/26/18 11:43> - Medical Decision Making 03/26/18 11:38 First call placed to Dr. Hernandez at 11:38. Awaiting call back. Case discussed with Dr. Hernandez at 11:40. Agreed to admit. <Bette Lerner - Last Filed: 03/26/18 17:16> *DC/Admit/Observation/Transfer - Discharge Dispostion Decision to Admit order: Yes <Rhea Ozuna - Last Filed: 03/26/18 11:43> - Attestations Scribe Attestion: 03/26/18 09:36 Documentation prepared by Bette Lerner, acting as senior medical transcriptionist for Rhea Ozuna MD. <Bette Lerner - Last Filed: 03/26/18 17:16> Diagnosis at time of Disposition: COPD exacerbation
[2018-03-26 09:30] VITALS: BMI 22.6
[2018-03-26 10:15] LABS: ARTERIAL BLD GAS O2 SATURATION 74.5 % (90-98.9); ARTERIAL BLOOD GAS BASE EXCESS 6.6 meq/l (-2-2); ARTERIAL BLOOD GAS PCO2 69.5 mmHg (35-45); ARTERIAL BLOOD GAS PO2 43.7 mmHg (80-100); ARTERIAL BLOOD GAS pH 7.32 (7.35-7.45); CARBOXYHEMOGLOBIN 4.1 gm% (0.5-2.0)
[2018-03-26 10:17] LABS: ALLENS TEST POSITIVE
[2018-03-26 10:19] LABS: BASO % 0.7 % (0-2.0); EOS % 0.6 % (0-4.5); HEMATOCRIT 41.5 % (35.4-49); HEMOGLOBIN 13.4 GM/dL (11.7-16.9); LYMPH % 18.8 % (8-40); MCH 30.6 pg (25.7-33.7); MCHC 32.3 g/dl (32.0-35.9); MEAN CELL VOLUME 94.7 fl (80-96); MEAN PLT VOLUME 8.8 fl (7.5-11.1); MONO % 6.3 % (3.8-10.2); NEUT % 73.6 % (42.8-82.8); PLATELET COUNT 180 K/MM3 (134-434); RBC 4.38 M/mm3 (4.00-5.60); WHITE BLOOD COUNT 8.4 K/mm3 (4.0-10.0)
[2018-03-26 10:48] LABS: ALBUMIN 3.6 g/dl (3.4-5.0); ANION GAP 2 (8-16); CALCIUM 9.1 mg/dL (8.5-10.1); CHLORIDE 103 mmol/L (98-107); CO2 38 mmol/L (21-32); CREATININE 1.1 mg/dL (0.7-1.3); GLUCOSE,RANDOM 105 mg/dL (74-106); SGPT/ALT 21 U/L (12-78); SODIUM 143 mmol/L (136-145)
[2018-03-26 11:01] LABS: ALK PHOS 111 U/L (45-117); BILIRUBIN,TOTAL 0.5 mg/dL (0.2-1.0); BLOOD UREA NITROGEN 7 mg/dL (7-18); N-TERMINAL BNP 444.32 pg/ml (5-125); TOT PROT 7.2 g/dl (6.4-8.2)
[2018-03-26 11:31] LABS: POTASSIUM 5.3 mmol/L (3.5-5.1); SGOT/AST 18 U/L (15-37)
--- NOTE | 2018-03-26 13:50 | EKG ---
Test Reason : Blood Pressure : / mmHG Vent. Rate : 110 BPM Atrial Rate : 110 BPM P-R Int : 168 ms QRS Dur : 072 ms QT Int : 316 ms P-R-T Axes : 083 083 078 degrees QTc Int : 427 ms SINUS TACHYCARDIA SEPTAL INFARCT (CITED ON OR BEFORE 16-JUL-2017) ABNORMAL ECG WHEN COMPARED WITH ECG OF 07-FEB-2018 13:57, NO SIGNIFICANT CHANGE WAS FOUND Confirmed by BENEDICT COPELAND MD ([id number]) on 03/26/2018 1:49:58 PM Referred By: Confirmed By:BENEDICT COPELAND MD
--- NOTE | 2018-03-26 15:29 | PN ---
Progress Note (short form) - Note Progress Note: PULMONARY CONSULTATION DICTATED 03/26/18 IMP ACUTE ON CHRONIC HYPXEMIC RESPIRATORY FAILURE COPD/ASTHMA HTN DM PULMONARY NODULES H/O TOBACCO ABUSE PLAN IV STEROIDS INHALED BRONCHODILATORS O2 NIPPV IF PT DEVELOPES INCREASING RESPIRATORY DISTRESS CHEST CT PFTS OUTPATIENT AMBULATORY O2 SAT PRIOR TO DISCHARGE TO DETERMINE IF PT IS A CANDIDATE FOR HOME O2 DVT PROPHYLA[address]IS [address] GUERRIER Problem List - Problems (1) COPD exacerbation Code(s): J44.1 - CHRONIC OBSTRUCTIVE PULMONARY DISEASE W (ACUTE) EXACERBATION (2) Acute on chronic respiratory failure with hypoxia and hypercapnia Code(s): J96.21 - ACUTE AND CHRONIC RESPIRATORY FAILURE WITH HYPOXIA; J96.22 - ACUTE AND CHRONIC RESPIRATORY FAILURE WITH HYPERCAPNIA (3) Asthma exacerbation Code(s): J45.901 - UNSPECIFIED ASTHMA WITH (ACUTE) EXACERBATION (4) Pulmonary nodules Code(s): R91.8 - OTHER NONSPECIFIC ABNORMAL FINDING OF LUNG FIELD
[2018-03-26] MEDS ORDERED: methylPREDNISolone NA SUCC 40 MG/1 ML VIAL IVPUSH ONE (17:10)
[2018-03-26] MEDS ORDERED: ALBUTEROL SO4 2.5/IPRATROPIUM 0.5 INH SOL 3 ML VIAL.NEB. NEB PRN (17:15)
[2018-03-26] MEDS: methylPREDNISolone NA SUCC 40 MG/1 ML VIAL IVPUSH SCH (17:21)
--- NOTE | 2018-03-26 18:42 | CONS ---
DATE OF CONSULTATION: 03/26/2018 PULMONARY CONSULTATION REFERRING PHYSICIAN: Irvin Hernandez M.D. HISTORY OF PRESENT ILLNESS: A 57-year-old black male known from previous hospitalization with past medical history of advanced COPD, with history of hypercapnic, hypoxemic respiratory failure, never been intubated, asthma, hypertension, non-insulin dependent diabetes mellitus, history of tobacco use approximately 1 pack a day since age 13 quit about a year ago, was admitted to [facility] with acute onset of shortness of breath. Patient states that he woke up earlier approximately 7 a.m. the day of admission acutely short of breath. He denied any chest pain, nausea, vomiting, diaphoresis. Denied any fevers or chills. Denied any cough. States he took an inhaler and relaxed and started feeling a little better. He complained there was chest tightness but no chest pain. Denied any hemoptysis. EMS was called and patient's baseline saturation was in the 80s. He was sent to the emergency room with the above. In the ER he was treated with inhaled bronchodilators and steroids with good clinical response. Patient denies any recent travel. There is no history of DVT or PE in the past. There is no history of occupational exposure to chemicals or fumes. PAST MEDICAL HISTORY: Again include COPD/asthma with history of hypercapnic, hypoxemic respiratory failure, never been intubated, history of tobacco use quit 1 year ago, hypertension, non-insulin dependent diabetes mellitus. REVIEW OF SYSTEMS: Positive dyspnea. Positive chest tightness. No cough. No hemoptysis. No abdominal pain. No fever. No weight loss. No night sweats. No lower extremity edema. CURRENT MEDICATIONS: Include Solu-Medrol and DuoNeb. PHYSICAL EXAMINATION: General: The patient is a well-developed, well-nourished male, awake, alert, in no acute distress. Vital signs: He is currently afebrile. Blood pressure 130/82, respiratory rate 20, O2 saturation is 93% on 3 L. HEENT: Head is normocephalic, atraumatic. Neck: Supple. Heart: Regular. S1, S2. Chest: Diminished breath sounds bilaterally. Abdomen: Soft. Bowel sounds positive. Extremities: No cyanosis, edema. LABORATORY: Blood gas: pH of 7.32, pCO2 is 69, pO2 of 43, bicarbonate of 34, saturation of 74 that was on room air. BUN 7, creatinine 1.1. WBC 8.4, hemoglobin 13.4, hematocrit 41.5, platelet count of 180,000. Chest x-ray, no acute infiltrates and/or effusions. The patient had a CAT scan of the chest in November of 2017 which revealed a few bilateral ground glass opacities and a 4-mm right lower lobe nodule. IMPRESSION: 1. Cetdm-[id number] hypercapnic, hypoxemic respiratory failure secondary to decompensated chronic obstructive pulmonary disease. 2. History of hypertension. 3. Non-insulin dependent diabetes mellitus. 4. Pulmonary nodule. PLAN: IV steroids. Inhaled bronchodilators. Supplemental O2. Obtain followup chest ct outpatient. Monitor peak flows. Also check O2 saturation ambulatory prior to discharge to determine whether patient should have home O2. BiPAP if patient should develop increasing respiratory distress. LIBRA GUERRIER M.D. [id number] MTDD
[2018-03-26] MEDS ORDERED: PT OWN MED DRAWER 7, Y5N ONE (21:34)
[2018-03-26] MEDS: ATORVASTATIN CA 20 MG TABLET (FP) PO SCH (23:00)
--- NOTE | 2018-03-26 23:23 | HP ---
DATE OF ADMISSION: DATE OF DICTATION: 03/26/2018 HISTORY OF PRESENT ILLNESS: The patient is a 57-year-old male with significant past medical history of COPD, asthma, no history of prior intubation, hypertension, diabetes, presented to emergency department from assisted living facility with shortness of breath since earlier today. As per the patient, he is waking up with the shortness of breath and he reports usually the one or two of those episodes. He also complains of chest tightness, denies chest pain, diaphoresis, palpitations , or lower extremity edema. No fever. No cough. As per the patient, he has had similar episode in the past, diagnosed COPD, asthma exacerbation episodes, and relieved by inhaler and steroid. He also complains of shortness of breath exacerbated with exertion. His saturation baseline is around 89, 86. During the previous hospitalizations, patient was checked for the requirement for home O2 therapy, but he was not qualified for the home O2, as per the patient saturation did not meet the criteria for home O2. Denies any fever, chills, headache, dizziness, no abdominal pain, no diarrhea, no history of recent travel or sick contact. No known drug allergies. PAST SURGICAL HISTORY:surgery, does not recall. SOCIAL HISTORY: Patient is a current day to day smoker, 1 pack per day for 40 years. No alcohol or recreational drugs. PAST MEDICAL HISTORY: Significant for asthma, diabetes, hypercholesterolemia, hypertension. PERSONAL HISTORY: Smoker. No alcohol. No drugs. MEDICATION: Patient is on metformin 500 mg p.o. b.i.d., vitamin D, simvastatin 20 mg daily, Spiriva 1 inhalation daily, Ventolin inhaler REVIEW OF SYSTEMS: General/Constitutional: No fever, no chills, no weakness. Head and Neck: No change in vision, no ear pain. Cardiovascular: No chest pain, no palpitation. Respiratory: Patient has chest tightness, shortness of breath with exertion, mild coughing. Gastrointestinal: No nausea. No vomiting. No diarrhea. Genitourinary: No urinary problem. Musculoskeletal: No joint or muscle pain or swelling. Neurologic: No headache. No vertigo. No loss of consciousness. Endocrine: No Allergic: No hives or skin allergy. PHYSICAL EXAMINATION: Vital signs: In the emergency room, temperature 97.9, pulse 110, respirations 26, blood pressure 124/76, pulse oximetry 90%. General: On examination of the patient, patient alert, awake, fully oriented, in no acute distress. Head and Neck: Normal. Pupils equally reactive to light and accommodation. ENT: Ears normal. Neck: Neck normal range of motion. Supple. No JVD. Lungs: Poor air entry bilaterally Minimal wheezing at the base. No rales, rhonchi, or crackles. Heart: Regular rate and rhythm. Normal S1, S2. No murmur. Abdomen: Soft, no tenderness. Bowel sounds present. Extremities: Full range of motion, no pedal edema. Neurologic examination: Alert and oriented x3. No mar motor sensory deficit, is a plus normal. Skin: Normal. Patient had EKG done, showed sinus rhythm normal rate, 110 per minute sinus tachycardia. No ischemic changes. Patient had a chest x-ray done, no evidence of acute pulmonary disease. EKG, sinus tachycardia, septal infarct, and when compared with old EKG no significant change. LABORATORY: WBC 8.4, hemoglobin 15.4, hematocrit 41.5, platelets 118. CMP: sodium 143, potassium 5.3, chloride 103, bicarbonate 38, BUN 7, creatinine 1.1, glucose 105, AST/ALT normal, troponin negative, BNP 444.32, CKMB 4.26. Labs show the ABG: pH of 7.32, pCO2 of 69.5, pO2 of 43.7, bicarbonate 34.6, O2 saturation 74.5, this is on room air. IMPRESSION: admitting diagnosis of chronic obstructive pulmonary disease exacerbation, [id number] hypercapnia, hypoxemic respiratory failure secondary to decompensated chronic obstructive pulmonary disease, diabetes mellitus, pulmonary nodule, hypercholesterolemia. PLAN: IV steroid, bronchodilator, supplemental oxygen. Will obtain followup chest x-ray. Recommended to check the O2 saturation ambulatory prior to discharge, determine whether patient should have home O2. I recommend BiPAP if patient did develop any increasing respiratory distress. Patient was stable. LILIA HUGHES M.D. [id number] MTDD
[2018-03-27] MEDS: methylPREDNISolone NA SUCC 40 MG/1 ML VIAL IVPUSH SCH ×3 (01:20→17:11)
[2018-03-27] MEDS: metFORMIN HCL 500 MG TABLET (FP) PO SCH ×2 (06:52→16:33)
[2018-03-27 07:31] LABS: BASO % 0.2 % (0-2.0); HEMOGLOBIN 12.4 GM/dL (11.7-16.9); LYMPH % 11.7 % (8-40); MCH 30.1 pg (25.7-33.7); MCHC 31.7 g/dl (32.0-35.9); MEAN CELL VOLUME 94.9 fl (80-96); MEAN PLT VOLUME 8.7 fl (7.5-11.1); MONO % 2.6 % (3.8-10.2); NEUT % 85.5 % (42.8-82.8); PLATELET COUNT 181 K/MM3 (134-434); RBC 4.11 M/mm3 (4.00-5.60); RDW 14.6 % (11.9-15.9); WHITE BLOOD COUNT 7.7 K/mm3 (4.0-10.0)
[2018-03-27 07:59] LABS: ALBUMIN 3.2 g/dl (3.4-5.0); ALK PHOS 95 U/L (45-117); ANION GAP 5 (8-16); BILIRUBIN,TOTAL 0.5 mg/dL (0.2-1.0); BLOOD UREA NITROGEN 15 mg/dL (7-18); CALCIUM 8.9 mg/dL (8.5-10.1); CHLORIDE 101 mmol/L (98-107); CO2 37 mmol/L (21-32); GLUCOSE,RANDOM 133 mg/dL (74-106); SGOT/AST 10 U/L (15-37); SGPT/ALT 17 U/L (12-78); SODIUM 143 mmol/L (136-145); TOT PROT 6.4 g/dl (6.4-8.2)
[2018-03-27] MEDS ORDERED: PT OWN MED DRAWER 7, Y5N ONE ×2 (09:14→11:27)
--- NOTE | 2018-03-27 09:35 | PN ---
Progress Note, Physician Chief Complaint: Pt sitting comfortably in the Bed ON oxygen saturation 93% Mild wheezing present - Current Medication List Current Medications: Active Medications Albuterol/Ipratropium (Duoneb -) 1 amp NEB Q6H PRN PRN Reason: SHORTNESS OF BREATH Atorvastatin Calcium (Lipitor -) 20 mg PO HS [facility] Last Admin: 03/26/18 23:00 Dose: 20 mg Metformin HCl (Glucophage -) 500 mg PO BID@0700,1630 [facility] Last Admin: 03/27/18 06:52 Dose: 500 mg Methylprednisolone Sodium Succinate (Solu-Medrol -) 60 mg IVPUSH Q8H-IV [facility] Last Admin: 03/27/18 09:22 Dose: 60 mg Tiotropium [place] (Spiriva -) 1 puff IH DAILY [facility] - Objective Vital Signs: Vital Signs Temperature 98.3 F 03/27/18 06:00 Pulse Rate 93 H 03/27/18 06:00 Respiratory Rate 20 03/27/18 06:00 Blood Pressure 116/74 03/27/18 06:00 O2 Sat by Pulse Oximetry (%) 93 L 03/26/18 17:20 Constitutional: Yes: No Distress Eyes: Yes: Conjunctiva Clear HENT: Yes: Atraumatic, Normocephalic Neck: Yes: WNL Cardiovascular: Yes: WNL, Regular Rate and Rhythm Respiratory: Yes: Wheezes Gastrointestinal: Yes: Normal Bowel Sounds, Soft Extremities: Yes: WNL Edema: No Peripheral Pulses WNL: Yes Neurological: Yes: WNL ...Motor Strength: WNL Psychiatric: Yes: WNL, Alert Labs: CBC, BMP 03/27/18 06:00 03/27/18 06:00 - ....Imaging Chest X-ray: Report Reviewed Assessment/Plan COPD exacerbation Acute on chronic hypoxemic resp failure DM,hypercholestrolemia Chronic smoker Lung nodules PLAN continue IV steroid BRonchodialators O2 will f/u pul rec
[2018-03-27] MEDS ORDERED: ALBUTEROL SO4 0.083% IH SOL 2.5 MG/3 ML VIAL.NEB. NEB PRN (10:17)
--- NOTE | 2018-03-27 10:19 | PN ---
Progress Note (short form) - Note Progress Note: PULMONARY States breathing is better today. No cough or wheezing. Desaturates off oxygen. Vital Signs Period Temp Pulse Resp BP Sys/Rm Pulse Ox Last 24 Hr 98.1 F-98.4 F 90-97 20-22 107-130/58-83 93-94 Gen: NAD at rest Heart: RRR Lung: distant breath sounds Abd: soft, nontender Ext: no edema CBC, BMP 03/27/18 06:00 03/27/18 06:00 Active Medications Albuterol/Ipratropium (Duoneb -) 1 amp NEB Q6H PRN PRN Reason: SHORTNESS OF BREATH Atorvastatin Calcium (Lipitor -) 20 mg PO HS [facility] Last Admin: 03/26/18 23:00 Dose: 20 mg Metformin HCl (Glucophage -) 500 mg PO BID@0700,1630 [facility] Last Admin: 03/27/18 06:52 Dose: 500 mg Methylprednisolone Sodium Succinate (Solu-Medrol -) 60 mg IVPUSH Q8H-IV [facility] Last Admin: 03/27/18 09:22 Dose: 60 mg Tiotropium [place] (Spiriva -) 1 puff IH DAILY [facility] A/P Acute on Chronic Hypoxic and Hypercapneic Respiratory Failure Acute COPD Exacerbation HTN DM Lung Nodules - will decrease medrol to 40mg q8h - inhaled bronchodilators standing and PRN - O2 to keep Spo2 >90% - will need to check ambulatory SpO2 to assess for home O2 when ready for discharge - DVT prophylaxis
[2018-03-27] MEDS: TIOTROPIUM BROMIDE 18 MCG CAPSULES IH SCH (11:23)
[2018-03-27] MEDS: ALBUTEROL SO4 0.083% IH SOL 2.5 MG/3 ML VIAL.NEB. NEB SCH ×2 (12:03→20:34)
[2018-03-27] MEDS: ATORVASTATIN CA 20 MG TABLET (FP) PO SCH (21:21)
[2018-03-28] MEDS: methylPREDNISolone NA SUCC 40 MG/1 ML VIAL IVPUSH SCH ×3 (01:43→17:26)
[2018-03-28] MEDS: metFORMIN HCL 500 MG TABLET (FP) PO SCH ×2 (06:16→16:49)
[2018-03-28] MEDS: ALBUTEROL SO4 0.083% IH SOL 2.5 MG/3 ML VIAL.NEB. NEB SCH ×4 (07:33→20:50)
[2018-03-28] MEDS ORDERED: PT OWN MED DRAWER 7, Y5N ONE (09:04)
[2018-03-28] MEDS: TIOTROPIUM BROMIDE 18 MCG CAPSULES IH SCH (09:06)
--- NOTE | 2018-03-28 14:31 | PN ---
Progress Note, Physician Chief Complaint: Pt sitting comfortably in the Bed,p[t feels better ON oxygen saturation 93% Mild wheezing present - Current Medication List Current Medications: Active Medications Albuterol Sulfate (Ventolin 0.083% Nebulizer Soln -) 1 amp NEB RQID [facility] Last Admin: 03/28/18 11:57 Dose: 1 amp Albuterol Sulfate (Ventolin 0.083% Nebulizer Soln -) 1 amp NEB Q4H PRN PRN Reason: SHORT OF BREATH/WHEEZING Atorvastatin Calcium (Lipitor -) 20 mg PO HS [facility] Last Admin: 03/27/18 21:21 Dose: 20 mg Metformin HCl (Glucophage -) 500 mg PO BID@0700,1630 [facility] Last Admin: 03/28/18 06:16 Dose: 500 mg Methylprednisolone Sodium Succinate (Solu-Medrol -) 40 mg IVPUSH Q8H-IV [facility] Last Admin: 03/28/18 09:06 Dose: 40 mg Tiotropium [place] (Spiriva -) 1 puff IH DAILY [facility] Last Admin: 03/28/18 09:06 Dose: 1 puff - Objective Vital Signs: Vital Signs Temperature 98.0 F 03/28/18 09:00 Pulse Rate 82 03/28/18 09:00 Respiratory Rate 20 03/28/18 09:00 Blood Pressure 110/57 03/28/18 09:00 O2 Sat by Pulse Oximetry (%) 95 03/28/18 09:00 Constitutional: Yes: No Distress Eyes: Yes: Conjunctiva Clear HENT: Yes: Atraumatic Neck: Yes: Supple, Trachea Midline Cardiovascular: Yes: Regular Rate and Rhythm Respiratory: Yes: Regular, On Nasal O2, Wheezes Gastrointestinal: Yes: Normal Bowel Sounds, Soft Musculoskeletal: Yes: WNL Extremities: Yes: WNL Edema: No Peripheral Pulses WNL: Yes Neurological: Yes: WNL, Alert ...Motor Strength: WNL Psychiatric: Yes: WNL, Alert Labs: CBC, BMP 03/27/18 06:00 03/27/18 06:00 Assessment/Plan COPD exacerbation Acute on chronic hypoxemic resp failure DM,hypercholestrolemia Chronic smoker Lung nodules PLAN CT chest continue IV steroid BRonchodialators O2 will f/u pul rec
--- NOTE | 2018-03-28 14:45 | PN ---
Progress Note, Physician History of Present Illness: pulmonary alert,feeling better,dyspnea improving - Current Medication List Current Medications: Active Medications Albuterol Sulfate (Ventolin 0.083% Nebulizer Soln -) 1 amp NEB RQID [facility] Last Admin: 03/28/18 11:57 Dose: 1 amp Albuterol Sulfate (Ventolin 0.083% Nebulizer Soln -) 1 amp NEB Q4H PRN PRN Reason: SHORT OF BREATH/WHEEZING Atorvastatin Calcium (Lipitor -) 20 mg PO HS [facility] Last Admin: 03/27/18 21:21 Dose: 20 mg Metformin HCl (Glucophage -) 500 mg PO BID@0700,1630 [facility] Last Admin: 03/28/18 06:16 Dose: 500 mg Methylprednisolone Sodium Succinate (Solu-Medrol -) 40 mg IVPUSH Q8H-IV [facility] Last Admin: 03/28/18 09:06 Dose: 40 mg Tiotropium [place] (Spiriva -) 1 puff IH DAILY [facility] Last Admin: 03/28/18 09:06 Dose: 1 puff - Objective Vital Signs: Vital Signs Temperature 98.0 F 03/28/18 09:00 Pulse Rate 82 03/28/18 09:00 Respiratory Rate 20 03/28/18 09:00 Blood Pressure 110/57 03/28/18 09:00 O2 Sat by Pulse Oximetry (%) 95 03/28/18 09:00 Constitutional: Yes: Well Nourished, Calm Eyes: Yes: WNL HENT: Yes: WNL Neck: Yes: WNL Cardiovascular: Yes: Regular Rate and Rhythm, S1, S2 Respiratory: Yes: Diminished Gastrointestinal: Yes: Normal Bowel Sounds, Soft Extremities: Yes: WNL Edema: No Labs: Problem List - Problems (1) COPD exacerbation Code(s): J44.1 - CHRONIC OBSTRUCTIVE PULMONARY DISEASE W (ACUTE) EXACERBATION (2) Acute on chronic respiratory failure with hypoxia and hypercapnia Code(s): J96.21 - ACUTE AND CHRONIC RESPIRATORY FAILURE WITH HYPOXIA; J96.22 - ACUTE AND CHRONIC RESPIRATORY FAILURE WITH HYPERCAPNIA (3) Asthma exacerbation Code(s): J45.901 - UNSPECIFIED ASTHMA WITH (ACUTE) EXACERBATION (4) Pulmonary nodules Code(s): R91.8 - OTHER NONSPECIFIC ABNORMAL FINDING OF LUNG FIELD Assessment/Plan MP ACUTE ON CHRONIC HYPXEMIC RESPIRATORY FAILURE COPD/ASTHMA HTN DM PULMONARY NODULES H/O TOBACCO ABUSE PLAN STEROID TAPER INHALED BRONCHODILATORS O2 CHEST CT PFTS OUTPATIENT AMBULATORY O2 SAT PRIOR TO DISCHARGE TO DETERMINE IF PT IS A CANDIDATE FOR HOME O2 DVT PROPHYLAXIS DR GUERRIER Problem List - Problems (1) COPD exacerbation Code(s): J44.1 - CHRONIC OBSTRUCTIVE PULMONARY DISEASE W (ACUTE) EXACERBATION (2) Acute on chronic respiratory failure with hypoxia and hypercapnia Code(s): J96.21 - ACUTE AND CHRONIC RESPIRATORY FAILURE WITH HYPOXIA; J96.22 - ACUTE AND CHRONIC RESPIRATORY FAILURE WITH HYPERCAPNIA (3) Asthma exacerbation Code(s): J45.901 - UNSPECIFIED ASTHMA WITH (ACUTE) EXACERBATION (4) Pulmonary nodules Code(s): R91.8 - OTHER NONSPECIFIC ABNORMAL FINDING OF LUNG FIELD
[2018-03-28] MEDS: ATORVASTATIN CA 20 MG TABLET (FP) PO SCH (21:13)
[2018-03-29] MEDS: methylPREDNISolone NA SUCC 40 MG/1 ML VIAL IVPUSH SCH ×2 (01:11→10:01)
[2018-03-29] MEDS: metFORMIN HCL 500 MG TABLET (FP) PO SCH ×2 (06:44→17:30)
[2018-03-29] MEDS: ALBUTEROL SO4 0.083% IH SOL 2.5 MG/3 ML VIAL.NEB. NEB SCH ×4 (07:25→20:43)
[2018-03-29 09:15] LABS: BASO % 0.1 % (0-2.0); HEMATOCRIT 41.8 % (35.4-49); HEMOGLOBIN 13.5 GM/dL (11.7-16.9); LYMPH % 7.1 % (8-40); MCHC 32.3 g/dl (32.0-35.9); MEAN CELL VOLUME 96.2 fl (80-96); MEAN PLT VOLUME 9.3 fl (7.5-11.1); MONO % 3.2 % (3.8-10.2); NEUT % 89.6 % (42.8-82.8); PLATELET COUNT 194 K/MM3 (134-434); RBC 4.35 M/mm3 (4.00-5.60); RDW 15.4 % (11.9-15.9); WHITE BLOOD COUNT 10.6 K/mm3 (4.0-10.0)
[2018-03-29 09:35] LABS: ALBUMIN 3.6 g/dl (3.4-5.0); ALK PHOS 93 U/L (45-117); ANION GAP 6 (8-16); BILIRUBIN,TOTAL 0.4 mg/dL (0.2-1.0); BLOOD UREA NITROGEN 34 mg/dL (7-18); CHLORIDE 97 mmol/L (98-107); CO2 37 mmol/L (21-32); CREATININE 1.2 mg/dL (0.7-1.3); GLUCOSE,RANDOM 246 mg/dL (74-106); POTASSIUM 4.6 mmol/L (3.5-5.1); SGOT/AST 7 U/L (15-37); SGPT/ALT 20 U/L (12-78); SODIUM 140 mmol/L (136-145); TOT PROT 7.2 g/dl (6.4-8.2)
--- NOTE | 2018-03-29 09:45 | PN ---
Progress Note, Physician Chief Complaint: Pt sitting comfortably in the Bed,vitals stable ON oxygen saturation 93% wheezing improved CT chest report pending Pre and post exercise O2 saturation requested D/c planing - Current Medication List Current Medications: Active Medications Albuterol Sulfate (Ventolin 0.083% Nebulizer Soln -) 1 amp NEB RQID [facility] Last Admin: 03/29/18 07:25 Dose: 1 amp Albuterol Sulfate (Ventolin 0.083% Nebulizer Soln -) 1 amp NEB Q4H PRN PRN Reason: SHORT OF BREATH/WHEEZING Atorvastatin Calcium (Lipitor -) 20 mg PO HS [facility] Last Admin: 03/28/18 21:13 Dose: 20 mg Metformin HCl (Glucophage -) 500 mg PO BID@0700,1630 [facility] Last Admin: 03/29/18 06:44 Dose: 500 mg Methylprednisolone Sodium Succinate (Solu-Medrol -) 40 mg IVPUSH Q8H-IV [facility] Last Admin: 03/29/18 01:11 Dose: 40 mg Tiotropium [place] (Spiriva -) 1 puff IH DAILY [facility] Last Admin: 03/28/18 09:06 Dose: 1 puff - Objective Vital Signs: Vital Signs Temperature 97.7 F 03/29/18 05:51 Pulse Rate 66 03/29/18 05:51 Respiratory Rate 20 03/29/18 05:51 Blood Pressure 108/62 03/29/18 05:51 O2 Sat by Pulse Oximetry (%) 96 03/28/18 20:38 Constitutional: Yes: No Distress Eyes: Yes: Conjunctiva Clear HENT: Yes: Atraumatic Neck: Yes: Supple Cardiovascular: Yes: Regular Rate and Rhythm Respiratory: Yes: Regular, Wheezes Gastrointestinal: Yes: Normal Bowel Sounds, Soft Musculoskeletal: Yes: WNL Extremities: Yes: WNL Edema: No Peripheral Pulses WNL: Yes Neurological: Yes: WNL, Alert ...Motor Strength: WNL Psychiatric: Yes: WNL, Alert Labs: CBC, BMP 03/29/18 09:00 03/29/18 09:00 Assessment/Plan COPD exacerbation Acute on chronic hypoxemic resp failure DM,hypercholestrolemia Chronic smoker Lung nodules PLAN continue steroid BRonchodialators O2 will f/u CT chest report will f/u pul rec regarding d/c planing
[2018-03-29] MEDS: TIOTROPIUM BROMIDE 18 MCG CAPSULES IH SCH (10:01)
--- NOTE | 2018-03-29 10:33 | PN ---
Progress Note (short form) - Note Progress Note: PULMONARY States breathing is better today. No cough or wheezing. Feels at baseline. CT chest reviewed, showing scattered subcentimeter nodules not significantly changed from prior. Vital Signs Period Temp Pulse Resp BP Sys/Rm Pulse Ox Last 24 Hr 97.6 F-98.1 F 66-76 20-20 108-113/58-63 96 Gen: NAD at rest Heart: RRR Lung: distant breath sounds, no wheezes Abd: soft, nontender Ext: no edema CBC, BMP 03/29/18 09:00 03/29/18 09:00 Active Medications Albuterol Sulfate (Ventolin 0.083% Nebulizer Soln -) 1 amp NEB RQID [facility] Last Admin: 03/29/18 07:25 Dose: 1 amp Albuterol Sulfate (Ventolin 0.083% Nebulizer Soln -) 1 amp NEB Q4H PRN PRN Reason: SHORT OF BREATH/WHEEZING Atorvastatin Calcium (Lipitor -) 20 mg PO HS [facility] Last Admin: 03/28/18 21:13 Dose: 20 mg Metformin HCl (Glucophage -) 500 mg PO BID@0700,1630 [facility] Last Admin: 03/29/18 06:44 Dose: 500 mg Methylprednisolone Sodium Succinate (Solu-Medrol -) 40 mg IVPUSH Q8H-IV [facility] Last Admin: 03/29/18 10:01 Dose: 40 mg Tiotropium [place] (Spiriva -) 1 puff IH DAILY [facility] Last Admin: 03/29/18 10:01 Dose: 1 puff A/P Acute on Chronic Hypoxic and Hypercapneic Respiratory Failure Acute COPD Exacerbation HTN DM Lung Nodules - f/u official CT chest read - can change steroids to PO prednisone 40mg daily and taper as outpt - inhaled bronchodilators standing and PRN - O2 to keep Spo2 >90% - check ambulatory SpO2 to assess for home O2 - DVT prophylaxis - outpt f/u of lung nodules - can d/c from pulmonary standpoint with home O2
[2018-03-29] MEDS: ATORVASTATIN CA 20 MG TABLET (FP) PO SCH (21:12)
[2018-03-30] MEDS: metFORMIN HCL 500 MG TABLET (FP) PO SCH ×2 (06:16→17:16)
[2018-03-30] MEDS: ALBUTEROL SO4 0.083% IH SOL 2.5 MG/3 ML VIAL.NEB. NEB SCH ×3 (07:54→15:33)
[2018-03-30] MEDS: TIOTROPIUM BROMIDE 18 MCG CAPSULES IH SCH (09:44)
--- NOTE | 2018-03-30 09:51 | PN ---
Progress Note, Physician Chief Complaint: Pt ambulating without any distress ON oxygen saturation 93% on room air wheezing improved CT chest report pul nodules,new noncalcified nodule Lt upper lobe Pre and post exercise O2 saturation requested D/c planing - Current Medication List Current Medications: Active Medications Albuterol Sulfate (Ventolin 0.083% Nebulizer Soln -) 1 amp NEB RQID [facility] Last Admin: 03/30/18 07:54 Dose: 1 amp Albuterol Sulfate (Ventolin 0.083% Nebulizer Soln -) 1 amp NEB Q4H PRN PRN Reason: SHORT OF BREATH/WHEEZING Atorvastatin Calcium (Lipitor -) 20 mg PO HS [facility] Last Admin: 03/29/18 21:12 Dose: 20 mg Metformin HCl (Glucophage -) 500 mg PO BID@0700,1630 [facility] Last Admin: 03/30/18 06:16 Dose: 500 mg Prednisone (Deltasone -) 40 mg PO DAILY [facility] Last Admin: 03/30/18 09:44 Dose: 40 mg Tiotropium [place] (Spiriva -) 1 puff IH DAILY [facility] Last Admin: 03/30/18 09:44 Dose: 1 puff - Objective Vital Signs: Vital Signs Temperature 98.6 F 03/30/18 06:23 Pulse Rate 68 03/30/18 06:23 Respiratory Rate 20 03/30/18 06:23 Blood Pressure 104/61 03/30/18 06:23 O2 Sat by Pulse Oximetry (%) 96 03/29/18 20:17 Constitutional: Yes: No Distress Eyes: Yes: Conjunctiva Clear HENT: Yes: Atraumatic Neck: Yes: Supple, Trachea Midline Cardiovascular: Yes: Regular Rate and Rhythm Respiratory: Yes: Regular, CTA Bilaterally Gastrointestinal: Yes: Normal Bowel Sounds, Soft Musculoskeletal: Yes: WNL Extremities: Yes: WNL Edema: No Peripheral Pulses WNL: Yes Neurological: Yes: WNL, Alert ...Motor Strength: WNL Psychiatric: Yes: WNL Labs: CBC, BMP 03/29/18 09:00 03/29/18 09:00 - ....Imaging Cat Scan: Report Reviewed Assessment/Plan COPD exacerbation Acute on chronic hypoxemic resp failure DM,hypercholestrolemia Chronic smoker Lung nodules PLAN continue po steroid BRonchodialators O2 f/u with pul after d/c will f/u pul rec regarding d/c planing
[2018-03-30] MEDS ORDERED: PT OWN MED DRAWER 7, Y5N ONE (09:54)
[2018-03-30] MEDS ORDERED: predniSONE 20 MG TABLET (UD) PO SCH (10:00)
[2018-03-30 14:55] VITALS: BP 129/64; PULSE 92; TEMP 98.3
--- NOTE | 2018-04-05 10:24 | DS ---
DATE OF ADMISSION: 03/26/2018 DATE OF DISCHARGE: 03/30/2018 HISTORY OF PRESENT ILLNESS: Patient is a 57-year-old black male with a previous history of COPD, history of hypercapnic, hypoxemic respiratory failure, diabetes, asthma, hypertension, hypercholesterolemia, chronic smoker, admitted with COPD exacerbation and cough since 1-day history. Patient's medications reviewed. Patient is on metformin, albuterol, simvastatin. PHYSICAL EXAMINATION: Vital signs: On examination of the patient in the emergency room, vitals are stable. Temperature 97.9, pulse 110, respirations 26, blood pressure 124/76, and saturation 90% on oxygen. On reading the chest x-ray, no acute disease. EKG shows sinus tachycardia, septal infarct, no significant change compared to the previous EKG. LABORATORY: WBC 8.4, hemoglobin 13.4, hematocrit 41.5, platelets 180. ABG: pH was 7.32, pCO2 of 69.5, pO2 of 43.7, O2 saturation 74.4, on room air. Chemistry: BMP shows sodium 143, potassium 5.3, chloride 103, carbonate 38, BUN 7, creatinine 1.1, sugar 105. AST, ALT normal. Troponin normal. BNP 444.32, CKMB 4.26. Patient was given oxygen, DuoNeb Solu-Medrol 125 mg in the emergency room. Patient admitted on the floor with admitting diagnosis of COPD exacerbation, [id number] hypercapnic respiratory failure, hypertension, diabetes, pulmonary nodules, history of tobacco use, and plan was IV steroid, inhaled bronchodilators, oxygen. CAT scan, did CAT scan first, and recommend amylase, re-O2 saturation prior to discharge. Patient was treated with IV steroid, nebulizer treatment, and home medication, and 1 puff b.i.d. Repeat CAT scan test was done while hospitalization, shows in comparison to prior CT chest, there is a 0.3 cm left upper lobe pulmonary nodule. Recommend to follow up after followup CT after 4 months. There was resolution of right upper lobe granuloma ground glass interstitial nodules. O2 saturation chest pre- and post-exercise, and saturation was low, so patient transferred to care home home facility on home O2. Patient discharged in stable condition on oxygen, home O2, and home medication. During hospitalization, patient was stable and afebrile. LILIA HUGHES M.D. [id number]
== END 2018-03-30 19:40 | DRG 189 ==
LOC: JER 09:21 → JERBED 11:44 → J7W 21:10
PROVIDERS: ADMIT Family Medicine; ATTEND Family Medicine
DX: J96.21 Acute and chronic respiratory failure with hypoxia (principal); J44.1 Chronic obstructive pulmonary disease with (acute) exacerbation; I10 Essential (primary) hypertension; J96.22 Acute and chronic respiratory failure with hypercapnia; E11.9 Type 2 diabetes mellitus without complications; F17.210 Nicotine dependence, cigarettes, uncomplicated; E78.00 Pure hypercholesterolemia, unspecified; R91.1 Solitary pulmonary nodule
CPT/HCPCS: 36415; 36600; 71045-TC-FY; 71250-TC; 80053; 82375; 82550; 82553; 82803; 82962; 83050; 83880; 84484; 85025; 93005; 93010; 94150; 94640; 94761; 99283-25; J7620

== ENCOUNTER 2018-04-15 17:17 | Emergency (ER) | payer OTHER ==
--- NOTE | 2018-04-15 17:24 | PDOC ---
History of Present Illness - General Stated Complaint: HYPERGLYCEMIA Time Seen by Provider: 04/15/18 17:23 - History of Present Illness Initial Comments: 04/15/18 17:36 Mr. Ulrich is a 57 yo male w/ pmh of COPD, HTN, and DM who presents for evaluation of elevated blood sugar taken at home earlier today. He reports he drank some orange juice and some soda and decided to check his BGM with some nurses in his building and found it to be over 500. EMS was called and patient was given 1L NS en route. Mr. Ulrich has no other complaints but reports his hands were tingling earlier. The patient denies chest pain, shortness of breath, headache and dizziness. Denies fever, chills, nausea, vomit, diarrhea and constipation. Denies dysuria, frequency, urgency and hematuria. Allergies: NKDA Past History - Past Medical History Allergies/Adverse Reactions: Allergies Allergy/AdvReac Type Severity Reaction Status Date / Time No Known Allergies Allergy Verified 04/15/18 17:26 Home Medications: Ambulatory Orders metFORMIN HCL [Glucophage -] 500 mg PO BID 09/15/15 Ergocalciferol (Vitamin D2) [Vitamin D] 50,000 unit PO TU 10/09/15 Simvastatin [Zocor -] 20 mg PO HS 10/09/15 Tiotropium [place] [Spiriva] 1 inh IH DAILY 01/14/17 Albuterol 0.083% Nebulizer [place] [Ventolin 0.083% Nebulizer Soln -] 1 neb NEB Q6H PRN 07/16/17 Albuterol Sulfate [Proair Hfa] 8.5 gm IH Q6H 03/26/18 Umeclidinium Brm/Vilanterol Tr [Anoro Ellipta 62.5-25 Mcg INH] 1 each IH DAILY 03/26/18 Anemia: No Asthma: Yes Cancer: No Cardiac Disorders: No CVA: No COPD: Yes CHF: No Dementia: No Diabetes: Yes (DM) GI Disorders: No Disorders: No HTN: Yes Hypercholesterolemia: Yes Liver Disease: No Seizures: No Thyroid Disease: No - Surgical History Abdominal Surgery: No Appendectomy: No Cardiac Surgery: No Cholecystectomy: No Lung Surgery: No Neurologic Surgery: No Orthopedic Surgery: No - Immunization History Immunization Up to Date: Yes - Suicide/Smoking/Psychosocial Hx Smoking History: Former smoker Have you smoked in the past 12 months: No Number of Cigarettes Smoked Daily: 5 'Breaking Loose' booklet given: 06/28/16 Hx Alcohol Use: No Drug/Substance Use Hx: No Substance Use Type: None Hx Substance Use Treatment: No Review of Systems - Review of Systems Comments:: 04/15/18 17:43 GENERAL/CONSTITUTIONAL: No fever or chills. No weakness. HEAD, EYES, EARS, NOSE AND THROAT: No change in vision. No ear pain or discharge. No sore throat. CARDIOVASCULAR: No chest pain or shortness of breath RESPIRATORY: No cough, wheezing, or hemoptysis. GASTROINTESTINAL: No nausea, vomiting, diarrhea or constipation. GENITOURINARY: No dysuria, frequency, or change in urination. MUSCULOSKELETAL: +Hand parenthesias earlier (now resolved) SKIN: No rash NEUROLOGIC: No headache, vertigo, loss of consciousness, or change in strength/ sensation. ENDOCRINE: No increased thirst. No abnormal weight change HEMATOLOGIC/LYMPHATIC: No anemia, easy bleeding, or history of blood clots. ALLERGIC/IMMUNOLOGIC: No hives or skin allergy. *Physical Exam - Physical Exam Comments: 04/15/18 17:43 GENERAL: Awake, alert, and fully oriented, in no acute distress HEAD: No signs of trauma, normocephalic, atraumatic EYES: PERRLA, EOMI, sclera anicteric, conjunctiva clear ENT: Auricles normal inspection, hearing grossly normal, nares patent, oropharynx clear without exudates. Moist mucosa NECK: Normal ROM, supple, no lymphadenopathy, JVD, or masses LUNGS: No distress, speaks full sentences, clear to auscultation bilaterally HEART: Regular rate and rhythm, normal S1 and S2, no murmurs, rubs or gallops, peripheral pulses normal and equal bilaterally. ABDOMEN: Soft, nontender, normoactive bowel sounds. No guarding, no rebound. No masses EXTREMITIES: Normal inspection, Normal range of motion, no edema. No clubbing or cyanosis. NEUROLOGICAL: Cranial nerves II through XII grossly intact. Normal speech, normal gait, no focal sensorimotor deficits SKIN: Warm, Dry, normal turgor, no rashes or lesions noted. ED Treatment Course - LABORATORY CBC & Chemistry Diagram: 04/15/18 17:50 04/15/18 17:50 Medical Decision Making - Medical Decision Making 04/15/18 20:06 Mr. Ulrich is a 57 yo male w/ pmh as described who presents for evaluation of elevated BGM earlier today. Patient well appearing on examination with no complaints at this time. Labs grossly unconcerning as below. Patient successfully passed PO challenge. Patient noted to have decreased O2 saturation however breathing comfortably and interacting at baseline. Repeat pulse measured at 100 down from 120 manually. No concern for acute process at this time. BGM in ER 214. Discharging to home. Laboratory Results - last 24 hr 04/15/18 04/15/18 04/15/18 17:50 17:50 17:50 WBC 7.9 RBC 3.87 L Hgb 11.9 Hct 36.3 MCV 93.7 MCH 30.7 MCHC 32.7 RDW 13.8 D Plt Count 106 L D MPV 8.4 Absolute Neuts (auto) 5.9 Neutrophils % 74.4 Lymphocytes % 17.0 D Monocytes % 7.0 D Eosinophils % 0.6 D Basophils % 1.0 D Nucleated RBC % 0 Sodium 145 Potassium 3.8 Chloride 106 Carbon Dioxide 36 H Anion Gap 3 L BUN 12 Creatinine 1.0 Creat Clearance w eGFR > 60 Random Glucose 214 H Calcium 8.1 L Total Bilirubin 0.3 AST 7 L ALT 20 Alkaline Phosphatase 80 D Total Protein 5.9 L Albumin 3.0 L Urine Color Straw Urine Appearance Clear Urine pH 6.0 Ur Specific [place] 1.013 Urine Protein Negative Urine Glucose (UA) 3+ H Urine Ketones Negative Urine Blood Negative Urine Nitrite Negative Urine Bilirubin Negative Urine Urobilinogen Negative Ur Leukocyte Esterase Negative *DC/Admit/Observation/Transfer Diagnosis at time of Disposition: Blood glucose elevated - Discharge Dispostion Disposition: HOME - Referrals - Patient Instructions Printed Discharge Instructions: DI for Hyperglycemia -- Adult Additional Instructions: Please follow-up with primary care provider early next week for further evaluation. Return to ER if any fever, chills, pain, or other concerning symptoms. - Post Discharge Activity
[2018-04-15 17:33] VITALS: TEMP 98.6; BMI 22.6
[2018-04-15] MEDS ORDERED: SODIUM CHLORIDE 1,000 ML IV STA ×2 (17:40→19:05)
--- NOTE | 2018-04-15 17:59 | PDOC ---
Attending Attestation - HPI HPI: 04/15/18 18:01 The patient is a 57 year old male with a significant past medical history of COPD, asthma (no previous intubations), HTN, and NIDDM who presents to the ED with hyperglycemia since earlier today. Patient states he felt tingling in his fingers after drinking a large glass of orange juice and a bottle of pepsi earlier today. He states he checked his BGM and it was above 500. Denies fever or chills. Denies chest pain of shortness of breath. Denies nausea , vomiting, or diarrhea. Denies any other symptoms. Documentation prepared by [place], acting as medical or surgical instrument maker for Mable Desai MD. - Physicial Exam PE: 04/15/18 18:01 GENERAL: Well developed, well nourished. Awake and alert. No acute distress. HEENT: + no maxillary teeth Normocephalic, atraumatic. PERRLA, EOMI. No conjunctival pallor. Sclera are non- icteric. Moist mucous membranes. Oropharynx is clear. NECK: Supple. Full ROM. No JVD. Carotid pulses 2+ and symmetric, without bruits. No thyromegaly. No lymphadenopathy. CARDIOVASCULAR: Regular rate and rhythm. No murmurs, rubs, or gallops. Distal pulses are 2+ and symmetric. PULMONARY: + hypoxic Lungs clear to auscultation bilaterally. No wheezing, rales or rhonchi. ABDOMINAL: Soft. Non-tender. Non-distended. No rebound or guarding. No organomegaly. Normoactive bowel sounds. MUSCULOSKELETAL Normal range of motion at all joints. No bony deformities or tenderness. No CVA tenderness. EXTREMITIES: No cyanosis. No clubbing. No edema. No calf tenderness. SKIN: Warm and dry. Normal capillary refill. No rashes. No jaundice. NEUROLOGICAL: Alert, awake, appropriate. Cranial nerves 2-12 intact. No deficits to light touch and temperature in face, upper extremities and lower extremities. No motor deficits in the in face, upper extremities and lower extremities. Normoreflexic in the upper and lower extremities. Normal speech. Toes are down- going bilaterally. Gait is normal without ataxia. PSYCHIATRIC: Cooperative. Good eye contact. Appropriate mood and affect. <[place] - Last Filed: 07/08/18 18:01> - Resident Resident Name: WaideejaySaurabhDouglas - ED Attending Attestation I have performed the following: I have examined & evaluated the patient, The case was reviewed & discussed with the resident, I agree w/resident's findings & plan, Exceptions are as noted - Medical Decision Making 04/15/18 19:08 57-year-old male came in because his BGM was greater than 500 at home. He admits to drinking orange juice and regular Pepsi today. He has some tingling in his fingers and got nervous and had them check his sugar. Past medical history significant for diabetes, COPD He denies any shortness of breath, chest pain, nausea or vomiting. Found to be hypoxic with a pulse ox reading 88 - 90%. Patient does have a history of low pulse ox is in the past, seen by reviewing his old records Lungs are clear to auscultation. Glucose was only 214 Patient was discharged home <Mable Desai - Last Filed: 04/15/18 19:10>
[2018-04-15 18:02] LABS: EOS % 0.6 % (0-4.5); HEMATOCRIT 36.3 % (35.4-49); HEMOGLOBIN 11.9 GM/dL (11.7-16.9); MCH 30.7 pg (25.7-33.7); MCHC 32.7 g/dl (32.0-35.9); MEAN CELL VOLUME 93.7 fl (80-96); MEAN PLT VOLUME 8.4 fl (7.5-11.1); NEUT % 74.4 % (42.8-82.8); PLATELET COUNT 106 K/MM3 (134-434); RBC 3.87 M/mm3 (4.00-5.60); RDW 13.8 % (11.9-15.9); WHITE BLOOD COUNT 7.9 K/mm3 (4.0-10.0)
[2018-04-15 18:03] LABS: URINE APPEARANCE CLEAR; URINE BILIRUBIN NEGATIVE (<2.0 mg/dL); URINE COLOR STRAW; URINE GLUCOSE (UA) 3+ (NEGATIVE); URINE KETONE NEGATIVE (NEGATIVE); URINE LEUK ESTERASE NEGATIVE (NEGATIVE); URINE NITRITE NEGATIVE (NEGATIVE); URINE PROTEIN NEGATIVE (NEGATIVE); URINE UROBILINOGEN NEGATIVE mg/dL (0.2-1.0)
[2018-04-15 18:29] LABS: ALK PHOS 80 U/L (45-117); ANION GAP 3 (8-16); BILIRUBIN,TOTAL 0.3 mg/dL (0.2-1.0); BLOOD UREA NITROGEN 12 mg/dL (7-18); CALCIUM 8.1 mg/dL (8.5-10.1); CHLORIDE 106 mmol/L (98-107); CO2 36 mmol/L (21-32); GLUCOSE,RANDOM 214 mg/dL (74-106); POTASSIUM 3.8 mmol/L (3.5-5.1); SGOT/AST 7 U/L (15-37); SGPT/ALT 20 U/L (12-78); SODIUM 145 mmol/L (136-145); TOT PROT 5.9 g/dl (6.4-8.2)
[2018-04-15] MEDS ORDERED: ALBUTEROL SO4 2.5/IPRATROPIUM 0.5 INH SOL 3 ML VIAL.NEB. NEB ONE ×4 (18:38→19:12)
[2018-04-15 20:21] VITALS: BP 123/66; PULSE 93
== END 2018-04-15 20:30 | disposition home or self-care (01) ==
LOC: JER 17:17
PROC: 3E0337Z Introduction of Electrolytic and Water Balance Substance into Peripheral Vein, Percutaneous Approach (ICD-10-PCS; principal; 2018-04-15)
PROC: 3E0F7GC Introduction of Other Therapeutic Substance into Respiratory Tract, Via Natural or Artificial Opening (ICD-10-PCS; 2018-04-15)
PROC: 3E0F7GC Introduction of Other Therapeutic Substance into Respiratory Tract, Via Natural or Artificial Opening (ICD-10-PCS; 2018-04-15)
DX: E11.65 Type 2 diabetes mellitus with hyperglycemia (principal); Z79.84 Long term (current) use of oral hypoglycemic drugs; I10 Essential (primary) hypertension; E78.00 Pure hypercholesterolemia, unspecified; J45.909 Unspecified asthma, uncomplicated; J44.9 Chronic obstructive pulmonary disease, unspecified; Z87.891 Personal history of nicotine dependence
CPT/HCPCS: 36415; 80053; 81003; 85025; 87086; 94640; 96360; 96361; 99283-25; J7030; J7620

== ENCOUNTER 2018-04-17 07:09 | Inpatient (IN) | payer OTHER ==
--- NOTE | 2018-04-17 07:25 | PDOC ---
History of Present Illness - General Stated Complaint: SOB Time Seen by Provider: 04/17/18 07:19 - History of Present Illness Initial Comments: 04/17/18 07:48 Jovanny Hernandez is a 57yo man with a PMH of COPD, current smoker, DM2 and recent admission last month for COPD exaccerbation who presents today due to SOB this morning as well as a low pulse-ox reading at home. He was specifically concerned about the low sats and decided to call an ambulance. He reports that he was feeling well when he went to bed yesterday and was able to walk around all day without any unusual breathing difficulties. Mr Hernandez says that he has several breathing treatments at home, and he has used his daily steroid inhaler as well as a nebulizer as prescribed. He tried the nebulizer this morning without any significant improvement. 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 He denies any cough, fevers or chills, wheezing, chest pain, leg swelling or leg pain. He has not traveled recently and has never been out of the country. He does report that his sister in law has had a cough, but he specifically denies any cough. Mr Hernandez was noted to be tachycardic on arrival in the ED but says this always happens when he comes to the hospital; review of previous vitals supports this as he has frequent HR recordings up to 118 on previous admissions. Past History - Past Medical History Allergies/Adverse Reactions: Allergies Allergy/AdvReac Type Severity Reaction Status Date / Time No Known Allergies Allergy Verified 04/17/18 07:33 Home Medications: Ambulatory Orders metFORMIN HCL [Glucophage -] 500 mg PO BID 09/15/15 Ergocalciferol (Vitamin D2) [Vitamin D] 50,000 unit PO TU 10/09/15 Simvastatin [Zocor -] 20 mg PO HS 10/09/15 Tiotropium [place] [Spiriva] 1 inh IH DAILY 01/14/17 Albuterol 0.083% Nebulizer Ema [Ventolin 0.083% Nebulizer Soln -] 1 neb NEB Q6H PRN 07/16/17 Albuterol Sulfate [Proair Hfa] 8.5 gm IH Q6H 03/26/18 Umeclidinium Brm/Vilanterol Tr [Anoro Ellipta 62.5-25 Mcg INH] 1 each IH DAILY 03/26/18 Anemia: No Asthma: Yes Cancer: No Cardiac Disorders: No CVA: No COPD: Yes CHF: No Dementia: No Diabetes: Yes (DM) GI Disorders: No Disorders: No HTN: Yes Hypercholesterolemia: Yes Liver Disease: No Seizures: No Thyroid Disease: No - Surgical History Abdominal Surgery: No Appendectomy: No Cardiac Surgery: No Cholecystectomy: No Lung Surgery: No Neurologic Surgery: No Orthopedic Surgery: No - Immunization History Immunization Up to Date: Yes - Suicide/Smoking/Psychosocial Hx Smoking History: Former smoker Have you smoked in the past 12 months: No Number of Cigarettes Smoked Daily: 5 'Breaking Loose' booklet given: 06/28/16 Hx Alcohol Use: No Drug/Substance Use Hx: No Substance Use Type: None Hx Substance Use Treatment: No Review of Systems - Review of Systems Comments:: General: No recent fatigue, weight loss, general weakness HEENT: No changes in vision, no nasal congestion, no sinus pressure Cards: +racing heart, no chest pain, no palpitations Pulm: See HPI GI: No nausea, vomiting, no change in bowel habits, no heartburn : +frequency. No dysuria, no hematuria Musc: No edema, no injury, no joint or muscle pain Endo: + h/o DM, no increased thirst, no temperature intolerance Heme: No unusual bruising or bleeding Vasc: No claudication Neuro: No LOC, no numbness, no focal weakness Psych: No change in mood *Physical Exam - Physical Exam Comments: General: Thin, appears stated age, no acute distress HEENT: EOMI, MMM, no sinus tenderness Cards: Tachycardic, regular, no rubs or murmurs Pulm: Comfortable on 1L by NC. Poor air movement, no wheezing or crackles appreciated. Abd: Soft, nontender Ext: No LE edema, no calf tenderness, no injury Vasc: Palpable radial pulses, WWP Neuro: A&O, CN grossly intact, no focal deficits ED Treatment Course - LABORATORY CBC & Chemistry Diagram: 04/17/18 11:40 04/17/18 11:40 Medical Decision Making - Medical Decision Making Jovanny Hernandez is a 57yo man with a history of known COPD with previous admissions for COPD exacerbation who presents to the ED for subjective SOB this morning and a low pulse ox reading at home. He was noted to be tachycardic in the low 100's to 115, similar to previous records, with a O2 sat of 92% on room air increased to 95% on 1L by NC. Most likely diagnosis COPD exacerbation as he had an acute onset of symptoms this morning, no new productive cough, poor air movement on lung exam, and ran out of his rescue inhaler at home. Very low concern for respiratory infection given lack of fever or cough. Very low suspicion for PE or cardiac cause of symptoms as he has had no chest pain, no recent travel, and no LE pain or swelling. - CBC, CMP, UA ordered in triage. Labs unremarkable - EKG obtained, possible right axis deviation, unchanged from previous EKG on - CXR and 1hr continuos duoneb. - Will re-evaluate after nebs Mr Hernandez reports feeling improved after his duoneb but still has very faint breath sounds. Sats 95% on 1L by NC. Attempted to remove supplemental oxygen, and sats dropped to low 80's. - CT PE ordered to rule out PE as patient has continued tachycardia and poor inspiratory air movement. Negative for acute PE - CXR negative for acute pathology Discussed with patient's primary physician, Dr Hernandez. Agree that Mr Hernandez should be admitted for observation for COPD exacerbation. Dr Burris consulted for evaluation and recommendation. Discussed with patient, he agrees to this plan. Seen and discussed with Dr Mehta. 04/17/18 15:17 *DC/Admit/Observation/Transfer Diagnosis at time of Disposition: COPD exacerbation - Discharge Dispostion Condition at time of disposition: Fair Decision to Admit order: Yes - Referrals - Patient Instructions - Post Discharge Activity
[2018-04-17] MEDS: ALBUTEROL SO4 2.5/IPRATROPIUM 0.5 INH SOL 3 ML VIAL.NEB. NEB SCH ×5 (08:15→19:21)
--- NOTE | 2018-04-17 11:09 | PDOC ---
Attending Attestation - HPI HPI: 04/17/18 11:11 The patient is a 57 year old male with a significant past medical history of COPD and diabetes who presents to the emergency department for evaluation of shortness of breath. The patient reports increasing shortness of breath since last night. He states his low pulse-ox reading prompted him to activate EMS to head to the emergency department for further evaluation. Pt reports his shortness of breath began yesterday before he went to bed, but notes he had no difficulties yesterday during the day. He reports using his nebulizer without any alleviation to the aforementioned symptom. Of note, the patient was admitted last month for COPD exacerbation. The patient denies history of blood clots, chest pain, leg pain, leg swelling, cough, wheezing, headache, and recent travel. Denies fever, chills, nausea, vomiting, rashes, and diarrhea. Allergies: NKDA Social History: Former smoker, quit 3 years ago. No reported alcohol or drug use. PCP: Dr. Irvin Hernandez - Physicial Exam PE: Vitals: Triage Vital signs reviewed General Appearance: no acute distress, well nourished well developed, Head: Atraumatic, normocephalic Eyes: Pupils equal reactive round, extraocular movement intact Neck: Supple Chest Wall: Nontender Cardiac: Regular rate and rhythm, no murmurs, no rubs, no gallops, Lungs: (+)Wheezing bilaterally. Abdomen: Soft, nondistended, nontender to palpation Extremities: Full range of motion to all extremities, no cyanosis, clubbing, or edema Skin: Warm and dry, no rashes or lesions, no petechiae Psych: normal mood, normal affect - Medical Decision Making The patient is a 57 year old male with a significant past medical history of COPD and diabetes who presents to the emergency department for evaluation of shortness of breath. Plan: Chest X-Ray Labs <Gibran Moreno - Last Filed: 04/17/18 11:11> - Resident Resident Name: Bebe Wren - ED Attending Attestation I have performed the following: I have examined & evaluated the patient, The case was reviewed & discussed with the resident, I agree w/resident's findings & plan, Exceptions are as noted - Medical Decision Making Patient persistently hypoxic off oxygen as low as 82% here in the emergency department given tachycardia and hypoxia we'll obtain a CTA to rule out PE if negative we'll admit to medicine for COPD exacerbation. 125 Solu-Medrol and 3 DuoNeb 7 given. <Hi Mehta - Last Filed: 04/17/18 14:09> Heart Score/ECG Review - ECG Impressions Comment:: 04/17/18 14:09 EKG performed at 738. Demonstrates sinus tachycardia right axis deviation septal infarct age indeterminate. Interpreted by me. <Hi Mehta - Last Filed: 04/17/18 14:09> Attestations - Attestations Documentation prepared by Gibran Moreno, acting as medical reimbursement specialist for Hi Mehta MD. <Gibran Moreno - Last Filed: 04/17/18 11:11>
[2018-04-17] MEDS ORDERED: SODIUM CHLORIDE 0.9% 1000 ML INFUS.BAG IV ONE (11:13)
[2018-04-17] MEDS ORDERED: methylPREDNISolone NA SUCC 125 MG/2 ML VIAL ONE (11:19)
[2018-04-17 11:48] LABS: HEMATOCRIT 38.3 % (35.4-49); HEMOGLOBIN 12.3 GM/dL (11.7-16.9); MCH 30.3 pg (25.7-33.7); MCHC 32.1 g/dl (32.0-35.9); MEAN CELL VOLUME 94.2 fl (80-96); MEAN PLT VOLUME 8.4 fl (7.5-11.1); PLATELET COUNT 100 K/MM3 (134-434); RBC 4.07 M/mm3 (4.00-5.60); RDW 13.9 % (11.9-15.9); WHITE BLOOD COUNT 9.5 K/mm3 (4.0-10.0)
[2018-04-17] MEDS ORDERED: methylPREDNISolone NA SUCC 125 MG/2 ML VIAL IVPUSH ONE (12:04)
[2018-04-17 12:13] LABS: ALBUMIN 3.3 g/dl (3.4-5.0); ALK PHOS 94 U/L (45-117); ANION GAP 3 (8-16); BILIRUBIN,TOTAL 0.3 mg/dL (0.2-1.0); BLOOD UREA NITROGEN 8 mg/dL (7-18); CALCIUM 8.3 mg/dL (8.5-10.1); CHLORIDE 108 mmol/L (98-107); CO2 36 mmol/L (21-32); GLUCOSE,RANDOM 188 mg/dL (74-106); POTASSIUM 4.7 mmol/L (3.5-5.1); SGOT/AST 10 U/L (15-37); SGPT/ALT 24 U/L (12-78); SODIUM 147 mmol/L (136-145); TOT PROT 6.3 g/dl (6.4-8.2)
[2018-04-17] MEDS ORDERED: ALBUTEROL SO4 0.083% IH SOL 2.5 MG/3 ML VIAL.NEB. NEB PRN (18:00)
[2018-04-17] MEDS: methylPREDNISolone NA SUCC 40 MG/1 ML VIAL IVPUSH SCH (18:04)
[2018-04-17] MEDS: ATORVASTATIN CA 20 MG TABLET (FP) PO SCH (22:45)
[2018-04-18] MEDS: methylPREDNISolone NA SUCC 40 MG/1 ML VIAL IVPUSH SCH ×3 (02:23→17:09)
[2018-04-18 04:58] VITALS: BMI 22.7
[2018-04-18] MEDS: metFORMIN HCL 500 MG TABLET (FP) PO SCH ×2 (06:22→17:09)
[2018-04-18 07:55] LABS: BASO % 0.1 % (0-2.0); HEMATOCRIT 37.9 % (35.4-49); HEMOGLOBIN 12.3 GM/dL (11.7-16.9); LYMPH % 9.1 % (8-40); MCH 30.8 pg (25.7-33.7); MCHC 32.4 g/dl (32.0-35.9); MEAN CELL VOLUME 94.9 fl (80-96); MEAN PLT VOLUME 9.1 fl (7.5-11.1); MONO % 3.8 % (3.8-10.2); PLATELET COUNT 123 K/MM3 (134-434); RBC 3.99 M/mm3 (4.00-5.60); RDW 14.2 % (11.9-15.9)
[2018-04-18 08:12] LABS: CHLORIDE 103 mmol/L (98-107); SODIUM 143 mmol/L (136-145)
[2018-04-18 08:24] LABS: ALBUMIN 3.4 g/dl (3.4-5.0); ALK PHOS 91 U/L (45-117); ANION GAP 3 (8-16); BILIRUBIN,TOTAL 0.2 mg/dL (0.2-1.0); BLOOD UREA NITROGEN 14 mg/dL (7-18); CALCIUM 9.2 mg/dL (8.5-10.1); CO2 37 mmol/L (21-32); CREATININE 0.9 mg/dL (0.7-1.3); GLUCOSE,RANDOM 150 mg/dL (74-106); SGOT/AST 8 U/L (15-37); SGPT/ALT 25 U/L (12-78); TOT PROT 6.7 g/dl (6.4-8.2)
--- NOTE | 2018-04-18 09:39 | PN ---
Progress Note, Physician Chief Complaint: Pt seen and examined feels better,wheezing improved Vitals stable PT is on IV steroid and bronchodialators CT chest negative for PE and lung nodules persistent - Current Medication List Current Medications: Active Medications Albuterol Sulfate (Ventolin 0.083% Nebulizer Soln -) 1 amp NEB Q6H PRN PRN Reason: SHORT OF BREATH/WHEEZING Atorvastatin Calcium (Lipitor -) 20 mg PO HS [facility] Last Admin: 04/17/18 22:45 Dose: 20 mg Metformin HCl (Glucophage -) 500 mg PO BID@0700,1630 [facility] Last Admin: 04/18/18 06:22 Dose: 500 mg Methylprednisolone Sodium Succinate (Solu-Medrol -) 60 mg IVPUSH Q8H-IV [facility] Last Admin: 04/18/18 02:23 Dose: 60 mg Tiotropium [place] (Spiriva -) 1 puff IH DAILY [facility] - Objective Vital Signs: Vital Signs Temperature 98 F 04/18/18 05:13 Pulse Rate 81 04/18/18 05:13 Respiratory Rate 20 04/18/18 05:13 Blood Pressure 122/74 04/18/18 05:13 O2 Sat by Pulse Oximetry (%) 99 04/18/18 05:01 Constitutional: Yes: No Distress, Poor Hygeine HENT: Yes: Atraumatic Neck: Yes: Supple Cardiovascular: Yes: Regular Rate and Rhythm Respiratory: Yes: Regular, On Nasal O2, Wheezes Gastrointestinal: Yes: Normal Bowel Sounds, Soft Musculoskeletal: Yes: WNL Extremities: Yes: WNL Edema: No Peripheral Pulses WNL: Yes Neurological: Yes: WNL, Alert ...Motor Strength: WNL Psychiatric: Yes: WNL, Alert Labs: CBC, BMP 04/18/18 06:00 04/18/18 06:00 - ....Imaging Chest X-ray: Report Reviewed Cat Scan: Report Reviewed Assessment/Plan COPD excacerbation Hypoxia lung nodule DM Hypercholestrolemia PLAN Continue IV steroid BROnchopdialtors Pulmonary consult pending O2 mikayla continued Pt needs HOME O2 when discharge
[2018-04-18] MEDS: TIOTROPIUM BROMIDE 18 MCG CAPSULES IH SCH (10:13)
--- NOTE | 2018-04-18 11:14 | HP ---
DATE OF ADMISSION: 04/17/2018 HISTORY OF PRESENT ILLNESS: The patient is a 57-year-old male with past medical history of COPD, diabetes, hypocholesterolemia, who came to the emergency department for evaluation of the shortness of breath. Patient reports increasing shortness of breath since last night, and his pulse also was low. So, he came to the emergency department for further evaluation. Patient has no complaints of cough, fever. Patient was admitted last month for the same complaint and [facility] to the [facility] with [facility]2. [facility] discharged from the [facility] without oxygen. As per the patient, he was doing better without oxygen. So, patient went home last month. Now, patient came with the complaint of shortness of breath. Regarding the past medical history, history of diabetes, hyperlipidemia, and lung nodule. PERSONAL HISTORY: Patient is a chronic smoker years ever. No alcohol and no drugs. ALLERGIES: No known drug allergy. MEDICATIONS: Patient is on metformin, Spiriva, ProAir, simvastatin at home. PAST MEDICAL HISTORY: Significant for asthma, diabetes, COPD, and hypocholesterolemia. SURGICAL HISTORY: Nothing significant. SOCIAL HISTORY: Patient lives in [facility] living. REVIEW OF SYSTEMS: General symptoms: As mentioned before, patient has shortness of breath. No recent fatigue, fever, or weight loss. Head and Neck: No changes in vision. No nasal congestion. No sinus pressure. Cardiac: Palpitations. No chest pain. Tachycardia present when he gets the episodes. Pulmonary: History of lung nodule. Gastrointestinal: Nothing significant. Genitourinary: Nothing significant. Endocrine: History of diabetes. Hematological: Nothing significant. Muscular: No claudication. Neurological: No loss of consciousness. No numbness. No focal weakness. Psychiatry: No change in mood. PHYSICAL EXAMINATION: General: Patient appears comfortable, in no acute distress. Head and Neck: Normal. Cardiovascular: Tachycardic, 1st and 2nd sounds normal, no murmur. Pulmonary: Mild wheezing present. Tachypnea present. Abdomen: Soft, no tenderness. Extremities: No edema. Neurological: Patient alert and oriented x3. No apparent motor or sensory deficits. Reflex normal. IMAGING: Regarding the chest x-ray, no acute pulmonary disease. CT scan of the chest done to rule out pulmonary embolism because of the shortness of breath, tachypnea and hypoxia. There is no evidence of pulmonary embolism. Moderate centrilobular emphysema involving the upper lobe with biapical subpleural blebs, right larger than the left. There is a pulmonary nodule in the left upper lobe and 2 small tiny nodules in the left lower lobe. No enlarged mediastinal or hilar lymph node present. LABORATORIES: CBC with WBC 9.5, hemoglobin 12.3, hematocrit 38.3, platelet count 100. Chemistry shows sodium 147, potassium 4.7, chloride 108, CO2 of 36, BUN 8, creatinine 1, blood sugar 188, calcium 8.3, AST/ALT normal. EKG shows right axis deviation with tachycardia. There is no change from previous EKG. Patient was given IV Solu-Medrol and Duo-Neb with IV fluid in the emergency room and nasal oxygen. IMPRESSION: Patient admitted on the floor with admitting diagnosis of chronic obstructive pulmonary disease exacerbation, hypoxia, shortness of breath, diabetes. PLAN: Continue the IV steroid, bronchodilator, nasal oxygen, pulmonary consult, continue the home medications, and patient will need home oxygen therapy at the time of discharge. Patient stable on the floor. Erica [id number] MTDIhsan
--- NOTE | 2018-04-18 14:49 | PN ---
Progress Note (short form) - Note Progress Note: PULMONARY CONSULTATION DICTATED 04/18/18 IMP ACUTE ON CHRONIC HYPOXEMIC RESPIRATORY FAILURE COPD EXACERBATION HTN PULMONARY NODULE NIDDM FORMER SMOKER PLAN IV STEROIDS INHALED BRONCHODILATORS O2 ABG EXERCISE O2 SAT PRIOR TO DISCHARGE DVT PROPHYLAXIS DR GUERRIER Problem List - Problems (1) COPD exacerbation Code(s): J44.1 - CHRONIC OBSTRUCTIVE PULMONARY DISEASE W (ACUTE) EXACERBATION (2) Acute on chronic respiratory failure with hypoxia and hypercapnia Code(s): J96.21 - ACUTE AND CHRONIC RESPIRATORY FAILURE WITH HYPOXIA; J96.22 - ACUTE AND CHRONIC RESPIRATORY FAILURE WITH HYPERCAPNIA (3) Asthma exacerbation Code(s): J45.901 - UNSPECIFIED ASTHMA WITH (ACUTE) EXACERBATION (4) COPD exacerbation Code(s): J44.1 - CHRONIC OBSTRUCTIVE PULMONARY DISEASE W (ACUTE) EXACERBATION (5) Pulmonary nodules Code(s): R91.8 - OTHER NONSPECIFIC ABNORMAL FINDING OF LUNG FIELD
--- NOTE | 2018-04-18 16:37 | CONS ---
PULMONARY CONSULTATION DATE OF CONSULTATION: 04/18/2018 REFERRING PHYSICIAN: Irvin Hernandez MD HISTORY OF PRESENT ILLNESS: The patient is a 57-year-old black male known to me from previous hospitalization h/o advanced COPD, history of hypercapnic, hypoxemic respiratory failure, never been intubated, asthma, hypertension, mnl-veskkrs-hstdkcrir diabetes mellitus, long-standing history of tobacco use quit a few years ago, admitted to [facility] with complaints of acute onset of shortness of breath and hypoxemia. The patient was recently hospitalized on March 26, 2018. At the time, he was hospitalized with COPD exacerbation. He was treated with inhaled bronchodilators and steroids with good clinical response and transferred to [facility] for short-term rehab. He was doing well, until April 17, when he started developing shortness of breath and chest tightness despite using his inhalers. It did not offer any improvement. He was also noted to be hypoxic. He said his saturations dropped into the 60s. EMS was called. The patient was treated with inhaled bronchodilators and transferred to medical ER for further management. In the ER, he was treated with inhaled bronchodilators, steroids, and transferred up to medical floor for further management. + history of smoking. He denies any history of occupational exposure to chemicals or fumes. There is no recent travel. Denies any chest pain or palpitations. Denies any cough or hemoptysis. PAST MEDICAL HISTORY: Again, includes advanced COPD with a history of hypercapnic, hypoxemic respiratory failure, hypertension, vod-[id number] diabetes mellitus. SOCIAL HISTORY: History of smoking approximately 12 years ago. No occupational exposures. CURRENT MEDICATIONS: Include Solu-Medrol, Spiriva, albuterol, Glucophage, and Lipitor. REVIEW OF SYSTEMS: No orthopnea. No PND. Positive dyspnea. No chest pain. No palpitations. No cough. No hemoptysis. No abdominal pain. No lower extremity edema. PHYSICAL EXAMINATION: General: The patient is a thin, black male, well-developed, awake, alert, in no acute distress. Vital signs: He is afebrile, blood pressure 125/64, respiratory rate is 20. HEENT: Exam is normocephalic, atraumatic. Neck: Supple. Heart: Regular S1 and S2. Chest: Diminished breath sounds bilaterally. Abdomen: Soft. Bowel sounds positive. Extremities: No cyanosis, edema. Chest CT reveals emphysematous changes, no pulmonary emboli, there is a small left lobe nodule 4 mm. IMPRESSION: 1. Acute on chronic hypoxic respiratory failure, secondary to chronic obstructive pulmonary disease exacerbation. 2. History of hypertension. 3. Jrn-jyzapfg-zlrqrppsz diabetes. PLAN: IV steroids. Inhaled bronchodilators. Supplemental O2. Check O2 saturation at rest prior to exercise, prior to discharge to determine whether the patient is a candidate for home O2. LIBRA GUERRIER M.D. [id number] MTDD
[2018-04-18 17:32] LABS: ARTERIAL BLD GAS O2 SATURATION 86.6 % (90-98.9); ARTERIAL BLOOD GAS BASE EXCESS 8.2 meq/l (-2-2); ARTERIAL BLOOD GAS PO2 54.3 mmHg (80-100); ARTERIAL BLOOD GAS pH 7.37 (7.35-7.45)
[2018-04-18 17:35] LABS: ALLENS TEST POSITIVE
[2018-04-18 17:38] LABS: ARTERIAL BLOOD GAS PCO2 63.2 mmHg (35-45)
[2018-04-18] MEDS: ATORVASTATIN CA 20 MG TABLET (FP) PO SCH (21:28)
[2018-04-19] MEDS: methylPREDNISolone NA SUCC 40 MG/1 ML VIAL IVPUSH SCH ×2 (01:50→10:00)
[2018-04-19] MEDS: metFORMIN HCL 500 MG TABLET (FP) PO SCH ×2 (06:42→17:09)
--- NOTE | 2018-04-19 09:50 | PN ---
Progress Note, Physician Chief Complaint: Pt seen and examined feels better,wheezing improved Vitals stable PT is on IV steroid and bronchodialators CT chest negative for PE and lung nodules persistent Pt Awaiting for placement where he can live with home o2 - Current Medication List Current Medications: Active Medications Albuterol Sulfate (Ventolin 0.083% Nebulizer Soln -) 1 amp NEB Q6H PRN PRN Reason: SHORT OF BREATH/WHEEZING Atorvastatin Calcium (Lipitor -) 20 mg PO HS [facility] Last Admin: 04/18/18 21:28 Dose: 20 mg Metformin HCl (Glucophage -) 500 mg PO BID@0700,1630 [facility] Last Admin: 04/19/18 06:42 Dose: 500 mg Methylprednisolone Sodium Succinate (Solu-Medrol -) 60 mg IVPUSH Q8H-IV [facility] Last Admin: 04/19/18 01:50 Dose: 60 mg Tiotropium [place] (Spiriva -) 1 puff IH DAILY [facility] Last Admin: 04/18/18 10:13 Dose: 1 puff - Objective Vital Signs: Vital Signs Temperature 98.2 F 04/19/18 06:29 Pulse Rate 64 04/19/18 06:29 Respiratory Rate 20 04/19/18 06:29 Blood Pressure 124/61 04/19/18 06:29 O2 Sat by Pulse Oximetry (%) 92 L 04/18/18 21:00 Constitutional: Yes: No Distress Eyes: Yes: Conjunctiva Clear HENT: Yes: Atraumatic Neck: Yes: Supple Cardiovascular: Yes: Regular Rate and Rhythm Respiratory: Yes: Regular, CTA Bilaterally, Wheezes Gastrointestinal: Yes: Normal Bowel Sounds, Soft Musculoskeletal: Yes: WNL Extremities: Yes: WNL Edema: No Peripheral Pulses WNL: Yes Neurological: Yes: WNL, Alert ...Motor Strength: WNL Psychiatric: Yes: WNL Labs: CBC, BMP 04/18/18 06:00 04/18/18 06:00 Assessment/Plan COPD excacerbation Hypoxia lung nodule DM Hypercholestrolemia PLAN Continue IV steroid BROnchopdialtors Pulmonary consult pending O2 mikayla continued Pt needs HOME O2 when discharge
[2018-04-19] MEDS: TIOTROPIUM BROMIDE 18 MCG CAPSULES IH SCH (09:59)
--- NOTE | 2018-04-19 10:57 | PN ---
Progress Note (short form) - Note Progress Note: Feels a little better today. Less SOB. No cough. Intake & Output 04/16/18 04/17/18 04/18/18 04/19/18 23:59 23:59 23:59 23:59 Intake Total 950 700 Balance 950 700 Weight 140 lb 145 lb 5 oz Last Vital Signs Temp Pulse Resp BP Pulse Ox 98.2 F 64 20 124/61 92 L 04/19/18 06:29 04/19/18 06:29 04/19/18 06:29 04/19/18 06:29 04/18/18 21:00 Active Medications Albuterol Sulfate (Ventolin 0.083% Nebulizer Soln -) 1 amp NEB Q6H PRN PRN Reason: SHORT OF BREATH/WHEEZING Atorvastatin Calcium (Lipitor -) 20 mg PO HS [facility] Last Admin: 04/18/18 21:28 Dose: 20 mg Metformin HCl (Glucophage -) 500 mg PO BID@0700,1630 [facility] Last Admin: 04/19/18 06:42 Dose: 500 mg Methylprednisolone Sodium Succinate (Solu-Medrol -) 60 mg IVPUSH Q8H-IV [facility] Last Admin: 04/19/18 10:00 Dose: 60 mg Tiotropium [place] (Spiriva -) 1 puff IH DAILY [facility] Last Admin: 04/19/18 09:59 Dose: 1 puff Constitutional: Yes: No Distress Eyes: Yes: Conjunctiva Clear HENT: Yes: Atraumatic Neck: Yes: Supple Cardiovascular: Yes: Regular Rate and Rhythm Respiratory: Yes: Few scattered rhonchi, no Wheezes Gastrointestinal: Yes: Normal Bowel Sounds, Soft Musculoskeletal: Yes: WNL Extremities: Yes: WNL Edema: No Peripheral Pulses WNL: Yes Neurological: Yes: WNL, Alert ...Motor Strength: WNL Laboratory Results - last 24 hr 04/18/18 04/18/18 17:10 17:11 Anticoagulation Therapy No Result Required. Puncture Site Left radial ABG pH 7.37 ABG pCO2 at Pt Temp 63.2 H* ABG pO2 at Pt Temp 54.3 L D ABG HCO3 35.3 H ABG O2 Sat (Measured) 86.6 L ABG O2 Content 14.6 L ABG Base Excess 8.2 H Keo Test Positive O2 Delivery Device No Result Required. Oxygen Flow Rate 21% Vent Mode No Result Required. Vent Rate No Result Required. Mechanical Rate No Result Required. Pressure Support Vent No Result Required. POC Glucometer 137 Problem List - Problems (1) COPD exacerbation Code(s): J44.1 - CHRONIC OBSTRUCTIVE PULMONARY DISEASE W (ACUTE) EXACERBATION (2) Acute on chronic respiratory failure with hypoxia and hypercapnia Code(s): J96.21 - ACUTE AND CHRONIC RESPIRATORY FAILURE WITH HYPOXIA; J96.22 - ACUTE AND CHRONIC RESPIRATORY FAILURE WITH HYPERCAPNIA (3) Asthma exacerbation Code(s): J45.901 - UNSPECIFIED ASTHMA WITH (ACUTE) EXACERBATION (4) COPD exacerbation Code(s): J44.1 - CHRONIC OBSTRUCTIVE PULMONARY DISEASE W (ACUTE) EXACERBATION (5) Pulmonary nodules Code(s): R91.8 - OTHER NONSPECIFIC ABNORMAL FINDING OF LUNG FIELD IMP ACUTE ON CHRONIC HYPOXEMIC RESPIRATORY FAILURE COPD EXACERBATION HTN PULMONARY NODULE: WAXING AND WANING LIKELY INDICATES INFLAMMATORY PROCESS : HOWEVER NEED TO FOLLOW 7 MM NODULE THAT IS UNCHANGED NIDDM FORMER SMOKER PLAN CHANGE TO PREDNISONE INHALED BRONCHODILATORS O2 ABG PRE AND POST AMBULATION SATURATION DVT PROPHYLAXIS NO SMOKING D/C PLANNING DR COLLADO
[2018-04-19] MEDS: predniSONE 20 MG TABLET (UD) PO SCH (12:42)
[2018-04-19] MEDS: ATORVASTATIN CA 20 MG TABLET (FP) PO SCH (21:52)
[2018-04-20] MEDS: metFORMIN HCL 500 MG TABLET (FP) PO SCH ×2 (07:04→16:35)
[2018-04-20] MEDS: predniSONE 20 MG TABLET (UD) PO SCH (09:38)
[2018-04-20] MEDS: TIOTROPIUM BROMIDE 18 MCG CAPSULES IH SCH (09:38)
--- NOTE | 2018-04-20 09:59 | PN ---
Progress Note, Physician Chief Complaint: Pt resting comfortable no new complaints today Pt is on Nasal O2 d/c planing - Current Medication List Current Medications: Active Medications Albuterol Sulfate (Ventolin 0.083% Nebulizer Soln -) 1 amp NEB Q6H PRN PRN Reason: SHORT OF BREATH/WHEEZING Atorvastatin Calcium (Lipitor -) 20 mg PO HS [facility] Last Admin: 04/19/18 21:52 Dose: 20 mg Metformin HCl (Glucophage -) 500 mg PO BID@0700,1630 [facility] Last Admin: 04/20/18 07:04 Dose: 500 mg Prednisone (Deltasone -) 40 mg PO DAILY [facility] Last Admin: 04/20/18 09:38 Dose: 40 mg Tiotropium [place] (Spiriva -) 1 puff IH DAILY [facility] Last Admin: 04/20/18 09:38 Dose: 1 puff - Objective Vital Signs: Vital Signs Temperature 97.9 F 04/20/18 06:00 Pulse Rate 69 04/20/18 06:00 Respiratory Rate 20 04/20/18 06:00 Blood Pressure 127/76 04/20/18 06:00 O2 Sat by Pulse Oximetry (%) 94 L 04/19/18 21:00 Constitutional: Yes: No Distress Eyes: Yes: Conjunctiva Clear HENT: Yes: Atraumatic, Normocephalic Neck: Yes: Supple Cardiovascular: Yes: Regular Rate and Rhythm Respiratory: Yes: Regular, CTA Bilaterally Gastrointestinal: Yes: Normal Bowel Sounds, Soft Musculoskeletal: Yes: WNL Extremities: Yes: WNL Edema: No Peripheral Pulses WNL: Yes Neurological: Yes: WNL, Alert ...Motor Strength: WNL Psychiatric: Yes: Alert, Oriented Labs: CBC, BMP 04/18/18 06:00 04/18/18 06:00 Assessment/Plan COPD excacerbation Hypoxia lung nodule DM Hypercholestrolemia PLAN Continue IV steroid BROnchopdialtors Pulmonary consult pending O2 mikayla continued Pt needs HOME O2 when discharge
--- NOTE | 2018-04-20 11:42 | PN ---
Progress Note (short form) - Note Progress Note: PULMONARY FEELS BETTER WANTS TO GO HOME VSS ANICTERIC DIMINISHED BUT CLEAR BREATH SOUNDS S1S2 BS+ NO EDEMA LABS/MEDS/NOTES/IMAGES REVIEWED SPO2 PRE/POST AMB QUALIFIES PATIENT FOR O2 AT HOME IMP ACUTE ON CHRONIC HYPOXEMIC RESPIRATORY FAILURE REQUIRES HOME O2 COPD EXACERBATION HTN PULMONARY NODULE: WAXING AND WANING LIKELY INDICATES INFLAMMATORY PROCESS : HOWEVER NEED TO FOLLOW 7 MM NODULE THAT IS UNCHANGED NIDDM FORMER SMOKER PLAN CHANGED TO PREDNISONE INHALED BRONCHODILATORS O2 HOME NEEDS TO BE SET UP DVT PROPHYLAXIS NO SMOKING WOULD SET UP OUTPATIENT SLEEP STUDY D/C PLANNING R DENI GONZALEZ
[2018-04-20 15:14] VITALS: BP 117/83; PULSE 88; TEMP 98.3
--- NOTE | 2018-04-23 20:33 | EKG ---
Test Reason : Blood Pressure : / mmHG Vent. 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
== END 2018-04-20 19:58 | DRG 189 ==
LOC: JER 07:09 → JERBED 14:03 → OBSVTOIN 17:51 → J7W 04-18 02:10
PROVIDERS: ADMIT Family Medicine; ATTEND Family Medicine
DX: J96.21 Acute and chronic respiratory failure with hypoxia (principal); J44.1 Chronic obstructive pulmonary disease with (acute) exacerbation; E11.9 Type 2 diabetes mellitus without complications; J96.22 Acute and chronic respiratory failure with hypercapnia; E78.00 Pure hypercholesterolemia, unspecified; R91.1 Solitary pulmonary nodule; Z87.891 Personal history of nicotine dependence
CPT/HCPCS: 36415; 36600; 71046-TC-FY; 71275-TC; 80053; 82803; 82962; 85025; 85027; 93005; 93010; 94761; 99283-25; G0378; J7030; J7620

== ENCOUNTER 2018-05-30 21:30 | Inpatient (IN) | payer OTHER ==
--- NOTE | 2018-05-30 21:54 | PDOC ---
Rapid Medical Evaluation Time Seen by Provider: 05/30/18 21:51 Medical Evaluation: Allergies Allergy/AdvReac Type Severity Reaction Status Date / Time No Known Allergies Allergy Verified 04/17/18 07:33 05/30/18 21:53 I have performed a brief in-person evaluation of this patient. The patient presents with a chief complaint of: SOB Pertinent physical exam findings: spO2- 82%. Lungs sounds diminished in all vazquez I have ordered the following: o2, CXR, labs The patient will proceed to the ED for further evaluation. Discharge Disposition - Diagnosis COPD exacerbation - Referrals - Patient Instructions - Post Discharge Activity
[2018-05-30 22:00] VITALS: BMI 22.6
[2018-05-30] MEDS ORDERED: methylPREDNISolone NA SUCC 125 MG/2 ML VIAL IVPB ONE (22:19)
--- NOTE | 2018-05-30 22:26 | PDOC ---
Attending Attestation - HPI HPI: 05/30/18 23:50 The patient is a 57 year old male, with a significant PMH of asthma, HTN, HLD, COPD and diabetes, who presents to the emergency department with SOB that began approximately a week ago which worsened today. The patient states he is currently on 02 at home and reports his 02 sat today went down to the 60s. The patient states he has had multiple admissions to the ED in the past for similar episode SOB. The patient denies headache and dizziness. Denies fever, chills, nausea, vomit, sick contact, diarrhea and constipation. Denies dysuria , frequency, urgency and hematuria. Allergies: NKDA Past surgical history: None reported Social history: Former smoker (few years ago) but denies alcohol and recreational drug use. PCP: Irvin Barron Documentation prepared by Inder Alvarez, acting as manager medical writing for Stephen Feliciano MD. <Inder Alvarez - Last Filed: 05/30/18 23:49> - Resident Resident Name: Lloyd Brewer - ED Attending Attestation I have performed the following: I have examined & evaluated the patient, The case was reviewed & discussed with the resident, I agree w/resident's findings & plan, Exceptions are as noted - Physicial Exam PE: 05/31/18 00:56 *Physical Exam General Appearance: Yes: Appropriately Dressed. No: Apparent Distress, Intoxicated HEENT: positive: EOMI, ASHWINI, Normal ENT Inspection, Normal Voice, TMs Normal, Pharynx Normal. negative: Pale Conjunctivae, Photophobia, Scleral Icterus (R), Scleral Icterus (L) Neck: positive: Trachea midline, Normal Thyroid, Supple. negative: Tender, Rigid, Carotid bruit, Stridor, Lymphadenopathy (R), Lymphadenopathy (L), Thyromegaly Respiratory/Chest: positive: Decreased BS Cardiovascular: positive: Regular Rhythm, Regular Rate, S1, S2. negative: Edema , JVD, Murmur, Bradycardia, Tachycardia Vascular Pulses: Dorsalis-Pedis (R): 2+, Doralis-Pedis (L): 2+ Gastrointestinal/Abdominal: positive: Normal Bowel Sounds, Flat, Soft. negative : Tender, Organomegaly, Pulsatile Mass, Increased Bowel Sounds, Decreased BS, Distended, Guarding, Rebound, Hernia, Hepatomegaly, Spleenomegaly Lymphatic: negative: Adenopathy, Tenderness Musculoskeletal: positive: Normal Inspection. negative: CVA Tenderness, Decreased Range of Motion Extremity: positive: Normal Capillary Refill, Normal Inspection, Normal Range of Motion, Pelvis Stable. negative: Tender, Pedal Edema, Swelling, Erythema Integumentary: positive: Normal Color, Dry, Warm. negative: Cyanotic, Erythema , Jaundice, Rash Neurologic: positive: slicing machine tender II-XII NML intact, Fully Oriented, Alert, Normal Mood/ Affect, Motor Strength 5/5. negative: EOM Palsy, Facial Droop, Sensory Deficit - Medical Decision Making 05/31/18 00:57 Pt will be admitted for further evaluation and care <Stephen Feliciano - Last Filed: 05/31/18 00:57>
[2018-05-30] MEDS: ALBUTEROL SO4 2.5/IPRATROPIUM 0.5 INH SOL 3 ML VIAL.NEB. NEB SCH ×4 (22:40→23:25)
[2018-05-30 23:02] LABS: BASO % 0.7 % (0-2.0); EOS % 0.8 % (0-4.5); HEMOGLOBIN 10.7 GM/dL (11.7-16.9); LYMPH % 15.8 % (8-40); MCH 31.9 pg (25.7-33.7); MCHC 32.5 g/dl (32.0-35.9); MEAN CELL VOLUME 98.1 fl (80-96); MEAN PLT VOLUME 7.6 fl (7.5-11.1); NEUT % 72.7 % (42.8-82.8); PLATELET COUNT 190 K/MM3 (134-434); RBC 3.36 M/mm3 (4.00-5.60); RDW 17.8 % (11.9-15.9)
[2018-05-30 23:06] LABS: VENOUS PO2 36.4 mmHg (28-48)
[2018-05-30] MEDS ORDERED: ALBUTEROL SO4 2.5/IPRATROPIUM 0.5 INH SOL 3 ML VIAL.NEB. NEB ONE (23:07)
[2018-05-30] MEDS ORDERED: methylPREDNISolone NA SUCC 125 MG/2 ML VIAL ONE (23:08)
[2018-05-30 23:09] LABS: VENOUS PH 7.23 (7.32-7.42)
[2018-05-30 23:15] LABS: INR 1.1 (0.83-1.09); PROTHROMBIN TIME (PATIENT) 12.4 SEC (9.7-13.0)
--- NOTE | 2018-05-30 23:28 | PDOC ---
History of Present Illness - General Chief Complaint: Shortness of Breath Stated Complaint: SHORTNESS OF BREATH Time Seen by Provider: 05/30/18 21:51 History Source: Patient Exam Limitations: No Limitations - History of Present Illness Initial Comments: 05/30/18 23:27 Patient is a 57M with history of COPD and DM here today complaining of shortness of breath for one week. Denies chest pain, fevers, chills, nausea, vomiting. Denies history of blood clots, leg swelling and recent travel. Patient reports that his O2 sats at home were down to the 60s. Triage reports that O2 sat was down to mid 70s, but immediately josephine with oxygen. Patient is at O2 at home. Denies cough, sick contacts. States that he is a former smoker. Endorses compliance to medications. Past History - Past Medical History Allergies/Adverse Reactions: Allergies Allergy/AdvReac Type Severity Reaction Status Date / Time No Known Allergies Allergy Verified 05/30/18 21:57 Home Medications: Ambulatory Orders metFORMIN HCL [Glucophage -] 500 mg PO BID 09/15/15 Ergocalciferol (Vitamin D2) [Vitamin D] 50,000 unit PO TU 10/09/15 Simvastatin [Zocor -] 20 mg PO HS 10/09/15 Tiotropium [place] [Spiriva] 1 inh IH DAILY 01/14/17 Albuterol 0.083% Nebulizer Ema [Ventolin 0.083% Nebulizer Soln -] 1 neb NEB Q6H PRN 07/16/17 Albuterol Sulfate [Proair Hfa] 8.5 gm IH Q6H 03/26/18 Umeclidinium Brm/Vilanterol Tr [Anoro Ellipta 62.5-25 Mcg INH] 1 each IH DAILY 03/26/18 Anemia: No Asthma: Yes Cancer: No Cardiac Disorders: No CVA: No COPD: Yes CHF: No Dementia: No Diabetes: Yes (DM) GI Disorders: No Disorders: No HTN: Yes Hypercholesterolemia: Yes Liver Disease: No Seizures: No Thyroid Disease: No - Surgical History Abdominal Surgery: No Appendectomy: No Cardiac Surgery: No Cholecystectomy: No Lung Surgery: No Neurologic Surgery: No Orthopedic Surgery: No - Immunization History Immunization Up to Date: Yes - Suicide/Smoking/Psychosocial Hx Smoking History: Former smoker Have you smoked in the past 12 months: No Number of Cigarettes Smoked Daily: 0 If you are a former smoker, when did you quit?: FEW YEARS AGO Cigars Per Day: 0 Information on smoking cessation initiated: No 'Breaking Loose' booklet given: 06/28/16 Hx Alcohol Use: No Drug/Substance Use Hx: No Substance Use Type: None Hx Substance Use Treatment: No Review of Systems - Review of Systems Comments:: 05/30/18 23:31 GENERAL/CONSTITUTIONAL: No fever or chills. No weakness. HEAD, EYES, EARS, NOSE AND THROAT: No change in vision. No sore throat. CARDIOVASCULAR: No chest pain. +shortness of breath RESPIRATORY: No cough, wheezing, or hemoptysis. GASTROINTESTINAL: No nausea, vomiting, diarrhea or constipation. GENITOURINARY: No dysuria, frequency, or change in urination. MUSCULOSKELETAL: No joint or muscle swelling or pain. No neck or back pain. SKIN: No rash NEUROLOGIC: No headache, vertigo, loss of consciousness, or change in strength/ sensation. ENDOCRINE: No increased thirst. No abnormal weight change HEMATOLOGIC/LYMPHATIC: No anemia, easy bleeding, or history of blood clots. ALLERGIC/IMMUNOLOGIC: No hives or skin allergy. *Physical Exam - Vital Signs Last Vital Signs Temp Pulse Resp BP Pulse Ox 98.6 F 106 H 16 123/46 94 L 05/30/18 21:58 05/30/18 21:58 05/30/18 21:58 05/30/18 21:58 05/30/18 21:58 - Physical Exam Comments: 05/30/18 23:32 GENERAL: Awake, alert, and fully oriented, in no acute distress HEAD: No signs of trauma, normocephalic, atraumatic EYES: PERRLA, EOMI, sclera anicteric, conjunctiva clear ENT: Auricles normal inspection, hearing grossly normal, nares patent, oropharynx clear without exudates. Moist mucosa NECK: Normal ROM, supple, no lymphadenopathy, JVD, or masses LUNGS: No distress, speaks full sentences, diminished breath sounds bilaterally HEART: Regular rate and rhythm, normal S1 and S2, no murmurs, rubs or gallops, peripheral pulses normal and equal bilaterally. ABDOMEN: Soft, nontender, normoactive bowel sounds. No guarding, no rebound. No masses EXTREMITIES: Normal inspection, Normal range of motion, no edema. No clubbing or cyanosis. NEUROLOGICAL: Cranial nerves II through XII grossly intact. Normal speech, normal gait, no focal sensorimotor deficits SKIN: Warm, Dry, normal turgor, no rashes or lesions noted. ED Treatment Course - LABORATORY CBC & Chemistry Diagram: 05/30/18 22:50 05/30/18 22:50 - ADDITIONAL ORDERS Additional order review: Laboratory Results 05/30/18 05/30/18 22:50 22:50 PT with INR 12.40 INR 1.10 H VBG pH 7.23 L* POC VBG pCO2 94.0 H* D POC VBG pO2 36.4 Mixed VBG HCO3 38.7 H 05/30/18 22:50 RBC 3.36 L MCV 98.1 H MCHC 32.5 RDW 17.8 H MPV 7.6 D Neutrophils % 72.7 Lymphocytes % 15.8 D Monocytes % 10.0 D Eosinophils % 0.8 D Basophils % 0.7 D - Medications Given in the ED: ED Medications Discontinued Medications Generic Name Dose Route Start Last Admin Trade Name Christine PRN Reason Stop Dose Admin Albuterol/Ipratropium 1 amp 05/30/18 22:30 05/30/18 23:10 Duoneb - NEB 05/30/18 23:16 1 amp Q15M LAURITA Administration Methylprednisolone Sodium Succinate 125 mg 05/30/18 22:19 05/30/18 23:20 Solu-Medrol - IVPB 05/30/18 22:20 125 mg ONCE ONE Administration Medical Decision Making - Medical Decision Making 05/30/18 23:32 Patient is 57M with history of COPD and DM here today with shortness of breath. Vital signs in triage documented with O2 on. Satting in 70s. Despite this, patient appears well, speaks in full sentences. DDx includes, but is not limited to: COPD exacerbation, pneumonia, CHF. Patient satting 94-98% on 2L O2 NC. Will evaluate with CBC, CMP, Lactic acid, cxr, ekg, trop, vbg, blood cultures. Will treat with duonebs, solumedrol. Critical value for vbg called with ph of 7.22 and pco2 of 94. Again, patient appears well. Placed on bipap given likely ventilation issues. PE considered, but do not believe that patient has PE. VBG suggest CO2 retention consistent with COPD. Prior CTA in April negative. No chest pain. Hypoxia resolved with O2. No leg swelling, vte risk factors. 05/30/18 23:45 CMP and VBG suggest chronic compensated respiratory acidosis. 05/31/18 00:48 Follow up ABG shows: Laboratory Tests 05/31/18 00:25 ABG pH 7.23 L* ABG pCO2 at Pt Temp 91.6 H* D Minimal improvement. Review of prior visits shows pH values in 7.3s and pCO2s in 50-70s. Will admit to ICU. 05/31/18 00:55 Dr Anderson mckeon. Will go to hospitalist. EKG shows normal sinus rhythm with rate of 89. No st elevations/depressions. No significant t wave abnormalities. Normal intervals. [place] borderline right axis. 05/31/18 02:53 After discussion with medicine team and clinical improvement, will admit to tele. *DC/Admit/Observation/Transfer Diagnosis at time of Disposition: COPD exacerbation - Discharge Dispostion Condition at time of disposition: Critical Decision to Admit order: Yes - Referrals Referrals: Irvin Hernandez MD [Primary Care Provider] - - Patient Instructions - Post Discharge Activity
[2018-05-30 23:40] LABS: ALBUMIN 3.4 g/dl (3.4-5.0); ALK PHOS 106 U/L (45-117); ANION GAP 2 MMOL/L (8-16); BILIRUBIN,TOTAL 0.7 mg/dL (0.2-1.0); BLOOD UREA NITROGEN 8 mg/dL (7-18); CALCIUM 8.5 mg/dL (8.5-10.1); CHLORIDE 103 mmol/L (98-107); CO2 41 mmol/L (21-32); CREATININE 1.1 mg/dL (0.7-1.3); GLUCOSE,RANDOM 116 mg/dL (74-106); POTASSIUM 4.6 mmol/L (3.5-5.1); SGOT/AST 12 U/L (15-37); SGPT/ALT 21 U/L (12-78); SODIUM 146 mmol/L (136-145); TOT PROT 6.9 g/dl (6.4-8.2)
[2018-05-31 00:34] LABS: ARTERIAL BLD GAS O2 SATURATION 95.9 % (90-98.9); ARTERIAL BLOOD GAS BASE EXCESS 7.4 meq/l (-2-2); CARBOXYHEMOGLOBIN 3.5 gm% (0.5-2.0)
[2018-05-31 00:36] LABS: ALLENS TEST POSITIVE
[2018-05-31 00:42] LABS: ARTERIAL BLOOD GAS pH 7.23 (7.35-7.45)
[2018-05-31 00:43] LABS: ARTERIAL BLOOD GAS PCO2 91.6 mmHg (35-45)
[2018-05-31] MEDS ORDERED: AZITHROMYCIN IVPB 500 MG in DEXTROSE 5%-WATER - 250 ML IVPB ONE (00:47)
[2018-05-31] MEDS ORDERED: AZITHROMYCIN IVPB 250 ML IVPB ONE (00:56)
[2018-05-31] MEDS ORDERED: MAGNESIUM SULF 50% (8.12 MEQ/2 ML-1 GM VIAL) ONE (00:56)
--- NOTE | 2018-05-31 02:17 | PN ---
Teaching Attending Note Name of Resident: Clare Cramer ATTENDING PHYSICIAN STATEMENT I saw and evaluated the patient. I reviewed the resident's note and discussed the case with the resident. I agree with the resident's findings and plan as documented. SUBJECTIVE: Patient is a 57 year old male, with a significant PMH of asthma, HTN, HLD, COPD and diabetes, who presents to the ER with SOB that began approximately a week ago which worsened today. The patient states he is currently on oxygen at home and reports his O2 sat today went down to the 60s. The patient states he has had multiple admissions to the ED in the past for similar episode SOB - has had about [address] scans in the past 16 months. The patient denies fever, chills, productive cough or dysuria. OBJECTIVE: Alert; On Bipap Vital Signs Period Temp Pulse Resp BP Sys/Rm Pulse Ox Last 24 Hr 98.6 F 100-106 16 123/46 94-100 HEENT: No Jaundice, eye redness or discharge, PERRLA, EOMI. Normocephalic, atraumatic. External ears are normal and hearing is grossly intact. No nasal discharge. Neck: Supple, nontender. No palpable adenopathy or thyromegaly. No JVD Chest: Good effort. Noisy breath sounds with BIPAP. Prolonged expiration with intermittent end-expiratory wheezing. Heart: Regular tachycardia. No S3, rub or murmur Abdomen: Not distended, soft, nontender and no HSM. No rebound or guarding. Normoactive bowel sounds. Ext: Peripheral pulses intact. No leg edema. Skin: Warm and dry. No petechiae, rash or ecchymosis. Neuro: Alert. Oriented x3. CN 2-12 grossly intact. Sensation grossly intact in all four extremities and DTR are symmetric. Current Medications Generic Name Dose Route Start Last Admin Trade Name Freq PRN Reason Stop Dose Admin Magnesium Sulfate/Dextrose 2 200 mls @ 100 mls/hr 05/31/18 00:52 05/31/18 01: 18 gm/ Miscellaneous IVPB 05/31/18 02:51 100 mls/hr ONCE ONE Administration Home Medications Medication Instructions Recorded metFORMIN HCL [Glucophage -] 500 mg PO BID 09/15/15 Ergocalciferol (Vitamin D2) 50,000 unit PO TU 10/09/15 [Vitamin D] Simvastatin [Zocor -] 20 mg PO HS 10/09/15 Tiotropium [place] [Spiriva] 1 inh IH DAILY 01/14/17 Albuterol 0.083% Nebulizer Ema 1 neb NEB Q6H PRN 07/16/17 [Ventolin 0.083% Nebulizer Soln -] Albuterol Sulfate [Proair Hfa] 8.5 gm IH Q6H 03/26/18 Umeclidinium Brm/Vilanterol Tr 1 each IH DAILY 03/26/18 [Anoro Ellipta 62.5-25 Mcg INH] Abnormal Lab Results 05/30/18 05/30/18 05/30/18 22:50 22:50 22:50 RBC 3.36 L Hgb 10.7 L Hct 33.0 L MCV 98.1 H RDW 17.8 H INR 1.10 H ABG pH ABG pCO2 at Pt Temp ABG HCO3 ABG O2 Content ABG Base Excess VBG pH POC VBG pCO2 Mixed VBG HCO3 Carboxyhemoglobin Methemoglobin Sodium 146 H Carbon Dioxide 41 H Anion Gap 2 L Random Glucose 116 H D AST 12 L D 05/30/18 05/31/18 22:50 00:25 RBC Hgb Hct MCV RDW INR ABG pH 7.23 L* ABG pCO2 at Pt Temp 91.6 H* D ABG HCO3 36.9 H ABG O2 Content 12.9 L ABG Base Excess 7.4 H VBG pH 7.23 L* POC VBG pCO2 94.0 H* D Mixed VBG HCO3 38.7 H Carboxyhemoglobin 3.5 H Methemoglobin 1.8 H Sodium Carbon Dioxide Anion Gap Random Glucose AST ASSESSMENT AND PLAN: 1. Hypoxic and hypercarbic respiratory failure due to COPD exacerbation - No acute abnormality on CXR. No obvious precipitating factor. Will continue BIPAP, and treat with duneb, spiriva, symbicort, solumedrol, rocephin and azithromycin. A recent CT scan found left lung nodules - needs pulmonary follow up. 2. DM - For now, we will hold the home diabetes drugs and implement sliding scale insulin regimen. Provide comprehensive diabetes care with patient teaching and counseling about the importance of euglycemia, eye care and foot care. 3. Anemia - Cause unclear. Would expect a higher HCT in view of COPD. Do basic anemia work up including serial stool guaiacs, reticulocyte count and iron studies. 4. DVT prophylaxis - Lovenox 40 mg SQ q 24 hours. 5. Advance directives - Full code
--- NOTE | 2018-05-31 02:59 | HP ---
CHIEF COMPLAINT:shortness of breath PCP: HISTORY OF PRESENT ILLNESS: Patient is a 57 year old male with past medical history of COPD, DM, HLD and asthma, presented with worsening shortness of breath since 1 week ago. Patient started experiencing dyspnea on exertion 1 week ago, relieved by rest and albuterol inhaler. Because of the persistence of his SOB, patient would meaure his O2 saturation at home that was usually on the 90s. Few hours ago, his O2 sat at home was 75% which prompted patient to go to the ED. Otherwise, he denies fever, chills, anorexia, cough, chest pain, palpitations, abdominal pain or urinary symptoms. Patient was admitted on 04/2018 for COPD exacerbation. Chest CTA showed 4 mm L upper lobe pulmonary nodule and 2 tiny pleural based nodules in the L lower lobe. ER course was notable for: (1)Hgb 10.7, Hct 33 (2)ABG: pH 7.23, pCO2 91.6, HCO3 36.9 (3) Recent Travel:denies any recent travel PAST MEDICAL HISTORY: COPD DM Hyperlipidemia Asthma PAST SURGICAL HISTORY: None Social History: Smokin PPD since 13 yo; quit 6 months ago Alcohol:denies EtOH use Drugs: denies illicit drug use Family History: Mother - Uterine CA Sister - Breast CA Allergies No Known Allergies Allergy (Verified 05/30/18 21:57) HOME MEDICATIONS: Home Medications Medication Instructions Recorded metFORMIN HCL [Glucophage -] 500 mg PO BID 09/15/15 Ergocalciferol (Vitamin D2) 50,000 unit PO TU 10/09/15 [Vitamin D] Simvastatin [Zocor -] 20 mg PO HS 10/09/15 Tiotropium [place] [Spiriva] 1 inh IH DAILY 01/14/17 Albuterol 0.083% Nebulizer Ema 1 neb NEB Q6H PRN 07/16/17 [Ventolin 0.083% Nebulizer Soln -] Albuterol Sulfate [Proair Hfa] 8.5 gm IH Q6H 03/26/18 Umeclidinium Brm/Vilanterol Tr 1 each IH DAILY 03/26/18 [Anoro Ellipta 62.5-25 Mcg INH] REVIEW OF SYSTEMS CONSTITUTIONAL: Absent: fever, chills, diaphoresis, generalized weakness, malaise, loss of appetite, weight change HEENT: Absent: rhinorrhea, nasal congestion, throat pain, throat swelling, difficulty swallowing, mouth swelling, ear pain, eye pain, visual changes CARDIOVASCULAR: Absent: chest pain, syncope, palpitations, irregular heart rate, lightheadedness , peripheral edema RESPIRATORY: shortness of breath Absent: cough, orthopnea, wheezing, stridor, hemoptysis GASTROINTESTINAL: Absent: abdominal pain, abdominal distension, nausea, vomiting, diarrhea, constipation, melena, hematochezia GENITOURINARY: Absent: dysuria, frequency, urgency, hesitancy, hematuria, flank pain, genital pain MUSCULOSKELETAL: Absent: myalgia, arthralgia, joint swelling, back pain, neck pain SKIN: Absent: rash, itching, pallor HEMATOLOGIC/IMMUNOLOGIC: Absent: easy bleeding, easy bruising, lymphadenopathy, frequent infections ENDOCRINE: Absent: unexplained weight gain, unexplained weight loss, heat intolerance, cold intolerance NEUROLOGIC: Absent: headache, focal weakness or paresthesias, dizziness, unsteady gait, seizure, mental status changes, bladder or bowel incontinence PSYCHIATRIC: Absent: anxiety, depression, suicidal or homicidal ideation, hallucinations. PHYSICAL EXAMINATION Vital Signs - 24 hr 05/30/18 05/30/18 21:58 23:34 Temperature 98.6 F Pulse Rate 106 H 100 H Respiratory 16 Rate Blood Pressure 123/46 O2 Sat by Pulse 94 L 100 Oximetry (%) GENERAL: Awake, alert, and fully oriented, on BiPAP. HEAD: Normal with no signs of trauma. EYES:PERRLA, EOMI, sclera anicteric, conjunctiva clear. No lid lag. EARS, NOSE, THROAT: Ears normal, nares patent, oropharynx clear without exudates. Moist mucous membranes. NECK: Normal range of motion, supple without lymphadenopathy, JVD, or masses. LUNGS: Diminished breath sounds on all lung vazquez. No wheezes, and no crackles. No accessory muscle use. HEART: Regular rate and rhythm, normal S1 and S2 without murmur, rub or gallop. ABDOMEN: Soft, nontender, not distended, normoactive bowel sounds. MUSCULOSKELETAL: Normal range of motion at all joints. No bony deformities or tenderness. No CVA tenderness. UPPER EXTREMITIES: 2+ pulses, warm, well-perfused. No cyanosis. No clubbing. No peripheral edema. LOWER EXTREMITIES: 2+ pulses, warm, well-perfused. No calf tenderness. No peripheral edema. NEUROLOGICAL: Cranial nerves II-XII intact. Normal speech. Normal gait. PSYCHIATRIC: Cooperative. Good eye contact. Appropriate mood and affect. SKIN: Warm, dry, normal turgor, no rashes or lesions. Laboratory Results - last 24 hr 05/30/18 05/30/18 05/30/18 22:41 22:50 22:50 WBC 8.0 RBC 3.36 L Hgb 10.7 L Hct 33.0 L MCV 98.1 H MCH 31.9 MCHC 32.5 RDW 17.8 H Plt Count 190 D MPV 7.6 D Absolute Neuts (auto) 5.9 Neutrophils % 72.7 Lymphocytes % 15.8 D Monocytes % 10.0 D Eosinophils % 0.8 D Basophils % 0.7 D Nucleated RBC % 0 PT with INR INR Anticoagulation Therapy Puncture Site ABG pH ABG pCO2 at Pt Temp ABG pO2 at Pt Temp ABG HCO3 ABG O2 Sat (Measured) ABG O2 Content ABG Base Excess Keo Test VBG pH POC VBG pCO2 POC VBG pO2 Mixed VBG HCO3 Carboxyhemoglobin Methemoglobin O2 Delivery Device Oxygen Flow Rate Vent Mode Vent Rate Mechanical Rate Pressure Support Vent Sodium 146 H Potassium 4.6 Chloride 103 Carbon Dioxide 41 H Anion Gap 2 L BUN 8 Creatinine 1.1 Creat Clearance w eGFR > 60 Random Glucose 116 H D Lactic Acid Calcium 8.5 Total Bilirubin 0.7 AST 12 L D ALT 21 Alkaline Phosphatase 106 Creatine Kinase 116 Troponin I 0.03 D Total Protein 6.9 Albumin 3.4 05/30/18 05/30/18 05/30/18 22:50 22:50 22:50 WBC RBC Hgb Hct MCV MCH MCHC RDW Plt Count MPV Absolute Neuts (auto) Neutrophils % Lymphocytes % Monocytes % Eosinophils % Basophils % Nucleated RBC % PT with INR 12.40 INR 1.10 H Anticoagulation Therapy Puncture Site ABG pH ABG pCO2 at Pt Temp ABG pO2 at Pt Temp ABG HCO3 ABG O2 Sat (Measured) ABG O2 Content ABG Base Excess Keo Test VBG pH 7.23 L* POC VBG pCO2 94.0 H* D POC VBG pO2 36.4 Mixed VBG HCO3 38.7 H Carboxyhemoglobin Methemoglobin O2 Delivery Device Oxygen Flow Rate Vent Mode Vent Rate Mechanical Rate Pressure Support Vent Sodium Potassium Chloride Carbon Dioxide Anion Gap BUN Creatinine Creat Clearance w eGFR Random Glucose Lactic Acid 1.0 Calcium Total Bilirubin AST ALT Alkaline Phosphatase Creatine Kinase Troponin I Total Protein Albumin 05/31/18 00:25 WBC RBC Hgb Hct MCV MCH MCHC RDW Plt Count MPV Absolute Neuts (auto) Neutrophils % Lymphocytes % Monocytes % Eosinophils % Basophils % Nucleated RBC % PT with INR INR Anticoagulation Therapy No Result Required. Puncture Site Right radial ABG pH 7.23 L* ABG pCO2 at Pt Temp 91.6 H* D ABG pO2 at Pt Temp 90.0 D ABG HCO3 36.9 H ABG O2 Sat (Measured) 95.9 ABG O2 Content 12.9 L ABG Base Excess 7.4 H Keo Test Positive VBG pH POC VBG pCO2 POC VBG pO2 Mixed VBG HCO3 Carboxyhemoglobin 3.5 H Methemoglobin 1.8 H O2 Delivery Device No Result Required. Oxygen Flow Rate 35% Vent Mode S/t Vent Rate 16 Mechanical Rate No Result Required. Pressure Support Vent 12/5 Sodium Potassium Chloride Carbon Dioxide Anion Gap BUN Creatinine Creat Clearance w eGFR Random Glucose Lactic Acid Calcium Total Bilirubin AST ALT Alkaline Phosphatase Creatine Kinase Troponin I Total Protein Albumin CBC, BMP 05/30/18 22:50 05/30/18 22:50 ASSESSMENT/PLAN: Patient is a 57 year old male with past medical history of COPD, DM, HLD and asthma, presented with worsening shortness of breath since 1 week ago. #Acute on Chronic Hypoxemic and Hypercapneic Respiratory Failure: COPD exacerbation -Patient on BIPAP, -Duoneb, Spiriva, Symbicort ordered. -Solu-medrol 60 mg IV q6h -Ceftriaxone 1g qd and Azithromycin started. -Chest CTA done in 04/2018 showed 4 mm L upper lobe pulmonary nodule and 2 tiny pleural based nodules in the L lower lobe -Pulmonary consult - Dr. Burris #Anemia: new onset -basic anemia work up: retic count, iron studies ordered -routine CBC monitoring #FEN -not on any standing fluids -encourage increased oral fluid intake -hypernatremia, routine bmp monitoring -diabetic diet #Prophylaxis -Heparin 5000 units sq tid #Disposition -admit to tele -full code Visit type - Emergency Visit Emergency Visit: Yes ED Registration Date: 05/31/18 Care time: The patient presented to the Emergency Department on the above date and was hospitalized for further evaluation of their emergent condition. - New Patient This patient is new to me today: Yes Date on this admission: 05/31/18 - Critical Care Critical Care patient: No Hospitalist Screening - Colonoscopy Questionnaire Colonoscopy Questionnaire: Colonoscopy Questionnaire - Patient: 50 - 75 years old and never had a screening colonoscopy: Unknown History of colon or rectal polyps, or CA: Unknown History of IBD, Crohn's disease or UC: Unknown History of abdominal radiation therapy as a child: Unknown - Relative: 1 with colon or rectal CA, or polyps at age 60 or younger: Unknown Colon or rectal CA diagnosed at age 45 or younger: Unknown Multiple relatives with colon or rectal CA: Unknown - Outcome: Screening Result: Negative Screen
[2018-05-31] MEDS ORDERED: ALBUTEROL SO4 2.5/IPRATROPIUM 0.5 INH SOL 3 ML VIAL.NEB. NEB SCH (03:09)
[2018-05-31] MEDS: BUDESONIDE/FORMETEROL FUMARATE 160/4.5 mcg INHALER IH SCH ×3 (03:43→23:18)
[2018-05-31] MEDS: TIOTROPIUM BROMIDE 2.5 MCG (SPIRIVA) RESPIMAT INHALER IH SCH ×2 (03:43→10:40)
[2018-05-31] MEDS ORDERED: ALBUTEROL SO4 2.5/IPRATROPIUM 0.5 INH SOL 3 ML VIAL.NEB. NEB ONE (03:46)
[2018-05-31] MEDS ORDERED: CEFTRIAXONE 1 GM/50 ML BAG ONE (03:47)
[2018-05-31] MEDS: CEFTRIAXONE 1 GM in DEXTROSE 5%-WATER - 50 ML IVPB SCH ×2 (03:49→03:50)
[2018-05-31 05:51] LABS: ARTERIAL BLOOD GAS PO2 67.5 mmHg (80-100); ARTERIAL BLOOD GAS pH 7.26 (7.35-7.45)
[2018-05-31 05:52] LABS: ARTERIAL BLD GAS O2 SATURATION 91.4 % (90-98.9)
[2018-05-31 05:53] LABS: ARTERIAL BLOOD GAS BASE EXCESS 6.3 meq/l (-2-2)
[2018-05-31 05:54] LABS: ALLENS TEST POSITIVE
[2018-05-31 06:17] LABS: ARTERIAL BLOOD GAS PCO2 80.7 mmHg (35-45)
[2018-05-31] MEDS ORDERED: HEPARIN NA (PORCINE) 5,000 UNITS/ML 1ML VIAL ONE (06:17)
[2018-05-31 06:34] LABS: HEMATOCRIT 32.7 % (35.4-49); HEMOGLOBIN 10.3 GM/dL (11.7-16.9); MCH 31.4 pg (25.7-33.7); MCHC 31.5 g/dl (32.0-35.9); MEAN CELL VOLUME 99.6 fl (80-96); MEAN PLT VOLUME 7.4 fl (7.5-11.1); PLATELET COUNT 157 K/MM3 (134-434); RBC 3.28 M/mm3 (4.00-5.60); RDW 17.5 % (11.9-15.9); WHITE BLOOD COUNT 9.4 K/mm3 (4.0-10.0)
[2018-05-31 06:51] LABS: ANION GAP 2 MMOL/L (8-16); BLOOD UREA NITROGEN 9 mg/dL (7-18); CHLORIDE 100 mmol/L (98-107); CO2 39 mmol/L (21-32); CREATININE 1.2 mg/dL (0.7-1.3); GLUCOSE,RANDOM 192 mg/dL (74-106); MAGNESIUM 2.3 mg/dL (1.8-2.4); PHOSPHOROUS 3.2 mg/dL (2.5-4.9); SODIUM 141 mmol/L (136-145)
[2018-05-31] MEDS ORDERED: INSULIN REGULAR HUMAN 100 UNITS/ML *VIAL ONE (07:19)
--- NOTE | 2018-05-31 07:21 | PDOC ---
*Physical Exam - Vital Signs Last Vital Signs Temp Pulse Resp BP Pulse Ox 98.6 F 100 H 16 123/46 100 05/30/18 21:58 05/30/18 23:34 05/30/18 21:58 05/30/18 21:58 05/30/18 23:34 ED Treatment Course - LABORATORY CBC & Chemistry Diagram: 05/31/18 06:18 05/31/18 06:18 - ADDITIONAL ORDERS Additional order review: Laboratory Results 05/31/18 05/30/18 05/30/18 00:25 22:50 22:50 PT with INR INR Anticoagulation Therapy No Result Required. Puncture Site Right radial ABG pH 7.23 L* ABG pCO2 at Pt Temp 91.6 H* D ABG pO2 at Pt Temp 90.0 D ABG HCO3 36.9 H ABG O2 Sat (Measured) 95.9 ABG O2 Content 12.9 L ABG Base Excess 7.4 H Keo Test Positive VBG pH 7.23 L* POC VBG pCO2 94.0 H* D POC VBG pO2 36.4 Mixed VBG HCO3 38.7 H Carboxyhemoglobin 3.5 H Methemoglobin 1.8 H O2 Delivery Device No Result Required. Oxygen Flow Rate 35% Vent Mode S/t Vent Rate 16 Mechanical Rate No Result Required. Pressure Support Vent 12/5 Sodium Potassium Chloride Carbon Dioxide Anion Gap BUN Creatinine Creat Clearance w eGFR Random Glucose Lactic Acid 1.0 Calcium Total Bilirubin AST ALT Alkaline Phosphatase Creatine Kinase Troponin I Total Protein Albumin 05/30/18 05/30/18 05/30/18 22:50 22:50 22:41 PT with INR 12.40 INR 1.10 H Anticoagulation Therapy Puncture Site ABG pH ABG pCO2 at Pt Temp ABG pO2 at Pt Temp ABG HCO3 ABG O2 Sat (Measured) ABG O2 Content ABG Base Excess Keo Test VBG pH POC VBG pCO2 POC VBG pO2 Mixed VBG HCO3 Carboxyhemoglobin Methemoglobin O2 Delivery Device Oxygen Flow Rate Vent Mode Vent Rate Mechanical Rate Pressure Support Vent Sodium 146 H Potassium 4.6 Chloride 103 Carbon Dioxide 41 H Anion Gap 2 L BUN 8 Creatinine 1.1 Creat Clearance w eGFR > 60 Random Glucose 116 H D Lactic Acid Calcium 8.5 Total Bilirubin 0.7 AST 12 L D ALT 21 Alkaline Phosphatase 106 Creatine Kinase 116 Troponin I 0.03 D Total Protein 6.9 Albumin 3.4 05/30/18 22:50 RBC 3.36 L MCV 98.1 H MCHC 32.5 RDW 17.8 H MPV 7.6 D Neutrophils % 72.7 Lymphocytes % 15.8 D Monocytes % 10.0 D Eosinophils % 0.8 D Basophils % 0.7 D - Medications Given in the ED: ED Medications Discontinued Medications Generic Name Dose Route Start Last Admin Trade Name Freq PRN Reason Stop Dose Admin Albuterol/Ipratropium 1 amp 05/30/18 22:30 05/30/18 23:25 Duoneb - NEB 05/30/18 23:16 1 amp Q15M LAURITA Administration Albuterol/Ipratropium 1 amp 05/31/18 03:09 05/31/18 03:50 Duoneb - NEB 1 amp RQID LAURITA Administration Azithromycin 500 mg/ Dextrose 250 mls @ 250 mls/hr 05/31/18 00:47 05/31/18 01 :18 IVPB 05/31/18 01:46 250 mls/hr ONCE ONE Administration Magnesium Sulfate/Dextrose 2 200 mls @ 100 mls/hr 05/31/18 00:52 05/31/18 01: 18 gm/ Miscellaneous IVPB 05/31/18 02:51 100 mls/hr ONCE ONE Administration Methylprednisolone Sodium Succinate 125 mg 05/30/18 22:19 05/30/18 23:20 Solu-Medrol - IVPB 05/30/18 22:20 125 mg ONCE ONE Administration Medical Decision Making - Medical Decision Making 05/31/18 07:19 Patient signed out to me in overall stable condition on Bipap with positively trending blood gases. PE yielded decreased air movement bilaterally pbut patient was tolerating BiPap well and admitted to improved respiratory status after 4 nebs and extended BiPap usage. *DC/Admit/Observation/Transfer Diagnosis at time of Disposition: COPD exacerbation - Discharge Dispostion Condition at time of disposition: Critical - Referrals - Patient Instructions - Post Discharge Activity
[2018-05-31] MEDS: HEPARIN NA (PORCINE) 5,000 UNITS/ML 1ML VIAL SQ SCH ×3 (07:23→23:18)
[2018-05-31] MEDS: INSULIN SLIDING SCALE (NOVOLOG) 1 VIAL SQ SCH ×4 (07:24→23:21)
[2018-05-31] MEDS ORDERED: ALBUTEROL SO4 0.083% IH SOL 2.5 MG/3 ML VIAL.NEB. NEB ONE (07:59)
[2018-05-31] MEDS: ALBUTEROL SO4 0.083% IH SOL 2.5 MG/3 ML VIAL.NEB. NEB SCH ×4 (08:03→20:26)
--- NOTE | 2018-05-31 09:45 | PN ---
Progress Note, Physician Chief Complaint: Pt seen in the ER Pt resting comfortably,ON BIPAP Afebrile,vitals stable,no apparent distress - Current Medication List Current Medications: Active Medications Albuterol Sulfate (Ventolin 0.083% Nebulizer Soln -) 1 amp NEB RQID [facility] Last Admin: 05/31/18 08:03 Dose: 1 amp Atorvastatin Calcium (Lipitor -) 10 mg PO HS LAURITA Budesonide/Formoterol Fumarate (Symbicort 160/4.5mcg -) 2 puff IH BID [facility] Last Admin: 05/31/18 03:43 Dose: 2 puff Heparin Sodium (Porcine) (Heparin -) 5,000 unit SQ TID [facility] Last Admin: 05/31/18 07:23 Dose: 5,000 unit Azithromycin 500 mg/ Dextrose 250 mls @ 250 mls/hr IVPB DAILY [facility]URITA Ceftriaxone Sodium 1 gm/ (Dextrose) 50 mls @ 100 mls/hr IVPB DAILY [facility] Last Admin: 05/31/18 03:50 Dose: Not Given Insulin Aspart (Novolog Vial Sliding Scale -) 1 vial SQ ACHS [facility]; Protocol Last Admin: 05/31/18 07:24 Dose: 2 units Methylprednisolone Sodium Succinate (Solu-Medrol -) 60 mg IVPB Q8H-IV [facility] Tiotropium [place] (Spiriva Respimat) 2 puff IH DAILY [facility] Last Admin: 05/31/18 03:43 Dose: 2 puff - Objective Vital Signs: Vital Signs Temperature 98.3 F 05/31/18 07:36 Pulse Rate 89 05/31/18 07:36 Respiratory Rate 24 05/31/18 07:36 Blood Pressure 109/62 05/31/18 07:36 O2 Sat by Pulse Oximetry (%) 100 05/31/18 07:36 Constitutional: Yes: No Distress Eyes: Yes: Conjunctiva Clear HENT: Yes: Atraumatic, Normocephalic Neck: Yes: Supple, Trachea Midline Cardiovascular: Yes: Regular Rate and Rhythm Respiratory: Yes: Regular, Diminished (upper part of chest,occasional wheeze), On BiPap Gastrointestinal: Yes: Normal Bowel Sounds, Soft Musculoskeletal: Yes: WNL Extremities: Yes: WNL Edema: No Peripheral Pulses WNL: Yes Neurological: Yes: Alert, Oriented ...Motor Strength: WNL Psychiatric: Yes: WNL, Alert, Oriented Labs: CBC, BMP 05/31/18 06:18 05/31/18 06:18 INR, PTT INR 1.10 (0.83-1.09) H 05/30/18 22:50 - ....Imaging Chest X-ray: Report Reviewed Assessment/Plan COPD excacerbation Hypoxic and hypercarbic resp failure DM Hypercholestrolemia Lung nodule PLAN Continue IV steroids Continue bronchodialators Pulmonary f/u Monitor blood blood sugar WILL MONITOR THE patient
[2018-05-31] MEDS: methylPREDNISolone NA SUCC 125 MG/2 ML VIAL IVPB SCH ×2 (10:55→18:50)
--- NOTE | 2018-05-31 12:57 | CON.PULM ---
Consult Consult Specialty:: PULMONARY Referred by:: Dr. Hernandez Reason for Consultation:: shortness of breath - History of Present Illness Chief Complaint: shortness of breath History of Present Illness: 57yo male with h/o COPD, chronic hypoxic respiratory failure, DM, hyperlipidemia who presents with worsening shortness of breath. No chest pain or palpitations. No change in his chronic cough and no wheezes. No fevers, chills or sweats. Denies sick contacts or recent travel. He does not have home O2. Only has a nebulizer machine. He was saturating in the 70s at home. Noted to have an acute on chronic respiratory acidosis on ABG. Placed on BiPAP, given steroids and inhaled bronchodilators with some improvement. Quit smoking 6 months ago. - History Source History Provided By: Patient, Medical Record Limitations to Obtaining History: No Limitations - Past Medical History Pulmonary: Yes: COPD. No: O2 Dependent Endocrine: Yes: Diabetes Mellitus - Past Surgical History Past Surgical History: Yes: Tonsillectomy - Alcohol/Substance Use Hx Alcohol Use: No - Smoking History Smoking history: Former smoker Have you smoked in the past 12 months: No Aproximately how many cigarettes per day: 0 If you are a former smoker, when did you quit?: FEW YEARS AGO - Social History Usual Living Arrangement: With Spouse History of Recent Travel: No Home Medications - Allergies Allergies/Adverse Reactions: Allergies Allergy/AdvReac Type Severity Reaction Status Date / Time No Known Allergies Allergy Verified 05/30/18 21:57 - Home Medications Home Medications: Ambulatory Orders metFORMIN HCL [Glucophage -] 500 mg PO BID 09/15/15 Ergocalciferol (Vitamin D2) [Vitamin D] 50,000 unit PO TU 10/09/15 Simvastatin [Zocor -] 20 mg PO 10/09/15 Tiotropium [place] [Spiriva] 1 inh IH DAILY 01/14/17 Albuterol 0.083% Nebulizer Ema [Ventolin 0.083% Nebulizer Soln -] 1 neb NEB Q6H PRN 07/16/17 Albuterol Sulfate [Proair Hfa] 8.5 gm IH Q6H 03/26/18 Umeclidinium Brm/Vilanterol Tr [Anoro Ellipta 62.5-25 Mcg INH] 1 each IH DAILY 03/26/18 Review of Systems - Review of Systems Constitutional: reports: Weakness. denies: Chills, Fever Eyes: denies: Recent Change in Vision HENT: denies: Nasal Congestion, Throat Pain Neck: denies: Stiffness, Tenderness Cardiovascular: reports: Shortness of Breath. denies: Chest Pain Respiratory: reports: Cough, Exercise Intolerance, SOB, SOB on Exertion. denies : Hemoptysis, Wheezing Gastrointestinal: denies: Abdominal Pain, Nausea, Vomiting Genitourinary: denies: Dysuria, Hematuria Neurological: denies: Dizziness, Headache Physical Exam Vital Sings: Vital Signs Temperature 98 F 05/31/18 10:39 Pulse Rate 72 05/31/18 10:39 Respiratory Rate 18 05/31/18 10:39 Blood Pressure 108/66 05/31/18 10:39 O2 Sat by Pulse Oximetry (%) 93 L 05/31/18 11:25 Constitutional: Yes: Calm Eyes: Yes: Conjunctiva Clear, EOM Intact HENT: Yes: Atraumatic, Normocephalic Neck: Yes: Supple, Trachea Midline Cardiovascular: Yes: Regular Rate and Rhythm Respiratory: Yes: Diminished (distant breath sounds). No: Wheezes ...Clubbing: No Gastrointestinal: Yes: Normal Bowel Sounds, Soft. No: Tenderness Edema: No Neurological: Yes: Alert, Oriented Labs: CBC, BMP 05/31/18 06:18 05/31/18 06:18 ABG Results ABG pH 7.26 (7.35-7.45) L 05/31/18 05:30 ABG pCO2 at Pt Temp 80.7 mmHg (35-45) H* 05/31/18 05:30 ABG pO2 at Pt Temp 67.5 mmHg (80-100) L D 05/31/18 05:30 ABG HCO3 34.9 meq/L (22-26) H 05/31/18 05:30 ABG O2 Sat (Measured) 91.4 % (90-98.9) 05/31/18 05:30 ABG O2 Content 12.4 % vol (15-22) L 05/31/18 05:30 ABG Base Excess 6.3 meq/l (-2-2) H 05/31/18 05:30 Imaging - Results Chest X-ray: Report Reviewed, Image Reviewed (no infiltrates) Problem List - Problems (1) COPD exacerbation Code(s): J44.1 - CHRONIC OBSTRUCTIVE PULMONARY DISEASE W (ACUTE) EXACERBATION (2) Acute on chronic respiratory failure with hypoxia and hypercapnia Code(s): J96.21 - ACUTE AND CHRONIC RESPIRATORY FAILURE WITH HYPOXIA; J96.22 - ACUTE AND CHRONIC RESPIRATORY FAILURE WITH HYPERCAPNIA (3) Pulmonary nodules Code(s): R91.8 - OTHER NONSPECIFIC ABNORMAL FINDING OF LUNG FIELD Assessment/Plan Acute on Chronic Hypoxic and Hypercapneic Respiratory Failure Acute COPD Exacerbation Emphysema DM Hyperlipidemia - IV medrol - inhaled bronchodilators standing and PRN - O2 to keep SPo2 >90% - BiPAP at night and PRN during day - low suspicion for pneumonia, can d/c ceftriaxone and continue azithromycin - will need to reassess for home O2 and NIPPV when ready for discharge - DVT prophylaxis Thank you for this consult Jus Shafer MD
--- NOTE | 2018-05-31 15:36 | EKG ---
Test Reason : Blood Pressure : / mmHG Vent. Rate : 089 BPM Atrial Rate : 089 BPM P-R Int : 158 ms QRS Dur : 076 ms QT Int : 360 ms P-R-T Axes : 072 079 078 degrees QTc Int : 438 ms NORMAL SINUS RHYTHM INDETERMINATE AXIS SEPTAL INFARCT (CITED ON OR BEFORE 16-JUL-2017) ABNORMAL ECG WHEN COMPARED WITH ECG OF 17-APR-2018 07:38, NO SIGNIFICANT CHANGE WAS FOUND Confirmed by Ritu Henning ([id number]) on 05/31/2018 3:36:01 PM Referred By: Confirmed By:Ritu Henning
[2018-05-31] MEDS ORDERED: methylPREDNISolone NA SUCC 40 MG/1 ML VIAL ONE (18:44)
[2018-05-31] MEDS: ATORVASTATIN CA 10 MG TABLET (FP) PO SCH (23:18)
[2018-06-01] MEDS: methylPREDNISolone NA SUCC 125 MG/2 ML VIAL IVPB SCH ×3 (03:00→17:50)
[2018-06-01] MEDS: INSULIN SLIDING SCALE (NOVOLOG) 1 VIAL SQ SCH ×4 (07:06→21:19)
[2018-06-01] MEDS: HEPARIN NA (PORCINE) 5,000 UNITS/ML 1ML VIAL SQ SCH ×3 (07:06→21:11)
[2018-06-01] MEDS: ALBUTEROL SO4 0.083% IH SOL 2.5 MG/3 ML VIAL.NEB. NEB SCH ×4 (07:43→20:41)
--- NOTE | 2018-06-01 09:18 | PN ---
Progress Note, Physician Chief Complaint: Pt seen ,sitting in bed, Pt resting comfortably,ON nasal oxygen Afebrile,vitals stable,no apparent distress pul note appreciated - Current Medication List Current Medications: Active Medications Albuterol Sulfate (Ventolin 0.083% Nebulizer Soln -) 1 amp NEB RQID [facility] Last Admin: 06/01/18 07:43 Dose: 1 amp Atorvastatin Calcium (Lipitor -) 10 mg PO HS [facility] Last Admin: 05/31/18 23:18 Dose: 10 mg Budesonide/Formoterol Fumarate (Symbicort 160/4.5mcg -) 2 puff IH BID [facility] Last Admin: 05/31/18 23:18 Dose: 2 puff Heparin Sodium (Porcine) (Heparin -) 5,000 unit SQ TID [facility] Last Admin: 06/01/18 07:06 Dose: 5,000 unit Azithromycin 500 mg/ Dextrose 250 mls @ 250 mls/hr IVPB DAILY [facility] Insulin Aspart (Novolog Vial Sliding Scale -) 1 vial SQ ACHS [facility]; Protocol Last Admin: 06/01/18 07:06 Dose: 2 units Methylprednisolone Sodium Succinate (Solu-Medrol -) 60 mg IVPB Q8H-IV [facility] Last Admin: 06/01/18 03:00 Dose: 60 mg Tiotropium [place] (Spiriva Respimat) 2 puff IH DAILY [facility] Last Admin: 05/31/18 10:40 Dose: 2 puff - Objective Vital Signs: Vital Signs Temperature 97.7 F 06/01/18 08:54 Pulse Rate 89 06/01/18 08:54 Respiratory Rate 20 06/01/18 08:54 Blood Pressure 114/61 06/01/18 08:54 O2 Sat by Pulse Oximetry (%) 93 L 06/01/18 09:00 Constitutional: Yes: No Distress Eyes: Yes: Conjunctiva Clear HENT: Yes: Atraumatic Neck: Yes: Supple, Trachea Midline Cardiovascular: Yes: Regular Rate and Rhythm Respiratory: Yes: Regular, On Nasal O2 Gastrointestinal: Yes: Normal Bowel Sounds, Soft Musculoskeletal: Yes: WNL Extremities: Yes: WNL Edema: No Peripheral Pulses WNL: Yes Neurological: Yes: WNL, Alert ...Motor Strength: WNL Psychiatric: Yes: WNL, Alert Labs: CBC, BMP 05/31/18 06:18 05/31/18 06:18 INR, PTT INR 1.10 (0.83-1.09) H 05/30/18 22:50 Assessment/Plan COPD excacerbation acute on chronic Hypoxic and hypercarbic resp failure DM emphysema Hypercholestrolemia Lung nodule PLAN Continue IV steroids Continue bronchodialators Pulmonary f/u Monitor blood blood sugar WILL MONITOR THE patient
[2018-06-01] MEDS ORDERED: PT OWN MED DRAWER 7, Y5N ONE ×2 (09:39→14:08)
[2018-06-01] MEDS: BUDESONIDE/FORMETEROL FUMARATE 160/4.5 mcg INHALER IH SCH ×2 (10:21→21:19)
[2018-06-01] MEDS: TIOTROPIUM BROMIDE 2.5 MCG (SPIRIVA) RESPIMAT INHALER IH SCH (10:22)
--- NOTE | 2018-06-01 10:45 | PN ---
Progress Note, Physician History of Present Illness: pulmonary alert,feeling better,less dyspneic - Current Medication List Current Medications: Active Medications Albuterol Sulfate (Ventolin 0.083% Nebulizer Soln -) 1 amp NEB RQID [facility] Last Admin: 06/01/18 07:43 Dose: 1 amp Atorvastatin Calcium (Lipitor -) 10 mg PO HS [facility] Last Admin: 05/31/18 23:18 Dose: 10 mg Budesonide/Formoterol Fumarate (Symbicort 160/4.5mcg -) 2 puff IH BID [facility] Last Admin: 06/01/18 10:21 Dose: 2 puff Heparin Sodium (Porcine) (Heparin -) 5,000 unit SQ TID [facility] Last Admin: 06/01/18 07:06 Dose: 5,000 unit Azithromycin 500 mg/ Dextrose 250 mls @ 250 mls/hr IVPB DAILY [facility] Insulin Aspart (Novolog Vial Sliding Scale -) 1 vial SQ ACHS [facility]; Protocol Last Admin: 06/01/18 07:06 Dose: 2 units Methylprednisolone Sodium Succinate (Solu-Medrol -) 60 mg IVPB Q8H-IV [facility] Last Admin: 06/01/18 03:00 Dose: 60 mg Tiotropium [place] (Spiriva Respimat) 2 puff IH DAILY [facility] Last Admin: 06/01/18 10:22 Dose: 2 puff - Objective Vital Signs: Vital Signs Temperature 97.7 F 06/01/18 08:54 Pulse Rate 89 06/01/18 08:54 Respiratory Rate 20 06/01/18 08:54 Blood Pressure 114/61 06/01/18 08:54 O2 Sat by Pulse Oximetry (%) 93 L 06/01/18 09:00 Constitutional: Yes: Calm, Thin Eyes: Yes: WNL HENT: Yes: WNL Neck: Yes: WNL Cardiovascular: Yes: Regular Rate and Rhythm, S1, S2 Respiratory: Yes: Diminished Gastrointestinal: Yes: Normal Bowel Sounds, Soft Extremities: Yes: WNL Edema: No Labs: CBC, BMP Assessment/Plan Problem List - Problems (1) COPD exacerbation Code(s): J44.1 - CHRONIC OBSTRUCTIVE PULMONARY DISEASE W (ACUTE) EXACERBATION (2) Acute on chronic respiratory failure with hypoxia and hypercapnia Code(s): J96.21 - ACUTE AND CHRONIC RESPIRATORY FAILURE WITH HYPOXIA; J96.22 - ACUTE AND CHRONIC RESPIRATORY FAILURE WITH HYPERCAPNIA (3) Pulmonary nodules Code(s): R91.8 - OTHER NONSPECIFIC ABNORMAL FINDING OF LUNG FIELD Assessment/Plan Acute on Chronic Hypoxic and Hypercapneic Respiratory Failure Acute COPD Exacerbation Emphysema DM Hyperlipidemia - IV medrol - inhaled bronchodilators standing and PRN - O2 to keep SPo2 >90% - BiPAP at night and PRN during day - lcontinue azithromycin - will need to reassess for home O2 and NIPPV when ready for discharge - DVT prophylaxis DR GUERRIER
[2018-06-01] MEDS: AZITHROMYCIN IVPB 500 MG in DEXTROSE 5%-WATER - 250 ML IVPB SCH (14:26)
[2018-06-01] MEDS: ATORVASTATIN CA 10 MG TABLET (FP) PO SCH (21:12)
[2018-06-02] MEDS: methylPREDNISolone NA SUCC 125 MG/2 ML VIAL IVPB SCH (01:03)
[2018-06-02] MEDS: HEPARIN NA (PORCINE) 5,000 UNITS/ML 1ML VIAL SQ SCH ×3 (06:24→22:35)
[2018-06-02] MEDS: INSULIN SLIDING SCALE (NOVOLOG) 1 VIAL SQ SCH ×4 (06:24→22:35)
[2018-06-02 06:55] LABS: BASO % 0.1 % (0-2.0); HEMATOCRIT 31.7 % (35.4-49); HEMOGLOBIN 10.2 GM/dL (11.7-16.9); LYMPH % 6.1 % (8-40); MCH 31.6 pg (25.7-33.7); MCHC 32.2 g/dl (32.0-35.9); MEAN PLT VOLUME 8.5 fl (7.5-11.1); MONO % 3.3 % (3.8-10.2); NEUT % 90.5 % (42.8-82.8); PLATELET COUNT 203 K/MM3 (134-434); RBC 3.23 M/mm3 (4.00-5.60); RDW 17.9 % (11.9-15.9); WHITE BLOOD COUNT 6.8 K/mm3 (4.0-10.0)
[2018-06-02 07:24] LABS: ALBUMIN 3.1 g/dl (3.4-5.0); ANION GAP 5 MMOL/L (8-16); BLOOD UREA NITROGEN 27 mg/dL (7-18); CALCIUM 9.2 mg/dL (8.5-10.1); CHLORIDE 101 mmol/L (98-107); CO2 38 mmol/L (21-32); GLUCOSE,RANDOM 211 mg/dL (74-106); POTASSIUM 5.1 mmol/L (3.5-5.1); SODIUM 144 mmol/L (136-145)
[2018-06-02 07:29] LABS: ALK PHOS 81 U/L (45-117); BILIRUBIN,TOTAL 0.3 mg/dL (0.2-1.0); CREATININE 1.1 mg/dL (0.7-1.3); SGPT/ALT 14 U/L (12-78)
[2018-06-02 07:35] LABS: SGOT/AST 4 U/L (15-37)
[2018-06-02] MEDS: ALBUTEROL SO4 0.083% IH SOL 2.5 MG/3 ML VIAL.NEB. NEB SCH ×4 (08:39→19:19)
--- NOTE | 2018-06-02 08:48 | PN ---
Progress Note, Physician History of Present Illness: PULMONARY ALERT,FEELING BETTER,DYSPNEA IMPROVING,-CP. - Current Medication List Current Medications: Active Medications Albuterol Sulfate (Ventolin 0.083% Nebulizer Soln -) 1 amp NEB RQID [facility] Last Admin: 06/02/18 08:39 Dose: 1 amp Atorvastatin Calcium (Lipitor -) 10 mg PO HS [facility] Last Admin: 06/01/18 21:12 Dose: 10 mg Budesonide/Formoterol Fumarate (Symbicort 160/4.5mcg -) 2 puff IH BID [facility] Last Admin: 06/01/18 21:19 Dose: 2 puff Heparin Sodium (Porcine) (Heparin -) 5,000 unit SQ TID [facility] Last Admin: 06/02/18 06:24 Dose: 5,000 unit Azithromycin 500 mg/ Dextrose 250 mls @ 250 mls/hr IVPB DAILY [facility] Last Admin: 06/01/18 14:26 Dose: 250 mls/hr Insulin Aspart (Novolog Vial Sliding Scale -) 1 vial SQ ACHS [facility]; Protocol Last Admin: 06/02/18 06:24 Dose: 4 units Methylprednisolone Sodium Succinate (Solu-Medrol -) 60 mg IVPB Q8H-IV [facility] Last Admin: 06/02/18 01:03 Dose: 60 mg Tiotropium [place] (Spiriva Respimat) 2 puff IH DAILY [facility] Last Admin: 06/01/18 10:22 Dose: 2 puff - Objective Vital Signs: Vital Signs Temperature 97.6 F 06/02/18 06:00 Pulse Rate 88 06/02/18 06:00 Respiratory Rate 20 06/02/18 06:00 Blood Pressure 108/60 06/02/18 06:00 O2 Sat by Pulse Oximetry (%) 96 06/02/18 04:40 Constitutional: Yes: Well Nourished, Calm Eyes: Yes: WNL HENT: Yes: WNL Neck: Yes: WNL Cardiovascular: Yes: Regular Rate and Rhythm, S1, S2 Respiratory: Yes: Diminished Gastrointestinal: Yes: Normal Bowel Sounds, Soft Extremities: Yes: WNL Edema: No Labs: CBC, BMP 06/02/18 05:30 06/02/18 05:30 INR, PTT INR 1.10 (0.83-1.09) H 05/30/18 22:50 Assessment/Plan Problem List - Problems (1) COPD exacerbation Code(s): J44.1 - CHRONIC OBSTRUCTIVE PULMONARY DISEASE W (ACUTE) EXACERBATION (2) Acute on chronic respiratory failure with hypoxia and hypercapnia Code(s): J96.21 - ACUTE AND CHRONIC RESPIRATORY FAILURE WITH HYPOXIA; J96.22 - ACUTE AND CHRONIC RESPIRATORY FAILURE WITH HYPERCAPNIA (3) Pulmonary nodules Code(s): R91.8 - OTHER NONSPECIFIC ABNORMAL FINDING OF LUNG FIELD Assessment/Plan Acute on Chronic Hypoxic and Hypercapneic Respiratory Failure Acute COPD Exacerbation Emphysema DM Hyperlipidemia - medrol taper - inhaled bronchodilators standing and PRN - O2 to keep SPo2 >90% - BiPAP at night and PRN during day - continue azithromycin - will need to reassess for home O2 and NIPPV when ready for discharge - DVT prophylaxis - Maria Teresa GUERRIER
[2018-06-02] MEDS ORDERED: PT OWN MED DRAWER 7, Y5N ONE (11:12)
[2018-06-02] MEDS: BUDESONIDE/FORMETEROL FUMARATE 160/4.5 mcg INHALER IH SCH ×2 (11:20→22:35)
[2018-06-02] MEDS: methylPREDNISolone NA SUCC 40 MG/1 ML VIAL IVPB SCH ×2 (11:20→19:12)
[2018-06-02] MEDS: ROFLUMILAST 500 MCG TABLET PO SCH (11:20)
[2018-06-02] MEDS: TIOTROPIUM BROMIDE 2.5 MCG (SPIRIVA) RESPIMAT INHALER IH SCH (11:20)
--- NOTE | 2018-06-02 14:25 | PN ---
Progress Note, Physician Chief Complaint: Pt seen ,sitting in bed, Pt resting comfortably,ON nasal oxygen Afebrile,vitals stable,no apparent distress pul note appreciated - Current Medication List Current Medications: Active Medications Albuterol Sulfate (Ventolin 0.083% Nebulizer Soln -) 1 amp NEB RQID [facility] Last Admin: 06/02/18 11:37 Dose: 1 amp Atorvastatin Calcium (Lipitor -) 10 mg PO HS [facility] Last Admin: 06/01/18 21:12 Dose: 10 mg Budesonide/Formoterol Fumarate (Symbicort 160/4.5mcg -) 2 puff IH BID [facility] Last Admin: 06/02/18 11:20 Dose: 2 puff Heparin Sodium (Porcine) (Heparin -) 5,000 unit SQ TID [facility] Last Admin: 06/02/18 06:24 Dose: 5,000 unit Azithromycin 500 mg/ Dextrose 250 mls @ 250 mls/hr IVPB DAILY [facility] Last Admin: 06/01/18 14:26 Dose: 250 mls/hr Insulin Aspart (Novolog Vial Sliding Scale -) 1 vial SQ ACHS [facility]; Protocol Last Admin: 06/02/18 12:03 Dose: 4 units Methylprednisolone Sodium Succinate (Solu-Medrol -) 40 mg IVPB Q8H-IV [facility] Last Admin: 06/02/18 11:20 Dose: 40 mg Roflumilast (Daliresp -) 500 mcg PO DAILY [facility] Last Admin: 06/02/18 11:20 Dose: Not Given Tiotropium [place] (Spiriva Respimat) 2 puff IH DAILY [facility] Last Admin: 06/02/18 11:20 Dose: 2 puff - Objective Vital Signs: Vital Signs Temperature 98.1 F 06/02/18 09:12 Pulse Rate 94 H 06/02/18 09:12 Respiratory Rate 20 06/02/18 09:12 Blood Pressure 113/67 06/02/18 09:12 O2 Sat by Pulse Oximetry (%) 98 06/02/18 09:00 Constitutional: Yes: No Distress Eyes: Yes: Conjunctiva Clear HENT: Yes: Atraumatic, Normocephalic Neck: Yes: Supple, Trachea Midline Cardiovascular: Yes: Regular Rate and Rhythm Respiratory: Yes: Regular, Diminished Gastrointestinal: Yes: Normal Bowel Sounds, Soft Musculoskeletal: Yes: WNL Extremities: Yes: WNL Edema: No Peripheral Pulses WNL: Yes Neurological: Yes: WNL, Alert, Oriented ...Motor Strength: WNL Psychiatric: Yes: WNL, Alert Labs: CBC, BMP 06/02/18 05:30 06/02/18 05:30 INR, PTT INR 1.10 (0.83-1.09) H 05/30/18 22:50 Assessment/Plan COPD excacerbation acute on chronic Hypoxic and hypercarbic resp failure DM emphysema Hypercholestrolemia Lung nodule PLAN Continue IV steroids Continue bronchodialators BIPAP in the Night time Pulmonary f/u Monitor blood blood sugar WILL MONITOR THE patient
[2018-06-02] MEDS: AZITHROMYCIN IVPB 500 MG in DEXTROSE 5%-WATER - 250 ML IVPB SCH (14:48)
[2018-06-02] MEDS ORDERED: INSULIN (NOVOLOG) ASPART 100 UNITS/ML 10ML VIAL ONE (19:11)
[2018-06-02] MEDS: ATORVASTATIN CA 10 MG TABLET (FP) PO SCH (22:34)
[2018-06-03] MEDS: methylPREDNISolone NA SUCC 40 MG/1 ML VIAL IVPB SCH ×3 (02:38→21:56)
[2018-06-03] MEDS: HEPARIN NA (PORCINE) 5,000 UNITS/ML 1ML VIAL SQ SCH ×3 (05:52→21:56)
[2018-06-03] MEDS: INSULIN SLIDING SCALE (NOVOLOG) 1 VIAL SQ SCH ×4 (06:26→21:56)
[2018-06-03] MEDS: ALBUTEROL SO4 0.083% IH SOL 2.5 MG/3 ML VIAL.NEB. NEB SCH ×4 (08:18→19:13)
--- NOTE | 2018-06-03 08:31 | PN ---
Progress Note, Physician History of Present Illness: PULMONARY ALERT,NO DISTRESS,SOB IMPROVING,-CP - Current Medication List Current Medications: Active Medications Albuterol Sulfate (Ventolin 0.083% Nebulizer Soln -) 1 amp NEB RQID [facility] Last Admin: 06/03/18 08:18 Dose: 1 amp Atorvastatin Calcium (Lipitor -) 10 mg PO HS [facility] Last Admin: 06/02/18 22:34 Dose: 10 mg Budesonide/Formoterol Fumarate (Symbicort 160/4.5mcg -) 2 puff IH BID [facility] Last Admin: 06/02/18 22:35 Dose: 2 puff Heparin Sodium (Porcine) (Heparin -) 5,000 unit SQ TID [facility] Last Admin: 06/03/18 05:52 Dose: 5,000 unit Azithromycin 500 mg/ Dextrose 250 mls @ 250 mls/hr IVPB DAILY [facility] Last Admin: 06/02/18 14:48 Dose: 250 mls/hr Insulin Aspart (Novolog Vial Sliding Scale -) 1 vial SQ ACHS [facility]; Protocol Last Admin: 06/03/18 06:26 Dose: 4 units Methylprednisolone Sodium Succinate (Solu-Medrol -) 40 mg IVPB Q8H-IV [facility] Last Admin: 06/03/18 02:38 Dose: 40 mg Roflumilast (Daliresp -) 500 mcg PO DAILY [facility] Last Admin: 06/02/18 11:20 Dose: Not Given Tiotropium [place] (Spiriva Respimat) 2 puff IH DAILY [facility] Last Admin: 06/02/18 11:20 Dose: 2 puff - Objective Vital Signs: Vital Signs Temperature 97 F L 06/03/18 05:46 Pulse Rate 68 06/03/18 05:46 Respiratory Rate 20 06/03/18 05:46 Blood Pressure 134/74 06/03/18 05:46 O2 Sat by Pulse Oximetry (%) 98 06/03/18 04:55 Constitutional: Yes: Well Nourished, Calm Eyes: Yes: WNL HENT: Yes: WNL Neck: Yes: WNL Cardiovascular: Yes: Regular Rate and Rhythm, S1, S2 Respiratory: Yes: Diminished Gastrointestinal: Yes: Normal Bowel Sounds, Soft Extremities: Yes: WNL Edema: No Labs: CBC, BMP Assessment/Plan Problem List - Problems (1) COPD exacerbation Code(s): J44.1 - CHRONIC OBSTRUCTIVE PULMONARY DISEASE W (ACUTE) EXACERBATION (2) Acute on chronic respiratory failure with hypoxia and hypercapnia Code(s): J96.21 - ACUTE AND CHRONIC RESPIRATORY FAILURE WITH HYPOXIA; J96.22 - ACUTE AND CHRONIC RESPIRATORY FAILURE WITH HYPERCAPNIA (3) Pulmonary nodules Code(s): R91.8 - OTHER NONSPECIFIC ABNORMAL FINDING OF LUNG FIELD Assessment/Plan Acute on Chronic Hypoxic and Hypercapneic Respiratory Failure Acute COPD Exacerbation Emphysema DM Hyperlipidemia - medrol taper - inhaled bronchodilators standing and PRN - O2 to keep SPo2 >90% - BiPAP at night and PRN during day - azithromycin 250mg PO as anti-inflammatory - will need to reassess for home O2 and NIPPV when ready for discharge - DVT prophylaxis - Daliresp - ABG ON RA DR GUERRIER
[2018-06-03] MEDS ORDERED: PT OWN MED DRAWER 7, Y5N ONE (11:10)
[2018-06-03 11:58] LABS: ARTERIAL BLD GAS O2 SATURATION 88.5 % (90-98.9); ARTERIAL BLOOD GAS BASE EXCESS 11.4 meq/l (-2-2); ARTERIAL BLOOD GAS PCO2 59.3 mmHg (35-45); ARTERIAL BLOOD GAS PO2 56.7 mmHg (80-100); ARTERIAL BLOOD GAS pH 7.42 (7.35-7.45)
[2018-06-03] MEDS: AZITHROMYCIN 250 MG TABLET PO SCH (12:02)
[2018-06-03] MEDS: BUDESONIDE/FORMETEROL FUMARATE 160/4.5 mcg INHALER IH SCH ×2 (12:02→21:57)
[2018-06-03] MEDS: TIOTROPIUM BROMIDE 2.5 MCG (SPIRIVA) RESPIMAT INHALER IH SCH (12:02)
[2018-06-03] MEDS: ROFLUMILAST 500 MCG TABLET PO SCH (12:02)
[2018-06-03 12:07] LABS: ALLENS TEST POSITIVE
--- NOTE | 2018-06-03 16:56 | PN ---
Progress Note, Physician Chief Complaint: Pt seen ,sitting in bed,no sob Pt resting comfortably, Afebrile,vitals stable,no apparent distress pul note appreciated - Current Medication List Current Medications: Active Medications Albuterol Sulfate (Ventolin 0.083% Nebulizer Soln -) 1 amp NEB RQID [facility] Last Admin: 06/03/18 16:23 Dose: 1 amp Atorvastatin Calcium (Lipitor -) 10 mg PO HS [facility] Last Admin: 06/02/18 22:34 Dose: 10 mg Azithromycin (Zithromax -) 250 mg PO DAILY [facility] Last Admin: 06/03/18 12:02 Dose: 250 mg Budesonide/Formoterol Fumarate (Symbicort 160/4.5mcg -) 2 puff IH BID [facility] Last Admin: 06/03/18 12:02 Dose: 2 puff Heparin Sodium (Porcine) (Heparin -) 5,000 unit SQ TID [facility] Last Admin: 06/03/18 15:05 Dose: 5,000 unit Insulin Aspart (Novolog Vial Sliding Scale -) 1 vial SQ ACHS [facility]; Protocol Last Admin: 06/03/18 12:39 Dose: 4 units Methylprednisolone Sodium Succinate (Solu-Medrol -) 40 mg IVPB Q12H [facility] Last Admin: 06/03/18 12:02 Dose: 40 mg Roflumilast (Daliresp -) 500 mcg PO DAILY [facility] Last Admin: 06/03/18 12:02 Dose: 500 mcg Tiotropium [place] (Spiriva Respimat) 2 puff IH DAILY [facility] Last Admin: 06/03/18 12:02 Dose: 2 puff - Objective Vital Signs: Vital Signs Temperature 98.3 F 06/03/18 14:00 Pulse Rate 84 06/03/18 14:00 Respiratory Rate 20 06/03/18 14:00 Blood Pressure 153/71 06/03/18 14:00 O2 Sat by Pulse Oximetry (%) 92 L 06/03/18 09:00 Constitutional: Yes: No Distress Eyes: Yes: Conjunctiva Clear HENT: Yes: Atraumatic, Normocephalic Neck: Yes: Supple, Trachea Midline Cardiovascular: Yes: Regular Rate and Rhythm Respiratory: Yes: Regular, CTA Bilaterally, Diminished Gastrointestinal: Yes: Normal Bowel Sounds, Soft Musculoskeletal: Yes: WNL Extremities: Yes: WNL Edema: Yes Peripheral Pulses WNL: Yes Integumentary: Yes: WNL Neurological: Yes: WNL, Alert, Oriented ...Motor Strength: WNL Psychiatric: Yes: WNL, Alert, Oriented Labs: CBC, BMP 06/02/18 05:30 06/02/18 05:30 INR, PTT INR 1.10 (0.83-1.09) H 05/30/18 22:50 Assessment/Plan COPD excacerbation acute on chronic Hypoxic and hypercarbic resp failure DM emphysema Hypercholestrolemia Lung nodule PLAN Continue IV steroids Continue bronchodialators BIPAP in the Night time prn Pulmonary f/u Monitor blood blood sugar WILL MONITOR THE patient
[2018-06-03] MEDS ORDERED: INSULIN (NOVOLOG) ASPART 100 UNITS/ML 10ML VIAL ONE (17:39)
[2018-06-03] MEDS: ATORVASTATIN CA 10 MG TABLET (FP) PO SCH (21:56)
[2018-06-04] MEDS: INSULIN SLIDING SCALE (NOVOLOG) 1 VIAL SQ SCH ×2 (06:15→11:54)
[2018-06-04] MEDS: HEPARIN NA (PORCINE) 5,000 UNITS/ML 1ML VIAL SQ SCH (06:15)
[2018-06-04] MEDS: ALBUTEROL SO4 0.083% IH SOL 2.5 MG/3 ML VIAL.NEB. NEB SCH ×2 (07:45→11:02)
[2018-06-04] MEDS: methylPREDNISolone NA SUCC 40 MG/1 ML VIAL IVPB SCH (08:37)
[2018-06-04 08:54] VITALS: BP 119/68; TEMP 97.8
--- NOTE | 2018-06-04 09:28 | PN ---
Progress Note, Physician Chief Complaint: Pt seen ,sitting in bed,no sob Pt resting comfortably, Afebrile,vitals stable,no apparent distress d/c planing - Current Medication List Current Medications: Active Medications Albuterol Sulfate (Ventolin 0.083% Nebulizer Soln -) 1 amp NEB RQID [facility] Last Admin: 06/04/18 07:45 Dose: 1 amp Atorvastatin Calcium (Lipitor -) 10 mg PO HS [facility] Last Admin: 06/03/18 21:56 Dose: 10 mg Azithromycin (Zithromax -) 250 mg PO DAILY [facility] Last Admin: 06/03/18 12:02 Dose: 250 mg Budesonide/Formoterol Fumarate (Symbicort 160/4.5mcg -) 2 puff IH BID [facility] Last Admin: 06/03/18 21:57 Dose: 2 puff Heparin Sodium (Porcine) (Heparin -) 5,000 unit SQ TID [facility] Last Admin: 06/04/18 06:15 Dose: 5,000 unit Insulin Aspart (Novolog Vial Sliding Scale -) 1 vial SQ ACHS [facility]; Protocol Last Admin: 06/04/18 06:15 Dose: 6 units Methylprednisolone Sodium Succinate (Solu-Medrol -) 40 mg IVPB Q12H [facility] Last Admin: 06/04/18 08:37 Dose: 40 mg Roflumilast (Daliresp -) 500 mcg PO DAILY [facility] Last Admin: 06/03/18 12:02 Dose: 500 mcg Tiotropium [place] (Spiriva Respimat) 2 puff IH DAILY [facility] Last Admin: 06/03/18 12:02 Dose: 2 puff - Objective Vital Signs: Vital Signs Temperature 97.8 F 06/04/18 08:52 Pulse Rate 80 06/04/18 08:52 Respiratory Rate 17 06/04/18 08:52 Blood Pressure 119/68 06/04/18 08:52 O2 Sat by Pulse Oximetry (%) 96 06/04/18 08:43 Constitutional: Yes: No Distress Eyes: Yes: Conjunctiva Clear HENT: Yes: Atraumatic Neck: Yes: Supple Cardiovascular: Yes: Regular Rate and Rhythm Respiratory: Yes: Regular, CTA Bilaterally Gastrointestinal: Yes: Normal Bowel Sounds Musculoskeletal: Yes: WNL Extremities: Yes: WNL Edema: No Peripheral Pulses WNL: Yes Neurological: Yes: WNL, Alert ...Motor Strength: WNL Psychiatric: Yes: WNL, Alert Labs: CBC, BMP 06/02/18 05:30 06/02/18 05:30 INR, PTT INR 1.10 (0.83-1.09) H 05/30/18 22:50 Assessment/Plan COPD excacerbation acute on chronic Hypoxic and hypercarbic resp failure DM emphysema Hypercholestrolemia Lung nodule PLAN pre and post exercise 02 saturation Continue bronchodialators d/c planing Pulmonary f/u continue po prednisone
--- NOTE | 2018-06-04 10:07 | PN ---
Progress Note, Physician History of Present Illness: PULMONARY ALERT,OOB-CHAIR,-SOB,-CP - Current Medication List Current Medications: Active Medications Albuterol Sulfate (Ventolin 0.083% Nebulizer Soln -) 1 amp NEB RQID [facility] Last Admin: 06/04/18 07:45 Dose: 1 amp Atorvastatin Calcium (Lipitor -) 10 mg PO HS [facility] Last Admin: 06/03/18 21:56 Dose: 10 mg Azithromycin (Zithromax -) 250 mg PO DAILY [facility] Last Admin: 06/03/18 12:02 Dose: 250 mg Budesonide/Formoterol Fumarate (Symbicort 160/4.5mcg -) 2 puff IH BID [facility] Last Admin: 06/03/18 21:57 Dose: 2 puff Heparin Sodium (Porcine) (Heparin -) 5,000 unit SQ TID [facility] Last Admin: 06/04/18 06:15 Dose: 5,000 unit Insulin Aspart (Novolog Vial Sliding Scale -) 1 vial SQ ACHS [facility]; Protocol Last Admin: 06/04/18 06:15 Dose: 6 units Methylprednisolone Sodium Succinate (Solu-Medrol -) 40 mg IVPB Q12H [facility] Last Admin: 06/04/18 08:37 Dose: 40 mg Roflumilast (Daliresp -) 500 mcg PO DAILY [facility] Last Admin: 06/03/18 12:02 Dose: 500 mcg Tiotropium [place] (Spiriva Respimat) 2 puff IH DAILY [facility] Last Admin: 06/03/18 12:02 Dose: 2 puff - Objective Vital Signs: Vital Signs Temperature 97.8 F 06/04/18 08:52 Pulse Rate 80 06/04/18 08:52 Respiratory Rate 17 06/04/18 08:52 Blood Pressure 119/68 06/04/18 08:52 O2 Sat by Pulse Oximetry (%) 96 06/04/18 08:43 Constitutional: Yes: Calm, Thin Eyes: Yes: WNL HENT: Yes: WNL Neck: Yes: WNL Cardiovascular: Yes: Regular Rate and Rhythm, S1, S2 Respiratory: Yes: Diminished Gastrointestinal: Yes: Normal Bowel Sounds, Soft Extremities: Yes: WNL Edema: No Labs: CBC, BMP Laboratory Tests 06/03/18 11:53 ABG pH 7.42 D ABG pCO2 at Pt Temp 59.3 H D ABG pO2 at Pt Temp 56.7 L ABG HCO3 37.7 H ABG O2 Sat (Measured) 88.5 L Assessment/Plan Problem List - Problems (1) COPD exacerbation Code(s): J44.1 - CHRONIC OBSTRUCTIVE PULMONARY DISEASE W (ACUTE) EXACERBATION (2) Acute on chronic respiratory failure with hypoxia and hypercapnia Code(s): J96.21 - ACUTE AND CHRONIC RESPIRATORY FAILURE WITH HYPOXIA; J96.22 - ACUTE AND CHRONIC RESPIRATORY FAILURE WITH HYPERCAPNIA (3) Pulmonary nodules Code(s): R91.8 - OTHER NONSPECIFIC ABNORMAL FINDING OF LUNG FIELD Assessment/Plan Acute on Chronic Hypoxic and Hypercapneic Respiratory Failure Acute COPD Exacerbation Emphysema DM Hyperlipidemia - Prednisone - inhaled bronchodilators standing and PRN - O2 to keep SPo2 >90% - BiPAP at night and PRN during day - azithromycin 250mg PO as anti-inflammatory - will need to reassess for home O2 and NIPPV when ready for discharge - DVT prophylaxis - Maria Teresa GUERRIER
[2018-06-04] MEDS ORDERED: PT OWN MED DRAWER 7, Y5N ONE (10:08)
[2018-06-04] MEDS: AZITHROMYCIN 250 MG TABLET PO SCH (10:10)
[2018-06-04] MEDS: ROFLUMILAST 500 MCG TABLET PO SCH (10:10)
[2018-06-04] MEDS: TIOTROPIUM BROMIDE 2.5 MCG (SPIRIVA) RESPIMAT INHALER IH SCH (10:10)
[2018-06-04] MEDS: BUDESONIDE/FORMETEROL FUMARATE 160/4.5 mcg INHALER IH SCH (10:11)
[2018-06-04] MEDS ORDERED: predniSONE 20 MG TABLET (UD) PO SCH (10:15)
[2018-06-04 10:35] VITALS: PULSE 95
--- NOTE | 2018-06-05 16:14 | DS ---
DATE OF ADMISSION: 05/31/2018 DATE OF DISCHARGE: 06/04/2018 HISTORY OF PRESENT ILLNESS: The patient is a 57-year-old male with a past medical history of COPD, diabetes, hyperlipidemia, chronic ex-smoker, history of chronic respiratory failure, admitted with shortness of breath for one 1 day. At the time of his visit to the emergency room, his oxygen saturation was low, between 75% and 80%. In the ER, it was 90%. The patient denies any fever or chills or cough. The patient has had multiple admissions for the same problem with a COPD exacerbation. PAST MEDICAL HISTORY: Significant for diabetes, hypercholesterolemia, COPD, asthma, bilateral lung nodules. PAST SURGICAL HISTORY: Nothing significant. HOME MEDICATIONS: Reviewed. ALLERGIES: No known drug allergies. PHYSICAL EXAMINATION: Vital signs: Examination in the emergency room showed temperature 98.6, pulse rate 106, respirations 16, blood pressure 123/46, saturations 94%. General: Patient awake, alert, in no apparent distress. HEENT: Pupils equally reactive to light and accommodation. Chest: Diminished breath sounds in both lung vazquez. Cardiovascular: First and second sounds normal. Abdomen: Soft, nontender, no distension. Bowel sounds present. Extremities: No edema. LABORATORIES: In the emergency room, WBC 8, hemoglobin 10.7, hematocrit 33, platelets 190. Comprehensive panel was normal. PT/INR normal. Patient had an ABG done in the emergency room with a pH of 7.23, PCO2 of 91.6, PO2 90, bicarbonate 36.9. O2 saturation was 95.9%. HOSPITAL COURSE: Patient was given IV Solu-Medrol, put on BiPAP, given an albuterol treatment, one dose of ceftriaxone and azithromycin given in the emergency room. Chest x-ray was negative. An EKG done showed normal sinus rhythm, indeterminate axis, septal infarct. When compared to his EKG of April 2018, no significant change was found. Patient was followed by Pulmonary and denied temperature with the BiPAP. In the daytime, the patient was given nasal oxygen. The patient was admitted to the floor with admitting diagnoses of COPD exacerbation, acute on chronic respiratory failure, diabetes, hypercholesterolemia. Patient was started on an IV steroid, Lipitor. He was given sliding scale insulin. . Low-flow was given, and Zithromax continued as an anti-inflammatory agent. Patient was stable on the floor. Discharged home on home medications. Recommended to see his primary and Pulmonary in 1 week. Patient stable at the time of discharge. LILIA HUGHES M.D. [id number]
== END 2018-06-04 14:45 | disposition home or self-care (01) | DRG 189 ==
LOC: JER 21:30 → JERBED 05-31 00:50 → J4W 05-31 19:09
PROVIDERS: ADMIT Family Medicine; ATTEND Family Medicine
PROC: 5A09457 Assistance with Respiratory Ventilation, 24-96 Consecutive Hours, Continuous Positive Airway Pressure (ICD-10-PCS; principal; 2018-05-31)
DX: J96.21 Acute and chronic respiratory failure with hypoxia (principal); J44.1 Chronic obstructive pulmonary disease with (acute) exacerbation; J96.22 Acute and chronic respiratory failure with hypercapnia; D64.9 Anemia, unspecified; E78.5 Hyperlipidemia, unspecified; E11.9 Type 2 diabetes mellitus without complications; R91.8 Other nonspecific abnormal finding of lung field; J43.9 Emphysema, unspecified
CPT/HCPCS: 36415; 36600; 71045-TC-FY; 80048; 80053; 82375; 82550; 82728; 82803; 82962; 83050; 83605; 83735; 84100; 84484; 85025; 85027; 85044; 85610; 87040; 93005; 93010; 94640; 94660; 94761; 99285-25; J1644; J7620

== ENCOUNTER 2018-06-23 18:40 | Inpatient (IN) | payer OTHER ==
[2018-06-23] MEDS ORDERED: SODIUM CHLORIDE 1,000 ML IV STA (18:42)
[2018-06-23] MEDS ORDERED: IPRATROPIUM BR 0.02% 0.5 MG/2.5 ML VIAL.NEB. NEB ONE (18:42)
--- NOTE | 2018-06-23 18:43 | PDOC ---
History of Present Illness - General Stated Complaint: SOB Time Seen by Provider: 06/23/18 18:42 - History of Present Illness Initial Comments: 06/23/18 18:43 Mr. Ulrich is a 57 yo male w/ pmh of COPD, Asthma, HLD, and DM who presents for evaluation of 3 day history of cough productive of green sputum with additional shortness of breath. Patient reports he has used his albuterol rescue inhaler with some improvement of symptoms however is still having difficulty breathing. The patient denies chest pain, headache and dizziness. Denies fever, chills, nausea, vomit, diarrhea and constipation. Denies dysuria, frequency, urgency and hematuria. Allergies: NKDA Past History - Past Medical History Allergies/Adverse Reactions: Allergies Allergy/AdvReac Type Severity Reaction Status Date / Time No Known Allergies Allergy Verified 06/23/18 19:05 Home Medications: Ambulatory Orders metFORMIN HCL [Glucophage -] 500 mg PO BID 09/15/15 Ergocalciferol (Vitamin D2) [Vitamin D] 50,000 unit PO TU 10/09/15 Simvastatin [Zocor -] 20 mg PO HS 10/09/15 Tiotropium [place] [Spiriva] 1 inh IH DAILY 01/14/17 Albuterol 0.083% Nebulizer Ema [Ventolin 0.083% Nebulizer Soln -] 1 neb NEB Q6H PRN 07/16/17 Albuterol Sulfate [Proair Hfa] 8.5 gm IH Q6H 03/26/18 Umeclidinium Brm/Vilanterol Tr [Anoro Ellipta 62.5-25 Mcg INH] 1 each IH DAILY 03/26/18 Azithromycin 250 mg PO DAILY #30 tablet 06/04/18 Azithromycin 250 mg PO DAILY 30 Days #30 tablet 06/04/18 Roflumilast [Daliresp -] 500 mcg PO DAILY #30 tab 06/04/18 predniSONE [Deltasone -] 40 mg PO DAILY 4 Days #4 tablet 06/04/18 Anemia: No Asthma: Yes Cancer: No Cardiac Disorders: No CVA: No COPD: Yes CHF: No Dementia: No Diabetes: Yes (DM) GI Disorders: No Disorders: No HTN: Yes Hypercholesterolemia: Yes Liver Disease: No Seizures: No Thyroid Disease: No - Surgical History Abdominal Surgery: No Appendectomy: No Cardiac Surgery: No Cholecystectomy: No Lung Surgery: No Neurologic Surgery: No Orthopedic Surgery: No - Immunization History Immunization Up to Date: Yes - Suicide/Smoking/Psychosocial Hx Smoking History: Former smoker Have you smoked in the past 12 months: No Number of Cigarettes Smoked Daily: 0 If you are a former smoker, when did you quit?: FEW YEARS AGO Cigars Per Day: 0 'Breaking Loose' booklet given: 06/28/16 Hx Alcohol Use: No Drug/Substance Use Hx: No Substance Use Type: None Hx Substance Use Treatment: No Review of Systems - Review of Systems Comments:: 06/23/18 18:46 GENERAL/CONSTITUTIONAL: No fever or chills. No weakness. HEAD, EYES, EARS, NOSE AND THROAT: No change in vision. No ear pain or discharge. No sore throat. CARDIOVASCULAR: +3 day history of SOB. No chest pain RESPIRATORY: +Productive cough as described. GASTROINTESTINAL: No nausea, vomiting, diarrhea or constipation. GENITOURINARY: No dysuria, frequency, or change in urination. MUSCULOSKELETAL: No joint or muscle swelling or pain. No neck or back pain. SKIN: No rash NEUROLOGIC: No headache, vertigo, loss of consciousness, or change in strength/ sensation. ENDOCRINE: No increased thirst. No abnormal weight change HEMATOLOGIC/LYMPHATIC: No anemia, easy bleeding, or history of blood clots. ALLERGIC/IMMUNOLOGIC: No hives or skin allergy. *Physical Exam - Vital Signs 06/23/18 18:46 GENERAL: Awake, alert, and fully oriented, in no acute distress HEAD: No signs of trauma, normocephalic, atraumatic EYES: PERRLA, EOMI, sclera anicteric, conjunctiva clear ENT: Auricles normal inspection, hearing grossly normal, nares patent, oropharynx clear without exudates. Moist mucosa NECK: Normal ROM, supple, no lymphadenopathy, JVD, or masses LUNGS: +Lung extremely coarse throughout lung vazquez. HEART: +Tachycardia to 120's appreciated, normal rhythm, normal S1 and S2, no murmurs, rubs or gallops, peripheral pulses normal and equal bilaterally. ABDOMEN: Soft, nontender, normoactive bowel sounds. No guarding, no rebound. No masses EXTREMITIES: Normal inspection, Normal range of motion, no edema. No clubbing or cyanosis. NEUROLOGICAL: Cranial nerves II through XII grossly intact. Normal speech, normal gait, no focal sensorimotor deficits SKIN: Warm, Dry, normal turgor, no rashes or lesions noted. ED Treatment Course - LABORATORY CBC & Chemistry Diagram: 06/23/18 18:48 06/23/18 18:48 - RADIOLOGY Radiology Studies Ordered: Category Date Time Status CHEST X-RAY PORTABLE* [RAD] Stat Radiology 06/23/18 18:42 Ordered Medical Decision Making - Medical Decision Making 06/23/18 21:12 Mr. Ulrich is a 57 yo male w/ pmh as described who present in acute COPD exacerbation. Sepsis workup started as below. Patient grossly improved after fluids, ipratroprium, and oxygen. Levaquin given for anitbiosis. Labs grossly unconcerning as below. Patient becomes hypoxic off of oxygen at this time. Does not typically require oxygen at home and has no access to it. Will admit patient for COPD exacerbation and further evaluation. Laboratory Results - last 24 hr 06/23/18 06/23/18 06/23/18 18:48 18:48 18:48 WBC 9.9 RBC 4.23 Hgb 13.2 Hct 39.9 D MCV 94.4 MCH 31.2 MCHC 33.0 RDW 14.3 D Plt Count 132 L D MPV 8.4 Absolute Neuts (auto) 7.6 Neutrophils % 76.8 Lymphocytes % 13.5 D Monocytes % 8.1 D Eosinophils % 1.1 D Basophils % 0.5 D Nucleated RBC % 0 PT with INR 11.50 INR 1.02 PTT (Actin FS) 37.3 H VBG pH 7.32 POC VBG pCO2 59.8 H D POC VBG pO2 61.1 H D Mixed VBG HCO3 30.2 H Sodium Potassium Chloride Carbon Dioxide Anion Gap BUN Creatinine Creat Clearance w eGFR Random Glucose Lactic Acid Calcium Total Bilirubin AST ALT Alkaline Phosphatase Troponin I Total Protein Albumin Urine Color Urine Appearance Urine pH Ur Specific [place] Urine Protein Urine Glucose (UA) Urine Ketones Urine Blood Urine Nitrite Urine Bilirubin Urine Urobilinogen Ur Leukocyte Esterase 06/23/18 06/23/18 06/23/18 18:48 18:48 18:48 WBC RBC Hgb Hct MCV MCH MCHC RDW Plt Count MPV Absolute Neuts (auto) Neutrophils % Lymphocytes % Monocytes % Eosinophils % Basophils % Nucleated RBC % PT with INR INR PTT (Actin FS) VBG pH POC VBG pCO2 POC VBG pO2 Mixed VBG HCO3 Sodium 144 Potassium 4.1 Chloride 105 Carbon Dioxide 30 Anion Gap 9 BUN 7 Creatinine 0.9 Creat Clearance w eGFR > 60 Random Glucose 118 H Lactic Acid 0.8 Calcium 9.3 Total Bilirubin 0.7 AST 12 L ALT 20 Alkaline Phosphatase 101 Troponin I < 0.02 Total Protein 7.0 Albumin 3.5 Urine Color Urine Appearance Urine pH Ur Specific [place] Urine Protein Urine Glucose (UA) Urine Ketones Urine Blood Urine Nitrite Urine Bilirubin Urine Urobilinogen Ur Leukocyte Esterase 06/23/18 18:50 WBC RBC Hgb Hct MCV MCH MCHC RDW Plt Count MPV Absolute Neuts (auto) Neutrophils % Lymphocytes % Monocytes % Eosinophils % Basophils % Nucleated RBC % PT with INR INR PTT (Actin FS) VBG pH POC VBG pCO2 POC VBG pO2 Mixed VBG HCO3 Sodium Potassium Chloride Carbon Dioxide Anion Gap BUN Creatinine Creat Clearance w eGFR Random Glucose Lactic Acid Calcium Total Bilirubin AST ALT Alkaline Phosphatase Troponin I Total Protein Albumin Urine Color Yellow Urine Appearance Clear Urine pH 5.0 Ur Specific [place] 1.018 Urine Protein Negative Urine Glucose (UA) Negative Urine Ketones Negative Urine Blood Negative Urine Nitrite Negative Urine Bilirubin Negative Urine Urobilinogen Negative Ur Leukocyte Esterase Negative *DC/Admit/Observation/Transfer Diagnosis at time of Disposition: COPD exacerbation - Discharge Dispostion Decision to Admit order: Yes - Referrals - Patient Instructions - Post Discharge Activity
[2018-06-23 19:01] LABS: BASO % 0.5 % (0-2.0); EOS % 1.1 % (0-4.5); HEMATOCRIT 39.9 % (35.4-49); HEMOGLOBIN 13.2 GM/dL (11.7-16.9); LYMPH % 13.5 % (8-40); MCH 31.2 pg (25.7-33.7); MEAN CELL VOLUME 94.4 fl (80-96); MEAN PLT VOLUME 8.4 fl (7.5-11.1); MONO % 8.1 % (3.8-10.2); NEUT % 76.8 % (42.8-82.8); PLATELET COUNT 132 K/MM3 (134-434); RBC 4.23 M/mm3 (4.00-5.60); RDW 14.3 % (11.9-15.9); WHITE BLOOD COUNT 9.9 K/mm3 (4.0-10.0)
[2018-06-23 19:10] LABS: URINE APPEARANCE CLEAR; URINE BILIRUBIN NEGATIVE (<2.0 mg/dL); URINE COLOR YELLOW; URINE GLUCOSE (UA) NEGATIVE (NEGATIVE); URINE KETONE NEGATIVE (NEGATIVE); URINE LEUK ESTERASE NEGATIVE (NEGATIVE); URINE NITRITE NEGATIVE (NEGATIVE); URINE PROTEIN NEGATIVE (NEGATIVE); URINE UROBILINOGEN NEGATIVE mg/dL (0.2-1.0)
[2018-06-23 19:17] LABS: VENOUS PC02 59.8 mmHg (38-52); VENOUS PH 7.32 (7.32-7.42)
[2018-06-23 19:18] LABS: VENOUS PO2 61.1 mmHg (28-48)
--- NOTE | 2018-06-23 19:21 | PDOC ---
Attending Attestation - Resident Resident Name: Douglas Burton - ED Attending Attestation I have performed the following: I have examined & evaluated the patient, The case was reviewed & discussed with the resident, I agree w/resident's findings & plan, Exceptions are as noted - HPI HPI: 06/23/18 19:20 The patient is a 57 year old male with a significant PMH of hyperlipidemia, CPD and asthma who presents to the emergency department with shortness of breath for 3 days. The patient reports that his shortness of breath has worsened today. He reports associated productive cough with green sputum. The patient reports that prior to his onset 3 days ago he was fine. The patient reports that he has been experiencing pain with his cough and difficulty sleeping secondary to his cough and shortness of breath. The patient reports that he usually takes at home steroids . he states that prior to arrival to the ED today he had about 2-3 albuterol treatments with no significant relief. The patient also reports some loss of appetite. He denies any other symptoms. He denies any fever, chills, nausea, vomiting, diarrhea, constipation or urinary symptoms. . He denies any chest pain,headache and dizziness. The patient denies any other complaints. PCP: Dr. Navarro Churchill: / [place] ROS: CONSTITUTIONAL:(+)loss of appetite. No reported: Fever, Chills, Diaphoresis, Generalized Weakness, Malaise. HEENT: No reported: Rhinorrhea, Nasal Congestion, Throat Pain, Throat Swelling, Difficulty Swallowing, Mouth Swelling, Ear Pain, Eye Pain, Visual Changes CARDIOVASCULAR: No reported: Chest Pain, Syncope, Palpitations, Irregular Heart Rate, Lightheadedness, Peripheral Edema RESPIRATORY:(+)shortness of breath, cough. No reported: SOB with Exertion, Orthopnea, Wheezing, Stridor, Hemoptysis GASTROINTESTINAL: No reported: Abdominal pain, Abdominal Distension, Nausea, Vomiting, Diarrhea, Constipation, Melena, Hematochezia GENITOURINARY: No reported: Dysuria, Frequency, Urgency, Hesitancy, Flank Pain, Genital Pain MUSCULOSKELETAL: No reported: Myalgia, Arthralgia, Joint Swelling, Back pain, Neck Pain SKIN: No reported: Rash, Itching, Pallor HEMEATOLOGIC/IMMUNOLOGIC: No reported: Easy Bleeding, Easy Bruising, Lymphadenopathy, Frequent infections ENDOCRINE: No reported: Unexplained Weight Gain, Unexplained Weight Loss, Heat Intolerance , Cold Intolerance NEUROLOGIC: No reported: Headache, Focal Weakness, Paresthesias, Vertigo, Lightheadedness, Unsteady Gait, Seizure, Mental Status Changes, Incontinence PSYCHIATRIC: No reported: Anxiety, Depression - Physicial Exam PE: 06/23/18 21:09 GENERAL: The patient is awake, alert, and fully oriented, Nontoxic - in no acute distress. HEAD: Normocephalic, atraumatic. EYES: extraocular movements intact, sclera anicteric, conjunctiva clear. ENT: Normal voice, Moist mucous membranes. NECK: Normal range of motion, supple without lymphadenopathy, JVD, or masses. LUNGS: ronchorus breath sounds, HEART: Regular rate and rhythm, normal S1 and S2 without murmur, rub or gallop. ABDOMEN: Soft, nontender, normoactive bowel sounds. No guarding, no rebound. No masses. EXTREMITIES: Normal range of motion, no edema. No clubbing or cyanosis. No cords, erythema, or tenderness. NEUROLOGICAL: No facial assymetry, Normal speech, normal gait. PSYCH: Normal mood, normal affect. SKIN: Warm, Dry, normal turgor, no rashes or lesions noted. - Medical Decision Making 06/23/18 21:10 suspect copd exacrebation cxr clear of infiltrates pt noted hypoxic on RA to high 80s/90s will treat with nebs, levaquin given for copd exacerbation given solumedrol due to hypxoia will admit for further mangement
[2018-06-23 19:30] LABS: ALBUMIN 3.5 g/dl (3.4-5.0); ALK PHOS 101 U/L (45-117); ANION GAP 9 MMOL/L (8-16); BILIRUBIN,TOTAL 0.7 mg/dL (0.2-1.0); BLOOD UREA NITROGEN 7 mg/dL (7-18); CALCIUM 9.3 mg/dL (8.5-10.1); CHLORIDE 105 mmol/L (98-107); CO2 30 mmol/L (21-32); CREATININE 0.9 mg/dL (0.55-1.3); GLUCOSE,RANDOM 118 mg/dL (74-106); POTASSIUM 4.1 mmol/L (3.5-5.1); SGOT/AST 12 U/L (15-37); SGPT/ALT 20 U/L (13-61); SODIUM 144 mmol/L (136-145)
[2018-06-23 19:34] LABS: INR 1.02 (0.83-1.09); PROTHROMBIN TIME (PATIENT) 11.5 SEC (9.7-13.0)
[2018-06-23 19:37] LABS: ACTIVATED PTT 37.3 SECONDS (25.2-36.5)
[2018-06-23] MEDS ORDERED: methylPREDNISolone NA SUCC 125 MG/2 ML VIAL IVPB ONE (19:49)
[2018-06-23] MEDS ORDERED: methylPREDNISolone NA SUCC 125 MG/2 ML VIAL ONE (20:04)
[2018-06-23] MEDS ORDERED: ACETAMINOPHEN 1000 MG/100 ML VIAL (NON FORMULARY) IVPB ONE (21:15)
[2018-06-23] MEDS ORDERED: ACETAMINOPHEN INJECTION 100 ML IVPB ONE (21:27)
[2018-06-24] MEDS ORDERED: ALBUTEROL SO4 0.083% IH SOL 2.5 MG/3 ML VIAL.NEB. NEB PRN (00:35)
[2018-06-24] MEDS ORDERED: ALBUTEROL SO4 8 GM HFA INHALER IH PRN (00:35)
[2018-06-24] MEDS: methylPREDNISolone NA SUCC 125 MG/2 ML VIAL IVPUSH SCH ×2 (02:15→08:47)
[2018-06-24] MEDS: metFORMIN HCL 500 MG TABLET (FP) PO SCH ×2 (06:28→17:09)
[2018-06-24] MEDS: INSULIN SLIDING SCALE (NOVOLOG) 1 VIAL SQ SCH ×2 (06:28→16:57)
[2018-06-24] MEDS ORDERED: PT OWN MED DRAWER 7, Y5N ONE ×3 (08:45→15:16)
[2018-06-24] MEDS: TIOTROPIUM BROMIDE 2.5 MCG (SPIRIVA) RESPIMAT INHALER IH SCH (09:52)
[2018-06-24] MEDS ORDERED: ANORO ELLIPTA IH SCH (10:00)
--- NOTE | 2018-06-24 12:17 | CON.PULM ---
Consult Consult Specialty:: PULM/CCM Referred by:: DAT Reason for Consultation:: SOB - History of Present Illness Chief Complaint: SOB History of Present Illness: 57 M, well known to me from multiple previous admissions. COPD due to previous smoking, HLD, DM, and pulmonary nodules (4mm LEXIE and 2/[address] chest 2017). 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 No recent change in medication and he reports compliance. No travel history or sick contacts. No fever or chills. No hemoptysis. CXR: No acute process. - History Source History Provided By: Patient Limitations to Obtaining History: No Limitations - Past Medical History Pulmonary: Yes: COPD. No: O2 Dependent, Previously Intubated, Pulmonary Embolus , Pulmonary Fibrosis, Sleep Apnea Endocrine: Yes: Diabetes Mellitus - Past Surgical History Past Surgical History: Yes: Tonsillectomy - Alcohol/Substance Use Hx Alcohol Use: No - Smoking History Smoking history: Former smoker Have you smoked in the past 12 months: No Aproximately how many cigarettes per day: 0 If you are a former smoker, when did you quit?: 5 years ago - Social History Usual Living Arrangement: With Spouse History of Recent Travel: No Home Medications - Allergies Allergies/Adverse Reactions: Allergies Allergy/AdvReac Type Severity Reaction Status Date / Time No Known Allergies Allergy Verified 06/23/18 19:05 - Home Medications Home Medications: Ambulatory Orders metFORMIN HCL [Glucophage -] 500 mg PO BID 09/15/15 Simvastatin [Zocor -] 10 mg PO HS 10/09/15 Tiotropium [place] [Spiriva] 1 inh IH DAILY 01/14/17 Albuterol 0.083% Nebulizer Ema [Ventolin 0.083% Nebulizer Soln -] 1 neb NEB Q6H PRN 07/16/17 Albuterol Sulfate [Proair Hfa] 8.5 gm IH Q6H 03/26/18 Umeclidinium Brm/Vilanterol Tr [Anoro Ellipta 62.5-25 Mcg INH] 1 each IH DAILY 03/26/18 Review of Systems - Review of Systems Constitutional: reports: Malaise. denies: Chills, Fever, Night Sweats Eyes: reports: No Symptoms HENT: reports: No Symptoms Neck: reports: No Symptoms Cardiovascular: reports: No Symptoms Respiratory: reports: Cough, SOB, SOB on Exertion, Wheezing. denies: Hemoptysis , Snoring Gastrointestinal: reports: No Symptoms Genitourinary: reports: No Symptoms Breasts: reports: No Symptoms Reported Musculoskeletal: reports: No Symptoms Integumentary: reports: No Symptoms Neurological: reports: No Symptoms Endocrine: reports: No Symptoms Hematology/Lymphatic: reports: No Symptoms Psychiatric: reports: No Symptoms Physical Exam Vital Sings: Vital Signs Temperature 97.9 F 06/24/18 06:00 Pulse Rate 101 H 06/24/18 06:00 Respiratory Rate 20 06/24/18 06:00 Blood Pressure 110/61 06/24/18 06:00 O2 Sat by Pulse Oximetry (%) 93 L 06/24/18 01:20 Constitutional: Yes: Mild Distress Eyes: Yes: Conjunctiva Clear, EOM Intact HENT: Yes: Atraumatic, Pharyngeal Erythema Neck: Yes: Supple, Trachea Midline Cardiovascular: Yes: Tachycardia Respiratory: Yes: Cough, Diminished, On Nasal O2, Rhonchi, SOB, Tachypnea, Wheezes. No: Accessory Muscle Use, Rales, Stridor ...Inspection: Yes: WNL ...Clubbing: No Gastrointestinal: Yes: Normal Bowel Sounds, Soft Renal/: Yes: WNL Breast(s): Yes: WNL Musculoskeletal: Yes: WNL Extremities: Yes: WNL Edema: No Peripheral Pulses WNL: Yes Integumentary: Yes: WNL Neurological: Yes: WNL, Alert, Oriented ...Motor Strength: WNL Psychiatric: Yes: WNL, Alert, Oriented Labs: CBC, BMP 06/23/18 18:48 06/23/18 18:48 Imaging - Results Chest X-ray: Report Reviewed, Image Reviewed Problem List - Problems (1) COPD exacerbation Code(s): J44.1 - CHRONIC OBSTRUCTIVE PULMONARY DISEASE W (ACUTE) EXACERBATION (2) Bronchitis Code(s): J40 - BRONCHITIS, NOT SPECIFIED ACUTE OR CHRONIC (3) COPD (chronic obstructive pulmonary disease) Code(s): J44.9 - CHRONIC OBSTRUCTIVE PULMONARY DISEASE, UNSPECIFIED (4) Pulmonary nodules/lesions, multiple Code(s): R91.8 - OTHER NONSPECIFIC ABNORMAL FINDING OF LUNG FIELD Assessment/Plan Medrol D/C Levaquin PO Zmax O2 as needed No smoking Advised second hand smoke avoidance Symbicort and Spriva (do not have Anoro on formulary) VTE prophylaxis Outpatient PFTs once stable. Will follow Thank you. Dr Kelsey
--- NOTE | 2018-06-24 12:17 | PN ---
Progress Note, Physician Chief Complaint: Pt lying in bed,wheezing present Afebrile pt is on Oxygen - Current Medication List Current Medications: Active Medications Albuterol Sulfate (Ventolin 0.083% Nebulizer Soln -) 1 amp NEB Q6H PRN PRN Reason: SHORT OF BREATH/WHEEZING Albuterol Sulfate (Ventolin 0.083% Nebulizer Soln -) 1 amp NEB RQID [facility] Atorvastatin Calcium (Lipitor -) 10 mg PO HS [facility] Budesonide/Formoterol Fumarate (Symbicort 160/4.5mcg -) 2 puff IH BID [facility] Insulin Aspart (Novolog Vial Sliding Scale -) 1 vial SQ BIDAC [facility]; Protocol Last Admin: 06/24/18 06:28 Dose: Not Given Metformin HCl (Glucophage -) 500 mg PO BIDAC [facility] Last Admin: 06/24/18 06:28 Dose: 500 mg Methylprednisolone Sodium Succinate (Solu-Medrol -) 80 mg IVPUSH Q6H-IV [facility] Anoro Ellipta 62.5/25 Mcg Inh - Patient Own Med 1 each IH DAILY [facility] Tiotropium [place] (Spiriva Respimat) 2 puff IH DAILY [facility] Last Admin: 06/24/18 09:52 Dose: 2 puff - Objective Vital Signs: Vital Signs Temperature 97.9 F 06/24/18 06:00 Pulse Rate 101 H 06/24/18 06:00 Respiratory Rate 20 06/24/18 06:00 Blood Pressure 110/61 06/24/18 06:00 O2 Sat by Pulse Oximetry (%) 93 L 06/24/18 01:20 Constitutional: Yes: No Distress Eyes: Yes: Conjunctiva Clear HENT: Yes: Atraumatic Neck: Yes: Supple, Trachea Midline Cardiovascular: Yes: Regular Rate and Rhythm, Tachycardia Respiratory: Yes: Regular, CTA Bilaterally Gastrointestinal: Yes: WNL Musculoskeletal: Yes: WNL Extremities: Yes: WNL Edema: No Peripheral Pulses WNL: Yes Neurological: Yes: Alert, Oriented ...Motor Strength: WNL Psychiatric: Yes: WNL, Alert Labs: CBC, BMP 06/23/18 18:48 06/23/18 18:48 INR, PTT INR 1.02 (0.83-1.09) 06/23/18 18:48 - ....Imaging Chest X-ray: Report Reviewed Assessment/Plan COPD excacerbation, bronchitis Hypoxia DM,HTN ypercholestrolemia Lung nodule PLAN Continue OXYGEN IV steroid,IV antibiotics Continue bronchodialators PUL consult Will monitor PT
--- NOTE | 2018-06-24 13:16 | HP ---
DATE OF ADMISSION: 06/23/2018 The patient is a 57-year-old male with a history of COPD, asthma, hyperlipidemia, diabetes, lung nodules, presented to the emergency room for evaluation of 3-day history of cough, productive, green sputum, with additional shortness of breath, and patient also complains of lack of appetite, no fever. Patient has been using his albuterol inhaler, with some improvement of symptoms, however, still has difficulty in breathing. Denies any chest pain, palpitation, headache. No fever, no chills, no nausea, no vomiting, no diarrhea, no constipation, no urinary symptom. Patient has a lack of appetite. No known drug allergy. MEDICATION: Patient is on metformin 500 mg p.o. b.i.d., vitamin D, Zocor, Spiriva, albuterol nebulizer, albuterol ProAir, and Anoro Ellipta. Patient lives in assisted living. Patient is also on Zithromax 250 mg p.o. daily, Daliresp, and prednisone. Past medical history is significant for diabetes, COPD, chronic smoker, hyperlipidemia, hypertension. SURGICAL HISTORY: Nothing significant. PERSONAL HISTORY: Patient was a former smoker, who keeps smoking now. No history of alcohol or drugs. REVIEW OF SYSTEMS: Constitutional: Patient has lack of appetite, cough, shortness of breath. Head and Neck: No sore throat. Cardiovascular: Three-day history of shortness of breath. No chest pain. Respiratory: Productive cough. Gastrointestinal: Lack of appetite. No nausea, no vomiting, no diarrhea. Genitourinary: Nothing significant. Musculoskeletal: Nothing significant. Neurological: Nothing significant. Endocrine: Nothing significant. PHYSICAL EXAMINATION IN EMERGENCY ROOM: Vital Signs: Temperature 98.3, pulse rate of 113, blood pressure 116/71, respiration 20, saturation was 90 in room air. General: The patient is alert, oriented x3, in no apparent distress. Head and Neck: Normal. Pupils equally reactive to light and accommodation. Neck supple, no JVD. Lungs: Bilateral coarse crepitations and rhonchi and wheezing present. Heart: Tachycardia 120s, normal heart sound. No murmur. Abdomen: Soft. Nontender. Normal bowel sounds. No guarding, no rigidity. Extremities: Full range of movement. Neurological: Cranial nerves 2-12 intact. Skin: Normal. Central Nervous System: Alert, oriented x3. No apparent motor or sensory deficit. Reflexes normal. CBC: WBC 9.9, hemoglobin 13.2, hematocrit 39.9, platelets 132. Chemistry: Sodium 144, potassium 4.1, chloride 105, bicarbonate 30, BUN 7, creatinine 0.9, blood sugar 118, lactic acid 0.8, AST/ALT normal. Cardiac enzymes negative. PT 11.5, INR 1.02, PTT 37.2, coagulation as mentioned, ABG: pH of 7.32, pCO2 59.8, pO2 61.1. Urine normal. Chest x-ray: No infiltrate. Patient was given Solu-Medrol IV in the emergency room by nebulizer treatment, IV fluid, IV antibiotics, Levaquin started for the productive cough. Oxygen given. Since patient is hypoxic off oxygen, so patient admitted in the floor with admitting diagnoses of chronic obstructive pulmonary disease exacerbation, hypoxemia, bronchitis, diabetes, hypertension. Patient stable on the floor. ADMITTING DIAGNOSES: Chronic obstructive pulmonary disease exacerbation, bronchitis, hypoxia, diabetes, hypertension. PLAN: IV Solu-Medrol, IV antibiotics, bronchodilators, pulmonary consult. Will monitor the lab. Oxygen. Patient stable on the floor. LILIA HUGHES M.D. [id number]
[2018-06-24] MEDS: methylPREDNISolone NA SUCC 40 MG/1 ML VIAL IVPUSH SCH ×2 (14:50→21:14)
[2018-06-24] MEDS: BUDESONIDE/FORMETEROL FUMARATE 160/4.5 mcg INHALER IH SCH ×2 (14:50→21:14)
[2018-06-24] MEDS: ALBUTEROL SO4 0.083% IH SOL 2.5 MG/3 ML VIAL.NEB. NEB SCH ×2 (15:55→20:59)
[2018-06-24] MEDS ORDERED: INSULIN (NOVOLOG) ASPART 100 UNITS/ML 10ML VIAL ONE (16:46)
[2018-06-24] MEDS: ATORVASTATIN CA 10 MG TABLET (FP) PO SCH (21:14)
--- NOTE | 2018-06-24 21:26 | EKG ---
Test Reason : Blood Pressure : / mmHG Vent. Rate : 120 BPM Atrial Rate : 120 BPM P-R Int : 154 ms QRS Dur : 080 ms QT Int : 294 ms P-R-T Axes : 074 097 071 degrees QTc Int : 415 ms SINUS TACHYCARDIA RIGHTWARD AXIS BORDERLINE ECG WHEN COMPARED WITH ECG OF 31-MAY-2018 00:55, CRITERIA FOR SEPTAL INFARCT ARE NO LONGER PRESENT T WAVE INVERSION NO LONGER EVIDENT IN ANTERIOR LEADS Confirmed by ASHISH CASTILLO MD ([id number]) on 06/24/2018 9:26:20 PM Referred By: Confirmed By:ASHISH CASTILLO MD
[2018-06-25] MEDS: methylPREDNISolone NA SUCC 40 MG/1 ML VIAL IVPUSH SCH ×2 (02:57→10:40)
[2018-06-25] MEDS: INSULIN SLIDING SCALE (NOVOLOG) 1 VIAL SQ SCH ×2 (06:14→17:16)
[2018-06-25] MEDS: metFORMIN HCL 500 MG TABLET (FP) PO SCH ×2 (06:41→17:16)
[2018-06-25] MEDS: ALBUTEROL SO4 0.083% IH SOL 2.5 MG/3 ML VIAL.NEB. NEB SCH ×4 (07:35→19:42)
[2018-06-25 07:56] LABS: BASO % 0.1 % (0-2.0); HEMATOCRIT 35.3 % (35.4-49); HEMOGLOBIN 11.5 GM/dL (11.7-16.9); LYMPH % 7.9 % (8-40); MCH 30.5 pg (25.7-33.7); MCHC 32.5 g/dl (32.0-35.9); MEAN PLT VOLUME 8.8 fl (7.5-11.1); MONO % 2.9 % (3.8-10.2); NEUT % 89.1 % (42.8-82.8); PLATELET COUNT 162 K/MM3 (134-434); RBC 3.75 M/mm3 (4.00-5.60); RDW 13.8 % (11.9-15.9); WHITE BLOOD COUNT 8.3 K/mm3 (4.0-10.0)
[2018-06-25 08:33] LABS: CALCIUM 8.7 mg/dL (8.5-10.1); CHLORIDE 103 mmol/L (98-107); POTASSIUM 5.1 mmol/L (3.5-5.1); SODIUM 142 mmol/L (136-145)
[2018-06-25 08:39] LABS: ALK PHOS 78 U/L (45-117); ANION GAP 6 MMOL/L (8-16); BILIRUBIN,TOTAL 0.2 mg/dL (0.2-1.0); BLOOD UREA NITROGEN 26 mg/dL (7-18); CO2 33 mmol/L (21-32); CREATININE 1.1 mg/dL (0.55-1.3); GLUCOSE,RANDOM 184 mg/dL (74-106); SGOT/AST 10 U/L (15-37); SGPT/ALT 16 U/L (13-61); TOT PROT 6.1 g/dl (6.4-8.2)
--- NOTE | 2018-06-25 09:27 | PN ---
Progress Note, Physician Chief Complaint: Pt lying in bed,wheezing improved pt is OFF levaquin Pul f/u appreciated Afebrile pt is on Oxygen - Current Medication List Current Medications: Active Medications Albuterol Sulfate (Ventolin 0.083% Nebulizer Soln -) 1 amp NEB Q6H PRN PRN Reason: SHORT OF BREATH/WHEEZING Albuterol Sulfate (Ventolin 0.083% Nebulizer Soln -) 1 amp NEB RQID [facility] Last Admin: 06/24/18 20:59 Dose: 1 amp Atorvastatin Calcium (Lipitor -) 10 mg PO HS [facility] Last Admin: 06/24/18 21:14 Dose: 10 mg Budesonide/Formoterol Fumarate (Symbicort 160/4.5mcg -) 2 puff IH BID [facility] Last Admin: 06/24/18 21:14 Dose: 2 puff Insulin Aspart (Novolog Vial Sliding Scale -) 1 vial SQ BIDAC [facility]; Protocol Last Admin: 06/25/18 06:14 Dose: Not Given Metformin HCl (Glucophage -) 500 mg PO BIDAC [facility] Last Admin: 06/25/18 06:41 Dose: 500 mg Methylprednisolone Sodium Succinate (Solu-Medrol -) 80 mg IVPUSH Q6H-IV [facility] Last Admin: 06/25/18 02:57 Dose: 80 mg Tiotropium [place] (Spiriva Respimat) 2 puff IH DAILY [facility] Last Admin: 06/24/18 09:52 Dose: 2 puff - Objective Vital Signs: Vital Signs Temperature 97.6 F 06/25/18 06:00 Pulse Rate 80 06/25/18 06:00 Respiratory Rate 18 06/25/18 06:00 Blood Pressure 107/63 06/25/18 06:00 O2 Sat by Pulse Oximetry (%) 95 06/24/18 21:00 Constitutional: Yes: No Distress Eyes: Yes: Conjunctiva Clear HENT: Yes: Atraumatic Neck: Yes: Supple, Trachea Midline Cardiovascular: Yes: Regular Rate and Rhythm Respiratory: Yes: Diminished, On Nasal O2, Wheezes Gastrointestinal: Yes: Normal Bowel Sounds Musculoskeletal: Yes: WNL Extremities: Yes: WNL Edema: No Peripheral Pulses WNL: Yes Neurological: Yes: WNL, Alert ...Motor Strength: WNL Psychiatric: Yes: WNL, Alert Labs: CBC, BMP 06/25/18 06:20 06/25/18 06:20 INR, PTT INR 1.02 (0.83-1.09) 06/23/18 18:48 Assessment/Plan COPD excacerbation, bronchitis Hypoxia DM,HTN ypercholestrolemia Lung nodule PLAN Continue OXYGEN IV steroid, Continue bronchodialators PUL f/u Will monitor PT
[2018-06-25] MEDS ORDERED: PT OWN MED DRAWER 7, Y5N ONE (10:37)
[2018-06-25] MEDS: BUDESONIDE/FORMETEROL FUMARATE 160/4.5 mcg INHALER IH SCH ×2 (10:40→22:21)
[2018-06-25] MEDS: AZITHROMYCIN 250 MG TABLET PO SCH (10:40)
[2018-06-25] MEDS: TIOTROPIUM BROMIDE 2.5 MCG (SPIRIVA) RESPIMAT INHALER IH SCH (10:40)
--- NOTE | 2018-06-25 11:04 | PN ---
Progress Note, Physician History of Present Illness: PULMONARY ALERT,FEELING BETTER,LESS DYSPNEIC - Current Medication List Current Medications: Active Medications Albuterol Sulfate (Ventolin 0.083% Nebulizer Soln -) 1 amp NEB Q6H PRN PRN Reason: SHORT OF BREATH/WHEEZING Albuterol Sulfate (Ventolin 0.083% Nebulizer Soln -) 1 amp NEB RQID [facility] Last Admin: 06/25/18 07:35 Dose: 1 amp Atorvastatin Calcium (Lipitor -) 10 mg PO HS [facility] Last Admin: 06/24/18 21:14 Dose: 10 mg Azithromycin (Zithromax -) 250 mg PO DAILY [facility] Last Admin: 06/25/18 10:40 Dose: 250 mg Budesonide/Formoterol Fumarate (Symbicort 160/4.5mcg -) 2 puff IH BID [facility] Last Admin: 06/25/18 10:40 Dose: 2 puff Insulin Aspart (Novolog Vial Sliding Scale -) 1 vial SQ BIDAC [facility]; Protocol Last Admin: 06/25/18 06:14 Dose: Not Given Metformin HCl (Glucophage -) 500 mg PO BIDAC [facility] Last Admin: 06/25/18 06:41 Dose: 500 mg Methylprednisolone Sodium Succinate (Solu-Medrol -) 80 mg IVPUSH Q6H-IV [facility] Last Admin: 06/25/18 10:40 Dose: 80 mg Tiotropium [place] (Spiriva Respimat) 2 puff IH DAILY [facility] Last Admin: 06/25/18 10:40 Dose: 2 puff - Objective Vital Signs: Vital Signs Temperature 97.6 F 06/25/18 06:00 Pulse Rate 80 06/25/18 06:00 Respiratory Rate 18 06/25/18 06:00 Blood Pressure 107/63 06/25/18 06:00 O2 Sat by Pulse Oximetry (%) 95 06/24/18 21:00 Constitutional: Yes: Well Nourished, Calm Eyes: Yes: WNL HENT: Yes: WNL Neck: Yes: WNL Cardiovascular: Yes: Regular Rate and Rhythm, S1, S2 Respiratory: Yes: Wheezes (SCATTTERED WHEEZES) Gastrointestinal: Yes: Normal Bowel Sounds, Soft Extremities: Yes: WNL Edema: No Labs: CBC, BMP 06/25/18 06:20 06/25/18 06:20 INR, PTT INR 1.02 (0.83-1.09) 06/23/18 18:48 Assessment/Plan Problem List - Problems (1) COPD exacerbation Code(s): J44.1 - CHRONIC OBSTRUCTIVE PULMONARY DISEASE W (ACUTE) EXACERBATION (2) Bronchitis Code(s): J40 - BRONCHITIS, NOT SPECIFIED ACUTE OR CHRONIC (3) COPD (chronic obstructive pulmonary disease) Code(s): J44.9 - CHRONIC OBSTRUCTIVE PULMONARY DISEASE, UNSPECIFIED (4) Pulmonary nodules/lesions, multiple Code(s): R91.8 - OTHER NONSPECIFIC ABNORMAL FINDING OF LUNG FIELD Assessment/Plan Medrol taper PO Zmax O2 as needed No smoking Advised second hand smoke avoidance Symbicort and Spriva VTE prophylaxis Outpatient PFT DR GUERRIER
[2018-06-25] MEDS: methylPREDNISolone NA SUCC 125 MG/2 ML VIAL IVPUSH SCH ×2 (15:11→22:22)
[2018-06-25] MEDS ORDERED: INSULIN (NOVOLOG) ASPART 100 UNITS/ML 10ML VIAL ONE (16:32)
[2018-06-25] MEDS: ATORVASTATIN CA 10 MG TABLET (FP) PO SCH (22:23)
[2018-06-26] MEDS: methylPREDNISolone NA SUCC 125 MG/2 ML VIAL IVPUSH SCH ×4 (02:15→21:15)
[2018-06-26] MEDS: metFORMIN HCL 500 MG TABLET (FP) PO SCH ×2 (06:36→17:16)
[2018-06-26] MEDS: INSULIN SLIDING SCALE (NOVOLOG) 1 VIAL SQ SCH ×2 (06:37→17:17)
[2018-06-26] MEDS: ALBUTEROL SO4 0.083% IH SOL 2.5 MG/3 ML VIAL.NEB. NEB SCH ×4 (07:35→20:47)
--- NOTE | 2018-06-26 09:52 | PN ---
Progress Note, Physician Chief Complaint: Pt ambulating wheezing improved pt is OFF levaquin Pul f/u appreciated Afebrile pt is on Oxygen - Current Medication List Current Medications: Active Medications Albuterol Sulfate (Ventolin 0.083% Nebulizer Soln -) 1 amp NEB Q6H PRN PRN Reason: SHORT OF BREATH/WHEEZING Albuterol Sulfate (Ventolin 0.083% Nebulizer Soln -) 1 amp NEB RQID [facility] Last Admin: 06/26/18 07:35 Dose: 1 amp Atorvastatin Calcium (Lipitor -) 10 mg PO HS [facility] Last Admin: 06/25/18 22:23 Dose: 10 mg Azithromycin (Zithromax -) 250 mg PO DAILY [facility] Last Admin: 06/25/18 10:40 Dose: 250 mg Budesonide/Formoterol Fumarate (Symbicort 160/4.5mcg -) 2 puff IH BID [facility] Last Admin: 06/25/18 22:21 Dose: 2 puff Insulin Aspart (Novolog Vial Sliding Scale -) 1 vial SQ BIDAC [facility]; Protocol Last Admin: 06/26/18 06:37 Dose: 10 units Metformin HCl (Glucophage -) 500 mg PO BIDAC [facility] Last Admin: 06/26/18 06:36 Dose: 500 mg Methylprednisolone Sodium Succinate (Solu-Medrol -) 60 mg IVPUSH Q6H-IV [facility] Last Admin: 06/26/18 02:15 Dose: 60 mg Tiotropium [place] (Spiriva Respimat) 2 puff IH DAILY [facility] Last Admin: 06/25/18 10:40 Dose: 2 puff - Objective Vital Signs: Vital Signs Temperature 97.5 F L 06/26/18 06:00 Pulse Rate 85 06/26/18 06:00 Respiratory Rate 20 06/26/18 06:00 Blood Pressure 120/74 06/26/18 06:00 O2 Sat by Pulse Oximetry (%) 96 06/25/18 21:00 Constitutional: Yes: No Distress Eyes: Yes: Conjunctiva Clear HENT: Yes: Atraumatic, Normocephalic Neck: Yes: Supple, Trachea Midline Cardiovascular: Yes: Regular Rate and Rhythm Respiratory: Yes: Regular, Diminished, On Nasal O2, Wheezes Gastrointestinal: Yes: WNL, Normal Bowel Sounds Musculoskeletal: Yes: WNL Extremities: Yes: WNL Edema: No Peripheral Pulses WNL: Yes Neurological: Yes: WNL, Alert ...Motor Strength: WNL Psychiatric: Yes: WNL, Alert, Oriented Labs: CBC, BMP 06/25/18 06:20 06/25/18 06:20 INR, PTT INR 1.02 (0.83-1.09) 06/23/18 18:48 Assessment/Plan COPD excacerbation, bronchitis Hypoxia DM,HTN ypercholestrolemia Lung nodule PLAN Continue OXYGEN IV steroid, Continue bronchodialators PUL f/u Will monitor PT
[2018-06-26] MEDS ORDERED: PT OWN MED DRAWER 7, Y5N ONE (10:09)
[2018-06-26] MEDS: AZITHROMYCIN 250 MG TABLET PO SCH (10:12)
[2018-06-26] MEDS: BUDESONIDE/FORMETEROL FUMARATE 160/4.5 mcg INHALER IH SCH ×2 (10:12→21:15)
[2018-06-26] MEDS: TIOTROPIUM BROMIDE 2.5 MCG (SPIRIVA) RESPIMAT INHALER IH SCH (10:12)
--- NOTE | 2018-06-26 12:56 | PN ---
Progress Note (short form) - Note Progress Note: Still with congested/productive cough. Breathing overall does feel better. No CP. Intake & Output 06/23/18 06/24/18 06/25/18 06/26/18 23:59 23:59 23:59 23:59 Intake Total 900 1700 515 Balance 900 1700 515 Weight 149 lb 146 lb 8 oz Last Vital Signs Temp Pulse Resp BP Pulse Ox 98.1 F 84 18 119/51 96 06/26/18 10:00 06/26/18 10:00 06/26/18 10:00 06/26/18 10:00 06/25/18 21:00 Active Medications Albuterol Sulfate (Ventolin 0.083% Nebulizer Soln -) 1 amp NEB Q6H PRN PRN Reason: SHORT OF BREATH/WHEEZING Albuterol Sulfate (Ventolin 0.083% Nebulizer Soln -) 1 amp NEB RQID [facility] Last Admin: 06/26/18 07:35 Dose: 1 amp Atorvastatin Calcium (Lipitor -) 10 mg PO HS [facility] Last Admin: 06/25/18 22:23 Dose: 10 mg Azithromycin (Zithromax -) 250 mg PO DAILY [facility] Last Admin: 06/26/18 10:12 Dose: 250 mg Budesonide/Formoterol Fumarate (Symbicort 160/4.5mcg -) 2 puff IH BID [facility] Last Admin: 06/26/18 10:12 Dose: 2 puff Insulin Aspart (Novolog Vial Sliding Scale -) 1 vial SQ BIDAC [facility]; Protocol Last Admin: 06/26/18 06:37 Dose: 10 units Metformin HCl (Glucophage -) 500 mg PO BIDAC [facility] Last Admin: 06/26/18 06:36 Dose: 500 mg Methylprednisolone Sodium Succinate (Solu-Medrol -) 60 mg IVPUSH Q6H-IV [facility] Last Admin: 06/26/18 10:12 Dose: 60 mg Tiotropium [place] (Spiriva Respimat) 2 puff IH DAILY [facility] Last Admin: 06/26/18 10:12 Dose: 2 puff Constitutional: Yes: NAD Eyes: Yes: Conjunctiva Clear, EOM Intact HENT: Yes: Atraumatic, Pharyngeal Erythema Neck: Yes: Supple, Trachea Midline Cardiovascular: Yes: Tachycardia Respiratory: Yes: Cough, Diminished, On Nasal O2, Rhonchi, Wheezes. No: Accessory Muscle Use, Rales, Stridor ...Inspection: Yes: WNL ...Clubbing: No Gastrointestinal: Yes: Normal Bowel Sounds, Soft Renal/: Yes: WNL Breast(s): Yes: WNL Musculoskeletal: Yes: WNL Extremities: Yes: WNL Edema: No Peripheral Pulses WNL: Yes Integumentary: Yes: WNL Neurological: Yes: WNL, Alert, Oriented ...Motor Strength: WNL Psychiatric: Yes: WNL, Alert, Oriented Labs: Laboratory Results - last 24 hr 06/25/18 06/26/18 16:58 06:36 POC Glucometer 333 290 Problem List - Problems (1) COPD exacerbation Code(s): J44.1 - CHRONIC OBSTRUCTIVE PULMONARY DISEASE W (ACUTE) EXACERBATION (2) Bronchitis Code(s): J40 - BRONCHITIS, NOT SPECIFIED ACUTE OR CHRONIC (3) COPD (chronic obstructive pulmonary disease) Code(s): J44.9 - CHRONIC OBSTRUCTIVE PULMONARY DISEASE, UNSPECIFIED (4) Pulmonary nodules/lesions, multiple Code(s): R91.8 - OTHER NONSPECIFIC ABNORMAL FINDING OF LUNG FIELD Assessment/Plan Medrol Monitor off Levaquin Zmax O2 as needed No smoking Advised second hand smoke avoidance Symbicort and Spriva (do not have Anoro on formulary) VTE prophylaxis Outpatient PFTs once stable. Dr Kelsey Problem List - Problems (1) COPD exacerbation Code(s): J44.1 - CHRONIC OBSTRUCTIVE PULMONARY DISEASE W (ACUTE) EXACERBATION (2) Bronchitis Code(s): J40 - BRONCHITIS, NOT SPECIFIED ACUTE OR CHRONIC (3) COPD (chronic obstructive pulmonary disease) Code(s): J44.9 - CHRONIC OBSTRUCTIVE PULMONARY DISEASE, UNSPECIFIED (4) Pulmonary nodules/lesions, multiple Code(s): R91.8 - OTHER NONSPECIFIC ABNORMAL FINDING OF LUNG FIELD
[2018-06-26] MEDS ORDERED: INSULIN (NOVOLOG) ASPART 100 UNITS/ML 10ML VIAL ONE (16:39)
[2018-06-26] MEDS: ATORVASTATIN CA 10 MG TABLET (FP) PO SCH (21:15)
[2018-06-27] MEDS: methylPREDNISolone NA SUCC 125 MG/2 ML VIAL IVPUSH SCH ×2 (02:45→09:40)
[2018-06-27] MEDS: metFORMIN HCL 500 MG TABLET (FP) PO SCH ×2 (06:39→17:30)
[2018-06-27] MEDS: INSULIN SLIDING SCALE (NOVOLOG) 1 VIAL SQ SCH ×2 (06:39→17:31)
[2018-06-27] MEDS: ALBUTEROL SO4 0.083% IH SOL 2.5 MG/3 ML VIAL.NEB. NEB SCH ×4 (07:02→20:15)
[2018-06-27 07:44] LABS: BASO % 0.1 % (0-2.0); HEMATOCRIT 36.8 % (35.4-49); HEMOGLOBIN 12.1 GM/dL (11.7-16.9); LYMPH % 6.6 % (8-40); MCH 30.3 pg (25.7-33.7); MCHC 32.8 g/dl (32.0-35.9); MEAN CELL VOLUME 92.5 fl (80-96); MEAN PLT VOLUME 8.4 fl (7.5-11.1); MONO % 2.7 % (3.8-10.2); NEUT % 90.6 % (42.8-82.8); PLATELET COUNT 186 K/MM3 (134-434); RBC 3.98 M/mm3 (4.00-5.60); RDW 13.9 % (11.9-15.9); WHITE BLOOD COUNT 10.9 K/mm3 (4.0-10.0)
[2018-06-27 08:28] LABS: CHLORIDE 98 mmol/L (98-107); POTASSIUM 5.4 mmol/L (3.5-5.1); SODIUM 139 mmol/L (136-145)
[2018-06-27 09:01] LABS: ALBUMIN 3.4 g/dl (3.4-5.0); ALK PHOS 84 U/L (45-117); ANION GAP 5 MMOL/L (8-16); BILIRUBIN,TOTAL 0.2 mg/dL (0.2-1); BLOOD UREA NITROGEN 33 mg/dL (7-18); CALCIUM 9.5 mg/dL (8.5-10.1); CO2 36 mmol/L (21-32); CREATININE 1.1 mg/dL (0.55-1.3); GLUCOSE,RANDOM 255 mg/dL (74-106); SGOT/AST 8 U/L (15-37); SGPT/ALT 18 U/L (13-61); TOT PROT 6.7 g/dl (6.4-8.2)
[2018-06-27] MEDS ORDERED: PT OWN MED DRAWER 7, Y5N ONE ×3 (09:24→11:34)
[2018-06-27] MEDS: TIOTROPIUM BROMIDE 2.5 MCG (SPIRIVA) RESPIMAT INHALER IH SCH (09:41)
[2018-06-27] MEDS: BUDESONIDE/FORMETEROL FUMARATE 160/4.5 mcg INHALER IH SCH ×2 (09:41→21:30)
[2018-06-27] MEDS: AZITHROMYCIN 250 MG TABLET PO SCH (09:41)
[2018-06-27] MEDS ORDERED: SODIUM POLYSTYRENE SULFONATE 15 GM/60 ML BOTTLE PO ONE (10:00)
--- NOTE | 2018-06-27 10:14 | PN ---
Progress Note, Physician Chief Complaint: Pt ambulating wheezing improved pt is OFF levaquin Pul f/u appreciated Afebrile pt is on Oxygen - Current Medication List Current Medications: Active Medications Albuterol Sulfate (Ventolin 0.083% Nebulizer Soln -) 1 amp NEB Q6H PRN PRN Reason: SHORT OF BREATH/WHEEZING Albuterol Sulfate (Ventolin 0.083% Nebulizer Soln -) 1 amp NEB RQID [facility] Last Admin: 06/27/18 07:02 Dose: 1 amp Atorvastatin Calcium (Lipitor -) 10 mg PO HS [facility] Last Admin: 06/26/18 21:15 Dose: 10 mg Azithromycin (Zithromax -) 250 mg PO DAILY [facility] Last Admin: 06/27/18 09:41 Dose: 250 mg Budesonide/Formoterol Fumarate (Symbicort 160/4.5mcg -) 2 puff IH BID [facility] Last Admin: 06/27/18 09:41 Dose: 2 puff Insulin Aspart (Novolog Vial Sliding Scale -) 1 vial SQ BIDAC [facility]; Protocol Last Admin: 06/27/18 06:39 Dose: 10 units Metformin HCl (Glucophage -) 500 mg PO BIDAC [facility] Last Admin: 06/27/18 06:39 Dose: 500 mg Methylprednisolone Sodium Succinate (Solu-Medrol -) 60 mg IVPUSH Q6H-IV [facility] Last Admin: 06/27/18 09:40 Dose: 60 mg Sodium Polystyrene Sulfonate (Kayexalate -) 15 gm PO ONCE ONE Stop: 06/27/18 10:01 Tiotropium [place] (Spiriva Respimat) 2 puff IH DAILY [facility] Last Admin: 06/27/18 09:41 Dose: 2 puff - Objective Vital Signs: Vital Signs Temperature 97.7 F 06/27/18 06:00 Pulse Rate 85 06/27/18 06:00 Respiratory Rate 20 06/27/18 09:00 Blood Pressure 121/72 06/27/18 06:00 O2 Sat by Pulse Oximetry (%) 98 06/27/18 09:00 Constitutional: Yes: No Distress Eyes: Yes: Conjunctiva Clear HENT: Yes: Atraumatic, Normocephalic Neck: Yes: Supple, Trachea Midline Cardiovascular: Yes: Regular Rate and Rhythm Respiratory: Yes: Regular, Diminished, On Nasal O2, Wheezes Gastrointestinal: Yes: Normal Bowel Sounds, Soft Breast(s): Yes: WNL Musculoskeletal: Yes: WNL Extremities: Yes: WNL Edema: No Peripheral Pulses WNL: Yes Neurological: Yes: WNL ...Motor Strength: WNL Psychiatric: Yes: WNL, Alert Labs: CBC, BMP 06/27/18 06:30 06/27/18 06:30 INR, PTT INR 1.02 (0.83-1.09) 06/23/18 18:48 Assessment/Plan COPD excacerbation, bronchitis Hypoxia DM,HTN ypercholestrolemia Lung nodule hyperkalemia PLAN Continue OXYGEN IV steroid, Continue bronchodialators PUL f/u Will monitor PT keyexalate
--- NOTE | 2018-06-27 11:09 | PN ---
Progress Note (short form) - Note Progress Note: Feels better today. Less SOB. Breathing overall does feel better. No CP. Intake & Output 06/24/18 06/25/18 06/26/18 06/27/18 23:59 23:59 23:59 23:59 Intake Total 900 1700 1155 680 Balance 900 1700 1155 680 Weight 146 lb 8 oz Last Vital Signs Temp Pulse Resp BP Pulse Ox 98.6 F 93 H 20 121/64 98 06/27/18 08:45 06/27/18 08:45 06/27/18 09:00 06/27/18 08:45 06/27/18 09:00 Active Medications Albuterol Sulfate (Ventolin 0.083% Nebulizer Soln -) 1 amp NEB Q6H PRN PRN Reason: SHORT OF BREATH/WHEEZING Albuterol Sulfate (Ventolin 0.083% Nebulizer Soln -) 1 amp NEB RQID [facility] Last Admin: 06/27/18 07:02 Dose: 1 amp Atorvastatin Calcium (Lipitor -) 10 mg PO HS [facility] Last Admin: 06/26/18 21:15 Dose: 10 mg Azithromycin (Zithromax -) 250 mg PO DAILY [facility] Last Admin: 06/27/18 09:41 Dose: 250 mg Budesonide/Formoterol Fumarate (Symbicort 160/4.5mcg -) 2 puff IH BID [facility] Last Admin: 06/27/18 09:41 Dose: 2 puff Insulin Aspart (Novolog Vial Sliding Scale -) 1 vial SQ BIDAC [facility]; Protocol Last Admin: 06/27/18 06:39 Dose: 10 units Metformin HCl (Glucophage -) 500 mg PO BIDAC [facility] Last Admin: 06/27/18 06:39 Dose: 500 mg Methylprednisolone Sodium Succinate (Solu-Medrol -) 60 mg IVPUSH Q6H-IV [facility] Last Admin: 06/27/18 09:40 Dose: 60 mg Tiotropium [place] (Spiriva Respimat) 2 puff IH DAILY [facility] Last Admin: 06/27/18 09:41 Dose: 2 puff Constitutional: Yes: NAD Eyes: Yes: Conjunctiva Clear, EOM Intact HENT: Yes: Atraumatic, Pharyngeal Erythema Neck: Yes: Supple, Trachea Midline Cardiovascular: Yes: Tachycardia Respiratory: Yes: Cough, Diminished, On Nasal O2, Rhonchi, Wheezes. No: Accessory Muscle Use, Rales, Stridor ...Inspection: Yes: WNL ...Clubbing: No Gastrointestinal: Yes: Normal Bowel Sounds, Soft Renal/: Yes: WNL Breast(s): Yes: WNL Musculoskeletal: Yes: WNL Extremities: Yes: WNL Edema: No Peripheral Pulses WNL: Yes Integumentary: Yes: WNL Neurological: Yes: WNL, Alert, Oriented ...Motor Strength: WNL Psychiatric: Yes: WNL, Alert, Oriented Labs: Laboratory Results - last 24 hr 06/26/18 06/27/18 06/27/18 17:14 06:30 06:30 WBC 10.9 H RBC 3.98 L Hgb 12.1 Hct 36.8 MCV 92.5 MCH 30.3 MCHC 32.8 RDW 13.9 Plt Count 186 MPV 8.4 Absolute Neuts (auto) 9.9 H Neutrophils % 90.6 H Lymphocytes % 6.6 L Monocytes % 2.7 L Eosinophils % 0.0 Basophils % 0.1 Nucleated RBC % 0 Sodium 139 Potassium 5.4 H Chloride 98 Carbon Dioxide 36 H Anion Gap 5 L BUN 33 H Creatinine 1.1 Creat Clearance w eGFR > 60 POC Glucometer 342 Random Glucose 255 H Calcium 9.5 Total Bilirubin 0.2 AST 8 L ALT 18 Alkaline Phosphatase 84 Total Protein 6.7 Albumin 3.4 06/27/18 06:39 WBC RBC Hgb Hct MCV MCH MCHC RDW Plt Count MPV Absolute Neuts (auto) Neutrophils % Lymphocytes % Monocytes % Eosinophils % Basophils % Nucleated RBC % Sodium Potassium Chloride Carbon Dioxide Anion Gap BUN Creatinine Creat Clearance w eGFR POC Glucometer 263 Random Glucose Calcium Total Bilirubin AST ALT Alkaline Phosphatase Total Protein Albumin Problem List - Problems (1) COPD exacerbation Code(s): J44.1 - CHRONIC OBSTRUCTIVE PULMONARY DISEASE W (ACUTE) EXACERBATION (2) Bronchitis Code(s): J40 - BRONCHITIS, NOT SPECIFIED ACUTE OR CHRONIC (3) COPD (chronic obstructive pulmonary disease) Code(s): J44.9 - CHRONIC OBSTRUCTIVE PULMONARY DISEASE, UNSPECIFIED (4) Pulmonary nodules/lesions, multiple Code(s): R91.8 - OTHER NONSPECIFIC ABNORMAL FINDING OF LUNG FIELD Assessment/Plan [facility] Medrol Monitor off Levaquin Zmax O2 as needed No smoking Advised second hand smoke avoidance Symbicort and Spriva (do not have Anoro on formulary) VTE prophylaxis Outpatient PFTs once stable. Pre and Post O2 saturation Dr Kelsey Problem List - Problems (1) COPD exacerbation Code(s): J44.1 - CHRONIC OBSTRUCTIVE PULMONARY DISEASE W (ACUTE) EXACERBATION (2) Bronchitis Code(s): J40 - BRONCHITIS, NOT SPECIFIED ACUTE OR CHRONIC (3) COPD (chronic obstructive pulmonary disease) Code(s): J44.9 - CHRONIC OBSTRUCTIVE PULMONARY DISEASE, UNSPECIFIED (4) Pulmonary nodules/lesions, multiple Code(s): R91.8 - OTHER NONSPECIFIC ABNORMAL FINDING OF LUNG FIELD
[2018-06-27] MEDS: methylPREDNISolone NA SUCC 40 MG/1 ML VIAL IVPUSH SCH ×2 (13:43→21:31)
[2018-06-27] MEDS: ATORVASTATIN CA 10 MG TABLET (FP) PO SCH (21:31)
[2018-06-28] MEDS: INSULIN SLIDING SCALE (NOVOLOG) 1 VIAL SQ SCH ×2 (06:46→17:01)
[2018-06-28] MEDS: metFORMIN HCL 500 MG TABLET (FP) PO SCH ×2 (06:46→17:00)
[2018-06-28 07:58] LABS: BASO % 0.1 % (0-2.0); HEMATOCRIT 36.1 % (35.4-49); HEMOGLOBIN 11.7 GM/dL (11.7-16.9); LYMPH % 9.4 % (8-40); MCH 30.2 pg (25.7-33.7); MCHC 32.5 g/dl (32.0-35.9); MEAN PLT VOLUME 8.5 fl (7.5-11.1); MONO % 5.2 % (3.8-10.2); NEUT % 85.3 % (42.8-82.8); PLATELET COUNT 182 K/MM3 (134-434); RBC 3.88 M/mm3 (4.00-5.60); RDW 13.9 % (11.9-15.9); WHITE BLOOD COUNT 10.4 K/mm3 (4.0-10.0)
[2018-06-28] MEDS: ALBUTEROL SO4 0.083% IH SOL 2.5 MG/3 ML VIAL.NEB. NEB SCH ×4 (08:54→19:35)
[2018-06-28 08:57] LABS: CHLORIDE 97 mmol/L (98-107); POTASSIUM 5.2 mmol/L (3.5-5.1); SODIUM 141 mmol/L (136-145)
[2018-06-28 09:07] LABS: ALBUMIN 3.1 g/dl (3.4-5.0); ALK PHOS 72 U/L (45-117); ANION GAP 8 MMOL/L (8-16); BILIRUBIN,TOTAL 0.2 mg/dL (0.2-1); BLOOD UREA NITROGEN 39 mg/dL (7-18); CALCIUM 10.1 mg/dL (8.5-10.1); CO2 36 mmol/L (21-32); GLUCOSE,RANDOM 246 mg/dL (74-106); SGOT/AST 6 U/L (15-37); SGPT/ALT 23 U/L (13-61)
[2018-06-28] MEDS ORDERED: PT OWN MED DRAWER 7, Y5N ONE (09:47)
[2018-06-28] MEDS: AZITHROMYCIN 250 MG TABLET PO SCH (09:49)
[2018-06-28] MEDS: TIOTROPIUM BROMIDE 2.5 MCG (SPIRIVA) RESPIMAT INHALER IH SCH (09:49)
[2018-06-28] MEDS: BUDESONIDE/FORMETEROL FUMARATE 160/4.5 mcg INHALER IH SCH ×2 (09:49→21:37)
[2018-06-28] MEDS: methylPREDNISolone NA SUCC 40 MG/1 ML VIAL IVPUSH SCH ×2 (09:49→21:37)
--- NOTE | 2018-06-28 09:50 | PN ---
Progress Note, Physician Chief Complaint: Pt ambulating wheezing improved pt is OFF levaquin Pul f/u appreciated Afebrile pt is on Oxygen - Current Medication List Current Medications: Active Medications Albuterol Sulfate (Ventolin 0.083% Nebulizer Soln -) 1 amp NEB Q6H PRN PRN Reason: SHORT OF BREATH/WHEEZING Albuterol Sulfate (Ventolin 0.083% Nebulizer Soln -) 1 amp NEB RQID [facility] Last Admin: 06/28/18 08:54 Dose: 1 amp Atorvastatin Calcium (Lipitor -) 10 mg PO HS [facility] Last Admin: 06/27/18 21:31 Dose: 10 mg Azithromycin (Zithromax -) 250 mg PO DAILY [facility] Last Admin: 06/27/18 09:41 Dose: 250 mg Budesonide/Formoterol Fumarate (Symbicort 160/4.5mcg -) 2 puff IH BID [facility] Last Admin: 06/27/18 21:30 Dose: 2 puff Insulin Aspart (Novolog Vial Sliding Scale -) 1 vial SQ BIDAC [facility]; Protocol Last Admin: 06/28/18 06:46 Dose: 5 units Metformin HCl (Glucophage -) 500 mg PO BIDAC [facility] Last Admin: 06/28/18 06:46 Dose: 500 mg Methylprednisolone Sodium Succinate (Solu-Medrol -) 40 mg IVPUSH BID [facility] Last Admin: 06/27/18 21:31 Dose: 40 mg Tiotropium [place] (Spiriva Respimat) 2 puff IH DAILY [facility] Last Admin: 06/27/18 09:41 Dose: 2 puff - Objective Vital Signs: Vital Signs Temperature 97.6 F 06/28/18 06:00 Pulse Rate 75 06/28/18 06:00 Respiratory Rate 20 06/28/18 06:00 Blood Pressure 133/69 06/28/18 06:00 O2 Sat by Pulse Oximetry (%) 96 06/27/18 21:00 Constitutional: Yes: No Distress Eyes: Yes: Conjunctiva Clear HENT: Yes: Atraumatic Neck: Yes: Supple Cardiovascular: Yes: Regular Rate and Rhythm Respiratory: Yes: Regular, Diminished, Wheezes Musculoskeletal: Yes: WNL Extremities: Yes: WNL Edema: No Peripheral Pulses WNL: Yes Neurological: Yes: WNL, Alert ...Motor Strength: WNL Psychiatric: Yes: WNL, Alert Labs: CBC, BMP 06/28/18 07:00 06/28/18 07:00 INR, PTT INR 1.02 (0.83-1.09) 06/23/18 18:48 Assessment/Plan COPD excacerbation, bronchitis Hypoxia DM,HTN ypercholestrolemia Lung nodule hyperkalemia PLAN Continue OXYGEN IV steroid,taperingn dose Continue bronchodialators PUL f/u Will monitor PT keyexalate
[2018-06-28] MEDS ORDERED: SODIUM POLYSTYRENE SULFONATE 15 GM/60 ML BOTTLE PO ONE (10:15)
--- NOTE | 2018-06-28 12:34 | PN ---
Progress Note, Physician History of Present Illness: pulmonary alert,feeling better,less dyspneic - Current Medication List Current Medications: Active Medications Albuterol Sulfate (Ventolin 0.083% Nebulizer Soln -) 1 amp NEB Q6H PRN PRN Reason: SHORT OF BREATH/WHEEZING Albuterol Sulfate (Ventolin 0.083% Nebulizer Soln -) 1 amp NEB RQID [facility] Last Admin: 06/28/18 08:54 Dose: 1 amp Atorvastatin Calcium (Lipitor -) 10 mg PO HS [facility] Last Admin: 06/27/18 21:31 Dose: 10 mg Azithromycin (Zithromax -) 250 mg PO DAILY [facility] Last Admin: 06/28/18 09:49 Dose: 250 mg Budesonide/Formoterol Fumarate (Symbicort 160/4.5mcg -) 2 puff IH BID [facility] Last Admin: 06/28/18 09:49 Dose: 2 puff Insulin Aspart (Novolog Vial Sliding Scale -) 1 vial SQ BIDAC [facility]; Protocol Last Admin: 06/28/18 06:46 Dose: 5 units Metformin HCl (Glucophage -) 500 mg PO BIDAC [facility] Last Admin: 06/28/18 06:46 Dose: 500 mg Methylprednisolone Sodium Succinate (Solu-Medrol -) 40 mg IVPUSH BID [facility] Last Admin: 06/28/18 09:49 Dose: 40 mg Tiotropium [place] (Spiriva Respimat) 2 puff IH DAILY [facility] Last Admin: 06/28/18 09:49 Dose: 2 puff - Objective Vital Signs: Vital Signs Temperature 97.6 F 06/28/18 10:00 Pulse Rate 98 H 06/28/18 10:00 Respiratory Rate 20 06/28/18 10:00 Blood Pressure 125/79 06/28/18 10:00 O2 Sat by Pulse Oximetry (%) 96 06/27/18 21:00 Constitutional: Yes: Well Nourished, Calm Eyes: Yes: WNL HENT: Yes: WNL Neck: Yes: WNL Cardiovascular: Yes: WNL Respiratory: Yes: Diminished Gastrointestinal: Yes: Normal Bowel Sounds, Soft Extremities: Yes: WNL Edema: No Labs: CBC, BMP 06/28/18 07:00 06/28/18 07:00 INR, PTT INR 1.02 (0.83-1.09) 06/23/18 18:48 Assessment/Plan Problem List - Problems (1) COPD exacerbation Code(s): J44.1 - CHRONIC OBSTRUCTIVE PULMONARY DISEASE W (ACUTE) EXACERBATION (2) Bronchitis Code(s): J40 - BRONCHITIS, NOT SPECIFIED ACUTE OR CHRONIC (3) COPD (chronic obstructive pulmonary disease) Code(s): J44.9 - CHRONIC OBSTRUCTIVE PULMONARY DISEASE, UNSPECIFIED (4) Pulmonary nodules/lesions, multiple Code(s): R91.8 - OTHER NONSPECIFIC ABNORMAL FINDING OF LUNG FIELD Assessment/Plan Medrol taper PO Zmax Home O2 No smoking Advised second hand smoke avoidance Symbicort and Spriva VTE prophylaxis Outpatient PFT DR GUERRIER
[2018-06-28] MEDS: ATORVASTATIN CA 10 MG TABLET (FP) PO SCH (21:37)
[2018-06-29] MEDS ORDERED: INSULIN (NOVOLOG) ASPART 100 UNITS/ML 10ML VIAL ONE ×2 (07:00→07:20)
[2018-06-29] MEDS: metFORMIN HCL 500 MG TABLET (FP) PO SCH ×2 (07:05→16:50)
[2018-06-29] MEDS: INSULIN SLIDING SCALE (NOVOLOG) 1 VIAL SQ SCH ×2 (07:05→17:01)
[2018-06-29 07:21] LABS: BASO % 0.2 % (0-2.0); HEMATOCRIT 37.4 % (35.4-49); HEMOGLOBIN 12.4 GM/dL (11.7-16.9); MCH 30.6 pg (25.7-33.7); MEAN CELL VOLUME 92.6 fl (80-96); MEAN PLT VOLUME 8.4 fl (7.5-11.1); MONO % 3.7 % (3.8-10.2); NEUT % 86.1 % (42.8-82.8); PLATELET COUNT 194 K/MM3 (134-434); RBC 4.04 M/mm3 (4.00-5.60); RDW 13.9 % (11.9-15.9)
[2018-06-29] MEDS: ALBUTEROL SO4 0.083% IH SOL 2.5 MG/3 ML VIAL.NEB. NEB SCH ×4 (07:29→20:35)
[2018-06-29 09:08] LABS: ALBUMIN 3.2 g/dl (3.4-5.0); ALK PHOS 82 U/L (45-117); ANION GAP 2 MMOL/L (8-16); BILIRUBIN,TOTAL 0.2 mg/dL (0.2-1); BLOOD UREA NITROGEN 41 mg/dL (7-18); CALCIUM 9.4 mg/dL (8.5-10.1); CHLORIDE 96 mmol/L (98-107); CO2 39 mmol/L (21-32); CREATININE 1.2 mg/dL (0.55-1.3); GLUCOSE,RANDOM 291 mg/dL (74-106); POTASSIUM 5.3 mmol/L (3.5-5.1); SGOT/AST 7 U/L (15-37); SGPT/ALT 30 U/L (13-61); SODIUM 137 mmol/L (136-145); TOT PROT 6.4 g/dl (6.4-8.2)
--- NOTE | 2018-06-29 09:30 | PN ---
Progress Note, Physician Chief Complaint: Pt ambulating wheezing improved pt is OFF levaquin Pul f/u appreciated Afebrile pt is on Oxygen - Current Medication List Current Medications: Active Medications Albuterol Sulfate (Ventolin 0.083% Nebulizer Soln -) 1 amp NEB Q6H PRN PRN Reason: SHORT OF BREATH/WHEEZING Albuterol Sulfate (Ventolin 0.083% Nebulizer Soln -) 1 amp NEB RQID [facility] Last Admin: 06/28/18 19:35 Dose: 1 amp Atorvastatin Calcium (Lipitor -) 10 mg PO HS [facility] Last Admin: 06/28/18 21:37 Dose: 10 mg Azithromycin (Zithromax -) 250 mg PO DAILY [facility] Last Admin: 06/28/18 09:49 Dose: 250 mg Budesonide/Formoterol Fumarate (Symbicort 160/4.5mcg -) 2 puff IH BID [facility] Last Admin: 06/28/18 21:37 Dose: 2 puff Insulin Aspart (Novolog Vial Sliding Scale -) 1 vial SQ BIDAC [facility]; Protocol Last Admin: 06/29/18 07:05 Dose: 10 units Metformin HCl (Glucophage -) 500 mg PO BIDAC [facility] Last Admin: 06/29/18 07:05 Dose: 500 mg Methylprednisolone Sodium Succinate (Solu-Medrol -) 40 mg IVPUSH BID [facility] Last Admin: 06/28/18 21:37 Dose: 40 mg Tiotropium [place] (Spiriva Respimat) 2 puff IH DAILY [facility] Last Admin: 06/28/18 09:49 Dose: 2 puff - Objective Vital Signs: Vital Signs Temperature 97.6 F 06/29/18 06:00 Pulse Rate 85 06/29/18 06:00 Respiratory Rate 20 06/29/18 06:00 Blood Pressure 114/78 06/29/18 06:00 O2 Sat by Pulse Oximetry (%) 98 06/28/18 21:00 Constitutional: Yes: No Distress Eyes: Yes: Conjunctiva Clear HENT: Yes: Atraumatic Neck: Yes: Supple Cardiovascular: Yes: Regular Rate and Rhythm Respiratory: Yes: Regular, Diminished, On Nasal O2, Wheezes Gastrointestinal: Yes: Normal Bowel Sounds Musculoskeletal: Yes: WNL Extremities: Yes: WNL Edema: No Peripheral Pulses WNL: Yes Neurological: Yes: WNL, Alert ...Motor Strength: WNL Psychiatric: Yes: WNL Labs: CBC, BMP 06/29/18 06:30 06/29/18 06:30 INR, PTT INR 1.02 (0.83-1.09) 06/23/18 18:48 Assessment/Plan COPD excacerbation, bronchitis Hypoxia DM,HTN ypercholestrolemia Lung nodule hyperkalemia PLAN Continue OXYGEN IV steroid,taperingn dose Continue bronchodialators PUL f/u Will monitor PT keyexalate
[2018-06-29] MEDS ORDERED: PT OWN MED DRAWER 7, Y5N ONE ×3 (11:13→19:55)
[2018-06-29] MEDS: BUDESONIDE/FORMETEROL FUMARATE 160/4.5 mcg INHALER IH SCH ×2 (11:16→21:16)
[2018-06-29] MEDS: TIOTROPIUM BROMIDE 2.5 MCG (SPIRIVA) RESPIMAT INHALER IH SCH (11:16)
[2018-06-29] MEDS: AZITHROMYCIN 250 MG TABLET PO SCH (11:16)
[2018-06-29] MEDS: methylPREDNISolone NA SUCC 40 MG/1 ML VIAL IVPUSH SCH ×2 (11:16→21:16)
[2018-06-29 11:36] LABS: ANISOCYTOSIS 1+; MACROCYTOSIS 0; PLATELET ESTIMATE NORMAL
--- NOTE | 2018-06-29 12:40 | PN ---
Progress Note, Physician History of Present Illness: pulmonary alert,feeling better,less dyspneic - Current Medication List Current Medications: Active Medications Albuterol Sulfate (Ventolin 0.083% Nebulizer Soln -) 1 amp NEB Q6H PRN PRN Reason: SHORT OF BREATH/WHEEZING Albuterol Sulfate (Ventolin 0.083% Nebulizer Soln -) 1 amp NEB RQID [facility] Last Admin: 06/29/18 11:21 Dose: 1 amp Atorvastatin Calcium (Lipitor -) 10 mg PO HS [facility] Last Admin: 06/28/18 21:37 Dose: 10 mg Azithromycin (Zithromax -) 250 mg PO DAILY [facility] Last Admin: 06/29/18 11:16 Dose: 250 mg Budesonide/Formoterol Fumarate (Symbicort 160/4.5mcg -) 2 puff IH BID [facility] Last Admin: 06/29/18 11:16 Dose: 2 puff Insulin Aspart (Novolog Vial Sliding Scale -) 1 vial SQ BIDAC [facility]; Protocol Last Admin: 06/29/18 07:05 Dose: 10 units Metformin HCl (Glucophage -) 500 mg PO BIDAC [facility] Last Admin: 06/29/18 07:05 Dose: 500 mg Methylprednisolone Sodium Succinate (Solu-Medrol -) 40 mg IVPUSH BID [facility] Last Admin: 06/29/18 11:16 Dose: 40 mg Tiotropium [place] (Spiriva Respimat) 2 puff IH DAILY [facility] Last Admin: 06/29/18 11:16 Dose: 2 puff - Objective Vital Signs: Vital Signs Temperature 97.6 F 06/29/18 06:00 Pulse Rate 85 06/29/18 06:00 Respiratory Rate 20 06/29/18 06:00 Blood Pressure 114/78 06/29/18 06:00 O2 Sat by Pulse Oximetry (%) 98 06/28/18 21:00 Constitutional: Yes: Calm, Thin Eyes: Yes: WNL HENT: Yes: WNL Neck: Yes: WNL Cardiovascular: Yes: Regular Rate and Rhythm, S1, S2 Respiratory: Yes: Diminished Gastrointestinal: Yes: Normal Bowel Sounds, Soft Extremities: Yes: WNL Edema: No Labs: CBC, BMP 06/29/18 06:30 06/29/18 06:30 INR, PTT INR 1.02 (0.83-1.09) 06/23/18 18:48 Assessment/Plan Problem List - Problems (1) COPD exacerbation Code(s): J44.1 - CHRONIC OBSTRUCTIVE PULMONARY DISEASE W (ACUTE) EXACERBATION (2) Bronchitis Code(s): J40 - BRONCHITIS, NOT SPECIFIED ACUTE OR CHRONIC (3) COPD (chronic obstructive pulmonary disease) Code(s): J44.9 - CHRONIC OBSTRUCTIVE PULMONARY DISEASE, UNSPECIFIED (4) Pulmonary nodules/lesions, multiple Code(s): R91.8 - OTHER NONSPECIFIC ABNORMAL FINDING OF LUNG FIELD Assessment/Plan Medrol taper PO Zmax Home O2 No smoking Advised second hand smoke avoidance Symbicort and Spriva VTE prophylaxis Outpatient PFT DR GUERRIER
[2018-06-29] MEDS: ROFLUMILAST 500 MCG TABLET PO SCH (17:49)
[2018-06-29] MEDS ORDERED: SODIUM POLYSTYRENE SULFONATE 15 GM/60 ML BOTTLE PO ONE (19:45)
[2018-06-29] MEDS: ATORVASTATIN CA 10 MG TABLET (FP) PO SCH (21:16)
[2018-06-30] MEDS: INSULIN SLIDING SCALE (NOVOLOG) 1 VIAL SQ SCH ×2 (06:27→17:40)
[2018-06-30] MEDS: metFORMIN HCL 500 MG TABLET (FP) PO SCH ×2 (06:27→17:40)
[2018-06-30] MEDS ORDERED: INSULIN (NOVOLOG) ASPART 100 UNITS/ML 10ML VIAL ONE ×2 (06:52→17:38)
--- NOTE | 2018-06-30 07:23 | PN ---
Progress Note, Physician Chief Complaint: Pt ambulating wheezing improved pt is on steroid Pul f/u appreciated Afebrile pt is on Oxygen - Current Medication List Current Medications: Active Medications Albuterol Sulfate (Ventolin 0.083% Nebulizer Soln -) 1 amp NEB Q6H PRN PRN Reason: SHORT OF BREATH/WHEEZING Albuterol Sulfate (Ventolin 0.083% Nebulizer Soln -) 1 amp NEB RQID [facility] Last Admin: 06/29/18 20:35 Dose: 1 amp Atorvastatin Calcium (Lipitor -) 10 mg PO HS [facility] Last Admin: 06/29/18 21:16 Dose: 10 mg Azithromycin (Zithromax -) 250 mg PO DAILY [facility] Last Admin: 06/29/18 11:16 Dose: 250 mg Budesonide/Formoterol Fumarate (Symbicort 160/4.5mcg -) 2 puff IH BID [facility] Last Admin: 06/29/18 21:16 Dose: 2 puff Insulin Aspart (Novolog Vial Sliding Scale -) 1 vial SQ BIDAC [facility]; Protocol Last Admin: 06/30/18 06:27 Dose: 10 units Metformin HCl (Glucophage -) 500 mg PO BIDAC [facility] Last Admin: 06/30/18 06:27 Dose: 500 mg Methylprednisolone Sodium Succinate (Solu-Medrol -) 40 mg IVPUSH BID [facility] Last Admin: 06/29/18 21:16 Dose: 40 mg Roflumilast (Daliresp -) 500 mcg PO DAILY [facility] Last Admin: 06/29/18 17:49 Dose: 500 mcg Tiotropium [place] (Spiriva Respimat) 2 puff IH DAILY [facility] Last Admin: 06/29/18 11:16 Dose: 2 puff - Objective Vital Signs: Vital Signs Temperature 97.5 F L 06/30/18 05:24 Pulse Rate 73 06/30/18 05:24 Respiratory Rate 20 06/30/18 05:24 Blood Pressure 122/69 06/30/18 05:24 O2 Sat by Pulse Oximetry (%) 98 06/29/18 21:00 Constitutional: Yes: No Distress Eyes: Yes: Conjunctiva Clear HENT: Yes: Atraumatic Neck: Yes: Supple Cardiovascular: Yes: Regular Rate and Rhythm Respiratory: Yes: Regular, Diminished, Wheezes Gastrointestinal: Yes: Normal Bowel Sounds, Soft Musculoskeletal: Yes: WNL Extremities: Yes: WNL Edema: No Peripheral Pulses WNL: Yes Neurological: Yes: WNL, Alert ...Motor Strength: WNL Psychiatric: Yes: WNL, Alert Labs: INR, PTT INR 1.02 (0.83-1.09) 06/23/18 18:48 Assessment/Plan COPD excacerbation, bronchitis Hypoxia DM,HTN ypercholestrolemia Lung nodule hyperkalemia PLAN Continue OXYGEN IV steroid,taperingn dose Continue bronchodialators PUL f/u Will monitor PT keyexalate
[2018-06-30 07:26] LABS: BASO % 0.2 % (0-2.0); EOS % 0.1 % (0-4.5); HEMATOCRIT 38.9 % (35.4-49); HEMOGLOBIN 12.7 GM/dL (11.7-16.9); LYMPH % 9.9 % (8-40); MCHC 32.5 g/dl (32.0-35.9); MEAN CELL VOLUME 92.2 fl (80-96); MEAN PLT VOLUME 8.1 fl (7.5-11.1); MONO % 3.5 % (3.8-10.2); NEUT % 86.3 % (42.8-82.8); PLATELET COUNT 210 K/MM3 (134-434); RBC 4.22 M/mm3 (4.00-5.60); RDW 14.2 % (11.9-15.9); WHITE BLOOD COUNT 12.9 K/mm3 (4.0-10.0)
[2018-06-30 07:34] LABS: ANION GAP 3 MMOL/L (8-16); BLOOD UREA NITROGEN 43 mg/dL (7-18); CALCIUM 9.4 mg/dL (8.5-10.1); CHLORIDE 94 mmol/L (98-107); CO2 39 mmol/L (21-32); CREATININE 1.3 mg/dL (0.55-1.3); GLUCOSE,RANDOM 271 mg/dL (74-106); POTASSIUM 5.4 mmol/L (3.5-5.1); SODIUM 136 mmol/L (136-145)
[2018-06-30] MEDS: ALBUTEROL SO4 0.083% IH SOL 2.5 MG/3 ML VIAL.NEB. NEB SCH ×4 (08:12→19:45)
[2018-06-30 09:31] LABS: ANISOCYTOSIS 0; MACROCYTOSIS 0; PLATELET ESTIMATE NORMAL
[2018-06-30] MEDS ORDERED: PT OWN MED DRAWER 7, Y5N ONE (10:03)
[2018-06-30] MEDS: BUDESONIDE/FORMETEROL FUMARATE 160/4.5 mcg INHALER IH SCH ×2 (10:11→21:22)
[2018-06-30] MEDS: methylPREDNISolone NA SUCC 40 MG/1 ML VIAL IVPUSH SCH ×2 (10:11→21:22)
[2018-06-30] MEDS: ROFLUMILAST 500 MCG TABLET PO SCH (10:11)
[2018-06-30] MEDS: TIOTROPIUM BROMIDE 2.5 MCG (SPIRIVA) RESPIMAT INHALER IH SCH (10:11)
[2018-06-30] MEDS: AZITHROMYCIN 250 MG TABLET PO SCH (10:11)
--- NOTE | 2018-06-30 11:27 | PN ---
Progress Note, Physician History of Present Illness: PULMONARY ALERT,FEELING BETTER,DYSPNEA IMPROVING. - Current Medication List Current Medications: Active Medications Albuterol Sulfate (Ventolin 0.083% Nebulizer Soln -) 1 amp NEB Q6H PRN PRN Reason: SHORT OF BREATH/WHEEZING Albuterol Sulfate (Ventolin 0.083% Nebulizer Soln -) 1 amp NEB RQID [facility] Last Admin: 06/30/18 08:12 Dose: 1 amp Atorvastatin Calcium (Lipitor -) 10 mg PO HS [facility] Last Admin: 06/29/18 21:16 Dose: 10 mg Azithromycin (Zithromax -) 250 mg PO DAILY [facility] Last Admin: 06/30/18 10:11 Dose: 250 mg Budesonide/Formoterol Fumarate (Symbicort 160/4.5mcg -) 2 puff IH BID [facility] Last Admin: 06/30/18 10:11 Dose: 2 puff Insulin Aspart (Novolog Vial Sliding Scale -) 1 vial SQ BIDAC [facility]; Protocol Last Admin: 06/30/18 06:27 Dose: 10 units Metformin HCl (Glucophage -) 500 mg PO BIDAC [facility] Last Admin: 06/30/18 06:27 Dose: 500 mg Methylprednisolone Sodium Succinate (Solu-Medrol -) 40 mg IVPUSH BID [facility] Last Admin: 06/30/18 10:11 Dose: 40 mg Roflumilast (Daliresp -) 500 mcg PO DAILY [facility] Last Admin: 06/30/18 10:11 Dose: 500 mcg Tiotropium [place] (Spiriva Respimat) 2 puff IH DAILY [facility] Last Admin: 06/30/18 10:11 Dose: 2 puff - Objective Vital Signs: Vital Signs Temperature 98.4 F 06/30/18 10:00 Pulse Rate 88 06/30/18 10:00 Respiratory Rate 20 06/30/18 10:00 Blood Pressure 101/62 06/30/18 10:00 O2 Sat by Pulse Oximetry (%) 98 06/29/18 21:00 Constitutional: Yes: Well Nourished, Calm Eyes: Yes: WNL HENT: Yes: WNL Neck: Yes: WNL Cardiovascular: Yes: Regular Rate and Rhythm, S1, S2 Respiratory: Yes: Diminished Gastrointestinal: Yes: Normal Bowel Sounds, Soft Extremities: Yes: WNL Edema: No Labs: CBC, BMP 06/30/18 06:30 09/22/18 06:30 INR, PTT INR 1.02 (0.83-1.09) 06/23/18 18:48 Assessment/Plan Problem List - Problems (1) COPD exacerbation Code(s): J44.1 - CHRONIC OBSTRUCTIVE PULMONARY DISEASE W (ACUTE) EXACERBATION (2) Bronchitis Code(s): J40 - BRONCHITIS, NOT SPECIFIED ACUTE OR CHRONIC (3) COPD (chronic obstructive pulmonary disease) Code(s): J44.9 - CHRONIC OBSTRUCTIVE PULMONARY DISEASE, UNSPECIFIED (4) Pulmonary nodules/lesions, multiple Code(s): R91.8 - OTHER NONSPECIFIC ABNORMAL FINDING OF LUNG FIELD Assessment/Plan Medrol taper PO Zmax Home O2 No smoking Advised second hand smoke avoidance Symbicort and Spriva VTE prophylaxis Outpatient PFT TRILOGY DEVICE DR GUERRIER
[2018-06-30] MEDS ORDERED: SODIUM POLYSTYRENE SULFONATE 15 GM/60 ML BOTTLE PO ONE (13:30)
[2018-06-30] MEDS: ATORVASTATIN CA 10 MG TABLET (FP) PO SCH (21:22)
[2018-07-01] MEDS: metFORMIN HCL 500 MG TABLET (FP) PO SCH ×2 (06:43→16:33)
[2018-07-01] MEDS: INSULIN SLIDING SCALE (NOVOLOG) 1 VIAL SQ SCH ×2 (06:43→16:34)
[2018-07-01 07:19] LABS: HEMATOCRIT 38.1 % (35.4-49); HEMOGLOBIN 12.4 GM/dL (11.7-16.9); MCH 30.2 pg (25.7-33.7); MCHC 32.7 g/dl (32.0-35.9); MEAN CELL VOLUME 92.5 fl (80-96); MEAN PLT VOLUME 8.2 fl (7.5-11.1); PLATELET COUNT 195 K/MM3 (134-434); RBC 4.12 M/mm3 (4.00-5.60); WHITE BLOOD COUNT 13.8 K/mm3 (4.0-10.0)
[2018-07-01] MEDS: ALBUTEROL SO4 0.083% IH SOL 2.5 MG/3 ML VIAL.NEB. NEB SCH ×4 (08:40→20:39)
[2018-07-01] MEDS ORDERED: PT OWN MED DRAWER 7, Y5N ONE (08:55)
[2018-07-01 09:04] LABS: ALBUMIN 3.2 g/dl (3.4-5.0); ALK PHOS 78 U/L (45-117); ANION GAP 3 MMOL/L (8-16); BILIRUBIN,TOTAL 0.3 mg/dL (0.2-1); BLOOD UREA NITROGEN 46 mg/dL (7-18); CALCIUM 9.2 mg/dL (8.5-10.1); CHLORIDE 96 mmol/L (98-107); CO2 39 mmol/L (21-32); CREATININE 1.3 mg/dL (0.55-1.3); POTASSIUM 5.4 mmol/L (3.5-5.1); SGOT/AST 16 U/L (15-37); SGPT/ALT 51 U/L (13-61); SODIUM 138 mmol/L (136-145); TOT PROT 6.2 g/dl (6.4-8.2)
[2018-07-01 09:06] LABS: GLUCOSE,RANDOM 304 mg/dL (74-106)
[2018-07-01] MEDS: ROFLUMILAST 500 MCG TABLET PO SCH (09:35)
[2018-07-01] MEDS: AZITHROMYCIN 250 MG TABLET PO SCH (09:36)
[2018-07-01] MEDS: TIOTROPIUM BROMIDE 2.5 MCG (SPIRIVA) RESPIMAT INHALER IH SCH (09:36)
[2018-07-01] MEDS: BUDESONIDE/FORMETEROL FUMARATE 160/4.5 mcg INHALER IH SCH ×2 (09:36→21:14)
[2018-07-01] MEDS: methylPREDNISolone NA SUCC 40 MG/1 ML VIAL IVPUSH SCH (09:36)
--- NOTE | 2018-07-01 12:35 | PN ---
Progress Note, Physician History of Present Illness: PULMONARY ALERT,FEELING BETTER,-RESP DISTRESS - Current Medication List Current Medications: Active Medications Albuterol Sulfate (Ventolin 0.083% Nebulizer Soln -) 1 amp NEB Q6H PRN PRN Reason: SHORT OF BREATH/WHEEZING Albuterol Sulfate (Ventolin 0.083% Nebulizer Soln -) 1 amp NEB RQID [facility] Last Admin: 07/01/18 11:51 Dose: 1 amp Atorvastatin Calcium (Lipitor -) 10 mg PO HS [facility] Last Admin: 06/30/18 21:22 Dose: 10 mg Azithromycin (Zithromax -) 250 mg PO DAILY [facility] Last Admin: 07/01/18 09:36 Dose: 250 mg Budesonide/Formoterol Fumarate (Symbicort 160/4.5mcg -) 2 puff IH BID [facility] Last Admin: 07/01/18 09:36 Dose: 2 puff Insulin Aspart (Novolog Vial Sliding Scale -) 1 vial SQ BIDAC [facility]; Protocol Last Admin: 07/01/18 06:43 Dose: 10 units Metformin HCl (Glucophage -) 500 mg PO BIDAC [facility] Last Admin: 07/01/18 06:43 Dose: 500 mg Methylprednisolone Sodium Succinate (Solu-Medrol -) 40 mg IVPUSH BID [facility] Last Admin: 07/01/18 09:36 Dose: 40 mg Roflumilast (Daliresp -) 500 mcg PO DAILY [facility] Last Admin: 07/01/18 09:35 Dose: 500 mcg Tiotropium [place] (Spiriva Respimat) 2 puff IH DAILY [facility] Last Admin: 07/01/18 09:36 Dose: 2 puff - Objective Vital Signs: Vital Signs Temperature 97.8 F 07/01/18 10:00 Pulse Rate 84 07/01/18 10:00 Respiratory Rate 20 07/01/18 10:00 Blood Pressure 136/71 07/01/18 10:00 O2 Sat by Pulse Oximetry (%) 97 06/30/18 21:00 Constitutional: Yes: Well Nourished, Calm Eyes: Yes: WNL HENT: Yes: WNL Neck: Yes: WNL Cardiovascular: Yes: Regular Rate and Rhythm, S1, S2 Respiratory: Yes: Diminished Gastrointestinal: Yes: Normal Bowel Sounds, Soft Extremities: Yes: WNL Edema: No Labs: CBC, BMP 07/01/18 05:45 09/23/18 05:45 INR, PTT INR 1.02 (0.83-1.09) 06/23/18 18:48 Assessment/Plan Problem List - Problems (1) COPD exacerbation Code(s): J44.1 - CHRONIC OBSTRUCTIVE PULMONARY DISEASE W (ACUTE) EXACERBATION (2) Bronchitis Code(s): J40 - BRONCHITIS, NOT SPECIFIED ACUTE OR CHRONIC (3) COPD (chronic obstructive pulmonary disease) Code(s): J44.9 - CHRONIC OBSTRUCTIVE PULMONARY DISEASE, UNSPECIFIED (4) Pulmonary nodules/lesions, multiple Code(s): R91.8 - OTHER NONSPECIFIC ABNORMAL FINDING OF LUNG FIELD Assessment/Plan prednisone PO Zmax Home O2 No smoking Advised second hand smoke avoidance Symbicort and Spriva VTE prophylaxis Outpatient PFT TRILOGY DEVICE DR GUERRIER
[2018-07-01] MEDS ORDERED: SODIUM POLYSTYRENE SULFONATE 15 GM/60 ML BOTTLE PO ONE (13:15)
[2018-07-01] MEDS ORDERED: INSULIN (NOVOLOG) ASPART 100 UNITS/ML 10ML VIAL ONE (16:13)
--- NOTE | 2018-07-01 17:02 | PN ---
Progress Note, Physician Chief Complaint: Pt lying in bed,wheezing improved Afebrile pt is on Oxygen - Current Medication List Current Medications: Active Medications Albuterol Sulfate (Ventolin 0.083% Nebulizer Soln -) 1 amp NEB Q6H PRN PRN Reason: SHORT OF BREATH/WHEEZING Albuterol Sulfate (Ventolin 0.083% Nebulizer Soln -) 1 amp NEB RQID [facility] Last Admin: 07/01/18 16:10 Dose: 1 amp Atorvastatin Calcium (Lipitor -) 10 mg PO HS [facility] Last Admin: 06/30/18 21:22 Dose: 10 mg Azithromycin (Zithromax -) 250 mg PO DAILY [facility] Last Admin: 07/01/18 09:36 Dose: 250 mg Budesonide/Formoterol Fumarate (Symbicort 160/4.5mcg -) 2 puff IH BID [facility] Last Admin: 07/01/18 09:36 Dose: 2 puff Insulin Aspart (Novolog Vial Sliding Scale -) 1 vial SQ BIDAC [facility]; Protocol Last Admin: 07/01/18 16:34 Dose: 15 units Metformin HCl (Glucophage -) 500 mg PO BIDAC [facility] Last Admin: 07/01/18 16:33 Dose: 500 mg Methylprednisolone Sodium Succinate (Solu-Medrol -) 30 mg IVPUSH BID [facility] Stop: 07/01/18 22:01 Prednisone (Deltasone -) 60 mg PO DAILY [facility] Roflumilast (Daliresp -) 500 mcg PO DAILY [facility] Last Admin: 07/01/18 09:35 Dose: 500 mcg Tiotropium [place] (Spiriva Respimat) 2 puff IH DAILY [facility] Last Admin: 07/01/18 09:36 Dose: 2 puff - Objective Vital Signs: Vital Signs Temperature 97.3 F L 07/01/18 15:24 Pulse Rate 94 H 07/01/18 15:24 Respiratory Rate 20 07/01/18 15:24 Blood Pressure 126/79 07/01/18 15:24 O2 Sat by Pulse Oximetry (%) 97 07/01/18 09:00 Constitutional: Yes: No Distress Eyes: Yes: Conjunctiva Clear HENT: Yes: Atraumatic Neck: Yes: Supple, Trachea Midline Cardiovascular: Yes: Regular Rate and Rhythm Respiratory: Yes: Regular, CTA Bilaterally Gastrointestinal: Yes: Normal Bowel Sounds, Soft Musculoskeletal: Yes: WNL Extremities: Yes: WNL Edema: No Peripheral Pulses WNL: Yes Neurological: Yes: WNL, Alert ...Motor Strength: WNL Psychiatric: Yes: WNL Labs: CBC, BMP 07/01/18 05:45 07/01/18 05:45 INR, PTT INR 1.02 (0.83-1.09) 06/23/18 18:48 Assessment/Plan COPD excacerbation, bronchitis Hypoxia DM,HTN ypercholestrolemia Lung nodule PLAN Continue OXYGEN Continue bronchodialators PUL f/u po steroid tommorow Will monitor PT
[2018-07-01] MEDS: ATORVASTATIN CA 10 MG TABLET (FP) PO SCH (21:14)
[2018-07-01] MEDS ORDERED: methylPREDNISolone NA SUCC 40 MG/1 ML VIAL IVPUSH SCH (22:00)
[2018-07-02] MEDS: metFORMIN HCL 500 MG TABLET (FP) PO SCH ×2 (06:33→17:53)
[2018-07-02] MEDS: INSULIN SLIDING SCALE (NOVOLOG) 1 VIAL SQ SCH ×2 (06:33→16:20)
[2018-07-02] MEDS: ALBUTEROL SO4 0.083% IH SOL 2.5 MG/3 ML VIAL.NEB. NEB SCH ×4 (07:35→20:39)
[2018-07-02 09:11] LABS: BLOOD UREA NITROGEN 43 mg/dL (7-18); CREATININE 1.2 mg/dL (0.55-1.3); GLUCOSE,RANDOM 181 mg/dL (74-106)
[2018-07-02 09:12] LABS: ALBUMIN 3.2 g/dl (3.4-5.0); ALK PHOS 81 U/L (45-117); ANION GAP 3 MMOL/L (8-16); BILIRUBIN,TOTAL 0.2 mg/dL (0.2-1); CALCIUM 9.8 mg/dL (8.5-10.1); CHLORIDE 95 mmol/L (98-107); CO2 38 mmol/L (21-32); SGOT/AST 11 U/L (15-37); SGPT/ALT 44 U/L (13-61); SODIUM 136 mmol/L (136-145); TOT PROT 6.4 g/dl (6.4-8.2)
[2018-07-02 09:22] LABS: POTASSIUM 6.2 mmol/L (3.5-5.1)
--- NOTE | 2018-07-02 09:22 | PN ---
Progress Note, Physician Chief Complaint: Pt lying in bed,wheezing improved Afebrile pt is on Oxygen Pt is on po steroid - Current Medication List Current Medications: Active Medications Albuterol Sulfate (Ventolin 0.083% Nebulizer Soln -) 1 amp NEB Q6H PRN PRN Reason: SHORT OF BREATH/WHEEZING Albuterol Sulfate (Ventolin 0.083% Nebulizer Soln -) 1 amp NEB RQID [facility] Last Admin: 07/02/18 07:35 Dose: 1 amp Atorvastatin Calcium (Lipitor -) 10 mg PO HS [facility] Last Admin: 07/01/18 21:14 Dose: 10 mg Azithromycin (Zithromax -) 250 mg PO DAILY [facility] Last Admin: 07/01/18 09:36 Dose: 250 mg Budesonide/Formoterol Fumarate (Symbicort 160/4.5mcg -) 2 puff IH BID [facility] Last Admin: 07/01/18 21:14 Dose: 2 puff Insulin Aspart (Novolog Vial Sliding Scale -) 1 vial SQ BIDAC [facility]; Protocol Last Admin: 07/02/18 06:33 Dose: 5 units Metformin HCl (Glucophage -) 500 mg PO BIDAC [facility] Last Admin: 07/02/18 06:33 Dose: 500 mg Prednisone (Deltasone -) 60 mg PO DAILY [facility] Roflumilast (Daliresp -) 500 mcg PO DAILY [facility] Last Admin: 07/01/18 09:35 Dose: 500 mcg Tiotropium [place] (Spiriva Respimat) 2 puff IH DAILY [facility] Last Admin: 07/01/18 09:36 Dose: 2 puff - Objective Vital Signs: Vital Signs Temperature 98.3 F 07/02/18 06:45 Pulse Rate 81 07/02/18 06:45 Respiratory Rate 20 07/02/18 06:45 Blood Pressure 119/73 07/02/18 06:45 O2 Sat by Pulse Oximetry (%) 97 07/01/18 21:00 Constitutional: Yes: No Distress Eyes: Yes: Conjunctiva Clear HENT: Yes: Atraumatic Neck: Yes: Supple Cardiovascular: Yes: Regular Rate and Rhythm Respiratory: Yes: Regular, CTA Bilaterally Gastrointestinal: Yes: Normal Bowel Sounds Musculoskeletal: Yes: WNL Extremities: Yes: WNL Edema: No Peripheral Pulses WNL: Yes Neurological: Yes: WNL, Alert ...Motor Strength: WNL Psychiatric: Yes: WNL, Alert Labs: CBC, BMP 07/01/18 05:45 07/02/18 07:10 INR, PTT INR 1.02 (0.83-1.09) 06/23/18 18:48 Assessment/Plan COPD excacerbation, bronchitis Hypoxia DM,HTN hypercholestrolemia Lung nodule PLAN Continue OXYGEN Continue bronchodialators PUL f/u po steroid today Will monitor PT
[2018-07-02] MEDS ORDERED: PT OWN MED DRAWER 7, Y5N ONE ×3 (09:35→20:51)
[2018-07-02] MEDS: BUDESONIDE/FORMETEROL FUMARATE 160/4.5 mcg INHALER IH SCH ×2 (09:39→22:02)
[2018-07-02] MEDS: predniSONE 20 MG TABLET (UD) PO SCH (09:39)
[2018-07-02] MEDS: ROFLUMILAST 500 MCG TABLET PO SCH (09:39)
[2018-07-02] MEDS: TIOTROPIUM BROMIDE 2.5 MCG (SPIRIVA) RESPIMAT INHALER IH SCH (09:39)
[2018-07-02] MEDS: AZITHROMYCIN 250 MG TABLET PO SCH (09:40)
[2018-07-02] MEDS ORDERED: SODIUM POLYSTYRENE SULFONATE 15 GM/60 ML BOTTLE PO ONE (10:00)
--- NOTE | 2018-07-02 12:17 | PN ---
Progress Note (short form) - Note Progress Note: PULMONARY States breathing improving. +cough with white sputum. No fevers or chills. Vital Signs Period Temp Pulse Resp BP Sys/Rm Pulse Ox Last 24 Hr 97.3 F-98.3 F 81-102 18-20 119-126/63-79 97-99 Gen: NAD at rest Heart: RRR Lung: distant breath sounds Abd: soft, nontender Ext: no edema CBC, BMP 07/01/18 05:45 07/02/18 07:10 Active Medications Albuterol Sulfate (Ventolin 0.083% Nebulizer Soln -) 1 amp NEB Q6H PRN PRN Reason: SHORT OF BREATH/WHEEZING Albuterol Sulfate (Ventolin 0.083% Nebulizer Soln -) 1 amp NEB RQID [facility] Last Admin: 07/02/18 11:20 Dose: 1 amp Atorvastatin Calcium (Lipitor -) 10 mg PO HS [facility] Last Admin: 07/01/18 21:14 Dose: 10 mg Azithromycin (Zithromax -) 250 mg PO DAILY [facility] Last Admin: 07/02/18 09:40 Dose: 250 mg Budesonide/Formoterol Fumarate (Symbicort 160/4.5mcg -) 2 puff IH BID [facility] Last Admin: 07/02/18 09:39 Dose: 2 puff Insulin Aspart (Novolog Vial Sliding Scale -) 1 vial SQ BIDAC [facility]; Protocol Last Admin: 07/02/18 06:33 Dose: 5 units Metformin HCl (Glucophage -) 500 mg PO BIDAC [facility] Last Admin: 07/02/18 06:33 Dose: 500 mg Prednisone (Deltasone -) 60 mg PO DAILY [facility] Last Admin: 07/02/18 09:39 Dose: 60 mg Roflumilast (Daliresp -) 500 mcg PO DAILY [facility] Last Admin: 07/02/18 09:39 Dose: 500 mcg Tiotropium [place] (Spiriva Respimat) 2 puff IH DAILY [facility] Last Admin: 07/02/18 09:39 Dose: 2 puff A/P Acute COPD Exacerbation Acute Bronchitis Lung Nodules - prednisone taper - inhaled bronchodilators - O2 to keep SpO2 >90% - kayexalate - complete antibiotics - DVT prophylaxis
[2018-07-02 15:07] VITALS: BMI 22.1
[2018-07-02] MEDS ORDERED: INSULIN (NOVOLOG) ASPART 100 UNITS/ML 10ML VIAL ONE (16:19)
[2018-07-02] MEDS: ATORVASTATIN CA 10 MG TABLET (FP) PO SCH (22:02)
[2018-07-03] MEDS: INSULIN SLIDING SCALE (NOVOLOG) 1 VIAL SQ SCH ×2 (06:17→16:47)
[2018-07-03] MEDS: metFORMIN HCL 500 MG TABLET (FP) PO SCH ×2 (06:18→17:39)
[2018-07-03] MEDS ORDERED: PT OWN MED DRAWER 7, Y5N ONE ×2 (06:44→09:33)
[2018-07-03] MEDS: ALBUTEROL SO4 0.083% IH SOL 2.5 MG/3 ML VIAL.NEB. NEB SCH ×4 (07:20→21:03)
[2018-07-03 07:36] LABS: BASO % 0.3 % (0-2.0); EOS % 0.3 % (0-4.5); HEMATOCRIT 42.5 % (35.4-49); HEMOGLOBIN 13.8 GM/dL (11.7-16.9); LYMPH % 15.7 % (8-40); MCH 29.9 pg (25.7-33.7); MCHC 32.4 g/dl (32.0-35.9); MEAN CELL VOLUME 92.5 fl (80-96); MEAN PLT VOLUME 8.1 fl (7.5-11.1); MONO % 7.9 % (3.8-10.2); NEUT % 75.8 % (42.8-82.8); PLATELET COUNT 193 K/MM3 (134-434); RBC 4.59 M/mm3 (4.00-5.60); RDW 14.2 % (11.9-15.9); WHITE BLOOD COUNT 18.4 K/mm3 (4.0-10.0)
[2018-07-03 07:59] LABS: ALBUMIN 3.3 g/dl (3.4-5.0); ALK PHOS 88 U/L (45-117); ANION GAP 9 MMOL/L (8-16); BILIRUBIN,TOTAL 0.4 mg/dL (0.2-1); BLOOD UREA NITROGEN 47 mg/dL (7-18); CALCIUM 9.5 mg/dL (8.5-10.1); CHLORIDE 100 mmol/L (98-107); CO2 35 mmol/L (21-32); CREATININE 1.1 mg/dL (0.55-1.3); GLUCOSE,RANDOM 113 mg/dL (74-106); POTASSIUM 4.5 mmol/L (3.5-5.1); SGOT/AST 12 U/L (15-37); SGPT/ALT 67 U/L (13-61); SODIUM 143 mmol/L (136-145); TOT PROT 6.5 g/dl (6.4-8.2)
--- NOTE | 2018-07-03 09:26 | PN ---
Progress Note, Physician Chief Complaint: Pt lying in bed,wheezing improved Afebrile pt is on Oxygen Pt is on po steroid K normal - Current Medication List Current Medications: Active Medications Albuterol Sulfate (Ventolin 0.083% Nebulizer Soln -) 1 amp NEB Q6H PRN PRN Reason: SHORT OF BREATH/WHEEZING Albuterol Sulfate (Ventolin 0.083% Nebulizer Soln -) 1 amp [facility]B [facility] Last Admin: 07/03/18 07:20 Dose: 1 amp Atorvastatin Calcium (Lipitor -) 10 mg PO HS [facility] Last Admin: 07/02/18 22:02 Dose: 10 mg Azithromycin (Zithromax -) 250 mg PO DAILY [facility] Last Admin: 07/02/18 09:40 Dose: 250 mg Budesonide/Formoterol Fumarate (Symbicort 160/4.5mcg -) 2 puff IH BID [facility] Last Admin: 07/02/18 22:02 Dose: 2 puff Insulin Aspart (Novolog Vial Sliding Scale -) 1 vial SQ BIDAC [facility]; Protocol Last Admin: 07/03/18 06:17 Dose: Not Given Metformin HCl (Glucophage -) 500 mg PO BIDAC [facility] Last Admin: 07/03/18 06:18 Dose: 500 mg Prednisone (Deltasone -) 60 mg PO DAILY [facility] Last Admin: 07/02/18 09:39 Dose: 60 mg Roflumilast (Daliresp -) 500 mcg PO DAILY [facility] Last Admin: 07/02/18 09:39 Dose: 500 mcg Tiotropium [place] (Spiriva Respimat) 2 puff IH [facility]ILY [facility] Last Admin: 07/02/18 09:39 Dose: 2 puff - Objective Vital Signs: Vital Signs Temperature 97.5 F L 07/03/18 06:00 Pulse Rate 92 H 07/03/18 06:00 Respiratory Rate 18 07/03/18 06:00 Blood Pressure 127/57 L 07/03/18 06:00 O2 Sat by Pulse Oximetry (%) 99 07/02/18 21:00 Constitutional: Yes: No Distress Eyes: Yes: Conjunctiva Clear HENT: Yes: Atraumatic Neck: Yes: Supple Cardiovascular: Yes: Regular Rate and Rhythm Respiratory: Yes: Regular, CTA Bilaterally Gastrointestinal: Yes: WNL Musculoskeletal: Yes: WNL Extremities: Yes: WNL Edema: No Peripheral Pulses WNL: Yes Neurological: Yes: WNL, Alert ...Motor Strength: WNL Psychiatric: Yes: WNL Labs: CBC, BMP 07/03/18 06:50 07/03/18 06:50 INR, PTT INR 1.02 (0.83-1.09) 06/23/18 18:48 Assessment/Plan COPD excacerbation, Leucocytosis ? steroid induced bronchitis Hypoxia DM,HTN hypercholestrolemia Lung nodule PLAN Continue OXYGEN Continue bronchodialators PUL f/u po steroid Will monitor PT
[2018-07-03] MEDS: predniSONE 20 MG TABLET (UD) PO SCH (09:51)
[2018-07-03] MEDS: TIOTROPIUM BROMIDE 2.5 MCG (SPIRIVA) RESPIMAT INHALER IH SCH (09:51)
[2018-07-03] MEDS: ROFLUMILAST 500 MCG TABLET PO SCH (09:52)
[2018-07-03] MEDS: AZITHROMYCIN 250 MG TABLET PO SCH (09:52)
[2018-07-03] MEDS: BUDESONIDE/FORMETEROL FUMARATE 160/4.5 mcg INHALER IH SCH ×2 (10:00→21:43)
[2018-07-03 10:59] LABS: ANISOCYTOSIS 1+; MACROCYTOSIS 1+; PLATELET ESTIMATE NORMAL
--- NOTE | 2018-07-03 11:18 | PN ---
Progress Note, Physician - Current Medication List Current Medications: Active Medications Albuterol Sulfate (Ventolin 0.083% Nebulizer Soln -) 1 amp NEB Q6H PRN PRN Reason: SHORT OF BREATH/WHEEZING Albuterol Sulfate (Ventolin 0.083% Nebulizer Soln -) 1 amp NEB RQID [facility] Last Admin: 07/03/18 07:20 Dose: 1 amp Atorvastatin Calcium (Lipitor -) 10 mg PO HS [facility] Last Admin: 07/02/18 22:02 Dose: 10 mg Azithromycin (Zithromax -) 250 mg PO DAILY [facility] Last Admin: 07/03/18 09:52 Dose: 250 mg Budesonide/Formoterol Fumarate (Symbicort 160/4.5mcg -) 2 puff IH BID [facility] Last Admin: 07/03/18 10:00 Dose: 2 puff Insulin Aspart (Novolog Vial Sliding Scale -) 1 vial SQ BIDAC [facility]; Protocol Last Admin: 07/03/18 06:17 Dose: Not Given Metformin HCl (Glucophage -) 500 mg PO BIDAC [facility] Last Admin: 07/03/18 06:18 Dose: 500 mg Prednisone (Deltasone -) 60 mg PO DAILY [facility] Last Admin: 07/03/18 09:51 Dose: 60 mg Roflumilast (Daliresp -) 500 mcg PO DAILY [facility] Last Admin: 07/03/18 09:52 Dose: 500 mcg Tiotropium [place] (Spiriva Respimat) 2 puff IH DAILY [facility] Last Admin: 07/03/18 09:51 Dose: 2 puff - Objective Vital Signs: Vital Signs Temperature 97.8 F 07/03/18 09:00 Pulse Rate 100 H 07/03/18 09:00 Respiratory Rate 18 07/03/18 09:00 Blood Pressure 122/73 07/03/18 09:00 O2 Sat by Pulse Oximetry (%) 99 07/02/18 21:00 Labs: CBC, BMP 07/03/18 06:50 07/03/18 06:50 INR, PTT INR 1.02 (0.83-1.09) 06/23/18 18:48 Assessment/Plan COPD excacerbation, Leucocytosis ? steroid induced bronchitis Hypoxia DM,HTN hypercholestrolemia Lung nodule PLAN Continue OXYGEN Continue bronchodialators PUL f/u po steroid Will monitor PT Addendum Pt needs to go toSNF to be weaned off O2 to return to baseline inorder to go back to [place]
--- NOTE | 2018-07-03 12:18 | PN ---
Progress Note (short form) - Note Progress Note: PULMONARY States breathing improving. +cough with white sputum. No fevers or chills. Vital Signs Period Temp Pulse Resp BP Sys/Rm Pulse Ox Last 24 Hr 97.5 F-98.2 F 91-100 18-18 122-131/57-75 95-99 Gen: NAD at rest Heart: RRR Lung: distant breath sounds Abd: soft, nontender Ext: no edema CBC, BMP 07/03/18 06:50 07/03/18 06:50 Active Medications Albuterol Sulfate (Ventolin 0.083% Nebulizer Soln -) 1 amp NEB Q6H PRN PRN Reason: SHORT OF BREATH/WHEEZING Albuterol Sulfate (Ventolin 0.083% Nebulizer Soln -) 1 amp NEB RQID [facility] Last Admin: 07/03/18 11:32 Dose: 1 amp Atorvastatin Calcium (Lipitor -) 10 mg PO HS [facility] Last Admin: 07/02/18 22:02 Dose: 10 mg Azithromycin (Zithromax -) 250 mg PO DAILY [facility] Last Admin: 07/03/18 09:52 Dose: 250 mg Budesonide/Formoterol Fumarate (Symbicort 160/4.5mcg -) 2 puff IH BID [facility] Last Admin: 07/03/18 10:00 Dose: 2 puff Insulin Aspart (Novolog Vial Sliding Scale -) 1 vial SQ BIDAC [facility]; Protocol Last Admin: 07/03/18 06:17 Dose: Not Given Metformin HCl (Glucophage -) 500 mg PO BIDAC [facility] Last Admin: 07/03/18 06:18 Dose: 500 mg Prednisone (Deltasone -) 60 mg PO DAILY [facility] Last Admin: 07/03/18 09:51 Dose: 60 mg Roflumilast (Daliresp -) 500 mcg PO DAILY [facility] Last Admin: 07/03/18 09:52 Dose: 500 mcg Tiotropium [place] (Spiriva Respimat) 2 puff IH DAILY [facility] Last Admin: 07/03/18 09:51 Dose: 2 puff A/P Acute COPD Exacerbation Acute Bronchitis Lung Nodules - prednisone taper - inhaled bronchodilators - O2 to keep SpO2 >90% - complete antibiotics - DVT prophylaxis
[2018-07-03] MEDS ORDERED: INSULIN (NOVOLOG) ASPART 100 UNITS/ML 10ML VIAL SQ ONE (16:45)
[2018-07-03] MEDS ORDERED: INSULIN (NOVOLOG) ASPART 100 UNITS/ML 10ML VIAL ONE (17:10)
[2018-07-03] MEDS: ATORVASTATIN CA 10 MG TABLET (FP) PO SCH (21:43)
[2018-07-04] MEDS: metFORMIN HCL 500 MG TABLET (FP) PO SCH ×2 (06:35→17:46)
[2018-07-04] MEDS: INSULIN SLIDING SCALE (NOVOLOG) 1 VIAL SQ SCH ×2 (06:56→17:46)
[2018-07-04] MEDS ORDERED: PT OWN MED DRAWER 7, Y5N ONE ×2 (07:01→09:53)
[2018-07-04] MEDS ORDERED: INSULIN (LEVEMIR) 100 UNITS/ML UNITS SQ ONE (07:01)
[2018-07-04 07:49] LABS: BASO % 0.4 % (0-2.0); EOS % 0.4 % (0-4.5); HEMATOCRIT 39.9 % (35.4-49); HEMOGLOBIN 12.9 GM/dL (11.7-16.9); LYMPH % 21.8 % (8-40); MCH 29.6 pg (25.7-33.7); MCHC 32.3 g/dl (32.0-35.9); MEAN CELL VOLUME 91.6 fl (80-96); MONO % 6.5 % (3.8-10.2); NEUT % 70.9 % (42.8-82.8); PLATELET COUNT 179 K/MM3 (134-434); RBC 4.36 M/mm3 (4.00-5.60); RDW 14.4 % (11.9-15.9); WHITE BLOOD COUNT 17.2 K/mm3 (4.0-10.0)
[2018-07-04 08:20] LABS: ALBUMIN 3.1 g/dl (3.4-5.0); ALK PHOS 81 U/L (45-117); ANION GAP 5 MMOL/L (8-16); BILIRUBIN,TOTAL 0.4 mg/dL (0.2-1); BLOOD UREA NITROGEN 42 mg/dL (7-18); CALCIUM 8.8 mg/dL (8.5-10.1); CHLORIDE 101 mmol/L (98-107); CO2 32 mmol/L (21-32); GLUCOSE,RANDOM 131 mg/dL (74-106); SGOT/AST 11 U/L (15-37); SGPT/ALT 51 U/L (13-61); SODIUM 138 mmol/L (136-145); TOT PROT 6.1 g/dl (6.4-8.2)
[2018-07-04] MEDS: ALBUTEROL SO4 0.083% IH SOL 2.5 MG/3 ML VIAL.NEB. NEB SCH ×3 (08:31→15:52)
--- NOTE | 2018-07-04 09:10 | PN ---
Progress Note, Physician Chief Complaint: Pt lying in bed,wheezing improved Afebrile pt is on Oxygen Pt is on po steroid K normal - Current Medication List Current Medications: Active Medications Albuterol Sulfate (Ventolin 0.083% Nebulizer Soln -) 1 amp NEB Q6H PRN PRN Reason: SHORT OF BREATH/WHEEZING Albuterol Sulfate (Ventolin 0.083% Nebulizer Soln -) 1 amp NEB RQID [facility] Last Admin: 07/04/18 08:31 Dose: 1 amp Atorvastatin Calcium (Lipitor -) 10 mg PO HS [facility] Last Admin: 07/03/18 21:43 Dose: 10 mg Azithromycin (Zithromax -) 250 mg PO DAILY [facility] Last Admin: 07/03/18 09:52 Dose: 250 mg Budesonide/Formoterol Fumarate (Symbicort 160/4.5mcg -) 2 puff IH BID [facility] Last Admin: 07/03/18 21:43 Dose: 2 puff Insulin Aspart (Novolog Vial Sliding Scale -) 1 vial SQ BIDAC [facility]; Protocol Last Admin: 07/04/18 06:56 Dose: Not Given Metformin HCl (Glucophage -) 500 mg PO BIDAC [facility] Last Admin: 07/04/18 06:35 Dose: 500 mg Prednisone (Deltasone -) 60 mg PO DAILY [facility] Last Admin: 07/03/18 09:51 Dose: 60 mg Roflumilast (Daliresp -) 500 mcg PO DAILY [facility] Last Admin: 07/03/18 09:52 Dose: 500 mcg Tiotropium [place] (Spiriva Respimat) 2 puff IH DAILY [facility] Last Admin: 07/03/18 09:51 Dose: 2 puff - Objective Vital Signs: Vital Signs Temperature 98.3 F 07/04/18 06:00 Pulse Rate 89 07/04/18 06:00 Respiratory Rate 18 07/04/18 06:00 Blood Pressure 134/69 07/04/18 06:00 O2 Sat by Pulse Oximetry (%) 98 07/03/18 21:00 Constitutional: Yes: No Distress Eyes: Yes: Conjunctiva Clear HENT: Yes: Atraumatic Neck: Yes: Supple Cardiovascular: Yes: Regular Rate and Rhythm Respiratory: Yes: Regular, CTA Bilaterally, Diminished, On Nasal O2 Gastrointestinal: Yes: Normal Bowel Sounds Musculoskeletal: Yes: WNL Extremities: Yes: WNL Edema: No Peripheral Pulses WNL: Yes Neurological: Yes: WNL ...Motor Strength: WNL Psychiatric: Yes: WNL Labs: CBC, BMP 07/04/18 06:20 07/04/18 06:20 INR, PTT INR 1.02 (0.83-1.09) 06/23/18 18:48 Assessment/Plan COPD excacerbation, Leucocytosis ? steroid induced bronchitis Hypoxia DM,HTN hypercholestrolemia Lung nodule PLAN Continue OXYGEN Continue bronchodialators PUL f/u po steroid Will monitor PT
[2018-07-04] MEDS: predniSONE 20 MG TABLET (UD) PO SCH (09:54)
[2018-07-04] MEDS: ROFLUMILAST 500 MCG TABLET PO SCH (09:54)
[2018-07-04] MEDS: AZITHROMYCIN 250 MG TABLET PO SCH (09:54)
[2018-07-04] MEDS: TIOTROPIUM BROMIDE 2.5 MCG (SPIRIVA) RESPIMAT INHALER IH SCH (09:54)
[2018-07-04] MEDS: BUDESONIDE/FORMETEROL FUMARATE 160/4.5 mcg INHALER IH SCH (09:56)
[2018-07-04 11:01] LABS: ANISOCYTOSIS 2+; MACROCYTOSIS 1+; PLATELET ESTIMATE NORMAL
--- NOTE | 2018-07-04 12:34 | PN ---
Progress Note, Physician History of Present Illness: PULMONARY ALERT,COMFORTABLE,-RESP DISTRESS - Current Medication List Current Medications: Active Medications Albuterol Sulfate (Ventolin 0.083% Nebulizer Soln -) 1 amp NEB Q6H PRN PRN Reason: SHORT OF BREATH/WHEEZING Albuterol Sulfate (Ventolin 0.083% Nebulizer Soln -) 1 amp NEB RQID [facility] Last Admin: 07/04/18 11:57 Dose: 1 amp Atorvastatin Calcium (Lipitor -) 10 mg PO HS [facility] Last Admin: 07/03/18 21:43 Dose: 10 mg Azithromycin (Zithromax -) 250 mg PO DAILY [facility] Last Admin: 07/04/18 09:54 Dose: 250 mg Budesonide/Formoterol Fumarate (Symbicort 160/4.5mcg -) 2 puff IH BID [facility] Last Admin: 07/04/18 09:56 Dose: 2 puff Insulin Aspart (Novolog Vial Sliding Scale -) 1 vial SQ BIDAC [facility]; Protocol Last Admin: 07/04/18 06:56 Dose: Not Given Metformin HCl (Glucophage -) 500 mg PO BIDAC [facility] Last Admin: 07/04/18 06:35 Dose: 500 mg Prednisone (Deltasone -) 60 mg PO DAILY [facility] Last Admin: 07/04/18 09:54 Dose: 60 mg Roflumilast (Daliresp -) 500 mcg PO DAILY [facility] Last Admin: 07/04/18 09:54 Dose: 500 mcg Tiotropium [place] (Spiriva Respimat) 2 puff IH DAILY [facility] Last Admin: 07/04/18 09:54 Dose: 2 puff - Objective Vital Signs: Vital Signs Temperature 98.3 F 07/04/18 06:00 Pulse Rate 89 07/04/18 06:00 Respiratory Rate 18 07/04/18 06:00 Blood Pressure 134/69 07/04/18 06:00 O2 Sat by Pulse Oximetry (%) 98 07/03/18 21:00 Constitutional: Yes: Well Nourished, Calm Eyes: Yes: WNL HENT: Yes: WNL Neck: Yes: WNL Cardiovascular: Yes: Regular Rate and Rhythm, S1, S2 Respiratory: Yes: Diminished Gastrointestinal: Yes: Normal Bowel Sounds, Soft Extremities: Yes: WNL Edema: No Labs: CBC, BMP 07/04/18 06:20 07/04/18 06:20 INR, PTT INR 1.02 (0.83-1.09) 06/23/18 18:48 Assessment/Plan Problem List - Problems (1) COPD exacerbation Code(s): J44.1 - CHRONIC OBSTRUCTIVE PULMONARY DISEASE W (ACUTE) EXACERBATION (2) Bronchitis Code(s): J40 - BRONCHITIS, NOT SPECIFIED ACUTE OR CHRONIC (3) COPD (chronic obstructive pulmonary disease) Code(s): J44.9 - CHRONIC OBSTRUCTIVE PULMONARY DISEASE, UNSPECIFIED (4) Pulmonary nodules/lesions, multiple Code(s): R91.8 - OTHER NONSPECIFIC ABNORMAL FINDING OF LUNG FIELD Assessment/Plan prednisone taper PO Zmax Home O2 No smoking Advised second hand smoke avoidance Symbicort and Spriva VTE prophylaxis Outpatient PFT TRILOGY DEVICE DR GUERRIER
[2018-07-04 16:32] VITALS: BP 118/78; TEMP 97.8
[2018-07-04 17:03] VITALS: PULSE 108
[2018-07-05] MEDS ORDERED: predniSONE 20 MG TABLET (UD) PO SCH (10:00)
== END 2018-07-04 17:54 | DRG 192 ==
LOC: JER 18:40 → JERBED 21:23 → J5S 23:28
PROVIDERS: ADMIT Family Medicine; ATTEND Family Medicine
DX: J44.1 Chronic obstructive pulmonary disease with (acute) exacerbation (principal); R91.8 Other nonspecific abnormal finding of lung field; D72.829 Elevated white blood cell count, unspecified; E11.9 Type 2 diabetes mellitus without complications; I10 Essential (primary) hypertension; J20.9 Acute bronchitis, unspecified; E87.5 Hyperkalemia; J44.0 Chronic obstructive pulmonary disease with (acute) lower respiratory infection; R09.02 Hypoxemia
CPT/HCPCS: 36415; 71045-TC-FY; 80048; 80053; 81003; 82803; 82962; 83605; 84132; 84484; 85025; 85027; 85610; 85730; 87040; 87086; 93005; 93010; 94640; 94761; 97116-GP; 97161-GP; 99283-25; J0131; J7030

== ENCOUNTER 2019-04-13 17:38 | Emergency (ER) | payer OTHER ==
[2019-04-13 17:51] VITALS: BP 127/76; PULSE 80; TEMP 98.2; BMI 25.8
--- NOTE | 2019-04-13 18:13 | PDOC ---
History of Present Illness - General Chief Complaint: Pain Stated Complaint: LT ARM PAIN Time Seen by Provider: 04/13/19 18:09 - History of Present Illness Initial Comments: 04/13/19 18:11 58-year-old male with a past medical history significant for hypertension and asthma presents for evaluation of atraumatic left shoulder pain 3 weeks without systemic symptoms. Pain worse with movement. Past History - Past Medical History Allergies/Adverse Reactions: Allergies Allergy/AdvReac Type Severity Reaction Status Date / Time No Known Allergies Allergy Verified 06/23/18 19:05 Home Medications: Ambulatory Orders metFORMIN HCL [Glucophage -] 500 mg PO BID 09/15/15 Simvastatin [Zocor -] 10 mg PO HS 10/09/15 Tiotropium [place] [Spiriva] 1 inh IH DAILY 01/14/17 Albuterol 0.083% Nebulizer Ema [Ventolin 0.083% Nebulizer Soln -] 1 neb NEB Q6H PRN 07/16/17 Albuterol Sulfate [Proair Hfa] 8.5 gm IH Q6H 03/26/18 Umeclidinium Brm/Vilanterol Tr [Anoro Ellipta 62.5-25 Mcg INH] 1 each IH DAILY 03/26/18 predniSONE [Deltasone -] 50 mg PO DAILY 3 Days tablet 07/04/18 Anemia: No Asthma: Yes Cancer: No Cardiac Disorders: No CVA: No COPD: Yes CHF: No Dementia: No Diabetes: Yes (DM) GI Disorders: No Disorders: No HTN: Yes Hypercholesterolemia: Yes Liver Disease: No Seizures: No Thyroid Disease: No - Surgical History Abdominal Surgery: No Appendectomy: No Cardiac Surgery: No Cholecystectomy: No Lung Surgery: No Neurologic Surgery: No Orthopedic Surgery: No - Immunization History Immunization Up to Date: Yes - Suicide/Smoking/Psychosocial Hx Smoking History: Former smoker Have you smoked in the past 12 months: No Number of Cigarettes Smoked Daily: 0 If you are a former smoker, when did you quit?: 5 years ago Cigars Per Day: 0 Information on smoking cessation initiated: No 'Breaking Loose' booklet given: 06/28/16 Hx Alcohol Use: No Drug/Substance Use Hx: No Substance Use Type: None Hx Substance Use Treatment: No Review of Systems - Review of Systems Musculoskeletal: Yes: Joint Pain *Physical Exam - Vital Signs Last Vital Signs Temp Pulse Resp BP Pulse Ox 98.2 F 80 18 127/76 94 L 04/13/19 17:48 04/13/19 17:48 04/13/19 17:48 04/13/19 17:48 04/13/19 17:48 - Physical Exam Comments: 04/13/19 18:11 Left shoulder examination full range of motion no tenderness. 5 out of 5 strength super spinatus isolation internal and external rotation. Positive impingement maneuvers negative Spurling maneuver no gross sensory motor deficits neurovascular intact. Medical Decision Making - Medical Decision Making 04/13/19 18:12 Left shoulder impingement, follow-up with orthopedic. Discussed use of Tylenol only for pain because of his hypertension. *DC/Admit/Observation/Transfer Diagnosis at time of Disposition: Impingement syndrome, shoulder, left - Discharge Dispostion Disposition: HOME Condition at time of disposition: Stable Decision to Admit order: No - Referrals Referrals: Mo Dwyer DO [Staff Physician] - - Patient Instructions Printed Discharge Instructions: Shoulder Tendinopathy Additional Instructions: Tylenol for pain. Return to the emergency room for worsening symptoms. Follow- up with orthopedic surgery in one to 2 days without fail for further evaluation and treatment options. - Post Discharge Activity
== END 2019-04-13 18:29 | disposition home or self-care (01) ==
LOC: JERFT 17:38
DX: M75.42 Impingement syndrome of left shoulder (principal); I10 Essential (primary) hypertension; E78.5 Hyperlipidemia, unspecified; E11.9 Type 2 diabetes mellitus without complications; Z79.84 Long term (current) use of oral hypoglycemic drugs; J44.9 Chronic obstructive pulmonary disease, unspecified; J45.909 Unspecified asthma, uncomplicated
CPT/HCPCS: 99282-25

== ENCOUNTER 2019-05-16 20:56 | Inpatient (IN) | payer OTHER | END 2019-05-23 20:43 | LOC: JER 20:56 → JERBED 05-17 00:37 → J4S 05-17 23:39 ==

== ENCOUNTER 2020-04-21 13:21 | Inpatient (IN) | payer OTHER ==
[2020-04-21 13:51] VITALS: BMI 21.2
[2020-04-21] MEDS ORDERED: predniSONE 20 MG TABLET (UD) PO ONE (14:22)
[2020-04-21] MEDS ORDERED: predniSONE 20 MG TABLET (UD) ONE (14:24)
[2020-04-21] MEDS ORDERED: ALBUTEROL SO4 2.5/IPRATROPIUM 0.5 INH SOL 3 ML VIAL.NEB. NEB ONE (14:24)
[2020-04-21] MEDS: ALBUTEROL SO4 2.5/IPRATROPIUM 0.5 INH SOL 3 ML VIAL.NEB. NEB SCH ×4 (14:28→15:15)
--- NOTE | 2020-04-21 14:28 | PDOC ---
History of Present Illness - General Chief Complaint: Shortness of Breath Stated Complaint: Shortness of Breath Time Seen by Provider: 04/21/20 13:56 - History of Present Illness Initial Comments: 59 yr old male coming in by EMS with pmh of COPD Non insulin dependent DM, and HLD presents to the ED for SOB for the past 2 days. Pt explains that he was fixing up his house two days ago and from then he started to get short of breat h. He explains he has had this in the past and it was a COPD exacerbation where he was admitted in the past. Pt explains the SOB has been getting worse and that he tried to take his nebulizor at home but did not help enough so decided to come in. Pt has taken two nebulizer treatments at home but none in EMS. Pt is supposed to be on O2 therapy at home but residence prior residence did not allow it. Pt denies fevers, chills, chest pain, edema, cough, or palpitatoins. Pt has used bipap in the past, but has never been intubated. PMH: DM COPD HLD hypothyroidism PSH: denies Meds: synthroid metformin albuterol zocor/simvastatin zepriva Iron B-complex Allergies: denies Social: smoked 1.5 packs since he was 44 quit 5 years ago; denies drinking; denies drugs; lives at [address] PCP: Dr. Mary Churchill: Dr. Burris 04/21/20 14:54 04/21/20 16:10 Past History - Medical History Allergies/Adverse Reactions: Allergies Allergy/AdvReac Type Severity Reaction Status Date / Time No Known Allergies Allergy Verified 05/17/19 02:10 Home Medications: Ambulatory Orders metFORMIN HCL [Glucophage -] 500 mg PO BID 09/15/15 Simvastatin [Zocor -] 20 mg PO HS 10/09/15 Tiotropium [place] [Spiriva] 1 inh IH DAILY 01/14/17 Albuterol 0.083% Nebulizer Ema [Ventolin 0.083% Nebulizer Soln -] 1 neb NEB Q6H PRN 07/16/17 Albuterol Sulfate [Proair Hfa] 8.5 gm IH Q6H 03/26/18 Umeclidinium Brm/Vilanterol Tr [Anoro Ellipta 62.5-25 Mcg INH] 1 each IH DAILY 03/26/18 Ferrous Gluconate [Iron] 256 mg PO DAILY 05/17/19 Vitamin B Complex 1 each PO DAILY 05/17/19 Levothyroxine [Synthroid -] 25 mcg PO DAILY 04/21/20 Meloxicam 7.5 mg PO DAILY 04/21/20 Anemia: No Asthma: Yes Cancer: No Cardiac Disorders: No CVA: No COPD: Yes CHF: No Dementia: No Diabetes: Yes (DM) GI Disorders: No Disorders: No HTN: Yes Hypercholesterolemia: Yes Liver Disease: No Seizures: No Thyroid Disease: No - Surgical History Abdominal Surgery: No Appendectomy: No Cardiac Surgery: No Cholecystectomy: No Lung Surgery: No Neurologic Surgery: No Orthopedic Surgery: No - Immunization History Immunization Up to Date: Yes - Psycho-Social/Smoking History Smoking History: Former smoker Have you smoked in the past 12 months: No Number of Cigarettes Smoked Daily: 0 If you are a former smoker, when did you quit?: 5 y Cigars Per Day: 0 Information on smoking cessation initiated: No 'Breaking Loose' booklet given: 06/28/16 - Substance Abuse Hx (Audit-C & DAST Scrn) How often the patient has a drink containing alcohol: Never Score: In Men: 4 or > Positive; In Women: 3 or > Positive: 0 Screen Result (Pos requires Nsg. Audit-10AR): Negative In the last yr the pt used illegal drug/Rx for NonMed reason: No Score: Yes response is considered Positive: 0 Screen Result (Positive result requires Nsg. DAST-10): Negative Review of Systems - Review of Systems Comments:: GENERAL/CONSTITUTIONAL: No fever or chills. No weakness. HEAD, EYES, EARS, NOSE AND THROAT: No change in vision. No ear pain or discharge. No sore throat. CARDIOVASCULAR: No chest pain but does have SOB RESPIRATORY: No cough but Wheezing GASTROINTESTINAL: No nausea, vomiting, diarrhea or constipation. GENITOURINARY: No dysuria, frequency, or change in urination. MUSCULOSKELETAL: No joint or muscle swelling or pain. No neck or back pain. SKIN: No rash NEUROLOGIC: No headache, vertigo, loss of consciousness, or change in strength/sensation. ENDOCRINE: . No abnormal weight change HEMATOLOGIC/LYMPHATIC: No anemia, easy bleeding, or history of blood clots. ALLERGIC/IMMUNOLOGIC: No hives or skin allergy. *Physical Exam - Vital Signs Last Vital Signs Temp Pulse Resp BP Pulse Ox 99.2 F 111 H 24 H 134/66 96 04/21/20 13:25 04/21/20 13:25 04/21/20 13:25 04/21/20 13:25 04/21/20 13:25 04/21/20 16:18 96% on 2.5 L of O2 - Physical Exam GENERAL: Awake, alert, and fully oriented, in moderate distress HEAD: No signs of trauma, normocephalic, atraumatic EYES: PERRLA, EOMI, sclera anicteric, conjunctiva clear ENT: hearing grossly normal, nares patent, oropharynx clear without exudates. Moist mucosa NECK: Normal ROM, supple, no lymphadenopathy, JVD, or masses LUNGS:Bilateral wheeze and dimished lung sounds HEART: Regular rate and rhythm, normal S1 and S2, no murmurs, rubs or gallops, peripheral pulses normal and equal bilaterally. ABDOMEN: Soft, nontender, normoactive bowel sounds. No guarding, no rebound. No masses EXTREMITIES : Normal inspection, Normal range of motion, no edema. No clubbing or cyanosis. NEUROLOGICAL: Cranial nerves II through XII grossly intact. Normal speech, normal gait, no focal sensorimotor deficits SKIN: Warm, Dry, normal turgor, no rashes or lesions noted Heart Score/ECG Review - ECG Impressions Comment:: Normal Sinus rhythm Tachycardic at 103 Norml MO interval No T wave inversion or ST elevation Normal axis 04/21/20 14:45 ED Treatment Course - LABORATORY CBC & Chemistry Diagram: 04/21/20 14:58 04/21/20 14:58 - ADDITIONAL ORDERS Additional order review: Laboratory Results 04/21/20 13:29 POC Glucometer 151 04/21/20 13:29 POC Glucometer 151 Medical Decision Making - Medical Decision Making 04/21/20 14:37 Ddx: COPD exacerbation ACS PNA 59 yo male with pmh of COPD, DM, HLD presents to the ED with SOB for the past two days. Pt explains it does feel like COPD exacerbation. Lungs sounds are diminished. Due to tachycardia and decreased SpO2 will get cardiac work up. Labs: - CBC - CMP -EKG -CXR -Cardiac profile - Was giving 2 L of NC for pt because SpO2 was dropping to 85. Will give Duonebs and 60 g prednisone and reassess in 30 min. 04/21/20 15:09 After two rounds of neb pt was still hypoxic and sat around 84 without any O2. Will assess after final nebulizer tx. 04/21/20 16:05 After three neb treatments pts SpO2 went down to 78% so put pt back on 3L NC. Talked to Dr. Hernandez and she was informed of the pt condition. She said to admit to hospitalist. 04/21/20 16:[address] Carr and he agreed for admission. ABG was also done and sent up. 04/21/20 17:17 Lab called said PCO2 was in the 80s so talked to medicine residents at bedside and they asked if I could put in the Bipap order. BIPAP order was put in. Paged respiratory team. 04/21/20 18:58 Pt on Bipap on 40% O2 8 and SpO2 was at 92%. Pt is admitted but let night team know about pt because he is still in ED Discharge - Discharge Information Problems reviewed: Yes Clinical Impression/Diagnosis: COPD exacerbation, Acute on chronic respiratory failure with hypoxia and hypercapnia Condition: Fair - Admission Yes - Follow up/Referral - Patient Discharge Instructions - Post Discharge Activity - Transfer to Acute Care Facility Accepting Physician:: Dr. Wiley
--- NOTE | 2020-04-21 14:58 | PDOC ---
Attending Attestation - Resident Resident Name: AlfonsomikiDominguez - ED Attending Attestation I have performed the following: I have examined & evaluated the patient, The case was reviewed & discussed with the resident, I agree w/resident's findings & plan - HPI HPI: 04/21/20 14:53 59y/o M h/o COPD prescribed home o2 but recently noncompliant because of living situation now p/w 2-3 days worsening SOB and chest tightness similar to past COPD exacerbation. denies chest pain/cough/f/c. at baseline, can walk to store but now becoming very dyspneic just tying his shoes. no leg swelling, presents for evaluation PCP Dr. Ritchie, Pulm Dr. Burris - Physicial Exam PE: 04/21/20 14:55 afebrile, o2 to 80s on room air, tachypnea and slight tachycardia alert, nad smiling and conversant but tachypneic no jvd s1s2 rrr faint BS bilaterally with expiratory wheezing L>R and prolonged expiration abd benign, no kayla/calf ttp - Critical Care Time Total Critical Care Time: 30 Critical Care Statement: The care of this patient involved high complexity decision making to prevent further life threatening deterioration of the patient's condition and/or to evaluate & treat vital organ system(s) failure or risk of failure. - Medical Decision Making 04/21/20 14:56 59y/o M with COPD exacerbation worsening over 2-3 days, now with acute hypoxic respiratory distress. r/o superimposed pna or cardiac process. labs ekg, cxr nebs, steroids, consider Mg close monitoring admit 04/21/20 15:50 cbc wnl, chem notable for HIREN with Cr 1.8, up from baseline. remains hypoxic on room air after nebs. supplemental O2, nebs, cxr, covid swab, admit Heart Score/ECG Review #1 ECG reviewed & interpreted by me at: 13:54 General ECG Interpretation: Sinus Rhythm, Normal Rate (103), Normal Intervals (qtc 448), No acute ischemic changes Discharge - Discharge Information Problems reviewed: Yes Clinical Impression/Diagnosis: COPD exacerbation, Acute on chronic respiratory failure with hypoxia and hypercapnia Condition: Fair - Follow up/Referral Referrals: Vinnie Osullivan [Primary Care Provider] - - Patient Discharge Instructions - Post Discharge Activity
[2020-04-21 15:19] LABS: BASO % 0.3 % (0-2.0); EOS % 0.4 % (0-4.5); HEMATOCRIT 34.8 % (35.4-49); HEMOGLOBIN 11.1 GM/dL (11.7-16.9); LYMPH % 17.9 % (8-40); MCH 31.2 pg (25.7-33.7); MCHC 31.8 g/dl (32.0-35.9); MEAN PLT VOLUME 8.7 fl (7.5-11.1); MONO % 7.2 % (3.8-10.2); NEUT % 74.2 % (42.8-82.8); PLATELET COUNT 122 K/MM3 (134-434); RBC 3.55 M/mm3 (4.00-5.60); RDW 16.7 % (11.9-15.9); WHITE BLOOD COUNT 8.9 K/mm3 (4.0-10.0)
--- NOTE | 2020-04-21 15:23 | EKG ---
Test Reason : Blood Pressure : / mmHG Vent. Rate : 103 BPM Atrial Rate : 103 BPM P-R Int : 174 ms QRS Dur : 080 ms QT Int : 342 ms P-R-T Axes : 060 045 073 degrees QTc Int : 448 ms SINUS TACHYCARDIA SEPTAL INFARCT , AGE UNDETERMINED ABNORMAL ECG Confirmed by MD EDWIN, KATIE ([id number]) on 04/21/2020 3:23:05 PM Referred By: Confirmed By:KATIE PINEDA MD
[2020-04-21 15:47] LABS: ALBUMIN 3.7 g/dl (3.4-5.0); ALK PHOS 93 U/L (45-117); ANION GAP 4 MMOL/L (8-16); BILIRUBIN,TOTAL 0.7 mg/dL (0.2-1); BLOOD UREA NITROGEN 15.5 mg/dL (7-18); CHLORIDE 107 mmol/L (98-107); CO2 35 mmol/L (21-32); CREATININE 1.8 mg/dL (0.55-1.3); GLUCOSE,RANDOM 118 mg/dL (74-106); POTASSIUM 4.6 mmol/L (3.5-5.1); SGOT/AST 14 U/L (15-37); SGPT/ALT 25 U/L (13-61); SODIUM 146 mmol/L (136-145); TOT PROT 6.8 g/dl (6.4-8.2)
[2020-04-21] MEDS ORDERED: MAGNESIUM SULF 50% (8.12 MEQ/2 ML-1 GM VIAL) IVPB ONE (15:49)
[2020-04-21] MEDS ORDERED: MAGNESIUM SULF 50% (8.12 MEQ/2 ML-1 GM VIAL) ONE (15:57)
[2020-04-21 17:10] LABS: ARTERIAL BLD GAS O2 SATURATION 95.8 mmHg (95-98); ARTERIAL BLOOD GAS BASE EXCESS 4.4 mmol/L (-2-2); ARTERIAL BLOOD GAS PO2 100.1 mmHg (80-100); ARTERIAL BLOOD GAS pH 7.207 (7.350-7.450)
--- NOTE | 2020-04-21 18:06 | PN ---
Teaching Attending Note Name of Resident: Augustin Collins ATTENDING PHYSICIAN STATEMENT I saw and evaluated the patient. I reviewed the resident's note and discussed the case with the resident. I agree with the resident's findings and plan as documented. SUBJECTIVE: 58-year-old male with a past medical history of COPD who is supposed to be on home O2 but has not been using it, DM, and HLD presents with shortness of breath that is worsened over the last several days. States that he has having dyspnea on exertion and now has shortness of breath while walking across the street. Denies fevers, cough, productive cough, chills, sick contacts, chest pain. Reports wheezing and general feeling of chest tightness. Is a former smoker but denies smoking for the last several years. He states that he has been compliant with his medications. In the emergency room, vitals significant for desaturations into the 70s and 80s on room air and a heart rate of 111. Labs significant for sodium of 146, CO2 of 35, creatinine of 1.8. PCO2 elevated >80. Chest x-ray results are pending but did not show any obvious infiltrates. Patient received duo nebs, magnesium, and prednisone. Started on BIPAP On exam patient has poor air movement with mild expiratory wheezes. Admitted to medicine for COPD exacerbation with acute on chronic hypercapneic/hypoxic respiratory failure, and HIREN. OBJECTIVE: Last Vital Signs Temp Pulse Resp BP Pulse Ox 99.2 F 92 H 19 122/63 89 L 04/21/20 13:25 04/21/20 18:00 04/21/20 18:00 04/21/20 18:00 04/21/20 18:00 PE: Per resident note Labs/Imaging: reviewed ASSESSMENT AND PLAN: 58-year-old male with a past medical history of COPD who is supposed to be on home O2 but has not been using it presents with shortness of breath that is worsened over the last several days. Admitted to medicine for COPD exacerbation with acute on chronic hypoxic respiratory failure, and HIREN. #Acute on chronic hypoxic/hypercapneic respiratory failure secondary to COPD exacerbation Pt is currently A&Ox3 and does not appear sedated/lethargic IV steroids methylprednisolone 40q8h Albuterol, Atrovent Azithromycin Oxygen to maintain sats over 90 -BIPAP -f/u blood gas overnight to ensure effectiveness of BIPAP -tele #Diabetes Low insulin sliding scale Hold home metformin #Hypertension Continue home medications DVTppx: lovenox
[2020-04-21] MEDS ORDERED: methylPREDNISolone NA SUCC 40 MG/1 ML VIAL IVPUSH ONE (18:07)
[2020-04-21] MEDS ORDERED: ALBUTEROL SO4 0.083% IH SOL 2.5 MG/3 ML VIAL.NEB. NEB PRN (18:07)
[2020-04-21] MEDS ORDERED: ALBUTEROL SO4 2.5/IPRATROPIUM 0.5 INH SOL 3 ML VIAL.NEB. NEB SCH (18:15)
[2020-04-21] MEDS ORDERED: methylPREDNISolone NA SUCC 40 MG/1 ML VIAL ONE (18:23)
[2020-04-21] MEDS ORDERED: AZITHROMYCIN IVPB 500 MG/250 ML BAG IVPB ONE ×2 (18:32→18:47)
--- NOTE | 2020-04-21 18:32 | HP ---
CHIEF COMPLAINT: gasping sensation and chest tightness PCP: Mary HISTORY OF PRESENT ILLNESS: 59M w/ pmh of NIDD, HLD, hypothyroidism, former chronic smoker(~40pack-year, quit 5y prior), COPD(was recommended to be on home O2, but never started d/t ?building code issues) presented to [facility] for concern of gasping for air with associated chest tightness. Had been experiencing chest tightness since yesterday afternoon(~5pm) when he was moving furniture around in his new home. Had mild improvement with home albuterol nebulizer. Returned to moving furniture the morning of admission and had chest tightness and severe gasping. was concerned so wanted pt in hospital. States that he typically uses his nebulizer 2x/weekly. No recent fever, chills, cough, sputum production, URI-like symptoms. Last COPD admission was ~1yr prior. Has not been on PO steroids since that admission. Never intubated. Has had BiPAP before. Has been social distancing and denies COVID contact. Lives with . 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 ER course was notable for: (1) Tmax 99.2, HR 111, 78-85% on RA (2) Cr 1.8 (3) troponin 0.02 (4) VB.207/89.7/100.1/34.8 (5) CXR: hyperaerated lungs, prominent Right preethi (6) prednisone 60, MgSO4 2g, duonebs x4 Recent Travel: denies PAST MEDICAL HISTORY: as above PAST SURGICAL HISTORY: upper LUE laceration repair Social History: Smokinpack year(1ppd from teenage years to as recent as 5ys prior) Alcohol: Drugs: Allergies No Known Allergies Allergy (Verified 05/17/19 02:10) HOME MEDICATIONS: Home Medications Medication Instructions Recorded metFORMIN HCL [Glucophage -] 500 mg PO BID 09/15/15 Simvastatin [Zocor -] 10 mg PO HS 10/09/15 Tiotropium [place] [Spiriva] 1 inh IH DAILY 01/14/17 Albuterol 0.083% Nebulizer Ema 1 neb NEB Q6H PRN 07/16/17 [Ventolin 0.083% Nebulizer Soln -] Albuterol Sulfate [Proair Hfa] 8.5 gm IH Q6H 03/26/18 Umeclidinium Brm/Vilanterol Tr 1 each IH DAILY 03/26/18 [Anoro Ellipta 62.5-25 Mcg INH] Ferrous Gluconate [Iron] 256 mg PO DAILY 05/17/19 Vitamin B Complex 1 each PO DAILY 05/17/19 REVIEW OF SYSTEMS CONSTITUTIONAL: Absent: fever, chills, diaphoresis, generalized weakness, malaise, loss of appetite, weight change HEENT: Absent: rhinorrhea, nasal congestion, throat pain, throat swelling, difficulty swallowing, mouth swelling, ear pain, eye pain, visual changes CARDIOVASCULAR: Absent: chest pain, syncope, palpitations, irregular heart rate, lightheadedness, peripheral edema RESPIRATORY: chest tightness, SOB, gasping Absent: cough, orthopnea, wheezing, stridor, hemoptysis GASTROINTESTINAL: Absent: abdominal pain, abdominal distension, nausea, vomiting, diarrhea, constipation, melena, hematochezia GENITOURINARY: Absent: dysuria, frequency, urgency, hesitancy, hematuria, flank pain, genital pain MUSCULOSKELETAL: Absent: myalgia, arthralgia, joint swelling, back pain, neck pain SKIN: Absent: rash, itching, pallor HEMATOLOGIC/IMMUNOLOGIC: Absent: easy bleeding, easy bruising, lymphadenopathy, frequent infections ENDOCRINE: Absent: unexplained weight gain, unexplained weight loss, heat intolerance, cold intolerance NEUROLOGIC: Absent: headache, focal weakness or paresthesias, dizziness, unsteady gait, seizure, mental status changes, bladder or bowel incontinence PSYCHIATRIC: Absent: anxiety, depression, suicidal or homicidal ideation, hallucinations. PHYSICAL EXAMINATION Vital Signs - 24 hr 04/21/20 04/21/20 04/21/20 13:25 17:49 18:00 Temperature 99.2 F Pulse Rate 111 H Pulse Rate [ 92 H Left Radial] Respiratory 24 H 19 Rate Blood Pressure 134/66 Blood Pressure 122/63 [Left Arm] O2 Sat by Pulse 96 92 L 89 L Oximetry (%) GENERAL: Awake, alert, and fully oriented, in no acute distress. HEAD: Normal with no signs of trauma. EYES: sclera anicteric, conjunctiva clear and w/o pallor. EARS, NOSE, THROAT: oropharynx clear without exudates. Moist mucous membranes. NECK: Normal range of motion, supple without lymphadenopathy, JVD, or masses. LUNGS: poor air movement, faint expiratory wheezes at the bases; speaking full sentences w/o issues. NC @3L HEART: Regular rate and rhythm, normal S1 and S2 without murmur, rub or gallop. ABDOMEN: Soft, nontender, not distended, no guarding, no rebound. MUSCULOSKELETAL: Normal range of motion at all joints. No bony deformities or tenderness. No CVA tenderness. UPPER EXTREMITIES: 2+ pulses, warm, well-perfused. No cyanosis. No clubbing. No peripheral edema. LUE with medial upper arm with well-healed scar LOWER EXTREMITIES: 2+ pulses, warm, well-perfused. No calf tenderness. No peripheral edema. NEUROLOGICAL: Normal speech. Laboratory Results - last 24 hr 04/21/20 04/21/20 04/21/20 13:29 14:58 14:58 WBC 8.9 RBC 3.55 L Hgb 11.1 L Hct 34.8 L MCV 98.0 H MCH 31.2 MCHC 31.8 L RDW 16.7 H Plt Count 122 L D MPV 8.7 Absolute Neuts (auto) 6.6 Neutrophils % 74.2 Lymphocytes % 17.9 D Monocytes % 7.2 Eosinophils % 0.4 D Basophils % 0.3 Nucleated RBC % 0 Anticoagulation Therapy Puncture Site Patient Temperature ABG pH ABG pCO2 ABG pO2 ABG HCO3 ABG O2 Sat (Measured) ABG O2 Content ABG Base Excess Keo Test Patient On Oxygen O2 Delivery Device Oxygen Flow Rate Vent Mode Vent Rate Mechanical Rate PEEP Pressure Support Vent Sodium 146 H Potassium 4.6 Chloride 107 Carbon Dioxide 35 H Anion Gap 4 L BUN 15.5 Creatinine 1.8 H Est GFR (CKD-EPI)AfAm 47.03 Est GFR (CKD-EPI)NonAf 40.58 POC Glucometer 151 Random Glucose 118 H Calcium 9.0 Total Bilirubin 0.7 AST 14 L ALT 25 Alkaline Phosphatase 93 Creatine Kinase 162 Creatine Kinase Index 2.0 CK-MB (CK-2) 3.3 Troponin I < 0.02 Total Protein 6.8 Albumin 3.7 04/21/20 16:50 WBC RBC Hgb Hct MCV MCH MCHC RDW Plt Count MPV Absolute Neuts (auto) Neutrophils % Lymphocytes % Monocytes % Eosinophils % Basophils % Nucleated RBC % Anticoagulation Therapy No Result Required. Puncture Site No Result Required. Patient Temperature No Result Required. ABG pH 7.207 L ABG pCO2 89.70 H* ABG pO2 100.1 H ABG HCO3 34.8 H ABG O2 Sat (Measured) 95.8 ABG O2 Content No Result Required. ABG Base Excess 4.4 H Keo Test No Result Required. Patient On Oxygen No Result Required. O2 Delivery Device No Result Required. Oxygen Flow Rate No Result Required. Vent Mode No Result Required. Vent Rate No Result Required. Mechanical Rate No Result Required. PEEP No Result Required. Pressure Support Vent No Result Required. Sodium Potassium Chloride Carbon Dioxide Anion Gap BUN Creatinine Est GFR (CKD-EPI)AfAm Est GFR (CKD-EPI)NonAf POC Glucometer Random Glucose Calcium Total Bilirubin AST ALT Alkaline Phosphatase Creatine Kinase Creatine Kinase Index CK-MB (CK-2) Troponin I Total Protein Albumin ASSESSMENT/PLAN: 59M w/ pmh of NIDD, HLD, hypothyroidism, former chronic smoker(~40pack-year, quit 5y prior), COPD(was recommended to be on home O2, but never started d/t ?building code issues) presented to [facility] for concern of gasping for air with associated chest tightness. Labs notable for Cr 1.8(baseline ?1.3), VBG showing acidosis(ph 7.20) and hypercapenia(CO2 89.7). Imaging notable for hyperaerated lungs. Admitted for COPD exacerbation #hypercapenic hypoxemic respiratory distress --likely to CO2 retention from COPDe; less likely PNA, less likely PE, less likely ACS > Tmax 99.2, HR 111, 78-85% on RA > VB.207/89.7/100.1/34.8 --rpt VBG @2100 > CXR: hyperaerated lungs, prominent Right preethi - solumedrol 40q8h - gopi duoneb, albuterol PRN - azithromycin #chest tightness -- likely from COPD(improved after duonebs x4 in ED); less likely from ACS(no EKG changes, no elevated troponin) > troponin 0.02, second pending - fu troponin #HIREN? vs CKD? > Cr 1.8(baseline 1.3) - Urine electrolytes --pending - gentle IVF - US renal pending #chronic hypothyroidism - cw home levothyroxine #chronic HLD - cw simvistatin FEN - NPO while on BiPAP. Can give diabetic diet if rpt VBG improved and dc BiPAP - NS @75 DVT PPX - SQH Family Medical History Family Hx Cancer: Mother (ovarian Ca), Sister (breast CA) Visit type - Emergency Visit Emergency Visit: Yes ED Registration Date: 04/21/20 Care time: The patient presented to the Emergency Department on the above date and was hospitalized for further evaluation of their emergent condition. - New Patient This patient is new to me today: Yes Date on this admission: 04/21/20 - Critical Care Critical Care patient: No ATTENDING PHYSICIAN STATEMENT I saw and evaluated the patient. I reviewed the resident's note and discussed the case with the resident. I agree with the resident's findings and plan as documented. SUBJECTIVE: OBJECTIVE: ASSESSMENT AND PLAN:
[2020-04-21 18:44] LABS: URINE APPEARANCE CLEAR; URINE BILIRUBIN NEGATIVE (NEGATIVE); URINE COLOR YELLOW; URINE GLUCOSE (UA) NEGATIVE (NEGATIVE); URINE KETONE NEGATIVE (NEGATIVE); URINE LEUK ESTERASE NEGATIVE (NEGATIVE); URINE NITRITE NEGATIVE (NEGATIVE); URINE PROTEIN NEGATIVE (NEGATIVE); URINE UROBILINOGEN 0.2 mg/dL (0.2-1.0)
[2020-04-21] MEDS ORDERED: ALBUTEROL SO4 HFA INHALER IH PRN (18:44)
[2020-04-21] MEDS ORDERED: SODIUM CHLORIDE 1,000 ML IV SCH (20:00)
[2020-04-21] MEDS ORDERED: ATORVASTATIN CA 10 MG TABLET (FP) ONE (21:42)
[2020-04-21] MEDS ORDERED: HEPARIN NA (PORCINE) 5,000 UNITS/ML 1ML VIAL ONE (21:42)
[2020-04-21] MEDS ORDERED: PATIENT'S OWN MEDICATION (NON-FORMULARY) (Simvastatin 20 MG) PO SCH (22:00)
[2020-04-21] MEDS: HEPARIN NA (PORCINE) 5,000 UNITS/ML 1ML VIAL SQ SCH (22:17)
[2020-04-21] MEDS: SODIUM CHLORIDE 1,000 ML IV SCH (22:17)
[2020-04-21] MEDS: ATORVASTATIN CA 10 MG TABLET (FP) PO SCH (22:17)
[2020-04-21] MEDS: INSULIN SLIDING SCALE (NOVOLOG) 1 VIAL SQ SCH (22:17)
[2020-04-21 23:30] LABS: VENOUS BASE EXCESS 0.6 mmol/L (-2-2); VENOUS O2 SATURATION 75.8 % (70-80)
[2020-04-21 23:33] LABS: VENOUS PH 7.187 (7.310-7.410)
[2020-04-21 23:34] LABS: VENOUS PCO2 83.8 mmHg (38-52)
[2020-04-22] MEDS ORDERED: methylPREDNISolone NA SUCC 40 MG/1 ML VIAL ONE ×2 (02:35→08:48)
[2020-04-22] MEDS: methylPREDNISolone NA SUCC 40 MG/1 ML VIAL IVPUSH SCH ×3 (02:43→17:18)
[2020-04-22] MEDS ORDERED: HEPARIN NA (PORCINE) 5,000 UNITS/ML 1ML VIAL ONE ×3 (06:28→15:01)
[2020-04-22] MEDS ORDERED: LEVOTHYROXINE NA 25 MCG TABLET (FP) ONE (06:28)
[2020-04-22 06:53] LABS: BASO % 0.1 % (0-2.0); EOS % 0.1 % (0-4.5); HEMATOCRIT 36.2 % (35.4-49); HEMOGLOBIN 11.2 GM/dL (11.7-16.9); LYMPH % 7.4 % (8-40); MCH 30.3 pg (25.7-33.7); MCHC 30.9 g/dl (32.0-35.9); MEAN CELL VOLUME 98.1 fl (80-96); MEAN PLT VOLUME 8.5 fl (7.5-11.1); NEUT % 91.4 % (42.8-82.8); PLATELET COUNT 125 K/MM3 (134-434); RBC 3.69 M/mm3 (4.00-5.60); RDW 16.5 % (11.9-15.9); WHITE BLOOD COUNT 8.4 K/mm3 (4.0-10.0)
[2020-04-22] MEDS: LEVOTHYROXINE NA 25 MCG TABLET (FP) PO SCH (06:56)
[2020-04-22 07:22] LABS: BLOOD UREA NITROGEN 15.3 mg/dL (7-18); CALCIUM 8.3 mg/dL (8.5-10.1); CREATININE 1.4 mg/dL (0.55-1.3); MAGNESIUM 2.2 mg/dL (1.8-2.4); POTASSIUM 5.6 mmol/L (3.5-5.1)
[2020-04-22] MEDS: INSULIN SLIDING SCALE (NOVOLOG) 1 VIAL SQ SCH ×4 (07:56→21:58)
[2020-04-22] MEDS: HEPARIN NA (PORCINE) 5,000 UNITS/ML 1ML VIAL SQ SCH ×3 (08:00→21:57)
[2020-04-22 08:38] LABS: ANISOCYTOSIS 1+; MACROCYTOSIS 0; PLATELET ESTIMATE DECREASED
[2020-04-22] MEDS ORDERED: AZITHROMYCIN IVPB 500 MG/250 ML BAG IVPB ONE (08:48)
[2020-04-22 09:50] LABS: ARTERIAL BLD GAS O2 SATURATION 94.4 mmHg (95-98); ARTERIAL BLOOD GAS BASE EXCESS 1.6 mmol/L (-2-2); ARTERIAL BLOOD GAS PO2 92.6 mmHg (80-100)
[2020-04-22 09:51] LABS: VENT MODE ST; VENT RATE 14
[2020-04-22 09:53] LABS: ARTERIAL BLOOD GAS pH 7.171 (7.350-7.450)
[2020-04-22] MEDS ORDERED: AZITHROMYCIN IVPB 250 MG in DEXTROSE 5%-WATER - 250 ML IVPB SCH (10:00)
[2020-04-22] MEDS: TIOTROPIUM BROMIDE 2.5 MCG (SPIRIVA) RESPIMAT INHALER IH SCH (11:17)
[2020-04-22] MEDS: SODIUM ZIRCONIUM CYCLOSILICATE (LOKELMA) 5 GM PACKET PO SCH ×2 (11:17→12:00)
--- NOTE | 2020-04-22 12:18 | CON.PULM ---
Consult Consult Specialty:: PULMONARY Referred by:: Dr Gant Reason for Consultation:: COPD, hypoxia - History of Present Illness Chief Complaint: shortness of breath History of Present Illness: 59yo male with h/o COPD, chronic hypoxic respiratory failure, DM, hyperlipidemia who was admitted with worsenign shortness of breath x 2-3 days. Denies cough but with wheezing and chest tightness. No fevers, chills or sweats. Denies sick contacts or recent travel. States he does not have oxygen at home, reports compliance with his medications. He quit smoking 5 years ago. Noted to be hypoxic and ABG showing acute respiratory acidosis, placed on BiPAP support. Currently states his breathing is improving but still not at baseline. - History Source History Provided By: Patient, Medical Record Limitations to Obtaining History: Clinical Condition - Past Medical History Cardio/Vascular: Yes: Hyperlipdemia Pulmonary: Yes: COPD Endocrine: Yes: Diabetes Mellitus - Past Surgical History Past Surgical History: Yes: Tonsillectomy - Alcohol/Substance Use Hx Alcohol Use: No - Smoking History Smoking history: Former smoker Have you smoked in the past 12 months: No Aproximately how many cigarettes per day: 0 If you are a former smoker, when did you quit?: 5 y - Social History Usual Living Arrangement: With Spouse History of Recent Travel: No Home Medications - Allergies Allergies/Adverse Reactions: Allergies Allergy/AdvReac Type Severity Reaction Status Date / Time No Known Allergies Allergy Verified 05/17/19 02:10 - Home Medications Home Medications: Ambulatory Orders metFORMIN HCL [Glucophage -] 500 mg PO BID 09/15/15 Simvastatin [Zocor -] 20 mg PO HS 10/09/15 Albuterol 0.083% Nebulizer Ema [Ventolin 0.083% Nebulizer Soln -] 1 neb NEB Q6H PRN 07/16/17 Albuterol Sulfate [Proair Hfa] 8.5 gm IH Q6H 03/26/18 Ferrous Gluconate [Iron] 256 mg PO DAILY 05/17/19 Vitamin B Complex 1 each PO DAILY 05/17/19 Levothyroxine [Synthroid -] 25 mcg PO DAILY 04/21/20 Meloxicam 7.5 mg PO DAILY 04/21/20 Review of Systems - Review of Systems Constitutional: reports: Weakness. denies: Chills, Fever Eyes: denies: Recent Change in Vision HENT: denies: Nasal Congestion, Throat Pain Neck: denies: Stiffness, Tenderness Cardiovascular: reports: Shortness of Breath. denies: Chest Pain, Palpitations Respiratory: reports: Cough, SOB, Wheezing. denies: Hemoptysis Gastrointestinal: denies: Abdominal Pain, Nausea, Vomiting Genitourinary: denies: Dysuria, Hematuria Neurological: denies: Dizziness, Headache Endocrine: denies: Unexplained Weight Loss Physical Exam Vital Sings: Vital Signs Temperature 97.0 F L 04/22/20 10:57 Pulse Rate 71 04/22/20 10:57 Respiratory Rate 18 04/22/20 10:57 Blood Pressure 99/48 L 04/22/20 10:57 O2 Sat by Pulse Oximetry (%) 100 04/22/20 10:57 Constitutional: Yes: Mild Distress Eyes: Yes: Conjunctiva Clear, EOM Intact HENT: Yes: Atraumatic, Normocephalic Neck: Yes: Supple, Trachea Midline Cardiovascular: Yes: Regular Rate and Rhythm Respiratory: Yes: Diminished, Poor Air Entry ...Clubbing: No Gastrointestinal: Yes: Normal Bowel Sounds, Soft. No: Tenderness Edema: No Labs: CBC, BMP 04/22/20 05:37 ABG Results ABG pH 7.171 (7.350-7.450) L* 04/22/20 09:37 ABG HCO3 32.6 mmol/L (22-27) H 04/22/20 09:37 ABG O2 Sat (Measured) 94.4 mmHg (95-98) L 04/22/20 09:37 ABG O2 Content No Result Required. 04/22/20 09:37 ABG Base Excess 1.6 mmol/L (-2-2) 04/22/20 09:37 Imaging - Results Chest X-ray: Report Reviewed, Image Reviewed (hyperinflated, no infiltrates) Assessment/Plan Acute on Chronic Hypoxic and Hypercapneic Respiratory Failure Acute COPD Exacerbation DM Hyperlipidemia Hypothyroidism - IV medrol - inhaled bronchodilators standing and PRN - O2 to keep Spo2 >90% - glucose control while on systemic steroids - BiPAP to assist in work of breathing and respiratory acidosis - DVT prophylaxis Thank you for this consult Jus Shafer MD
[2020-04-22] MEDS ORDERED: ALBUTEROL SO4 HFA INHALER IH SCH (12:30)
[2020-04-22] MEDS: BUDESONIDE/FORMETEROL FUMARATE 160/4.5 mcg INHALER IH SCH ×2 (14:08→21:59)
[2020-04-22] MEDS ORDERED: INSULIN REGULAR HUMAN 100 UNITS/ML *VIAL IVPUSH ONE (14:44)
[2020-04-22] MEDS ORDERED: CALCIUM GLUCONATE 10% - 1,000 MG/10 ML VIAL IVPUSH ONE (14:45)
[2020-04-22] MEDS ORDERED: DEXTROSE 50%-WATER - 25 GM/50 ML VIAL IVPUSH ONE (14:45)
[2020-04-22] MEDS ORDERED: DEXTROSE 50%-WATER - 25 GM/50 ML VIAL ONE (15:01)
[2020-04-22] MEDS ORDERED: CALCIUM GLUCONATE 10% - 1,000 MG/10 ML VIAL ONE (15:01)
[2020-04-22] MEDS ORDERED: DEXTROSE 50%-WATER 25 GM/50 ML DISP.SYRIN ONE (15:02)
--- NOTE | 2020-04-22 16:58 | PN ---
Teaching Attending Note Name of Resident: Chandrakant Lobato ATTENDING PHYSICIAN STATEMENT I saw and evaluated the patient. I reviewed the resident's note and discussed the case with the resident. I agree with the resident's findings and plan as documented. SUBJECTIVE: Feels more comfortable on BiPAP. No fever/chills. OBJECTIVE: Afebrile, Hemodynamically Stable. SpO2 94% on FiO2 55% Last Vital Signs Temp Pulse Resp BP Pulse Ox 97.0 F L 75 18 115/87 94 L 04/22/20 10:57 04/22/20 16:21 04/22/20 16:21 04/22/20 16:21 04/22/20 16:21 HEENT - Atraumatic, Normocephalic. Heart - S1, S2, RRR Lungs - reduced air entry globally, no wheeze. Abdomen - Soft, non-tender. Bowel Sounds normal. Extremities - no edema, no calf tenderness Neuro - AAO x 3. Tone/Power normal all extremities. Laboratory Results - last 24 hr 04/21/20 04/21/20 04/21/20 16:50 18:00 18:00 WBC RBC Hgb Hct MCV MCH MCHC RDW Plt Count MPV Absolute Neuts (auto) Neutrophils % Neutrophils % (Manual) Band Neutrophils % Lymphocytes % Lymphocytes % (Manual) Monocytes % Monocytes % (Manual) Eosinophils % Eosinophils % (Manual) Basophils % Basophils % (Manual) Myelocytes % (Man) Promyelocytes % (Man) Blast Cells % (Manual) Nucleated RBC % Metamyelocytes Hypochromia Platelet Estimate Polychromasia Poikilocytosis Anisocytosis Microcytosis Macrocytosis Stomatocytes Anticoagulation Therapy No Result Required. Puncture Site No Result Required. Patient Temperature No Result Required. ABG pH 7.207 L ABG pCO2 89.70 H* ABG pO2 100.1 H ABG HCO3 34.8 H ABG O2 Sat (Measured) 95.8 ABG O2 Content No Result Required. ABG Base Excess 4.4 H Keo Test No Result Required. VBG pH POC VBG pCO2 POC VBG pO2 VBG HCO3 VBG O2 Sat ([place]) VBG Base Excess Patient On Oxygen No Result Required. O2 Delivery Device No Result Required. Oxygen Flow Rate No Result Required. Vent Mode No Result Required. Vent Rate No Result Required. Mechanical Rate No Result Required. PEEP No Result Required. Pressure Support Vent No Result Required. Sodium Potassium Chloride Carbon Dioxide Anion Gap BUN Creatinine Est GFR (CKD-EPI)AfAm Est GFR (CKD-EPI)NonAf POC Glucometer Random Glucose Hemoglobin A1c % Calcium Phosphorus Magnesium Troponin I TSH Urine Color Yellow Urine Appearance Clear Urine pH 5.0 Ur Specific [place] 1.015 Urine Protein Negative Urine Glucose (UA) Negative Urine Ketones Negative Urine Blood Negative Urine Nitrite Negative Urine Bilirubin Negative Urine Urobilinogen 0.2 Ur Leukocyte Esterase Negative Ur Random Creatinine 166.0 H Ur Random Sodium 70 04/21/20 04/21/20 04/21/20 18:16 21:44 23:22 WBC RBC Hgb Hct MCV MCH MCHC RDW Plt Count MPV Absolute Neuts (auto) Neutrophils % Neutrophils % (Manual) Band Neutrophils % Lymphocytes % Lymphocytes % (Manual) Monocytes % Monocytes % (Manual) Eosinophils % Eosinophils % (Manual) Basophils % Basophils % (Manual) Myelocytes % (Man) Promyelocytes % (Man) Blast Cells % (Manual) Nucleated RBC % Metamyelocytes Hypochromia Platelet Estimate Polychromasia Poikilocytosis Anisocytosis Microcytosis Macrocytosis Stomatocytes Anticoagulation Therapy Puncture Site Patient Temperature ABG pH ABG pCO2 ABG pO2 ABG HCO3 ABG O2 Sat (Measured) ABG O2 Content ABG Base Excess Keo Test VBG pH 7.187 L* POC VBG pCO2 83.8 H* POC VBG pO2 51.4 H VBG HCO3 31.1 H VBG O2 Sat ([place]) 75.8 VBG Base Excess 0.6 Patient On Oxygen O2 Delivery Device Oxygen Flow Rate Vent Mode Vent Rate Mechanical Rate PEEP Pressure Support Vent Sodium Potassium Chloride Carbon Dioxide Anion Gap BUN Creatinine Est GFR (CKD-EPI)AfAm Est GFR (CKD-EPI)NonAf POC Glucometer 156 158 Random Glucose Hemoglobin A1c % Calcium Phosphorus Magnesium Troponin I TSH Urine Color Urine Appearance Urine pH Ur Specific [place] Urine Protein Urine Glucose (UA) Urine Ketones Urine Blood Urine Nitrite Urine Bilirubin Urine Urobilinogen Ur Leukocyte Esterase Ur Random Creatinine Ur Random Sodium 04/21/20 04/22/20 04/22/20 23:22 05:37 05:37 WBC 8.4 RBC 3.69 L Hgb 11.2 L Hct 36.2 MCV 98.1 H MCH 30.3 MCHC 30.9 L RDW 16.5 H Plt Count 125 L MPV 8.5 Absolute Neuts (auto) 7.6 Neutrophils % 91.4 H D Neutrophils % (Manual) 85.0 H Band Neutrophils % 0.0 Lymphocytes % 7.4 L D Lymphocytes % (Manual) 11.0 Monocytes % 1.0 L D Monocytes % (Manual) 3 L Eosinophils % 0.1 Eosinophils % (Manual) 0.0 Basophils % 0.1 Basophils % (Manual) 0.0 Myelocytes % (Man) 0 Promyelocytes % (Man) 0 Blast Cells % (Manual) 0 Nucleated RBC % 0 Metamyelocytes 1 Hypochromia 0 Platelet Estimate Decreased Polychromasia 2+ Poikilocytosis 1+ Anisocytosis 1+ Microcytosis 0 Macrocytosis 0 Stomatocytes 1+ Anticoagulation Therapy Puncture Site Patient Temperature ABG pH ABG pCO2 ABG pO2 ABG HCO3 ABG O2 Sat (Measured) ABG O2 Content ABG Base Excess Keo Test VBG pH POC VBG pCO2 POC VBG pO2 VBG HCO3 VBG O2 Sat ([place]) VBG Base Excess Patient On Oxygen O2 Delivery Device Oxygen Flow Rate Vent Mode Vent Rate Mechanical Rate PEEP Pressure Support Vent Sodium 143 Potassium 5.6 H Chloride 105 Carbon Dioxide 38 H Anion Gap 0 L BUN 15.3 Creatinine 1.4 H Est GFR (CKD-EPI)AfAm 63.73 Est GFR (CKD-EPI)NonAf 54.99 POC Glucometer Random Glucose 155 H Hemoglobin A1c % Calcium 8.3 L Phosphorus 4.0 Magnesium 2.2 Troponin I < 0.02 TSH 2.81 Urine Color Urine Appearance Urine pH Ur Specific [place] Urine Protein Urine Glucose (UA) Urine Ketones Urine Blood Urine Nitrite Urine Bilirubin Urine Urobilinogen Ur Leukocyte Esterase Ur Random Creatinine Ur Random Sodium 04/22/20 04/22/20 04/22/20 05:37 09:37 11:36 WBC RBC Hgb Hct MCV MCH MCHC RDW Plt Count MPV Absolute Neuts (auto) Neutrophils % Neutrophils % (Manual) Band Neutrophils % Lymphocytes % Lymphocytes % (Manual) Monocytes % Monocytes % (Manual) Eosinophils % Eosinophils % (Manual) Basophils % Basophils % (Manual) Myelocytes % (Man) Promyelocytes % (Man) Blast Cells % (Manual) Nucleated RBC % Metamyelocytes Hypochromia Platelet Estimate Polychromasia Poikilocytosis Anisocytosis Microcytosis Macrocytosis Stomatocytes Anticoagulation Therapy No Result Required. Puncture Site Left radial Patient Temperature No Result Required. ABG pH 7.171 L* ABG pCO2 91.10 H* ABG pO2 92.6 ABG HCO3 32.6 H ABG O2 Sat (Measured) 94.4 L ABG O2 Content No Result Required. ABG Base Excess 1.6 Keo Test No Result Required. VBG pH POC VBG pCO2 POC VBG pO2 VBG HCO3 VBG O2 Sat ([place]) VBG Base Excess Patient On Oxygen Yes O2 Delivery Device Bipap Oxygen Flow Rate [address] Vent Rate 14 Mechanical Rate No Result Required. PEEP No Result Required. Pressure Support Vent No Result Required. Sodium Potassium 6.9 H* Chloride Carbon Dioxide Anion Gap BUN Creatinine Est GFR (CKD-EPI)AfAm Est GFR (CKD-EPI)NonAf POC Glucometer Random Glucose Hemoglobin A1c % 6.8 H Calcium Phosphorus Magnesium Troponin I TSH Urine Color Urine Appearance Urine pH Ur Specific [place] Urine Protein Urine Glucose (UA) Urine Ketones Urine Blood Urine Nitrite Urine Bilirubin Urine Urobilinogen Ur Leukocyte Esterase Ur Random Creatinine Ur Random Sodium 04/22/20 11:40 WBC RBC Hgb Hct MCV MCH MCHC RDW Plt Count MPV Absolute Neuts (auto) Neutrophils % Neutrophils % (Manual) Band Neutrophils % Lymphocytes % Lymphocytes % (Manual) Monocytes % Monocytes % (Manual) Eosinophils % Eosinophils % (Manual) Basophils % Basophils % (Manual) Myelocytes % (Man) Promyelocytes % (Man) Blast Cells % (Manual) Nucleated RBC % Metamyelocytes Hypochromia Platelet Estimate Polychromasia Poikilocytosis Anisocytosis Microcytosis Macrocytosis Stomatocytes Anticoagulation Therapy Puncture Site Patient Temperature ABG pH ABG pCO2 ABG pO2 ABG HCO3 ABG O2 Sat (Measured) ABG O2 Content ABG Base Excess Keo Test VBG pH POC VBG pCO2 POC VBG pO2 VBG HCO3 VBG O2 Sat ([place]) VBG Base Excess Patient On Oxygen O2 Delivery Device Oxygen Flow Rate Vent Mode Vent Rate Mechanical Rate PEEP Pressure Support Vent Sodium Potassium Chloride Carbon Dioxide Anion Gap BUN Creatinine Est GFR (CKD-EPI)AfAm Est GFR (CKD-EPI)NonAf POC Glucometer 162 Random Glucose Hemoglobin A1c % Calcium Phosphorus Magnesium Troponin I TSH Urine Color Urine Appearance Urine pH Ur Specific [place] Urine Protein Urine Glucose (UA) Urine Ketones Urine Blood Urine Nitrite Urine Bilirubin Urine Urobilinogen Ur Leukocyte Esterase Ur Random Creatinine Ur Random Sodium Current Medications Generic Name Dose Route Start Last Admin Trade Name Christine PRN Reason Stop Dose Admin Albuterol Sulfate 2 puff 04/22/20 12:30 Ventolin Hfa Inhaler - IH RQID LAURITA Atorvastatin Calcium 10 mg 04/21/20 22:00 04/21/20 22:17 Lipitor - PO 10 mg HS LAURITA Administration Budesonide/Formoterol Fumarate 2 puff 04/22/20 12:30 04/22/20 14:08 Symbicort 160/4.5mcg - IH Not Given BID LAURITA Heparin Sodium (Porcine) 5,000 unit 04/21/20 22:00 04/22/20 15:18 Heparin - SQ 5,000 unit TID LAURITA Administration Sodium Chloride 1,000 mls @ 75 mls/hr 04/21/20 21:00 04/21/20 22:17 Normal Saline - IV 75 mls/hr ASDIR LAURITA Administration Azithromycin 250 mg/ Dextrose 250 mls @ 250 mls/hr 04/22/20 10:00 04/22/20 11:17 IVPB 04/23/20 09:59 250 mls/hr DAILY LAURITA Administration Insulin Aspart 0 vial 04/21/20 22:00 04/22/20 13:00 Novolog Vial Sliding Scale - SQ 2 unit ACHS LAURITA Administration Protocol Levothyroxine Sodium 25 mcg 04/22/20 07:00 04/22/20 06:56 Synthroid - PO 25 mcg DAILY@0700 LAURITA Administration Methylprednisolone Sodium Succinate 40 mg 04/22/20 02:00 04/22/20 11:17 Solu-Medrol - IVPUSH 40 mg Q8H-IV LAURITA Administration Sodium Zirconium Cyclosilicate 5 gm 04/22/20 10:00 04/22/20 11:17 Lokelma PO Not Given DAILY [facility] Tiotropium [place] 2 puff 04/22/20 10:00 04/22/20 11:17 Spiriva Respimat IH Not Given DAILY [facility] Home Medications Medication Instructions Recorded metFORMIN HCL [Glucophage -] 500 mg PO BID 09/15/15 Simvastatin [Zocor -] 20 mg PO HS 10/09/15 Albuterol 0.083% Nebulizer Ema 1 neb NEB Q6H PRN 07/16/17 [Ventolin 0.083% Nebulizer Soln -] Albuterol Sulfate [Proair Hfa] 8.5 gm IH Q6H 03/26/18 Ferrous Gluconate [Iron] 256 mg PO DAILY 05/17/19 Vitamin B Complex 1 each PO DAILY 05/17/19 Levothyroxine [Synthroid -] 25 mcg PO DAILY 04/21/20 Meloxicam 7.5 mg PO DAILY 04/21/20 ASSESSMENT AND PLAN: 58 year old male with history of CRF sec to COPD on Home O2, HLD, DM 2, presents with increasing SOB, without fever/cough/sputum. 1. Acute on Chronic Hypoxic and Hypercapneic Respiratory Failure with Resp Acidosis secondary to Acute exacerbation COPD Continue IV Solumedrol, Albuterol, Spiriva, Azithromycin. Worsening acidosis and CO2 retention - adjust BiPAP settings Repeat ABG Pulm/ICU eval. 2. Hyperkalemia secondary to Acidosis due to transcellular K shift. Insulin/Dextrose Lokelma ECG Telemonitoring Repeat chemistry. DM 2 - Metformin held. Maintain on Novolog as per sliding scale. 3. HLD - on Statin 4. Hypothyroidism - Continue Synthroid. DVT Px - Heparin SQ
[2020-04-22 17:54] LABS: ARTERIAL BLD GAS O2 SATURATION 95.6 mmHg (95-98); ARTERIAL BLOOD GAS BASE EXCESS 4.8 mmol/L (-2-2); ARTERIAL BLOOD GAS PO2 95.6 mmHg (80-100); ARTERIAL BLOOD GAS pH 7.235 (7.350-7.450)
[2020-04-22 17:55] LABS: ALLENS TEST POSITIVE
[2020-04-22 17:56] LABS: VENT MODE S/T; VENT RATE 18
[2020-04-22] MEDS: ALBUTEROL SO4 HFA INHALER IH SCH (18:38)
--- NOTE | 2020-04-22 19:06 | PN ---
Physical Exam: SUBJECTIVE: Patient seen and examined at bedside in the morning. The patient has an oxygen saturation of 99% on 55% FiO2 on BiPap per the monitor in the ED. The patient denies shortness of breath, cough, runny nose, fever/chills, nausea/vomiting, diarrhea/constipation. The patient has no new complaints. OBJECTIVE: Vital Signs Period Temp Pulse Resp BP Sys/Rm Pulse Ox Last 24 Hr 97.0 F-98.7 F 70-81 17-18 97-115/48-87 94-100 GENERAL: The patient is awake, alert, and fully oriented, in no acute distress. HEAD: Normal with no signs of trauma. EYES: Extraocular movements intact. No ptosis. ENT: Ears normal, nares patent, oropharynx clear without exudates, moist mucous membranes. NECK: Trachea midline, full range of motion, supple. LUNGS: Decreased but clear breath sounds bilaterally, no wheezes, no crackles, no accessory muscle use. HEART: Regular rate and rhythm, S1, S2 without murmur, rub or gallop. ABDOMEN: Soft, nontender, nondistended, normoactive bowel sounds, no guarding, no rebound, no masses. EXTREMITIES: 2+ pulses, warm, well-perfused, no edema. NEUROLOGICAL: Normal speech, gait not observed. PSYCH: Normal mood, normal affect. SKIN: Warm, dry, normal turgor, no rashes or lesions noted Laboratory Results - last 24 hr 04/21/20 04/21/20 04/21/20 18:00 21:44 23:22 WBC RBC Hgb Hct MCV MCH MCHC RDW Plt Count MPV Absolute Neuts (auto) Neutrophils % Neutrophils % (Manual) Band Neutrophils % Lymphocytes % Lymphocytes % (Manual) Monocytes % Monocytes % (Manual) Eosinophils % Eosinophils % (Manual) Basophils % Basophils % (Manual) Myelocytes % (Man) Promyelocytes % (Man) Blast Cells % (Manual) Nucleated RBC % Metamyelocytes Hypochromia Platelet Estimate Polychromasia Poikilocytosis Anisocytosis Microcytosis Macrocytosis Stomatocytes Anticoagulation Therapy Puncture Site Patient Temperature ABG pH ABG pCO2 ABG pO2 ABG HCO3 ABG O2 Sat (Measured) ABG O2 Content ABG Base Excess Keo Test VBG pH 7.187 L* POC VBG pCO2 83.8 H* POC VBG pO2 51.4 H VBG HCO3 31.1 H VBG O2 Sat ([place]field) 75.8 VBG Base Excess 0.6 Patient On Oxygen O2 Delivery Device Oxygen Flow Rate Vent Mode Vent Rate Mechanical Rate PEEP Pressure Support Vent Sodium Potassium Chloride Carbon Dioxide Anion Gap BUN Creatinine Est GFR (CKD-EPI)AfAm Est GFR (CKD-EPI)NonAf POC Glucometer 158 Random Glucose Hemoglobin A1c % Calcium Phosphorus Magnesium Troponin I TSH Ur Random Creatinine 166.0 H Ur Random Sodium 70 04/21/20 04/22/20 04/22/20 23:22 05:37 05:37 WBC 8.4 RBC 3.69 L Hgb 11.2 L Hct 36.2 MCV 98.1 H MCH 30.3 MCHC 30.9 L RDW 16.5 H Plt Count 125 L MPV 8.5 Absolute Neuts (auto) 7.6 Neutrophils % 91.4 H D Neutrophils % (Manual) 85.0 H Band Neutrophils % 0.0 Lymphocytes % 7.4 L D Lymphocytes % (Manual) 11.0 Monocytes % 1.0 L D Monocytes % (Manual) 3 L Eosinophils % 0.1 Eosinophils % (Manual) 0.0 Basophils % 0.1 Basophils % (Manual) 0.0 Myelocytes % (Man) 0 Promyelocytes % (Man) 0 Blast Cells % (Manual) 0 Nucleated RBC % 0 Metamyelocytes 1 Hypochromia 0 Platelet Estimate Decreased Polychromasia 2+ Poikilocytosis 1+ Anisocytosis 1+ Microcytosis 0 Macrocytosis 0 Stomatocytes 1+ Anticoagulation Therapy Puncture Site Patient Temperature ABG pH ABG pCO2 ABG pO2 ABG HCO3 ABG O2 Sat (Measured) ABG O2 Content ABG Base Excess Keo Test VBG pH POC VBG pCO2 POC VBG pO2 VBG HCO3 VBG O2 Sat ([place]field) VBG Base Excess Patient On Oxygen O2 Delivery Device Oxygen Flow Rate Vent Mode Vent Rate Mechanical Rate PEEP Pressure Support Vent Sodium 143 Potassium 5.6 H Chloride 105 Carbon Dioxide 38 H Anion Gap 0 L BUN 15.3 Creatinine 1.4 H Est GFR (CKD-EPI)AfAm 63.73 Est GFR (CKD-EPI)NonAf 54.99 POC Glucometer Random Glucose 155 H Hemoglobin A1c % Calcium 8.3 L Phosphorus 4.0 Magnesium 2.2 Troponin I < 0.02 TSH 2.81 Ur Random Creatinine Ur Random Sodium 07/04/22/20 04/22/20 05:37 09:37 11:36 WBC RBC Hgb Hct MCV MCH MCHC RDW Plt Count MPV Absolute Neuts (auto) Neutrophils % Neutrophils % (Manual) Band Neutrophils % Lymphocytes % Lymphocytes % (Manual) Monocytes % Monocytes % (Manual) Eosinophils % Eosinophils % (Manual) Basophils % Basophils % (Manual) Myelocytes % (Man) Promyelocytes % (Man) Blast Cells % (Manual) Nucleated RBC % Metamyelocytes Hypochromia Platelet Estimate Polychromasia Poikilocytosis Anisocytosis Microcytosis Macrocytosis Stomatocytes Anticoagulation Therapy No Result Required. Puncture Site Left radial Patient Temperature No Result Required. ABG pH 7.171 L* ABG pCO2 91.10 H* ABG pO2 92.6 ABG HCO3 32.6 H ABG O2 Sat (Measured) 94.4 L ABG O2 Content No Result Required. ABG Base Excess 1.6 Keo Test No Result Required. VBG pH POC VBG pCO2 POC VBG pO2 VBG HCO3 VBG O2 Sat ([place]field) VBG Base Excess Patient On Oxygen Yes O2 Delivery Device Bipap Oxygen Flow Rate [address] Vent Rate 14 Mechanical Rate No Result Required. PEEP No Result Required. Pressure Support Vent No Result Required. Sodium Potassium 6.9 H* Chloride Carbon Dioxide Anion Gap BUN Creatinine Est GFR (CKD-EPI)AfAm Est GFR (CKD-EPI)NonAf POC Glucometer Random Glucose Hemoglobin A1c % 6.8 H Calcium Phosphorus Magnesium Troponin I TSH Ur Random Creatinine Ur Random Sodium 04/22/20 04/22/20 04/22/20 11:40 17:12 17:44 WBC RBC Hgb Hct MCV MCH MCHC RDW Plt Count MPV Absolute Neuts (auto) Neutrophils % Neutrophils % (Manual) Band Neutrophils % Lymphocytes % Lymphocytes % (Manual) Monocytes % Monocytes % (Manual) Eosinophils % Eosinophils % (Manual) Basophils % Basophils % (Manual) Myelocytes % (Man) Promyelocytes % (Man) Blast Cells % (Manual) Nucleated RBC % Metamyelocytes Hypochromia Platelet Estimate Polychromasia Poikilocytosis Anisocytosis Microcytosis Macrocytosis Stomatocytes Anticoagulation Therapy No Result Required. Puncture Site Left radial Patient Temperature No Result Required. ABG pH 7.235 L ABG pCO2 83.60 H* ABG pO2 95.6 ABG HCO3 34.6 H ABG O2 Sat (Measured) 95.6 ABG O2 Content No Result Required. ABG Base Excess 4.8 H Keo Test Positive VBG pH POC VBG pCO2 POC VBG pO2 VBG HCO3 VBG O2 Sat ([place]field) VBG Base Excess Patient On Oxygen Yes O2 Delivery Device Bipap Oxygen Flow Rate 55 Vent Mode S/t Vent Rate 18 Mechanical Rate No Result Required. PEEP No Result Required. Pressure Support Vent No Result Required. Sodium Potassium Chloride Carbon Dioxide Anion Gap BUN Creatinine Est GFR (CKD-EPI)AfAm Est GFR (CKD-EPI)NonAf POC Glucometer 162 73 Random Glucose Hemoglobin A1c % Calcium Phosphorus Magnesium Troponin I TSH Ur Random Creatinine Ur Random Sodium Active Medications Generic Name Dose Route Start Last Admin Trade Name Freq PRN Reason Stop Dose Admin Albuterol Sulfate 2 puff 04/22/20 12:30 04/22/20 18:38 Ventolin Hfa Inhaler - IH Not Given RQID LAURITA Atorvastatin Calcium 10 mg 04/21/20 22:00 04/21/20 22:17 Lipitor - PO 10 mg HS LAURITA Administration Budesonide/Formoterol Fumarate 2 puff 04/22/20 12:30 04/22/20 14:08 Symbicort 160/4.5mcg - IH Not Given BID LAURITA Heparin Sodium (Porcine) 5,000 unit 04/21/20 22:00 04/22/20 15:18 Heparin - SQ 5,000 unit TID LAURITA Administration Sodium Chloride 1,000 mls @ 75 mls/hr 04/21/20 21:00 04/21/20 22:17 Normal Saline - IV 75 mls/hr ASDIR LAURITA Administration Azithromycin 250 mg/ Dextrose 250 mls @ 250 mls/hr 04/22/20 10:00 04/22/20 11:17 IVPB 04/23/20 09:59 250 mls/hr DAILY LAURITA Administration Insulin Aspart 0 vial 04/21/20 22:00 04/22/20 13:00 Novolog Vial Sliding Scale - SQ 2 unit ACHS LAURITA Administration Protocol Levothyroxine Sodium 25 mcg 04/22/20 07:00 04/22/20 06:56 Synthroid - PO 25 mcg DAILY@0700 LAURITA Administration Methylprednisolone Sodium Succinate 40 mg 04/22/20 02:00 04/22/20 17:18 Solu-Medrol - IVPUSH 40 mg Q8H-IV LAURITA Administration Tiotropium [place] 2 puff 04/22/20 10:00 04/22/20 11:17 Spiriva Respimat IH Not Given DAILY LAURITA ASSESSMENT/PLAN: 59 year old male patient with past medical history of DM, HLD, Hypothyroidism, COPD not on home O2 due to noncompliance, who presented to the ED shortness of breath and chest tightness after moving furniture. 1. Hypercapneic Hypoxemic Respiratory Distress secondary to Acute on Chronic COPD exacerbation - The patient is on BiPap - Respiratory Acidosis with Metabolic Alkalosis on ABG (pH 7.235, pCO2 83.6, pO2 95.6, HCO3 34.6). Respiratory Acidosis secondary to COPD exacerbation, while Metabolic Alkalosis possibly secondary to prior Metformin use. - The patient is taking Solu-Medrol, Spiriva, Symbicort, and Albuterol. 2. Hyperkalemia - Potassium 6.9 on latest lab - The patient was given 25 grams of D50, 10 units of insulin, and 1 gram of calcium gluconate with an order put in to recheck the potassium later. - Monitoring potassium. 3. DM - The patient is taking Novolog - Metformin is held 4. Hypothyroidism - The patient is taking Levothyroxine 5. HLD - The patient is taking Lipitor # FEN - IV fluids, monitoring electrolytes, NPO DVT PPx - Heparin Dispo - Monitor repeat ABG to determine whether intubation would be necessary Visit type - Emergency Visit Emergency Visit: Yes ED Registration Date: 04/21/20 Care time: The patient presented to the Emergency Department on the above date and was hospitalized for further evaluation of their emergent condition. - New Patient This patient is new to me today: Yes Date on this admission: 04/22/20 - Critical Care Critical Care patient: No - Discharge Referral Referred to [facility] Med P.C.: No ATTENDING PHYSICIAN STATEMENT I saw and evaluated the patient. I reviewed the resident's note and discussed the case with the resident. I agree with the resident's findings and plan as documented. SUBJECTIVE: OBJECTIVE: ASSESSMENT AND PLAN:
[2020-04-22] MEDS: ATORVASTATIN CA 10 MG TABLET (FP) PO SCH (21:57)
[2020-04-22] MEDS: SODIUM CHLORIDE 1,000 ML IV SCH (21:57)
[2020-04-23 00:54] LABS: ALLENS TEST POSITIVE; ARTERIAL BLD GAS O2 SATURATION 98.1 mmHg (95-98); ARTERIAL BLOOD GAS BASE EXCESS 6.4 mmol/L (-2-2); ARTERIAL BLOOD GAS pH 7.207 (7.350-7.450)
[2020-04-23 00:55] LABS: VENT MODE S/T; VENT RATE 18
[2020-04-23 04:18] LABS: HEMOGLOBIN 11.2 GM/dL (11.7-16.9); MCH 31.4 pg (25.7-33.7); MCHC 31.9 g/dl (32.0-35.9); MEAN CELL VOLUME 98.3 fl (80-96); MEAN PLT VOLUME 9.7 fl (7.5-11.1); PLATELET COUNT 137 K/MM3 (134-434); RBC 3.56 M/mm3 (4.00-5.60); RDW 16.6 % (11.9-15.9); WHITE BLOOD COUNT 9.2 K/mm3 (4.0-10.0)
[2020-04-23] MEDS: methylPREDNISolone NA SUCC 40 MG/1 ML VIAL IVPUSH SCH ×3 (04:25→18:28)
[2020-04-23 04:38] LABS: CALCIUM 8.5 mg/dL (8.5-10.1); CREATININE 1.3 mg/dL (0.55-1.3)
[2020-04-23 04:44] LABS: POTASSIUM 6.1 mmol/L (3.5-5.1)
[2020-04-23] MEDS ORDERED: DEXTROSE 50%-WATER - 25 GM/50 ML VIAL IVPUSH ONE (05:09)
[2020-04-23] MEDS ORDERED: CALCIUM GLUCONATE 10% - 1,000 MG/10 ML VIAL IVPUSH ONE (05:10)
[2020-04-23] MEDS ORDERED: INSULIN REGULAR HUMAN 100 UNITS/ML *VIAL IVPUSH ONE (05:10)
[2020-04-23] MEDS: HEPARIN NA (PORCINE) 5,000 UNITS/ML 1ML VIAL SQ SCH ×3 (05:49→21:17)
[2020-04-23] MEDS: LEVOTHYROXINE NA 25 MCG TABLET (FP) PO SCH (06:07)
[2020-04-23] MEDS: INSULIN SLIDING SCALE (NOVOLOG) 1 VIAL SQ SCH ×4 (06:10→21:16)
[2020-04-23 06:43] LABS: BLOOD UREA NITROGEN 16.7 mg/dL (7-18); CALCIUM 8.2 mg/dL (8.5-10.1); CREATININE 1.4 mg/dL (0.55-1.3); MAGNESIUM 2.1 mg/dL (1.8-2.4); PHOSPHOROUS 3.9 mg/dL (2.5-4.9); POTASSIUM 5.3 mmol/L (3.5-5.1)
[2020-04-23] MEDS: ALBUTEROL SO4 HFA INHALER IH SCH ×5 (08:00→21:18)
[2020-04-23] MEDS ORDERED: PT OWN MED DRAWER 7, Y5N ONE (09:16)
[2020-04-23] MEDS: SODIUM ZIRCONIUM CYCLOSILICATE (LOKELMA) 5 GM PACKET PO SCH (09:48)
[2020-04-23 11:35] LABS: ARTERIAL BLD GAS O2 SATURATION 98.1 mmHg (95-98); ARTERIAL BLOOD GAS BASE EXCESS 4.7 mmol/L (-2-2); ARTERIAL BLOOD GAS PO2 134.3 mmHg (80-100)
[2020-04-23 11:38] LABS: ALLENS TEST POSITIVE
[2020-04-23 11:39] LABS: VENT MODE S/T; VENT RATE 18
--- NOTE | 2020-04-23 11:53 | EKG ---
Test Reason : Blood Pressure : / mmHG Vent. Rate : 066 BPM Atrial Rate : 066 BPM P-R Int : 168 ms QRS Dur : 082 ms QT Int : 396 ms P-R-T Axes : 067 060 063 degrees QTc Int : 415 ms NORMAL SINUS RHYTHM SEPTAL INFARCT (CITED ON OR BEFORE 21-APR-2020) ABNORMAL ECG WHEN COMPARED WITH ECG OF 21-APR-2020 13:54, VENT. RATE HAS DECREASED BY 37 BPM Confirmed by MICHELLE BUTLER MD ([id number]) on 04/23/2020 11:53:30 AM Referred By: Confirmed By:MICHELLE BUTLER MD
--- NOTE | 2020-04-23 11:53 | PN ---
Teaching Attending Note Name of Resident: Chandrakant Lobato ATTENDING PHYSICIAN STATEMENT I saw and evaluated the patient. I reviewed the resident's note and discussed the case with the resident. I agree with the resident's findings and plan as documented. SUBJECTIVE: Feels comfortable on BiPAP. No fever/chills. OBJECTIVE: Afebrile, Hemodynamically Stable. Comfortable. SpO2 100% on FiO2 55%, BiPAP settings 26/03 Last Vital Signs Temp Pulse Resp BP Pulse Ox 97.4 F L 69 19 97/61 100 04/22/20 17:50 04/23/20 09:00 04/23/20 08:15 04/23/20 08:00 04/23/20 09:00 Heart - S1, S2, RRR Lungs - reduced air entry globally, no wheeze. Abdomen - Soft, non-tender. Bowel Sounds normal. Extremities - no edema, no calf tenderness Neuro - AAO x 3. Tone/Power normal all extremities. Laboratory Results - last 24 hr 04/22/20 04/22/20 04/22/20 11:36 17:12 17:44 WBC RBC Hgb Hct MCV MCH MCHC RDW Plt Count MPV Anticoagulation Therapy No Result Required. Puncture Site Left radial Patient Temperature No Result Required. ABG pH 7.235 L ABG pCO2 83.60 H* ABG pO2 95.6 ABG HCO3 34.6 H ABG O2 Sat (Measured) 95.6 ABG O2 Content No Result Required. ABG Base Excess 4.8 H Keo Test Positive Patient On Oxygen Yes O2 Delivery Device Bipap Oxygen Flow Rate 55 Vent Mode S/t Vent Rate 18 Mechanical Rate No Result Required. PEEP No Result Required. Pressure Support Vent No Result Required. Sodium Potassium 6.9 H* Chloride Carbon Dioxide Anion Gap BUN Creatinine Est GFR (CKD-EPI)AfAm Est GFR (CKD-EPI)NonAf POC Glucometer 73 Random Glucose Calcium Phosphorus Magnesium 04/22/20 04/22/20 04/23/20 18:15 20:45 00:42 WBC RBC Hgb Hct MCV MCH MCHC RDW Plt Count MPV Anticoagulation Therapy No Result Required. Puncture Site Left radial Patient Temperature No Result Required. ABG pH 7.207 L ABG pCO2 96.00 H* ABG pO2 143.0 H ABG HCO3 37.3 H ABG O2 Sat (Measured) 98.1 H ABG O2 Content No Result Required. ABG Base Excess 6.4 H Keo Test Positive Patient On Oxygen Yes O2 Delivery Device Bipap Oxygen Flow Rate 55% Vent Mode S/t Vent Rate 18 Mechanical Rate Bipap PEEP No Result Required. Pressure Support Vent 18/6 Sodium Potassium 5.6 H Chloride Carbon Dioxide Anion Gap BUN Creatinine Est GFR (CKD-EPI)AfAm Est GFR (CKD-EPI)NonAf POC Glucometer 120 Random Glucose Calcium Phosphorus Magnesium 04/23/20 04/23/20 04/23/20 04:00 04:00 05:35 WBC 9.2 RBC 3.56 L Hgb 11.2 L Hct 35.0 L MCV 98.3 H MCH 31.4 MCHC 31.9 L RDW 16.6 H Plt Count 137 MPV 9.7 D Anticoagulation Therapy Puncture Site Patient Temperature ABG pH ABG pCO2 ABG pO2 ABG HCO3 ABG O2 Sat (Measured) ABG O2 Content ABG Base Excess Keo Test Patient On Oxygen O2 Delivery Device Oxygen Flow Rate Vent Mode Vent Rate Mechanical Rate PEEP Pressure Support Vent Sodium 144 144 Potassium 6.1 H* 5.3 H Chloride 106 105 Carbon Dioxide 39 H 41 H Anion Gap -1 L -2 L BUN 16.0 16.7 Creatinine 1.3 1.4 H Est GFR (CKD-EPI)AfAm 69.71 63.73 Est GFR (CKD-EPI)NonAf 60.14 54.99 POC Glucometer Random Glucose 123 H 124 H Calcium 8.5 8.2 L Phosphorus 3.9 Magnesium 2.1 04/23/20 04/23/20 06:06 11:12 WBC RBC Hgb Hct MCV MCH MCHC RDW Plt Count MPV Anticoagulation Therapy No Result Required. Puncture Site Left radial Patient Temperature No Result Required. ABG pH 7.260 L ABG pCO2 77.40 H* ABG pO2 134.3 H ABG HCO3 34.0 H ABG O2 Sat (Measured) 98.1 H ABG O2 Content No Result Required. ABG Base Excess 4.7 H Keo Test Positive Patient On Oxygen No O2 Delivery Device Vent Oxygen Flow Rate 55 Vent Mode S/t Vent Rate 18 Mechanical Rate Bipap PEEP No Result Required. Pressure Support Vent 18/6 Sodium Potassium Chloride Carbon Dioxide Anion Gap BUN Creatinine Est GFR (CKD-EPI)AfAm Est GFR (CKD-EPI)NonAf POC Glucometer 152 Random Glucose Calcium Phosphorus Magnesium Current Medications Generic Name Dose Route Start Last Admin Trade Name Freq PRN Reason Stop Dose Admin Albuterol Sulfate 2 puff 04/22/20 12:30 04/23/20 08:00 Ventolin Hfa Inhaler - IH Not Given RQID LAURITA Atorvastatin Calcium 10 mg 04/21/20 22:00 04/22/20 21:57 Lipitor - PO 10 mg HS LAURITA Administration Budesonide/Formoterol Fumarate 2 puff 04/22/20 12:30 04/22/20 21:59 Symbicort 160/4.5mcg - IH 2 puff BID LAURITA Administration Heparin Sodium (Porcine) 5,000 unit 04/21/20 22:00 04/23/20 05:49 Heparin - SQ 5,000 unit TID LAURITA Administration Sodium Chloride 1,000 mls @ 75 mls/hr 04/21/20 21:00 04/22/20 21:57 Normal Saline - IV 75 mls/hr ASDIR LAURITA Administration Insulin Aspart 0 vial 04/21/20 22:00 04/23/20 06:10 Novolog Vial Sliding Scale - SQ 2 unit ACHS LAURITA Administration Protocol Levothyroxine Sodium 25 mcg 04/22/20 07:00 04/23/20 06:07 Synthroid - PO 25 mcg DAILY@0700 LAURITA Administration Methylprednisolone Sodium Succinate 40 mg 04/22/20 02:00 04/23/20 09:48 Solu-Medrol - IVPUSH 40 mg Q8H-IV LAURITA Administration Sodium Zirconium Cyclosilicate 5 gm 04/23/20 10:00 04/23/20 09:48 Lokelma PO 5 gm DAILY LAURITA Administration Tiotropium [place] 2 puff 04/22/20 10:00 04/22/20 11:17 Spiriva Respimat IH Not Given DAILY [facility] Home Medications Medication Instructions Recorded metFORMIN HCL [Glucophage -] 500 mg PO BID 09/15/15 Simvastatin [Zocor -] 20 mg PO HS 10/09/15 Albuterol 0.083% Nebulizer Ema 1 neb NEB Q6H PRN 07/16/17 [Ventolin 0.083% Nebulizer Soln -] Albuterol Sulfate [Proair Hfa] 8.5 gm IH Q6H 03/26/18 Ferrous Gluconate [Iron] 256 mg PO DAILY 05/17/19 Vitamin B Complex 1 each PO DAILY 05/17/19 Levothyroxine [Synthroid -] 25 mcg PO DAILY 04/21/20 Meloxicam 7.5 mg PO DAILY 04/21/20 ASSESSMENT AND PLAN: 58 year old male with history of CRF sec to COPD on Home O2, HLD, DM 2, presents with increasing SOB, without fever/cough/sputum. 1. Acute on Chronic Hypoxic and Hypercapneic Respiratory Failure with Resp Acidosis secondary to Acute exacerbation COPD Continue IV Solumedrol, Albuterol, Spiriva, Azithromycin. Some improvement in acidosis and CO2 retention - continue BiPAP Pulm following. 2. Hyperkalemia secondary to Acidosis due to transcellular K shift. s/p Insulin/Dextrose, Lokelma Continue Telemonitoring Monitor K 3. DM 2 - Metformin held. Maintain on Novolog as per sliding scale. 4. HLD - on Statin 5. Hypothyroidism - Continue Synthroid. DVT Px - Heparin SQ
--- NOTE | 2020-04-23 11:53 | EKG ---
Test Reason : Blood Pressure : / mmHG Vent. Rate : 065 BPM Atrial Rate : 065 BPM P-R Int : 166 ms QRS Dur : 096 ms QT Int : 394 ms P-R-T Axes : 069 057 073 degrees QTc Int : 409 ms NORMAL SINUS RHYTHM WITH SINUS ARRHYTHMIA NORMAL ECG WHEN COMPARED WITH ECG OF 22-APR-2020 17:19, CRITERIA FOR SEPTAL INFARCT ARE NO LONGER PRESENT Confirmed by MICHELLE BUTLER MD ([id number]) on 04/23/2020 11:52:43 AM Referred By: Confirmed By:MCIHELLE BUTLER MD
[2020-04-23] MEDS: BUDESONIDE/FORMETEROL FUMARATE 160/4.5 mcg INHALER IH SCH ×2 (12:25→21:18)
[2020-04-23] MEDS: TIOTROPIUM BROMIDE 2.5 MCG (SPIRIVA) RESPIMAT INHALER IH SCH (12:26)
--- NOTE | 2020-04-23 14:08 | PN ---
Progress Note (short form) - Note Progress Note: Resting in NAD on NC O2. Reports feeling better. Less SOB. ABG Noted : acute on chronic hypoxic and hypercapneic respiratory failure. Intake & Output 04/20/20 04/21/20 04/22/20 04/23/20 23:59 23:59 23:59 23:59 Intake Total 225 1016 Output Total 1300 500 Balance -1075 516 Weight 140 lb 140 lb Last Vital Signs Temp Pulse Resp BP Pulse Ox 97.4 F L 69 19 97/61 100 04/22/20 17:50 04/23/20 09:00 04/23/20 08:15 04/23/20 08:00 04/23/20 12:04 Active Medications Albuterol Sulfate (Ventolin Hfa Inhaler -) 2 puff IH RQID [facility] Last Admin: 04/23/20 12:33 Dose: 2 puff Documented by: Atorvastatin Calcium (Lipitor -) 10 mg PO HS [facility] Last Admin: 04/22/20 21:57 Dose: 10 mg Documented by: Budesonide/Formoterol Fumarate (Symbicort 160/4.5mcg -) 2 puff IH BID [facility] Last Admin: 04/23/20 12:25 Dose: 2 puff Documented by: Heparin Sodium (Porcine) (Heparin -) 5,000 unit SQ TID [facility] Last Admin: 04/23/20 05:49 Dose: 5,000 unit Documented by: Sodium Chloride (Normal Saline -) 1,000 mls @ 75 mls/hr IV ASDIR [facility] Last Admin: 04/22/20 21:57 Dose: 75 mls/hr Documented by: Insulin Aspart (Novolog Vial Sliding Scale -) 0 vial SQ ACHS LAURITA; Protocol Last Admin: 04/23/20 12:32 Dose: Not Given Documented by: Levothyroxine Sodium (Synthroid -) 25 mcg PO DAILY@0700 [facility] Last Admin: 04/23/20 06:07 Dose: 25 mcg Documented by: Methylprednisolone Sodium Succinate (Solu-Medrol -) 40 mg IVPUSH Q8H-IV [facility] Last Admin: 04/23/20 09:48 Dose: 40 mg Documented by: Sodium Zirconium Cyclosilicate (Lokelma) 5 gm PO DAILY [facility] Last Admin: 04/23/20 09:48 Dose: 5 gm Documented by: Tiotropium [place] (Spiriva Respimat) 2 puff IH DAILY LAURITA Last Admin: 04/23/20 12:26 Dose: 2 puff Documented by: Constitutional: Yes: NAD Eyes: Yes: Conjunctiva Clear, EOM Intact HENT: Yes: Atraumatic, Normocephalic Neck: Yes: Supple, Trachea Midline Cardiovascular: Yes: Regular Rate and Rhythm Respiratory: Yes: Diminished at the bases, scattered bilateral rhonchi ...Clubbing: No Gastrointestinal: Yes: Normal Bowel Sounds, Soft. No: Tenderness Edema: No Labs: Laboratory Results - last 24 hr 04/21/20 04/22/20 04/22/20 16:20 17:12 17:44 WBC RBC Hgb Hct MCV MCH MCHC RDW Plt Count MPV Anticoagulation Therapy No Result Required. Puncture Site Left radial Patient Temperature No Result Required. ABG pH 7.235 L ABG pCO2 83.60 H* ABG pO2 95.6 ABG HCO3 34.6 H ABG O2 Sat (Measured) 95.6 ABG O2 Content No Result Required. ABG Base Excess 4.8 H Keo Test Positive Patient On Oxygen Yes O2 Delivery Device Bipap Oxygen Flow Rate 55 Vent Mode S/t Vent Rate 18 Mechanical Rate No Result Required. PEEP No Result Required. Pressure Support Vent No Result Required. Sodium Potassium Chloride Carbon Dioxide Anion Gap BUN Creatinine Est GFR (CKD-EPI)AfAm Est GFR (CKD-EPI)NonAf POC Glucometer 73 Random Glucose Calcium Phosphorus Magnesium COVID-19 (MIHIR) Not detected 04/22/20 04/22/20 04/23/20 18:15 20:45 00:42 WBC RBC Hgb Hct MCV MCH MCHC RDW Plt Count MPV Anticoagulation Therapy No Result Required. Puncture Site Left radial Patient Temperature No Result Required. ABG pH 7.207 L ABG pCO2 96.00 H* ABG pO2 143.0 H ABG HCO3 37.3 H ABG O2 Sat (Measured) 98.1 H ABG O2 Content No Result Required. ABG Base Excess 6.4 H Koe Test Positive Patient On Oxygen Yes O2 Delivery Device Bipap Oxygen Flow Rate 55% Vent Mode S/t Vent Rate 18 Mechanical Rate Bipap PEEP No Result Required. Pressure Support Vent 18/6 Sodium Potassium 5.6 H Chloride Carbon Dioxide Anion Gap BUN Creatinine Est GFR (CKD-EPI)AfAm Est GFR (CKD-EPI)NonAf POC Glucometer 120 Random Glucose Calcium Phosphorus Magnesium COVID-19 (MIHIR) 04/23/20 04/23/20 04/23/20 04:00 04:00 05:35 WBC 9.2 RBC 3.56 L Hgb 11.2 L Hct 35.0 L MCV 98.3 H MCH 31.4 MCHC 31.9 L RDW 16.6 H Plt Count 137 MPV 9.7 D Anticoagulation Therapy Puncture Site Patient Temperature ABG pH ABG pCO2 ABG pO2 ABG HCO3 ABG O2 Sat (Measured) ABG O2 Content ABG Base Excess Keo Test Patient On Oxygen O2 Delivery Device Oxygen Flow Rate Vent Mode Vent Rate Mechanical Rate PEEP Pressure Support Vent Sodium 144 144 Potassium 6.1 H* 5.3 H Chloride 106 105 Carbon Dioxide 39 H 41 H Anion Gap -1 L -2 L BUN 16.0 16.7 Creatinine 1.3 1.4 H Est GFR (CKD-EPI)AfAm 69.71 63.73 Est GFR (CKD-EPI)NonAf 60.14 54.99 POC Glucometer Random Glucose 123 H 124 H Calcium 8.5 8.2 L Phosphorus 3.9 Magnesium 2.1 COVID-19 (MIHIR) 04/23/20 04/23/20 04/23/20 06:06 11:12 12:38 WBC RBC Hgb Hct MCV MCH MCHC RDW Plt Count MPV Anticoagulation Therapy No Result Required. Puncture Site Left radial Patient Temperature No Result Required. ABG pH 7.260 L ABG pCO2 77.40 H* ABG pO2 134.3 H ABG HCO3 34.0 H ABG O2 Sat (Measured) 98.1 H ABG O2 Content No Result Required. ABG Base Excess 4.7 H Keo Test Positive Patient On Oxygen No O2 Delivery Device Vent Oxygen Flow Rate 55 Vent Mode S/t Vent Rate 18 Mechanical Rate Bipap PEEP No Result Required. Pressure Support Vent 18/6 Sodium Potassium Chloride Carbon Dioxide Anion Gap BUN Creatinine Est GFR (CKD-EPI)AfAm Est GFR (CKD-EPI)NonAf POC Glucometer 152 44 Random Glucose Calcium Phosphorus Magnesium COVID-19 (MIHIR) 04/23/20 04/23/20 12:43 12:44 WBC RBC Hgb Hct MCV MCH MCHC RDW Plt Count MPV Anticoagulation Therapy Puncture Site Patient Temperature ABG pH ABG pCO2 ABG pO2 ABG HCO3 ABG O2 Sat (Measured) ABG O2 Content ABG Base Excess Keo Test Patient On Oxygen O2 Delivery Device Oxygen Flow Rate Vent Mode Vent Rate Mechanical Rate PEEP Pressure Support Vent Sodium Potassium Chloride Carbon Dioxide Anion Gap BUN Creatinine Est GFR (CKD-EPI)AfAm Est GFR (CKD-EPI)NonAf POC Glucometer 56 57 Random Glucose Calcium Phosphorus Magnesium COVID-19 (MIHIR) Imaging - Results Chest X-ray: Report Reviewed, Image Reviewed (hyperinflated, no infiltrates) Assessment/Plan Acute on Chronic Hypoxic and Hypercapneic Respiratory Failure Acute COPD Exacerbation DM Hyperlipidemia Hypothyroidism - At present he is awake and alert on NC O2 - IV medrol - inhaled bronchodilators standing and PRN - O2 to keep Spo2 >90% - glucose control while on systemic steroids - NIPPV to assist in work of breathing and respiratory acidosis - DVT prophylaxis Dr Kelsey
[2020-04-23] MEDS ORDERED: SODIUM ZIRCONIUM CYCLOSILICATE (LOKELMA) 5 GM PACKET PO ONE (16:02)
--- NOTE | 2020-04-23 16:11 | PN ---
Physical Exam: SUBJECTIVE: Patient seen and examined at bedside in the morning. The patient reports feeling hungry from not eating, but otherwise feels well enough to go home as soon as possible. The patient denies fever/chills, shortness of breath, chest pain, leg swelling, and nausea/vomiting. OBJECTIVE: Vital Signs Period Temp Pulse Resp BP Sys/Rm Pulse Ox Last 24 Hr 97.4 F 62-96 15-19 93-157/55-90 92-100 GENERAL: The patient is awake, alert, and fully oriented, in no acute distress. HEAD: Normal with no signs of trauma. EYES: Extraocular movements intact. No ptosis. ENT: Ears normal, nares patent, oropharynx clear without exudates, moist mucous membranes. NECK: Trachea midline, full range of motion, supple. LUNGS: Decreased breath sounds bilaterally, no wheezes, no crackles, no accessory muscle use. HEART: Regular rate and rhythm, S1, S2 without murmur, rub or gallop. ABDOMEN: Soft, nontender, nondistended, normoactive bowel sounds, no guarding, no rebound, no masses. EXTREMITIES: 2+ pulses, warm, well-perfused, no edema. NEUROLOGICAL: Normal speech, gait not observed. PSYCH: Normal mood, normal affect. SKIN: Warm, dry, normal turgor, no rashes or lesions noted Laboratory Results - last 24 hr 04/21/20 04/22/20 04/22/20 16:20 17:12 17:44 WBC RBC Hgb Hct MCV MCH MCHC RDW Plt Count MPV Anticoagulation Therapy No Result Required. Puncture Site Left radial Patient Temperature No Result Required. ABG pH 7.235 L ABG pCO2 83.60 H* ABG pO2 95.6 ABG HCO3 34.6 H ABG O2 Sat (Measured) 95.6 ABG O2 Content No Result Required. ABG Base Excess 4.8 H Keo Test Positive Patient On Oxygen Yes O2 Delivery Device Bipap Oxygen Flow Rate 55 Vent Mode S/t Vent Rate 18 Mechanical Rate No Result Required. PEEP No Result Required. Pressure Support Vent No Result Required. Sodium Potassium Chloride Carbon Dioxide Anion Gap BUN Creatinine Est GFR (CKD-EPI)AfAm Est GFR (CKD-EPI)NonAf POC Glucometer 73 Random Glucose Calcium Phosphorus Magnesium COVID-19 (MIHIR) Not detected 04/22/20 04/22/20 04/23/20 18:15 20:45 00:42 WBC RBC Hgb Hct MCV MCH MCHC RDW Plt Count MPV Anticoagulation Therapy No Result Required. Puncture Site Left radial Patient Temperature No Result Required. ABG pH 7.207 L ABG pCO2 96.00 H* ABG pO2 143.0 H ABG HCO3 37.3 H ABG O2 Sat (Measured) 98.1 H ABG O2 Content No Result Required. ABG Base Excess 6.4 H Keo Test Positive Patient On Oxygen Yes O2 Delivery Device Bipap Oxygen Flow Rate 55% Vent Mode S/t Vent Rate 18 Mechanical Rate Bipap PEEP No Result Required. Pressure Support Vent 18/6 Sodium Potassium 5.6 H Chloride Carbon Dioxide Anion Gap BUN Creatinine Est GFR (CKD-EPI)AfAm Est GFR (CKD-EPI)NonAf POC Glucometer 120 Random Glucose Calcium Phosphorus Magnesium COVID-19 (MIHIR) 04/23/20 04/23/20 04/23/20 04:00 04:00 05:35 WBC 9.2 RBC 3.56 L Hgb 11.2 L Hct 35.0 L MCV 98.3 H MCH 31.4 MCHC 31.9 L RDW 16.6 H Plt Count 137 MPV 9.7 D Anticoagulation Therapy Puncture Site Patient Temperature ABG pH ABG pCO2 ABG pO2 ABG HCO3 ABG O2 Sat (Measured) ABG O2 Content ABG Base Excess Keo Test Patient On Oxygen O2 Delivery Device Oxygen Flow Rate Vent Mode Vent Rate Mechanical Rate PEEP Pressure Support Vent Sodium 144 144 Potassium 6.1 H* 5.3 H Chloride 106 105 Carbon Dioxide 39 H 41 H Anion Gap -1 L -2 L BUN 16.0 16.7 Creatinine 1.3 1.4 H Est GFR (CKD-EPI)AfAm 69.71 63.73 Est GFR (CKD-EPI)NonAf 60.14 54.99 POC Glucometer Random Glucose 123 H 124 H Calcium 8.5 8.2 L Phosphorus 3.9 Magnesium 2.1 COVID-19 (MIHIR) 04/23/20 04/23/20 04/23/20 06:06 11:12 12:38 WBC RBC Hgb Hct MCV MCH MCHC RDW Plt Count MPV Anticoagulation Therapy No Result Required. Puncture Site Left radial Patient Temperature No Result Required. ABG pH 7.260 L ABG pCO2 77.40 H* ABG pO2 134.3 H ABG HCO3 34.0 H ABG O2 Sat (Measured) 98.1 H ABG O2 Content No Result Required. ABG Base Excess 4.7 H Keo Test Positive Patient On Oxygen No O2 Delivery Device Vent Oxygen Flow Rate 55 Vent Mode S/t Vent Rate 18 Mechanical Rate Bipap PEEP No Result Required. Pressure Support Vent 18/6 Sodium Potassium Chloride Carbon Dioxide Anion Gap BUN Creatinine Est GFR (CKD-EPI)AfAm Est GFR (CKD-EPI)NonAf POC Glucometer 152 44 Random Glucose Calcium Phosphorus Magnesium COVID-19 (MIHIR) 04/23/20 04/23/20 04/23/20 12:43 12:44 13:40 WBC RBC Hgb Hct MCV MCH MCHC RDW Plt Count MPV Anticoagulation Therapy Puncture Site Patient Temperature ABG pH ABG pCO2 ABG pO2 ABG HCO3 ABG O2 Sat (Measured) ABG O2 Content ABG Base Excess Keo Test Patient On Oxygen O2 Delivery Device Oxygen Flow Rate Vent Mode Vent Rate Mechanical Rate PEEP Pressure Support Vent Sodium Potassium 5.4 H Chloride Carbon Dioxide Anion Gap BUN Creatinine Est GFR (CKD-EPI)AfAm Est GFR (CKD-EPI)NonAf POC Glucometer 56 57 Random Glucose Calcium Phosphorus Magnesium COVID-19 (MIHIR) 04/23/20 14:20 WBC RBC Hgb Hct MCV MCH MCHC RDW Plt Count MPV Anticoagulation Therapy Puncture Site Patient Temperature ABG pH ABG pCO2 ABG pO2 ABG HCO3 ABG O2 Sat (Measured) ABG O2 Content ABG Base Excess Keo Test Patient On Oxygen O2 Delivery Device Oxygen Flow Rate Vent Mode Vent Rate Mechanical Rate PEEP Pressure Support Vent Sodium Potassium Chloride Carbon Dioxide Anion Gap BUN Creatinine Est GFR (CKD-EPI)AfAm Est GFR (CKD-EPI)NonAf POC Glucometer 138 Random Glucose Calcium Phosphorus Magnesium COVID-19 (MIHIR) Active Medications Generic Name Dose Route Start Last Admin Trade Name Freq PRN Reason Stop Dose Admin Albuterol Sulfate 2 puff 04/22/20 12:30 04/23/20 12:33 Ventolin Hfa Inhaler - IH 2 puff RQID LAURITA Administration Atorvastatin Calcium 10 mg 04/21/20 22:00 04/22/20 21:57 Lipitor - PO 10 mg HS LAURITA Administration Budesonide/Formoterol Fumarate 2 puff 04/22/20 12:30 04/23/20 12:25 Symbicort 160/4.5mcg - IH 2 puff BID LAURITA Administration Heparin Sodium (Porcine) 5,000 unit 04/21/20 22:00 04/23/20 14:28 Heparin - SQ 5,000 unit TID LAURITA Administration Sodium Chloride 1,000 mls @ 75 mls/hr 04/21/20 21:00 04/22/20 21:57 Normal Saline - IV 75 mls/hr ASDIR LAURITA Administration Insulin Aspart 0 vial 04/21/20 22:00 04/23/20 12:32 Novolog Vial Sliding Scale - SQ Not Given ACHS [facility] Protocol Levothyroxine Sodium 25 mcg 04/22/20 07:00 04/23/20 06:07 Synthroid - PO 25 mcg DAILY@0700 LAURITA Administration Methylprednisolone Sodium Succinate 40 mg 04/22/20 02:00 04/23/20 09:48 Solu-Medrol - IVPUSH 40 mg Q8H-IV LAURITA Administration Sodium Zirconium Cyclosilicate 5 gm 04/23/20 10:00 04/23/20 09:48 Lokelma PO 5 gm DAILY LAURITA Administration Tiotropium [place] 2 puff 04/22/20 10:00 04/23/20 12:26 Spiriva Respimat IH 2 puff DAILY LAURITA Administration ASSESSMENT/PLAN: 59 year old male patient with past medical history of DM, HLD, Hypothyroidism, COPD not on home O2 due to noncompliance, who presented to the ED shortness of breath and chest tightness after moving furniture. 1. Hypercapneic Hypoxemic Respiratory Distress secondary to Acute on Chronic COPD exacerbation - The patient is on BiPap - Respiratory Acidosis with Metabolic Alkalosis on ABG (04/22/2020: pH 7.235, pCO2 83.6, pO2 95.6, HCO3 34.6). Respiratory Acidosis secondary to COPD exacerbation, while Metabolic Alkalosis possibly secondary to prior Metformin use. - The patient is taking Solu-Medrol, Spiriva, Symbicort, and Albuterol. - Repeat ABG today shows mild improvement with pH 7.26, pCO2 77.4, pO2 134.3, HCO3 34.0 2. Hyperkalemia - Potassium 5.4 on latest lab - The patient was given lokelma - Monitoring potassium. 3. DM - The patient is taking Novolog - Metformin is held 4. Hypothyroidism - The patient is taking Levothyroxine 5. HLD - The patient is taking Lipitor # FEN - IV fluids, monitoring electrolytes, NPO DVT PPx - Heparin Dispo - Monitoring with follow up ABG and follow up K. BiPap settings trying to be optimized. Visit type - Emergency Visit Emergency Visit: Yes ED Registration Date: 04/21/20 Care time: The patient presented to the Emergency Department on the above date and was hospitalized for further evaluation of their emergent condition. - New Patient This patient is new to me today: No - Critical Care Critical Care patient: No - Discharge Referral Referred to [facility] No ATTENDING PHYSICIAN STATEMENT I saw and evaluated the patient. I reviewed the resident's note and discussed the case with the resident. I agree with the resident's findings and plan as documented. SUBJECTIVE: OBJECTIVE: ASSESSMENT AND PLAN:
[2020-04-23] MEDS: SODIUM CHLORIDE 1,000 ML IV SCH (21:17)
[2020-04-23] MEDS: ATORVASTATIN CA 10 MG TABLET (FP) PO SCH (21:17)
[2020-04-24] MEDS: methylPREDNISolone NA SUCC 40 MG/1 ML VIAL IVPUSH SCH ×3 (01:29→17:20)
[2020-04-24] MEDS: HEPARIN NA (PORCINE) 5,000 UNITS/ML 1ML VIAL SQ SCH ×3 (05:04→21:51)
[2020-04-24 06:27] LABS: ARTERIAL BLD GAS O2 SATURATION 92.9 mmHg (95-98); ARTERIAL BLOOD GAS BASE EXCESS 8.9 mmol/L (-2-2); ARTERIAL BLOOD GAS PO2 72.3 mmHg (80-100); ARTERIAL BLOOD GAS pH 7.334 (7.350-7.450)
[2020-04-24] MEDS: INSULIN SLIDING SCALE (NOVOLOG) 1 VIAL SQ SCH ×5 (06:48→21:51)
[2020-04-24] MEDS: LEVOTHYROXINE NA 25 MCG TABLET (FP) PO SCH (06:49)
[2020-04-24 07:09] LABS: HEMATOCRIT 35.3 % (35.4-49); MCH 30.5 pg (25.7-33.7); MCHC 31.2 g/dl (32.0-35.9); MEAN CELL VOLUME 97.5 fl (80-96); MEAN PLT VOLUME 8.3 fl (7.5-11.1); PLATELET COUNT 114 K/MM3 (134-434); RBC 3.62 M/mm3 (4.00-5.60); RDW 16.6 % (11.9-15.9); WHITE BLOOD COUNT 7.6 K/mm3 (4.0-10.0)
[2020-04-24 07:51] LABS: BLOOD UREA NITROGEN 20.1 mg/dL (7-18); CALCIUM 8.7 mg/dL (8.5-10.1); CREATININE 1.2 mg/dL (0.55-1.3); POTASSIUM 4.9 mmol/L (3.5-5.1)
[2020-04-24] MEDS: ALBUTEROL SO4 HFA INHALER IH SCH ×4 (08:00→21:48)
[2020-04-24] MEDS ORDERED: PT OWN MED DRAWER 7, Y5N ONE (09:40)
[2020-04-24] MEDS: SODIUM ZIRCONIUM CYCLOSILICATE (LOKELMA) 5 GM PACKET PO SCH (10:37)
[2020-04-24] MEDS: TIOTROPIUM BROMIDE 2.5 MCG (SPIRIVA) RESPIMAT INHALER IH SCH (10:38)
[2020-04-24] MEDS: BUDESONIDE/FORMETEROL FUMARATE 160/4.5 mcg INHALER IH SCH ×2 (10:38→21:54)
--- NOTE | 2020-04-24 13:06 | PN ---
Teaching Attending Note Name of Resident: Chandrakant Lobato ATTENDING PHYSICIAN STATEMENT I saw and evaluated the patient. I reviewed the resident's note and discussed the case with the resident. I agree with the resident's findings and plan as documented. SUBJECTIVE: Feels comfortable on 2L via NC. No SOB/fever/chills. OBJECTIVE: Afebrile, Hemodynamically Stable. Comfortable. SpO2 97% on 2L via NC. Used BiPAP overnight. Last Vital Signs Temp Pulse Resp BP Pulse Ox 97.7 F 76 13 138/67 97 04/24/20 12:35 04/24/20 12:35 04/24/20 12:35 04/24/20 12:35 04/24/20 12:35 Heart - S1, S2, RRR Lungs - improving air entry globally, no wheeze. Abdomen - Soft, non-tender. Bowel Sounds normal. Extremities - no edema, no calf tenderness Neuro - AAO x 3. Tone/Power normal all extremities. Laboratory Results - last 24 hr 04/23/20 04/23/20 04/23/20 13:40 14:20 17:24 WBC RBC Hgb Hct MCV MCH MCHC RDW Plt Count MPV Anticoagulation Therapy Puncture Site Patient Temperature ABG pH ABG pCO2 ABG pO2 ABG HCO3 ABG O2 Sat (Measured) ABG O2 Content ABG Base Excess Keo Test Patient On Oxygen O2 Delivery Device Oxygen Flow Rate Vent Mode Vent Rate Mechanical Rate PEEP Pressure Support Vent Sodium Potassium 5.4 H Chloride Carbon Dioxide Anion Gap BUN Creatinine Est GFR (CKD-EPI)AfAm Est GFR (CKD-EPI)NonAf POC Glucometer 138 107 Random Glucose Calcium 04/23/20 04/23/20 04/24/20 21:11 21:30 05:53 WBC 7.6 RBC 3.62 L Hgb 11.0 L Hct 35.3 L MCV 97.5 H MCH 30.5 MCHC 31.2 L RDW 16.6 H Plt Count 114 L MPV 8.3 D Anticoagulation Therapy Puncture Site Patient Temperature ABG pH ABG pCO2 ABG pO2 ABG HCO3 ABG O2 Sat (Measured) ABG O2 Content ABG Base Excess Keo Test Patient On Oxygen O2 Delivery Device Oxygen Flow Rate Vent Mode Vent Rate Mechanical Rate PEEP Pressure Support Vent Sodium Potassium 4.7 Chloride Carbon Dioxide Anion Gap BUN Creatinine Est GFR (CKD-EPI)AfAm Est GFR (CKD-EPI)NonAf POC Glucometer 300 Random Glucose Calcium 04/24/20 04/24/20 04/24/20 05:53 06:00 06:48 WBC RBC Hgb Hct MCV MCH MCHC RDW Plt Count MPV Anticoagulation Therapy No Result Required. Puncture Site Right brachial Patient Temperature No Result Required. ABG pH 7.334 L ABG pCO2 71.40 H* ABG pO2 72.3 L ABG HCO3 37.1 H ABG O2 Sat (Measured) 92.9 L ABG O2 Content No Result Required. ABG Base Excess 8.9 H Keo Test No Result Required. Patient On Oxygen Yes O2 Delivery Device N/c Oxygen Flow Rate 2l Vent Mode No Result Required. Vent Rate No Result Required. Mechanical Rate No Result Required. PEEP No Result Required. Pressure Support Vent No Result Required. Sodium 145 Potassium 4.9 Chloride 104 Carbon Dioxide 37 H Anion Gap 4 L BUN 20.1 H Creatinine 1.2 Est GFR (CKD-EPI)AfAm 76.79 Est GFR (CKD-EPI)NonAf 66.26 POC Glucometer 108 Random Glucose 107 H Calcium 8.7 04/24/20 11:02 WBC RBC Hgb Hct MCV MCH MCHC RDW Plt Count MPV Anticoagulation Therapy Puncture Site Patient Temperature ABG pH ABG pCO2 ABG pO2 ABG HCO3 ABG O2 Sat (Measured) ABG O2 Content ABG Base Excess Keo Test Patient On Oxygen O2 Delivery Device Oxygen Flow Rate Vent Mode Vent Rate Mechanical Rate PEEP Pressure Support Vent Sodium Potassium Chloride Carbon Dioxide Anion Gap BUN Creatinine Est GFR (CKD-EPI)AfAm Est GFR (CKD-EPI)NonAf POC Glucometer 143 Random Glucose Calcium Current Medications Generic Name Dose Route Start Last Admin Trade Name Freq PRN Reason Stop Dose Admin Albuterol Sulfate 2 puff 04/22/20 12:30 04/24/20 12:00 Ventolin Hfa Inhaler - IH 2 puff RQID LAURITA Administration Atorvastatin Calcium 10 mg 04/21/20 22:00 04/23/20 21:17 Lipitor - PO 10 mg HS LAURITA Administration Budesonide/Formoterol Fumarate 2 puff 04/22/20 12:30 04/24/20 10:38 Symbicort 160/4.5mcg - IH 2 puff BID LAURITA Administration Heparin Sodium (Porcine) 5,000 unit 04/21/20 22:00 04/24/20 13:01 Heparin - SQ 5,000 unit TID LAURITA Administration Sodium Chloride 1,000 mls @ 75 mls/hr 04/21/20 21:00 04/23/20 21:17 Normal Saline - IV Not Given ASDIR [facility] Insulin Aspart 0 vial 04/21/20 22:00 04/24/20 11:04 Novolog Vial Sliding Scale - SQ Not Given ACHS [facility] Protocol Levothyroxine Sodium 25 mcg 04/22/20 07:00 04/24/20 06:49 Synthroid - PO 25 mcg DAILY@0700 LAURITA Administration Methylprednisolone Sodium Succinate 40 mg 04/22/20 02:00 04/24/20 10:37 Solu-Medrol - IVPUSH 40 mg Q8H-IV LAURITA Administration Sodium Zirconium Cyclosilicate 5 gm 04/23/20 10:00 04/24/20 10:37 Lokelma PO 5 gm DAILY LAURITA Administration Tiotropium [place] 2 puff 04/22/20 10:00 04/24/20 10:38 Spiriva Respimat IH 2 puff DAILY LAURITA Administration Home Medications Medication Instructions Recorded metFORMIN HCL [Glucophage -] 500 mg PO BID 09/15/15 Simvastatin [Zocor -] 20 mg PO HS 10/09/15 Albuterol 0.083% Nebulizer Ema 1 neb NEB Q6H PRN 07/16/17 [Ventolin 0.083% Nebulizer Soln -] Albuterol Sulfate [Proair Hfa] 8.5 gm IH Q6H 03/26/18 Ferrous Gluconate [Iron] 256 mg PO DAILY 05/17/19 Vitamin B Complex 1 each PO DAILY 05/17/19 Levothyroxine [Synthroid -] 25 mcg PO DAILY 04/21/20 Meloxicam 7.5 mg PO DAILY 04/21/20 ASSESSMENT AND PLAN: 58 year old male with history of CRF sec to COPD on Home O2, HLD, DM 2, presents with increasing SOB, without fever/cough/sputum. 1. Acute on Chronic Hypoxic and Hypercapneic Respiratory Failure with Resp Acidosis secondary to Acute exacerbation COPD Continue IV Solumedrol, Albuterol, Spiriva, Azithromycin. Continued improvement in acidosis and CO2 retention - continue BiPAP for respiratory acidosis as per Pulm. Acidosis resolving, Pulm following. 2. Hyperkalemia secondary to Acidosis due to transcellular K shift. s/p Insulin/Dextrose, on Lokelma Continue Telemonitoring K improving as acidosis resolves. 3. DM 2 - Metformin held. Maintain on Novolog as per sliding scale. 4. HLD - on Statin 5. Hypothyroidism - Continue Synthroid. DVT Px - Heparin SQ
--- NOTE | 2020-04-24 13:48 | PN ---
Progress Note (short form) - Note Progress Note: Resting in NAD on NC O2. Reports feeling better. Less SOB. Intake & Output 04/21/20 04/22/20 04/23/20 04/24/20 23:59 23:59 23:59 23:59 Intake Total 225 2316 200 Output Total 1300 1900 300 Balance -1075 416 -100 Weight 140 lb 140 lb Last Vital Signs Temp Pulse Resp BP Pulse Ox 97.7 F 76 13 138/67 97 04/24/20 12:35 04/24/20 12:35 04/24/20 12:35 04/24/20 12:35 04/24/20 12:35 Active Medications Albuterol Sulfate (Ventolin Hfa Inhaler -) 2 puff IH RQID [facility] Last Admin: 04/24/20 12:00 Dose: 2 puff Documented by: Atorvastatin Calcium (Lipitor -) 10 mg PO HS [facility] Last Admin: 04/23/20 21:17 Dose: 10 mg Documented by: Budesonide/Formoterol Fumarate (Symbicort 160/4.5mcg -) 2 puff IH BID [facility] Last Admin: 04/24/20 10:38 Dose: 2 puff Documented by: Heparin Sodium (Porcine) (Heparin -) 5,000 unit SQ TID [facility] Last Admin: 04/24/20 13:01 Dose: 5,000 unit Documented by: Insulin Aspart (Novolog Vial Sliding Scale -) 0 vial SQ ACHS [facility]; Protocol Last Admin: 04/24/20 11:00 Dose: Not Given Documented by: Levothyroxine Sodium (Synthroid -) 25 mcg PO DAILY@0700 [facility] Last Admin: 04/24/20 06:49 Dose: 25 mcg Documented by: Methylprednisolone Sodium Succinate (Solu-Medrol -) 40 mg IVPUSH Q8H-IV [facility] Last Admin: 04/24/20 10:37 Dose: 40 mg Documented by: Tiotropium [place] (Spiriva Respimat) 2 puff IH DAILY [facility] Last Admin: 04/24/20 10:38 Dose: 2 puff Documented by: Constitutional: Yes: NAD Eyes: Yes: Conjunctiva Clear, EOM Intact HENT: Yes: Atraumatic, Normocephalic Neck: Yes: Supple, Trachea Midline Cardiovascular: Yes: Regular Rate and Rhythm Respiratory: Yes: Diminished at the bases, scattered bilateral rhonchi ...Clubbing: No Gastrointestinal: Yes: Normal Bowel Sounds, Soft. No: Tenderness Edema: No Labs: Laboratory Results - last 24 hr 04/23/20 04/23/20 04/23/20 13:40 14:20 17:24 WBC RBC Hgb Hct MCV MCH MCHC RDW Plt Count MPV Anticoagulation Therapy Puncture Site Patient Temperature ABG pH ABG pCO2 ABG pO2 ABG HCO3 ABG O2 Sat (Measured) ABG O2 Content ABG Base Excess Keo Test Patient On Oxygen O2 Delivery Device Oxygen Flow Rate Vent Mode Vent Rate Mechanical Rate PEEP Pressure Support Vent Sodium Potassium 5.4 H Chloride Carbon Dioxide Anion Gap BUN Creatinine Est GFR (CKD-EPI)AfAm Est GFR (CKD-EPI)NonAf POC Glucometer 138 107 Random Glucose Calcium 04/23/20 04/23/20 04/24/20 21:11 21:30 05:53 WBC 7.6 RBC 3.62 L Hgb 11.0 L Hct 35.3 L MCV 97.5 H MCH 30.5 MCHC 31.2 L RDW 16.6 H Plt Count 114 L MPV 8.3 D Anticoagulation Therapy Puncture Site Patient Temperature ABG pH ABG pCO2 ABG pO2 ABG HCO3 ABG O2 Sat (Measured) ABG O2 Content ABG Base Excess Keo Test Patient On Oxygen O2 Delivery Device Oxygen Flow Rate Vent Mode Vent Rate Mechanical Rate PEEP Pressure Support Vent Sodium Potassium 4.7 Chloride Carbon Dioxide Anion Gap BUN Creatinine Est GFR (CKD-EPI)AfAm Est GFR (CKD-EPI)NonAf POC Glucometer 300 Random Glucose Calcium 04/24/20 04/24/20 04/24/20 05:53 06:00 06:48 WBC RBC Hgb Hct MCV MCH MCHC RDW Plt Count MPV Anticoagulation Therapy No Result Required. Puncture Site Right brachial Patient Temperature No Result Required. ABG pH 7.334 L ABG pCO2 71.40 H* ABG pO2 72.3 L ABG HCO3 37.1 H ABG O2 Sat (Measured) 92.9 L ABG O2 Content No Result Required. ABG Base Excess 8.9 H Keo Test No Result Required. Patient On Oxygen Yes O2 Delivery Device N/c Oxygen Flow Rate 2l Vent Mode No Result Required. Vent Rate No Result Required. Mechanical Rate No Result Required. PEEP No Result Required. Pressure Support Vent No Result Required. Sodium 145 Potassium 4.9 Chloride 104 Carbon Dioxide 37 H Anion Gap 4 L BUN 20.1 H Creatinine 1.2 Est GFR (CKD-EPI)AfAm 76.79 Est GFR (CKD-EPI)NonAf 66.26 POC Glucometer 108 Random Glucose 107 H Calcium 8.7 04/24/20 11:02 WBC RBC Hgb Hct MCV MCH MCHC RDW Plt Count MPV Anticoagulation Therapy Puncture Site Patient Temperature ABG pH ABG pCO2 ABG pO2 ABG HCO3 ABG O2 Sat (Measured) ABG O2 Content ABG Base Excess Keo Test Patient On Oxygen O2 Delivery Device Oxygen Flow Rate Vent Mode Vent Rate Mechanical Rate PEEP Pressure Support Vent Sodium Potassium Chloride Carbon Dioxide Anion Gap BUN Creatinine Est GFR (CKD-EPI)AfAm Est GFR (CKD-EPI)NonAf POC Glucometer 143 Random Glucose Calcium Imaging - Results Chest X-ray: Report Reviewed, Image Reviewed (hyperinflated, no infiltrates) Assessment/Plan Acute on Chronic Hypoxic and Hypercapneic Respiratory Failure Acute COPD Exacerbation DM Hyperlipidemia Hypothyroidism - At present he is awake and alert on NC O2 - IV medrol - inhaled bronchodilators standing and PRN - O2 to keep Spo2 >90% - glucose control while on systemic steroids - NIPPV to assist in work of breathing and respiratory acidosis - DVT prophylaxis Dr Kelsey
[2020-04-24] MEDS ORDERED: SODIUM ZIRCONIUM CYCLOSILICATE (LOKELMA) 5 GM PACKET PO ONE (15:48)
--- NOTE | 2020-04-24 19:25 | PN ---
Physical Exam: SUBJECTIVE: Patient seen and examined at bedside. The patient denied fever/chills, shortness of breath, palpitations, chest pain, diarrhea, constipation. The patient is now on 2 lpm nasal cannula and eating. OBJECTIVE: Vital Signs Period Temp Pulse Resp BP Sys/Rm Pulse Ox Last 24 Hr 97.5 F-98.1 F 68-98 11-18 116-142/58-81 90-100 GENERAL: The patient is awake, alert, and fully oriented, in no acute distress. HEAD: Normal with no signs of trauma. EYES: Extraocular movements intact. No ptosis. ENT: Ears normal, nares patent, oropharynx clear without exudates, moist mucous membranes. NECK: Trachea midline, full range of motion, supple. LUNGS: Decreased breath sounds. HEART: Regular rate and rhythm, S1, S2 without murmur, rub or gallop. ABDOMEN: Soft, nontender, nondistended, normoactive bowel sounds, no guarding, no rebound, no masses. EXTREMITIES: 2+ pulses, warm, well-perfused, no edema. NEUROLOGICAL: Normal speech, gait not observed. PSYCH: Normal mood, normal affect. SKIN: Warm, dry, normal turgor, no rashes or lesions noted Laboratory Results - last 24 hr 04/23/20 04/23/20 04/24/20 21:11 21:30 05:53 WBC 7.6 RBC 3.62 L Hgb 11.0 L Hct 35.3 L MCV 97.5 H MCH 30.5 MCHC 31.2 L RDW 16.6 H Plt Count 114 L MPV 8.3 D Anticoagulation Therapy Puncture Site Patient Temperature ABG pH ABG pCO2 ABG pO2 ABG HCO3 ABG O2 Sat (Measured) ABG O2 Content ABG Base Excess Keo Test Patient On Oxygen O2 Delivery Device Oxygen Flow Rate Vent Mode Vent Rate Mechanical Rate PEEP Pressure Support Vent Sodium Potassium 4.7 Chloride Carbon Dioxide Anion Gap BUN Creatinine Est GFR (CKD-EPI)AfAm Est GFR (CKD-EPI)NonAf POC Glucometer 300 Random Glucose Calcium 04/24/20 04/24/20 04/24/20 05:53 06:00 06:48 WBC RBC Hgb Hct MCV MCH MCHC RDW Plt Count MPV Anticoagulation Therapy No Result Required. Puncture Site Right brachial Patient Temperature No Result Required. ABG pH 7.334 L ABG pCO2 71.40 H* ABG pO2 72.3 L ABG HCO3 37.1 H ABG O2 Sat (Measured) 92.9 L ABG O2 Content No Result Required. ABG Base Excess 8.9 H Keo Test No Result Required. Patient On Oxygen Yes O2 Delivery Device N/c Oxygen Flow Rate 2l Vent Mode No Result Required. Vent Rate No Result Required. Mechanical Rate No Result Required. PEEP No Result Required. Pressure Support Vent No Result Required. Sodium 145 Potassium 4.9 Chloride 104 Carbon Dioxide 37 H Anion Gap 4 L BUN 20.1 H Creatinine 1.2 Est GFR (CKD-EPI)AfAm 76.79 Est GFR (CKD-EPI)NonAf 66.26 POC Glucometer 108 Random Glucose 107 H Calcium 8.7 04/24/20 04/24/20 11:02 16:48 WBC RBC Hgb Hct MCV MCH MCHC RDW Plt Count MPV Anticoagulation Therapy Puncture Site Patient Temperature ABG pH ABG pCO2 ABG pO2 ABG HCO3 ABG O2 Sat (Measured) ABG O2 Content ABG Base Excess Keo Test Patient On Oxygen O2 Delivery Device Oxygen Flow Rate Vent Mode Vent Rate Mechanical Rate PEEP Pressure Support Vent Sodium Potassium Chloride Carbon Dioxide Anion Gap BUN Creatinine Est GFR (CKD-EPI)AfAm Est GFR (CKD-EPI)NonAf POC Glucometer 143 220 Random Glucose Calcium Active Medications Generic Name Dose Route Start Last Admin Trade Name Freq PRN Reason Stop Dose Admin Albuterol Sulfate 2 puff 04/22/20 12:30 04/24/20 16:54 Ventolin Hfa Inhaler - IH 2 puff RQID LAURITA Administration Atorvastatin Calcium 10 mg 04/21/20 22:00 04/23/20 21:17 Lipitor - PO 10 mg HS LAURITA Administration Budesonide/Formoterol Fumarate 2 puff 04/22/20 12:30 04/24/20 10:38 Symbicort 160/4.5mcg - IH 2 puff BID LAURITA Administration Heparin Sodium (Porcine) 5,000 unit 04/21/20 22:00 04/24/20 13:01 Heparin - SQ 5,000 unit TID LAURITA Administration Insulin Aspart 0 vial 04/21/20 22:00 04/24/20 16:54 Novolog Vial Sliding Scale - SQ 4 unit ACHS LAURITA Administration Protocol Levothyroxine Sodium 25 mcg 04/22/20 07:00 07/17/20 06:49 Synthroid - PO 25 mcg DAILY@0700 LAURITA Administration Methylprednisolone Sodium Succinate 40 mg 04/22/20 02:00 04/24/20 17:20 Solu-Medrol - IVPUSH 40 mg Q8H-IV LAURITA Administration Tiotropium [place] 2 puff 04/22/20 10:00 04/24/20 10:38 Spiriva Respimat IH 2 puff DAILY LAURITA Administration ASSESSMENT/PLAN: 59 year old male patient with past medical history of DM, HLD, Hypothyroidism, COPD not on home O2 due to noncompliance, who presented to the ED shortness of breath and chest tightness after moving furniture. 1. Hypercapneic Hypoxemic Respiratory Distress secondary to Acute on Chronic COPD exacerbation - The patient is now on 2 lpm - Respiratory Acidosis with Metabolic Alkalosis on ABG (04/22/2020: pH 7.235, pCO2 83.6, pO2 95.6, HCO3 34.6). Respiratory Acidosis secondary to COPD exacerbation, while Metabolic Alkalosis possibly secondary to prior Metformin use. - The patient is taking Solu-Medrol, Spiriva, Symbicort, and Albuterol. - Repeat ABG today shows significant improvement with pH 7.334, pCO2 71.4, pO2 72.3, HCO3 37.1 2. Hyperkalemia - Potassium 4.9 on latest lab - Monitoring potassium 3. DM - The patient is taking Novolog - Metformin is held 4. Hypothyroidism - The patient is taking Levothyroxine 5. HLD - The patient is taking Lipitor # FEN - Monitoring electrolytes, Diabetic diet DVT PPx - Heparin Sq Dispo - Monitoring oxygenation and electrolytes. Visit type - Emergency Visit Emergency Visit: Yes ED Registration Date: 04/21/20 Care time: The patient presented to the Emergency Department on the above date and was hospitalized for further evaluation of their emergent condition. - New Patient This patient is new to me today: No - Critical Care Critical Care patient: No - Discharge Referral Referred to [facility] Med P.C[facility] No ATTENDING PHYSICIAN STATEMENT I saw and evaluated the patient. I reviewed the resident's note and discussed the case with the resident. I agree with the resident's findings and plan as documented. SUBJECTIVE: OBJECTIVE: ASSESSMENT AND PLAN:
[2020-04-24] MEDS: ATORVASTATIN CA 10 MG TABLET (FP) PO SCH (21:51)
[2020-04-25] MEDS: methylPREDNISolone NA SUCC 40 MG/1 ML VIAL IVPUSH SCH (01:47)
[2020-04-25] MEDS: LEVOTHYROXINE NA 25 MCG TABLET (FP) PO SCH (06:00)
[2020-04-25] MEDS: HEPARIN NA (PORCINE) 5,000 UNITS/ML 1ML VIAL SQ SCH ×3 (06:00→21:35)
[2020-04-25] MEDS: INSULIN SLIDING SCALE (NOVOLOG) 1 VIAL SQ SCH ×4 (06:01→21:48)
[2020-04-25] MEDS: ALBUTEROL SO4 HFA INHALER IH SCH ×4 (08:00→21:36)
[2020-04-25 08:57] LABS: ARTERIAL BLD GAS O2 SATURATION 95.7 mmHg (95-98); ARTERIAL BLOOD GAS BASE EXCESS 9.6 mmol/L (-2-2); ARTERIAL BLOOD GAS PO2 82.1 mmHg (80-100); ARTERIAL BLOOD GAS pH 7.389 (7.350-7.450)
[2020-04-25 08:58] LABS: ALLENS TEST POSITIVE
[2020-04-25] MEDS: TIOTROPIUM BROMIDE 2.5 MCG (SPIRIVA) RESPIMAT INHALER IH SCH (09:21)
[2020-04-25] MEDS: BUDESONIDE/FORMETEROL FUMARATE 160/4.5 mcg INHALER IH SCH ×2 (09:21→21:36)
[2020-04-25 09:24] LABS: HEMATOCRIT 39.2 % (35.4-49); HEMOGLOBIN 12.6 GM/dL (11.7-16.9); MCH 31.2 pg (25.7-33.7); MCHC 32.3 g/dl (32.0-35.9); MEAN CELL VOLUME 96.6 fl (80-96); MEAN PLT VOLUME 9.3 fl (7.5-11.1); PLATELET COUNT 137 K/MM3 (134-434); RBC 4.06 M/mm3 (4.00-5.60); RDW 16.4 % (11.9-15.9); WHITE BLOOD COUNT 7.2 K/mm3 (4.0-10.0)
[2020-04-25 09:55] LABS: BLOOD UREA NITROGEN 23.3 mg/dL (7-18); CALCIUM 9.3 mg/dL (8.5-10.1); CREATININE 1.3 mg/dL (0.55-1.3); MAGNESIUM 2.6 mg/dL (1.8-2.4); PHOSPHOROUS 2.4 mg/dL (2.5-4.9)
[2020-04-25] MEDS ORDERED: predniSONE 20 MG TABLET (UD) PO SCH (10:00)
--- NOTE | 2020-04-25 13:13 | PN ---
Progress Note (short form) - Note Progress Note: Resting in NAD on NC O2. Overall appears improved. No acute events overnight. Intake & Output 04/22/20 04/23/20 04/24/20 04/25/20 23:59 23:59 23:59 23:59 Intake Total 225 2316 450 300 Output Total 1300 1900 500 600 Balance -1075 416 -50 -300 Weight 140 lb Last Vital Signs Temp Pulse Resp BP Pulse Ox 98.1 F 88 17 120/66 98 04/25/20 12:00 04/25/20 12:00 04/25/20 12:00 04/25/20 12:00 04/25/20 12:00 Active Medications Albuterol Sulfate (Ventolin Hfa Inhaler -) 2 puff IH RQID [facility] Last Admin: 04/25/20 08:00 Dose: 2 puff Documented by: Atorvastatin Calcium (Lipitor -) 10 mg PO HS [facility] Last Admin: 04/24/20 21:51 Dose: 10 mg Documented by: Budesonide/Formoterol Fumarate (Symbicort 160/4.5mcg -) 2 puff IH BID [facility] Last Admin: 04/25/20 09:21 Dose: 2 puff Documented by: Heparin Sodium (Porcine) (Heparin -) 5,000 unit SQ TID [facility] Last Admin: 04/25/20 06:00 Dose: 5,000 unit Documented by: Insulin Aspart (Novolog Vial Sliding Scale -) 0 vial SQ ACHS [facility]; Protocol Last Admin: 04/25/20 11:39 Dose: 4 units Documented by: Levothyroxine Sodium (Synthroid -) 25 mcg PO DAILY@0700 [facility] Last Admin: 04/25/20 06:00 Dose: 25 mcg Documented by: Prednisone (Deltasone -) 60 mg PO DAILY [facility] Last Admin: 04/25/20 09:21 Dose: 60 mg Documented by: Tiotropium [place] (Spiriva Respimat) 2 puff IH DAILY [facility] Last Admin: 04/25/20 09:21 Dose: 2 puff Documented by: Constitutional: Yes: NAD Eyes: Yes: Conjunctiva Clear, EOM Intact HENT: Yes: Atraumatic, Normocephalic Neck: Yes: Supple, Trachea Midline Cardiovascular: Yes: Regular Rate and Rhythm Respiratory: Yes: Diminished at the bases, scattered bilateral rhonchi ...Clubbing: No Gastrointestinal: Yes: Normal Bowel Sounds, Soft. No: Tenderness Edema: No Labs: Laboratory Results - last 24 hr 04/24/20 04/24/20 04/25/20 16:48 21:21 06:03 WBC RBC Hgb Hct MCV MCH MCHC RDW Plt Count MPV Anticoagulation Therapy Puncture Site Patient Temperature ABG pH ABG pCO2 ABG pO2 ABG HCO3 ABG O2 Sat (Measured) ABG O2 Content ABG Base Excess Keo Test Patient On Oxygen O2 Delivery Device Oxygen Flow Rate Vent Mode Vent Rate Mechanical Rate PEEP Pressure Support Vent Sodium Potassium Chloride Carbon Dioxide Anion Gap BUN Creatinine Est GFR (CKD-EPI)AfAm Est GFR (CKD-EPI)NonAf POC Glucometer 220 173 163 Random Glucose Calcium Phosphorus Magnesium Vitamin B12 Serum Folate 04/25/20 04/25/20 04/25/20 08:25 09:10 09:10 WBC 7.2 RBC 4.06 Hgb 12.6 Hct 39.2 MCV 96.6 H MCH 31.2 MCHC 32.3 RDW 16.4 H Plt Count 137 D MPV 9.3 D Anticoagulation Therapy No Result Required. Puncture Site Right radial Patient Temperature No Result Required. ABG pH 7.389 ABG pCO2 62.40 H ABG pO2 82.1 ABG HCO3 36.8 H ABG O2 Sat (Measured) 95.7 ABG O2 Content No Result Required. ABG Base Excess 9.6 H Keo Test Positive Patient On Oxygen Yes O2 Delivery Device N/c Oxygen Flow Rate 2l Vent Mode No Result Required. Vent Rate No Result Required. Mechanical Rate No Result Required. PEEP No Result Required. Pressure Support Vent No Result Required. Sodium 142 Potassium 5.0 Chloride 99 Carbon Dioxide 38 H Anion Gap 4 L BUN 23.3 H Creatinine 1.3 Est GFR (CKD-EPI)AfAm 69.71 Est GFR (CKD-EPI)NonAf 60.14 POC Glucometer Random Glucose 146 H Calcium 9.3 Phosphorus 2.4 L Magnesium 2.6 H Vitamin B12 493 Serum Folate 29 H 04/25/20 10:31 WBC RBC Hgb Hct MCV MCH MCHC RDW Plt Count MPV Anticoagulation Therapy Puncture Site Patient Temperature ABG pH ABG pCO2 ABG pO2 ABG HCO3 ABG O2 Sat (Measured) ABG O2 Content ABG Base Excess Keo Test Patient On Oxygen O2 Delivery Device Oxygen Flow Rate Vent Mode Vent Rate Mechanical Rate PEEP Pressure Support Vent Sodium Potassium Chloride Carbon Dioxide Anion Gap BUN Creatinine Est GFR (CKD-EPI)AfAm Est GFR (CKD-EPI)NonAf POC Glucometer 239 Random Glucose Calcium Phosphorus Magnesium Vitamin B12 Serum Folate Imaging - Results Chest X-ray: Report Reviewed, Image Reviewed (hyperinflated, no infiltrates) Assessment/Plan Acute on Chronic Hypoxic and Hypercapneic Respiratory Failure Acute COPD Exacerbation DM Hyperlipidemia Hypothyroidism - Will need to check Pre and Post ambulation O2 saturation on RA - Steroid wean - Will need formal SBD evaluation after discharge and likely need for PAP therapy - inhaled bronchodilators standing and PRN - O2 to keep Spo2 >90% - glucose control while on systemic steroids - DVT prophylaxis Dr Kelsey
--- NOTE | 2020-04-25 14:27 | PN ---
Teaching Attending Note Name of Resident: Chandrakant Lobato ATTENDING PHYSICIAN STATEMENT I saw and evaluated the patient. I reviewed the resident's note and discussed the case with the resident. I agree with the resident's findings and plan as documented. SUBJECTIVE: Feels comfortable on 2L via NC. No SOB/fever/chills. OBJECTIVE: Afebrile, Hemodynamically Stable. Comfortable. SpO2 97% on 2L via NC. Used BiPAP overnight. Last Vital Signs Temp Pulse Resp BP Pulse Ox 97.7 F 76 13 138/67 97 04/24/20 12:35 04/24/20 12:35 04/24/20 12:35 04/24/20 12:35 04/24/20 12:35 Heart - S1, S2, RRR Lungs - improving air entry globally, no wheeze. Abdomen - Soft, non-tender. Bowel Sounds normal. Extremities - no edema, no calf tenderness Neuro - AAO x 3. Tone/Power normal all extremities. Laboratory Results - last 24 hr 04/24/20 04/24/20 04/25/20 16:48 21:21 06:03 WBC RBC Hgb Hct MCV MCH MCHC RDW Plt Count MPV Anticoagulation Therapy Puncture Site Patient Temperature ABG pH ABG pCO2 ABG pO2 ABG HCO3 ABG O2 Sat (Measured) ABG O2 Content ABG Base Excess Keo Test Patient On Oxygen O2 Delivery Device Oxygen Flow Rate Vent Mode Vent Rate Mechanical Rate PEEP Pressure Support Vent Sodium Potassium Chloride Carbon Dioxide Anion Gap BUN Creatinine Est GFR (CKD-EPI)AfAm Est GFR (CKD-EPI)NonAf POC Glucometer 220 173 163 Random Glucose Calcium Phosphorus Magnesium Vitamin B12 Serum Folate 04/25/20 04/25/20 04/25/20 08:25 09:10 09:10 WBC 7.2 RBC 4.06 Hgb 12.6 Hct 39.2 MCV 96.6 H MCH 31.2 MCHC 32.3 RDW 16.4 H Plt Count 137 D MPV 9.3 D Anticoagulation Therapy No Result Required. Puncture Site Right radial Patient Temperature No Result Required. ABG pH 7.389 ABG pCO2 62.40 H ABG pO2 82.1 ABG HCO3 36.8 H ABG O2 Sat (Measured) 95.7 ABG O2 Content No Result Required. ABG Base Excess 9.6 H Keo Test Positive Patient On Oxygen Yes O2 Delivery Device N/c Oxygen Flow Rate 2l Vent Mode No Result Required. Vent Rate No Result Required. Mechanical Rate No Result Required. PEEP No Result Required. Pressure Support Vent No Result Required. Sodium 142 Potassium 5.0 Chloride 99 Carbon Dioxide 38 H Anion Gap 4 L BUN 23.3 H Creatinine 1.3 Est GFR (CKD-EPI)AfAm 69.71 Est GFR (CKD-EPI)NonAf 60.14 POC Glucometer Random Glucose 146 H Calcium 9.3 Phosphorus 2.4 L Magnesium 2.6 H Vitamin B12 493 Serum Folate 29 H 04/25/20 10:31 WBC RBC Hgb Hct MCV MCH MCHC RDW Plt Count MPV Anticoagulation Therapy Puncture Site Patient Temperature ABG pH ABG pCO2 ABG pO2 ABG HCO3 ABG O2 Sat (Measured) ABG O2 Content ABG Base Excess Keo Test Patient On Oxygen O2 Delivery Device Oxygen Flow Rate Vent Mode Vent Rate Mechanical Rate PEEP Pressure Support Vent Sodium Potassium Chloride Carbon Dioxide Anion Gap BUN Creatinine Est GFR (CKD-EPI)AfAm Est GFR (CKD-EPI)NonAf POC Glucometer 239 Random Glucose Calcium Phosphorus Magnesium Vitamin B12 Serum Folate Current Medications Generic Name Dose Route Start Last Admin Trade Name Freq PRN Reason Stop Dose Admin Albuterol Sulfate 2 puff 04/22/20 12:30 04/25/20 12:00 Ventolin Hfa Inhaler - IH 2 puff RQID LAURITA Administration Atorvastatin Calcium 10 mg 04/21/20 22:00 04/24/20 21:51 Lipitor - PO 10 mg HS LAURITA Administration Budesonide/Formoterol Fumarate 2 puff 04/22/20 12:30 04/25/20 09:21 Symbicort 160/4.5mcg - IH 2 puff BID LAURITA Administration Heparin Sodium (Porcine) 5,000 unit 04/21/20 22:00 04/25/20 13:47 Heparin - SQ 5,000 unit TID LAURITA Administration Insulin Aspart 0 vial 04/21/20 22:00 04/25/20 11:39 Novolog Vial Sliding Scale - SQ 4 units ACHS LAURITA Administration Protocol Levothyroxine Sodium 25 mcg 04/22/20 07:00 04/25/20 06:00 Synthroid - PO 25 mcg DAILY@0700 LAURITA Administration Prednisone 60 mg 04/25/20 10:00 04/25/20 09:21 Deltasone - PO 60 mg DAILY LAURITA Administration Tiotropium [place] 2 puff 04/22/20 10:00 04/25/20 09:21 Spiriva Respimat IH 2 puff DAILY LAURITA Administration Home Medications Medication Instructions Recorded metFORMIN HCL [Glucophage -] 500 mg PO BID 09/15/15 Simvastatin [Zocor -] 20 mg PO HS 10/09/15 Albuterol 0.083% Nebulizer Ema 1 neb NEB Q6H PRN 07/16/17 [Ventolin 0.083% Nebulizer Soln -] Albuterol Sulfate [Proair Hfa] 8.5 gm IH Q6H 03/26/18 Ferrous Gluconate [Iron] 256 mg PO DAILY 05/17/19 Vitamin B Complex 1 each PO DAILY 05/17/19 Levothyroxine [Synthroid -] 25 mcg PO DAILY 04/21/20 Meloxicam 7.5 mg PO DAILY 04/21/20 ASSESSMENT AND PLAN: 58 year old male with history of CRF sec to COPD on Home O2, HLD, DM 2, presents with increasing SOB, without fever/cough/sputum. 1. Acute on Chronic Hypoxic and Hypercapneic Respiratory Failure with Resp Acidosis secondary to Acute exacerbation COPD IV Solumedrol transitioned to oral Prednisone. Continue Albuterol, Spiriva, Azithromycin. Continued improvement in acidosis and CO2 retention - for outpatient eval for ANTHONY study and initiation on CPAP at home. Acidosis resolved, Pulm following. Pre/Post SpO2 requested. 2. Hyperkalemia secondary to Acidosis due to transcellular K shift. s/p Insulin/Dextrose, on Lokelma Continue Telemonitoring K improving as acidosis resolves. 3. DM 2 - Metformin held. Maintain on Novolog as per sliding scale. 4. HLD - on Statin 5. Hypothyroidism - Continue Synthroid. 6. Macrocytosis - B12 493, Fol 29. 7. Hypophosphatemia - repleted. DVT Px - Heparin SQ
[2020-04-25] MEDS ORDERED: SODIUM PHOSPHATE - 15 MM in SODIUM CHLORIDE 250 ML IVPB ONE (15:30)
--- NOTE | 2020-04-25 20:12 | PN ---
Physical Exam: SUBJECTIVE: Patient seen and examined at bedside. The patient reports feeling fine with no fever/chills or shortness of breath. OBJECTIVE: Vital Signs Period Temp Pulse Resp BP Sys/Rm Pulse Ox Last 24 Hr 97.0 F-98.4 F 57-88 16-19 119-138/65-83 94-100 GENERAL: The patient is awake, alert, and fully oriented, in no acute distress. HEAD: Normal with no signs of trauma. EYES: Extraocular movements intact. No ptosis. ENT: Ears normal, nares patent, oropharynx clear without exudates, moist mucous membranes. NECK: Trachea midline, full range of motion, supple. LUNGS: Decreased breath sounds HEART: Regular rate and rhythm, S1, S2 without murmur, rub or gallop. ABDOMEN: Soft, nontender, nondistended, normoactive bowel sounds, no guarding, no rebound, no masses. EXTREMITIES: 2+ pulses, warm, well-perfused, no edema. NEUROLOGICAL: Normal speech, gait not observed. PSYCH: Normal mood, normal affect. SKIN: Warm, dry, normal turgor, no rashes or lesions noted Laboratory Results - last 24 hr 04/24/20 04/25/20 04/25/20 21:21 06:03 08:25 WBC RBC Hgb Hct MCV MCH MCHC RDW Plt Count MPV Anticoagulation Therapy No Result Required. Puncture Site Right radial Patient Temperature No Result Required. ABG pH 7.389 ABG pCO2 62.40 H ABG pO2 82.1 ABG HCO3 36.8 H ABG O2 Sat (Measured) 95.7 ABG O2 Content No Result Required. ABG Base Excess 9.6 H Keo Test Positive Patient On Oxygen Yes O2 Delivery Device N/c Oxygen Flow Rate 2l Vent Mode No Result Required. Vent Rate No Result Required. Mechanical Rate No Result Required. PEEP No Result Required. Pressure Support Vent No Result Required. Sodium Potassium Chloride Carbon Dioxide Anion Gap BUN Creatinine Est GFR (CKD-EPI)AfAm Est GFR (CKD-EPI)NonAf POC Glucometer 173 163 Random Glucose Calcium Phosphorus Magnesium Vitamin B12 Serum Folate 04/25/20 04/25/20 04/25/20 09:10 09:10 10:31 WBC 7.2 RBC 4.06 Hgb 12.6 Hct 39.2 MCV 96.6 H MCH 31.2 MCHC 32.3 RDW 16.4 H Plt Count 137 D MPV 9.3 D Anticoagulation Therapy Puncture Site Patient Temperature ABG pH ABG pCO2 ABG pO2 ABG HCO3 ABG O2 Sat (Measured) ABG O2 Content ABG Base Excess Keo Test Patient On Oxygen O2 Delivery Device Oxygen Flow Rate Vent Mode Vent Rate Mechanical Rate PEEP Pressure Support Vent Sodium 142 Potassium 5.0 Chloride 99 Carbon Dioxide 38 H Anion Gap 4 L BUN 23.3 H Creatinine 1.3 Est GFR (CKD-EPI)AfAm 69.71 Est GFR (CKD-EPI)NonAf 60.14 POC Glucometer 239 Random Glucose 146 H Calcium 9.3 Phosphorus 2.4 L Magnesium 2.6 H Vitamin B12 493 Serum Folate 29 H 04/25/20 16:31 WBC RBC Hgb Hct MCV MCH MCHC RDW Plt Count MPV Anticoagulation Therapy Puncture Site Patient Temperature ABG pH ABG pCO2 ABG pO2 ABG HCO3 ABG O2 Sat (Measured) ABG O2 Content ABG Base Excess Keo Test Patient On Oxygen O2 Delivery Device Oxygen Flow Rate Vent Mode Vent Rate Mechanical Rate PEEP Pressure Support Vent Sodium Potassium Chloride Carbon Dioxide Anion Gap BUN Creatinine Est GFR (CKD-EPI)AfAm Est GFR (CKD-EPI)NonAf POC Glucometer 171 Random Glucose Calcium Phosphorus Magnesium Vitamin B12 Serum Folate Active Medications Generic Name Dose Route Start Last Admin Trade Name Freq PRN Reason Stop Dose Admin Albuterol Sulfate 2 puff 04/22/20 12:30 04/25/20 16:55 Ventolin Hfa Inhaler - IH 2 puff RQID LAURITA Administration Atorvastatin Calcium 10 mg 04/21/20 22:00 04/24/20 21:51 Lipitor - PO 10 mg HS LAURITA Administration Budesonide/Formoterol Fumarate 2 puff 04/22/20 12:30 04/25/20 09:21 Symbicort 160/4.5mcg - IH 2 puff BID LAURITA Administration Heparin Sodium (Porcine) 5,000 unit 04/21/20 22:00 04/25/20 13:47 Heparin - SQ 5,000 unit TID LAURITA Administration Insulin Aspart 0 vial 04/21/20 22:00 04/25/20 16:55 Novolog Vial Sliding Scale - SQ 2 units ACHS LAURITA Administration Protocol Levothyroxine Sodium 25 mcg 04/22/20 07:00 04/25/20 06:00 Synthroid - PO 25 mcg DAILY@0700 LAURITA Administration Prednisone 40 mg 04/25/20 14:30 Deltasone - PO DAILY LAURITA Tiotropium [place] 2 puff 04/22/20 10:00 04/25/20 09:21 Spiriva Respimat IH 2 puff DAILY LAURITA Administration ASSESSMENT/PLAN: 59 year old male patient with past medical history of DM, HLD, Hypothyroidism, COPD not on home O2 due to noncompliance, who presented to the ED shortness of breath and chest tightness after moving furniture. 1. Hypercapneic Hypoxemic Respiratory Distress secondary to Acute on Chronic COPD exacerbation - The patient is now on 2 lpm - Respiratory Acidosis with Metabolic Alkalosis on ABG (04/22/2020: pH 7.235, pCO2 83.6, pO2 95.6, HCO3 34.6). Respiratory Acidosis secondary to COPD exacerbation, while Metabolic Alkalosis possibly secondary to prior Metformin use. - The patient is taking Solu-Medrol, Spiriva, Symbicort, and Albuterol. - Acidosis resolved: Repeat ABG today shows significant improvement with pH 7.389, pCO2 62.4, pO2 82.1, HCO3 36.8 - Pre and post order put in for respiratory 2. Hyperkalemia - Potassium 5.0 on latest lab - Monitoring potassium 3. DM - The patient is taking Novolog - Metformin is held 4. Hypothyroidism - The patient is taking Levothyroxine 5. HLD - The patient is taking Lipitor # FEN - Monitoring electrolytes, Diabetic diet DVT PPx - Heparin Sq Dispo - Waiting for pre and post from resp Visit type - Emergency Visit Emergency Visit: Yes ED Registration Date: 04/21/20 Care time: The patient presented to the Emergency Department on the above date and was hospitalized for further evaluation of their emergent condition. - New Patient This patient is new to me today: No - Critical Care Critical Care patient: No - Discharge Referral Referred to [facility] No ATTENDING PHYSICIAN STATEMENT I saw and evaluated the patient. I reviewed the resident's note and discussed the case with the resident. I agree with the resident's findings and plan as documented. SUBJECTIVE: OBJECTIVE: ASSESSMENT AND PLAN:
[2020-04-25] MEDS: ATORVASTATIN CA 10 MG TABLET (FP) PO SCH (21:35)
[2020-04-26] MEDS: HEPARIN NA (PORCINE) 5,000 UNITS/ML 1ML VIAL SQ SCH ×3 (05:51→21:34)
[2020-04-26 06:08] LABS: ARTERIAL BLD GAS O2 SATURATION 98.8 mmHg (95-98); ARTERIAL BLOOD GAS BASE EXCESS 8.7 mmol/L (-2-2); ARTERIAL BLOOD GAS PO2 147.7 mmHg (80-100); ARTERIAL BLOOD GAS pH 7.385 (7.350-7.450)
[2020-04-26 06:11] LABS: ALLENS TEST POSITIVE; VENT MODE S/T
[2020-04-26 06:12] LABS: VENT RATE 18
[2020-04-26] MEDS: LEVOTHYROXINE NA 25 MCG TABLET (FP) PO SCH (06:25)
[2020-04-26] MEDS: INSULIN SLIDING SCALE (NOVOLOG) 1 VIAL SQ SCH ×4 (06:25→21:44)
[2020-04-26 07:03] LABS: HEMATOCRIT 38.5 % (35.4-49); HEMOGLOBIN 12.2 GM/dL (11.7-16.9); MCH 30.4 pg (25.7-33.7); MCHC 31.7 g/dl (32.0-35.9); MEAN PLT VOLUME 9.1 fl (7.5-11.1); PLATELET COUNT 127 K/MM3 (134-434); RBC 4.01 M/mm3 (4.00-5.60); RDW 16.3 % (11.9-15.9); WHITE BLOOD COUNT 7.1 K/mm3 (4.0-10.0)
[2020-04-26 07:29] LABS: BLOOD UREA NITROGEN 24.8 mg/dL (7-18); CALCIUM 8.8 mg/dL (8.5-10.1); CREATININE 1.4 mg/dL (0.55-1.3); MAGNESIUM 2.4 mg/dL (1.8-2.4); PHOSPHOROUS 2.9 mg/dL (2.5-4.9); POTASSIUM 4.3 mmol/L (3.5-5.1)
[2020-04-26] MEDS: predniSONE 20 MG TABLET (UD) PO SCH (09:46)
[2020-04-26] MEDS: ALBUTEROL SO4 HFA INHALER IH SCH ×4 (09:48→21:36)
[2020-04-26] MEDS: TIOTROPIUM BROMIDE 2.5 MCG (SPIRIVA) RESPIMAT INHALER IH SCH (09:49)
[2020-04-26] MEDS: BUDESONIDE/FORMETEROL FUMARATE 160/4.5 mcg INHALER IH SCH ×2 (09:50→21:37)
--- NOTE | 2020-04-26 12:32 | PN ---
Progress Note (short form) - Note Progress Note: SUBJECTIVE: Feels comfortable on 2L via NC. No SOB/fever/chills. OBJECTIVE: Afebrile, Hemodynamically Stable. Comfortable. SpO2 99% on 2L via NC. Last Vital Signs Temp Pulse Resp BP Pulse Ox 97.6 F 72 17 131/77 99 04/26/20 09:30 04/26/20 09:30 04/26/20 09:30 04/26/20 09:30 04/26/20 09:30 Heart - S1, S2, RRR Lungs - better air entry, no wheeze. Abdomen - Soft, non-tender. Bowel Sounds normal. Extremities - no edema, no calf tenderness Neuro - AAO x 3. Tone/Power normal all extremities. Laboratory Results - last 24 hr 04/25/20 04/25/20 04/26/20 16:31 21:47 05:35 WBC RBC Hgb Hct MCV MCH MCHC RDW Plt Count MPV Anticoagulation Therapy No Result Required. Puncture Site Left radial Patient Temperature No Result Required. ABG pH 7.385 ABG pCO2 61.10 H ABG pO2 147.7 H ABG HCO3 35.7 H ABG O2 Sat (Measured) 98.8 H ABG O2 Content No Result Required. ABG Base Excess 8.7 H Keo Test Positive Patient On Oxygen Yes O2 Delivery Device Bipap Oxygen Flow Rate 45% Vent Mode S/t Vent Rate 18 Mechanical Rate No Result Required. PEEP No Result Required. Pressure Support Vent 18/6 Sodium Potassium Chloride Carbon Dioxide Anion Gap BUN Creatinine Est GFR (CKD-EPI)AfAm Est GFR (CKD-EPI)NonAf POC Glucometer 171 210 Random Glucose Calcium Phosphorus Magnesium 04/26/20 04/26/20 04/26/20 05:42 05:42 06:23 WBC 7.1 RBC 4.01 Hgb 12.2 Hct 38.5 MCV 96.0 MCH 30.4 MCHC 31.7 L RDW 16.3 H Plt Count 127 L MPV 9.1 Anticoagulation Therapy Puncture Site Patient Temperature ABG pH ABG pCO2 ABG pO2 ABG HCO3 ABG O2 Sat (Measured) ABG O2 Content ABG Base Excess Keo Test Patient On Oxygen O2 Delivery Device Oxygen Flow Rate Vent Mode Vent Rate Mechanical Rate PEEP Pressure Support Vent Sodium 142 Potassium 4.3 Chloride 100 Carbon Dioxide 41 H Anion Gap 1 L BUN 24.8 H Creatinine 1.4 H Est GFR (CKD-EPI)AfAm 63.73 Est GFR (CKD-EPI)NonAf 54.99 POC Glucometer 128 Random Glucose 129 H Calcium 8.8 Phosphorus 2.9 Magnesium 2.4 04/26/20 11:29 WBC RBC Hgb Hct MCV MCH MCHC RDW Plt Count MPV Anticoagulation Therapy Puncture Site Patient Temperature ABG pH ABG pCO2 ABG pO2 ABG HCO3 ABG O2 Sat (Measured) ABG O2 Content ABG Base Excess Keo Test Patient On Oxygen O2 Delivery Device Oxygen Flow Rate Vent Mode Vent Rate Mechanical Rate PEEP Pressure Support Vent Sodium Potassium Chloride Carbon Dioxide Anion Gap BUN Creatinine Est GFR (CKD-EPI)AfAm Est GFR (CKD-EPI)NonAf POC Glucometer 111 Random Glucose Calcium Phosphorus Magnesium Current Medications Generic Name Dose Route Start Last Admin Trade Name Freq PRN Reason Stop Dose Admin Albuterol Sulfate 2 puff 04/22/20 12:30 04/26/20 09:48 Ventolin Hfa Inhaler - IH 2 puff RQID LAURITA Administration Atorvastatin Calcium 10 mg 04/21/20 22:00 04/25/20 21:35 Lipitor - PO 10 mg HS LAURITA Administration Budesonide/Formoterol Fumarate 2 puff 04/22/20 12:30 04/26/20 09:50 Symbicort 160/4.5mcg - IH 2 puff BID LAURITA Administration Heparin Sodium (Porcine) 5,000 unit 04/21/20 22:00 04/26/20 05:51 Heparin - SQ 5,000 unit TID LAURITA Administration Insulin Aspart 0 vial 04/21/20 22:00 04/26/20 06:25 Novolog Vial Sliding Scale - SQ Not Given ACHS [facility] Protocol Levothyroxine Sodium 25 mcg 04/22/20 07:00 04/26/20 06:25 Synthroid - PO 25 mcg DAILY@0700 LAURITA Administration Prednisone 40 mg 04/25/20 14:30 04/26/20 09:46 Deltasone - PO 40 mg DAILY LAURITA Administration Tiotropium [place] 2 puff 04/22/20 10:00 04/26/20 09:49 Spiriva Respimat IH 2 puff DAILY LAURITA Administration Home Medications Medication Instructions Recorded metFORMIN HCL [Glucophage -] 500 mg PO BID 09/15/15 Simvastatin [Zocor -] 20 mg PO HS 10/09/15 Albuterol 0.083% Nebulizer Ema 1 neb NEB Q6H PRN 07/16/17 [Ventolin 0.083% Nebulizer Soln -] Albuterol Sulfate [Proair Hfa] 8.5 gm IH Q6H 03/26/18 Ferrous Gluconate [Iron] 256 mg PO DAILY 05/17/19 Vitamin B Complex 1 each PO DAILY 05/17/19 Levothyroxine [Synthroid -] 25 mcg PO DAILY 04/21/20 Meloxicam 7.5 mg PO DAILY 04/21/20 ASSESSMENT AND PLAN: 58 year old male with history of CRF sec to COPD on Home O2, HLD, DM 2, CKD 3, presents with increasing SOB, without fever/cough/sputum. 1. Acute on Chronic Hypoxic and Hypercapneic Respiratory Failure with Resp Acidosis secondary to Acute exacerbation COPD IV Solumedrol transitioned to oral Prednisone. Continue Albuterol, Spiriva, Azithromycin. Continued improvement in acidosis and CO2 retention - for outpatient eval for ANTHONY study and initiation on CPAP at home. Acidosis resolved, Pulm following. SpO2 82% on ambulation on RA - qualifies for Home O2 - for discharge once Home O2 is arranged. 2. Hyperkalemia secondary to Acidosis due to transcellular K shift. s/p Insulin/Dextrose, on Lokelma Resolved. 3. DM 2 - Maintain on Novolog as per sliding scale during in-patient stay. Metfromin to be resumed on discharge. 4. HLD - on Statin 5. Hypothyroidism - Continue Synthroid. 6. Macrocytosis - B12 493, Fol 29. 7. Hypophosphatemia - repleted. 8. HIREN on CKD 3 - resolved, Creat 1.8 to 1.4 (baseline). DVT Px - Heparin SQ Visit type - Emergency Visit Emergency Visit: Yes ED Registration Date: 04/21/20 Care time: The patient presented to the Emergency Department on the above date and was hospitalized for further evaluation of their emergent condition. - New Patient This patient is new to me today: No - Critical Care Critical Care patient: No - Discharge Referral Referred to [facility] Med P.C.: No
--- NOTE | 2020-04-26 13:26 | PN ---
Progress Note (short form) - Note Progress Note: OOB to chair in NAD. Overall appears improved. No acute events overnight. Intake & Output 04/23/20 04/24/20 04/25/20 04/26/20 23:59 23:59 23:59 23:59 Intake Total 2316 450 750 250 Output Total 1900 500 600 Balance 416 -50 150 250 Last Vital Signs Temp Pulse Resp BP Pulse Ox 97.6 F 72 17 131/77 99 04/26/20 09:30 04/26/20 09:30 04/26/20 09:30 04/26/20 09:30 04/26/20 09:30 Active Medications Albuterol Sulfate (Ventolin Hfa Inhaler -) 2 puff IH RQID [facility] Last Admin: 04/26/20 09:48 Dose: 2 puff Documented by: Atorvastatin Calcium (Lipitor -) 10 mg PO HS [facility] Last Admin: 04/25/20 21:35 Dose: 10 mg Documented by: Budesonide/Formoterol Fumarate (Symbicort 160/4.5mcg -) 2 puff IH BID [facility] Last Admin: 04/26/20 09:50 Dose: 2 puff Documented by: Heparin Sodium (Porcine) (Heparin -) 5,000 unit SQ TID [facility] Last Admin: 04/26/20 05:51 Dose: 5,000 unit Documented by: Insulin Aspart (Novolog Vial Sliding Scale -) 0 vial SQ ACHS [facility]; Protocol Last Admin: 04/26/20 06:25 Dose: Not Given Documented by: Levothyroxine Sodium (Synthroid -) 25 mcg PO DAILY@0700 [facility] Last Admin: 04/26/20 06:25 Dose: 25 mcg Documented by: Prednisone (Deltasone -) 40 mg PO DAILY [facility] Last Admin: 04/26/20 09:46 Dose: 40 mg Documented by: Tiotropium [place] (Spiriva Respimat) 2 puff IH DAILY [facility] Last Admin: 04/26/20 09:49 Dose: 2 puff Documented by: Constitutional: Yes: NAD Eyes: Yes: Conjunctiva Clear, EOM Intact HENT: Yes: Atraumatic, Normocephalic Neck: Yes: Supple, Trachea Midline Cardiovascular: Yes: Regular Rate and Rhythm Respiratory: Yes: Diminished at the bases, scattered bilateral rhonchi ...Clubbing: No Gastrointestinal: Yes: Normal Bowel Sounds, Soft. No: Tenderness Edema: No Labs: Laboratory Results - last 24 hr 04/25/20 04/25/20 04/26/20 16:31 21:47 05:35 WBC RBC Hgb Hct MCV MCH MCHC RDW Plt Count MPV Anticoagulation Therapy No Result Required. Puncture Site Left radial Patient Temperature No Result Required. ABG pH 7.385 ABG pCO2 61.10 H ABG pO2 147.7 H ABG HCO3 35.7 H ABG O2 Sat (Measured) 98.8 H ABG O2 Content No Result Required. ABG Base Excess 8.7 H Keo Test Positive Patient On Oxygen Yes O2 Delivery Device Bipap Oxygen Flow Rate 45% Vent Mode S/t Vent Rate 18 Mechanical Rate No Result Required. PEEP No Result Required. Pressure Support Vent 18/6 Sodium Potassium Chloride Carbon Dioxide Anion Gap BUN Creatinine Est GFR (CKD-EPI)AfAm Est GFR (CKD-EPI)NonAf POC Glucometer 171 210 Random Glucose Calcium Phosphorus Magnesium 04/26/20 04/26/20 04/26/20 05:42 05:42 06:23 WBC 7.1 RBC 4.01 Hgb 12.2 Hct 38.5 MCV 96.0 MCH 30.4 MCHC 31.7 L RDW 16.3 H Plt Count 127 L MPV 9.1 Anticoagulation Therapy Puncture Site Patient Temperature ABG pH ABG pCO2 ABG pO2 ABG HCO3 ABG O2 Sat (Measured) ABG O2 Content ABG Base Excess Keo Test Patient On Oxygen O2 Delivery Device Oxygen Flow Rate Vent Mode Vent Rate Mechanical Rate PEEP Pressure Support Vent Sodium 142 Potassium 4.3 Chloride 100 Carbon Dioxide 41 H Anion Gap 1 L BUN 24.8 H Creatinine 1.4 H Est GFR (CKD-EPI)AfAm 63.73 Est GFR (CKD-EPI)NonAf 54.99 POC Glucometer 128 Random Glucose 129 H Calcium 8.8 Phosphorus 2.9 Magnesium 2.4 04/26/20 11:29 WBC RBC Hgb Hct MCV MCH MCHC RDW Plt Count MPV Anticoagulation Therapy Puncture Site Patient Temperature ABG pH ABG pCO2 ABG pO2 ABG HCO3 ABG O2 Sat (Measured) ABG O2 Content ABG Base Excess Keo Test Patient On Oxygen O2 Delivery Device Oxygen Flow Rate Vent Mode Vent Rate Mechanical Rate PEEP Pressure Support Vent Sodium Potassium Chloride Carbon Dioxide Anion Gap BUN Creatinine Est GFR (CKD-EPI)AfAm Est GFR (CKD-EPI)NonAf POC Glucometer 111 Random Glucose Calcium Phosphorus Magnesium Imaging - Results Chest X-ray: Report Reviewed, Image Reviewed (hyperinflated, no infiltrates) Assessment/Plan Acute on Chronic Hypoxic and Hypercapneic Respiratory Failure Acute COPD Exacerbation DM Hyperlipidemia Hypothyroidism - Will need to check Pre and Post ambulation O2 saturation on RA - Steroid wean - Will need formal SBD evaluation after discharge and likely need for PAP therapy - inhaled bronchodilators standing and PRN - O2 to keep Spo2 >90% - glucose control while on systemic steroids - DVT prophylaxis - DC planning Dr Kelsey ANTHONY Screen - ANTHONY History Previously diagnosed with Sleep Apnea: No If Yes, currently using CPAP to treat your ANTHONY: No - SNORING Do you snore loudly (enough to be heard thru closed doors)?: Yes - TIRED Do you often feel tired, fatigued, or sleepy during daytime?: Yes - OBSERVED Has anyone observed you stop breathing during your sleep?: Yes - BLOOD PRESSURE Do you have or are being treated for high blood pressure?: Yes - BMI Answer Y if weight exceeds amount listed for your height: No .: HEIGHT & WEIGHT (lbs): 4'10" 167lbs; 4" 175 lbs; 5'0" 179lbs;. 5'1" 185lbs; 5'2" 191lbs; 5'3" 197lbs;. 5'4" 204lbs; 5'5" 210lbs; 5'6" 216lbs;. 5'7" 223lbs; 5'8" 230lbs; 5'9" 237lbs;. 5'10" 243lbs; 511" 250lbs; 6' 258lbs;. 6'1" 265lbs; 6'2" 272lbs; 6'3" 279lbs;. 6'4" 287lbs; 6'5" 295lbs - AGE Is your age over 50 yrs old?: Yes - NECK CIRCUMFERENCE Neck Circumference 40cm: No - GENDER Male: Yes - SCORE Total Score: 6 Score Interpretation: High Risk of ANTHONY .: Interpretation: Score 0-2: Low Risk ANTHONY. Score 3-4: Intermediate Risk ANTHONY. Score 5-8: High Risk ANTHONY
[2020-04-26 18:14] VITALS: BP 124/77
[2020-04-26] MEDS: ATORVASTATIN CA 10 MG TABLET (FP) PO SCH (21:35)
[2020-04-26 22:26] VITALS: PULSE 65; TEMP 98.1
[2020-04-27] MEDS: LEVOTHYROXINE NA 25 MCG TABLET (FP) PO SCH (06:06)
[2020-04-27] MEDS: HEPARIN NA (PORCINE) 5,000 UNITS/ML 1ML VIAL SQ SCH ×2 (06:06→14:55)
[2020-04-27 06:15] LABS: BASO % 0.2 % (0-2.0); EOS % 0.1 % (0-4.5); HEMOGLOBIN 11.8 GM/dL (11.7-16.9); LYMPH % 27.9 % (8-40); MCH 30.5 pg (25.7-33.7); MCHC 31.8 g/dl (32.0-35.9); MEAN CELL VOLUME 95.9 fl (80-96); MEAN PLT VOLUME 7.7 fl (7.5-11.1); MONO % 7.7 % (3.8-10.2); NEUT % 64.1 % (42.8-82.8); PLATELET COUNT 113 K/MM3 (134-434); RBC 3.86 M/mm3 (4.00-5.60); RDW 15.8 % (11.9-15.9); WHITE BLOOD COUNT 6.8 K/mm3 (4.0-10.0)
[2020-04-27 06:48] LABS: BLOOD UREA NITROGEN 30.7 mg/dL (7-18); CALCIUM 9.1 mg/dL (8.5-10.1); POTASSIUM 4.8 mmol/L (3.5-5.1)
[2020-04-27 06:49] LABS: CREATININE 1.5 mg/dL (0.55-1.3)
[2020-04-27] MEDS: INSULIN SLIDING SCALE (NOVOLOG) 1 VIAL SQ SCH ×3 (07:00→16:17)
[2020-04-27] MEDS ORDERED: SODIUM CHLORIDE 500 ML IV ONE (07:53)
[2020-04-27] MEDS: TIOTROPIUM BROMIDE 2.5 MCG (SPIRIVA) RESPIMAT INHALER IH SCH (09:51)
[2020-04-27] MEDS: ALBUTEROL SO4 HFA INHALER IH SCH ×3 (09:51→16:17)
[2020-04-27] MEDS: BUDESONIDE/FORMETEROL FUMARATE 160/4.5 mcg INHALER IH SCH (09:51)
[2020-04-27] MEDS: predniSONE 20 MG TABLET (UD) PO SCH (09:52)
--- NOTE | 2020-04-27 12:15 | PN ---
Progress Note (short form) - Note Progress Note: PULMONARY Denies shortness of breath, cough or wheezing. Vital Signs Period Temp Pulse Resp BP Sys/Rm Pulse Ox Last 24 Hr 98.1 F 65-79 12-19 124-134/69-77 96-100 Gen: NAD in chair Heart: RRR Lung: better air entry, no wheezes Abd: soft, nontender EXt: no edema CBC, BMP 04/27/20 05:45 04/27/20 05:45 Active Medications Albuterol Sulfate (Ventolin Hfa Inhaler -) 2 puff IH RQID [facility] Last Admin: 04/27/20 11:41 Dose: 2 puff Documented by: Atorvastatin Calcium (Lipitor -) 10 mg PO HS [facility] Last Admin: 04/26/20 21:35 Dose: 10 mg Documented by: Budesonide/Formoterol Fumarate (Symbicort 160/4.5mcg -) 2 puff IH BID [facility] Last Admin: 04/27/20 09:51 Dose: 2 puff Documented by: Heparin Sodium (Porcine) (Heparin -) 5,000 unit SQ TID [facility] Last Admin: 04/27/20 06:06 Dose: 5,000 unit Documented by: Insulin Aspart (Novolog Vial Sliding Scale -) 0 vial SQ ACHS [facility]; Protocol Last Admin: 04/27/20 11:40 Dose: Not Given Documented by: Levothyroxine Sodium (Synthroid -) 25 mcg PO DAILY@0700 [facility] Last Admin: 04/27/20 06:06 Dose: 25 mcg Documented by: Prednisone (Deltasone -) 40 mg PO DAILY [facility] Last Admin: 04/27/20 09:52 Dose: 40 mg Documented by: Tiotropium [place] (Spiriva Respimat) 2 puff IH DAILY [facility] Last Admin: 04/27/20 09:51 Dose: 2 puff Documented by: A/P Acute on Chronic Hypoxic and Hypercapneic Respiratory Failure Acute COPD Exacerbation DM Hyperlipidemia Hypothyroidism - prednisone taper - inhaled bronchodilators standing and PRN - O2 to keep Spo2 >90%, will need home O2 - glucose control while on systemic steroids - outpt NPSG and PFTs - DVT prophylaxis
--- NOTE | 2020-04-27 12:43 | PN ---
Teaching Attending Note Name of Resident: Chandrakant Lobato ATTENDING PHYSICIAN STATEMENT I saw and evaluated the patient. I reviewed the resident's note and discussed the case with the resident. I agree with the resident's findings and plan as documented. SUBJECTIVE: Feels comfortable on 2L via NC. No SOB/fever/chills. OBJECTIVE: Afebrile, Hemodynamically Stable. Comfortable. SpO2 96% on 2L via NC. Last Vital Signs Temp Pulse Resp BP Pulse Ox 98.1 F 65 12 124/77 96 04/26/20 22:00 04/26/20 22:00 04/26/20 22:00 04/26/20 18:00 04/27/20 11:59 Heart - S1, S2, RRR Lungs - better air entry, no wheeze. Abdomen - Soft, non-tender. Bowel Sounds normal. Extremities - no edema, no calf tenderness Neuro - AAO x 3. Tone/Power normal all extremities. Laboratory Results - last 24 hr 04/26/20 04/26/20 04/27/20 17:11 21:39 05:45 WBC 6.8 RBC 3.86 L Hgb 11.8 Hct 37.0 MCV 95.9 MCH 30.5 MCHC 31.8 L RDW 15.8 Plt Count 113 L MPV 7.7 D Absolute Neuts (auto) 4.4 Neutrophils % 64.1 D Lymphocytes % 27.9 D Monocytes % 7.7 D Eosinophils % 0.1 Basophils % 0.2 Nucleated RBC % 0 Sodium Potassium Chloride Carbon Dioxide Anion Gap BUN Creatinine Est GFR (CKD-EPI)AfAm Est GFR (CKD-EPI)NonAf POC Glucometer 269 144 Random Glucose Calcium 04/27/20 04/27/20 04/27/20 05:45 05:50 11:43 WBC RBC Hgb Hct MCV MCH MCHC RDW Plt Count MPV Absolute Neuts (auto) Neutrophils % Lymphocytes % Monocytes % Eosinophils % Basophils % Nucleated RBC % Sodium 141 Potassium 4.8 Chloride 100 Carbon Dioxide 42 H Anion Gap -1 L BUN 30.7 H Creatinine 1.5 H Est GFR (CKD-EPI)AfAm 58.63 Est GFR (CKD-EPI)NonAf 50.59 POC Glucometer 126 124 Random Glucose 128 H Calcium 9.1 Current Medications Generic Name Dose Route Start Last Admin Trade Name Freq PRN Reason Stop Dose Admin Albuterol Sulfate 2 puff 04/22/20 12:30 04/27/20 11:41 Ventolin Hfa Inhaler - IH 2 puff RQID LAURITA Administration Atorvastatin Calcium 10 mg 04/21/20 22:00 04/26/20 21:35 Lipitor - PO 10 mg HS LAURITA Administration Budesonide/Formoterol Fumarate 2 puff 04/22/20 12:30 04/27/20 09:51 Symbicort 160/4.5mcg - IH 2 puff BID LAURITA Administration Heparin Sodium (Porcine) 5,000 unit 04/21/20 22:00 04/27/20 06:06 Heparin - SQ 5,000 unit TID LAURITA Administration Insulin Aspart 0 vial 04/21/20 22:00 04/27/20 11:40 Novolog Vial Sliding Scale - SQ Not Given ACHS [facility] Protocol Levothyroxine Sodium 25 mcg 04/22/20 07:00 04/27/20 06:06 Synthroid - PO 25 mcg DAILY@0700 LAURITA Administration Prednisone 40 mg 04/25/20 14:30 04/27/20 09:52 Deltasone - PO 40 mg DAILY LAURITA Administration Tiotropium [place] 2 puff 04/22/20 10:00 04/27/20 09:51 Spiriva Respimat IH 2 puff DAILY LAURITA Administration Home Medications Medication Instructions Recorded metFORMIN HCL [Glucophage -] 500 mg PO BID 09/15/15 Simvastatin [Zocor -] 20 mg PO HS 10/09/15 Albuterol 0.083% Nebulizer Ema 1 neb NEB Q6H PRN 07/16/17 [Ventolin 0.083% Nebulizer Soln -] Albuterol Sulfate [Proair Hfa] 8.5 gm IH Q6H 03/26/18 Ferrous Gluconate [Iron] 256 mg PO DAILY 05/17/19 Vitamin B Complex 1 each PO DAILY 05/17/19 Levothyroxine [Synthroid -] 25 mcg PO DAILY 04/21/20 Meloxicam 7.5 mg PO DAILY 04/21/20 ASSESSMENT AND PLAN: 58 year old male with history of CRF sec to COPD on Home O2 (non-compliant), HLD, DM 2, CKD 3, presents with increasing SOB, without fever/cough/sputum. 1. Acute on Chronic Hypoxic and Hypercapneic Respiratory Failure with Resp Acidosis secondary to Acute exacerbation COPD IV Solumedrol transitioned to oral Prednisone - for Prednisone taper on discharge. Completed 5 days Azithromycin. Continue Albuterol, Spiriva. Continued improvement in acidosis and CO2 retention - for outpatient PSG and PFTs and initiation on CPAP at home. Acidosis resolved, Pulm to follow. SpO2 82% on ambulation on RA - qualifies for Home O2 - for discharge once Home O2 is arranged. 2. Hyperkalemia secondary to Acidosis due to transcellular K shift. s/p Insulin/Dextrose, on Lokelma Resolved. 3. DM 2 - Metformin to be resumed on discharge. 4. HLD - on Statin 5. Hypothyroidism - Continue Synthroid. 6. Macrocytosis - B12 493, Fol 29. 7. Hypophosphatemia - repleted. 8. HIREN on CKD 3 - resolved. Medically stable and optimized for discharge.
[2020-04-27 16:49] LABS: BLOOD UREA NITROGEN 29.8 mg/dL (7-18); CALCIUM 9.7 mg/dL (8.5-10.1); CREATININE 1.3 mg/dL (0.55-1.3); POTASSIUM 4.9 mmol/L (3.5-5.1)
--- NOTE | 2020-04-27 17:18 | DS ---
Physical Exam: SUBJECTIVE: Patient seen and examined at bedside. The patient denies fever/chills, chest pain, shortness of breath, diarrhea, constipation, and nausea. OBJECTIVE: Vital Signs Period Temp Pulse Resp BP Sys/Rm Pulse Ox Last 24 Hr 98.1 F 65-79 12-16 124/77 96-100 PHYSICAL EXAM GENERAL: The patient is awake, alert, and fully oriented, in no acute distress. HEAD: Normal with no signs of trauma. EYES: Extraocular movements intact. ENT: Ears normal, nares patent, oropharynx clear without exudates, moist mucous membranes. NECK: Trachea midline, full range of motion, supple. LUNGS: Breath sounds equal, clear to auscultation bilaterally, no wheezes, no crackles, no accessory muscle use. HEART: Regular rate and rhythm, S1, S2 without murmur, rub or gallop. ABDOMEN: Soft, nontender, nondistended, normoactive bowel sounds, no guarding, no rebound, no masses. EXTREMITIES: 2+ pulses, warm, well-perfused, no edema. NEUROLOGICAL: Normal speech, gait not observed. PSYCH: Normal mood, normal affect. SKIN: Warm, dry, normal turgor, no rashes or lesions noted. LABS Laboratory Results - last 24 hr 04/26/20 04/27/20 04/27/20 21:39 05:45 05:45 WBC 6.8 RBC 3.86 L Hgb 11.8 Hct 37.0 MCV 95.9 MCH 30.5 MCHC 31.8 L RDW 15.8 Plt Count 113 L MPV 7.7 D Absolute Neuts (auto) 4.4 Neutrophils % 64.1 D Lymphocytes % 27.9 D Monocytes % 7.7 D Eosinophils % 0.1 Basophils % 0.2 Nucleated RBC % 0 Sodium 141 Potassium 4.8 Chloride 100 Carbon Dioxide 42 H Anion Gap -1 L BUN 30.7 H Creatinine 1.5 H Est GFR (CKD-EPI)AfAm 58.63 Est GFR (CKD-EPI)NonAf 50.59 POC Glucometer 144 Random Glucose 128 H Calcium 9.1 04/27/20 04/27/20 04/27/20 05:50 11:43 15:20 WBC RBC Hgb Hct MCV MCH MCHC RDW Plt Count MPV Absolute Neuts (auto) Neutrophils % Lymphocytes % Monocytes % Eosinophils % Basophils % Nucleated RBC % Sodium 139 Potassium 4.9 Chloride 99 Carbon Dioxide 36 H Anion Gap 5 L BUN 29.8 H Creatinine 1.3 Est GFR (CKD-EPI)AfAm 69.71 Est GFR (CKD-EPI)NonAf 60.14 POC Glucometer 126 124 Random Glucose 207 H Calcium 9.7 HOSPITAL COURSE: Date of Admission:04/21/20 59 year old male patient with past medical history that includes COPD supposed to be on home O2 but noncompliant, CKD, DM, HLD, who presented to the ED with shortness of breath after exerting himself by moving some things at home. The patient was diagnosed with acute on chronic hypercapneic and hypoxic respiratory failure with respiratory acidosis secondary to COPD exacerbation. The patient also had hyperkalemia secondary to the acidosis. The patient was given solu- medrol, spiriva, symbicort, and albuterol and placed on BiPap. For his hyperkalemia the patient was given D50w with insulin and lokelma. After several days of medication and adjusting the BiPap settings, the patient's symptoms and lab abnormalities resolved. A pre and post test by respiratory showed that the patient only had an oxygen saturation of 90% on room air, which dropped to 82% on room air after the patient walked 20 steps, but was able to stay at 92% on 3 lpm oxygen even when the patient was walking. The patient was discharged with instructions to use home O2. The patient was also discharged on a prednisone taper. The patient was also instructed to follow up with Dr. Jus Shafer for a sleep study in order to be prescribed BiPap for home use. Date of Discharge: 04/27/20 Minutes to complete discharge: 50 Discharge Summary Problems reviewed: Yes Reason For Visit: ACUTE EXACERBATION OF CHRONIC OBSTRUCTIVE PULMONAR Condition: Good - Instructions Diet, Activity, Other Instructions: You were admitted to the hospital with shortness of breath and chest tightness. While you were here, we evaluated you with lab work, blood work, and imaging. Based on our evaluation, we found that you had an exacerbation of your COPD. We treated you with medications and oxygen and your symptoms resolved. You will need home oxygen regularly, please ensure you are continue home oxygen while at home. We will set you up with oxygen at home Medications: To complete the treatment of your COPD exacerbation, Please take the following medications as instructed, Please take Prednisone Taper as instructed by your pharmacist Please continue all of your medications as prescribed. Follow ups Please follow up with the client relations specialist Dr. Jus Shafer regarding your COPD exacerbation, and Pulmonary function test and for Sleep study outpatient. Please follow up with primary care physician within [address] Bryan. If you experience any worsening symptoms, chest pain, difficulty breathing, or any worsening of your condition, please come back to the emergency room or call 911. Referrals: Irvin Hernandez MD [Primary Care Provider] - Jus Shafer MD, MD [Staff Physician] - 1 Week (Sleep study for home BiPap, Acute on Chronic Hypoxic and Hypercapneic Respiratory Failure with Respiratory Acidosis secondary to Acute COPD Exacerbation) Disposition: HOME - Home Medications Comprehensive Discharge Medication List: Ambulatory Orders metFORMIN HCL [Glucophage -] 500 mg PO BID 09/15/15 Simvastatin [Zocor -] 20 mg PO HS 10/09/15 Albuterol 0.083% Nebulizer Ema [Ventolin 0.083% Nebulizer Soln -] 1 neb NEB Q6H PRN 07/16/17 Albuterol Sulfate [Proair Hfa] 8.5 gm IH Q6H 03/26/18 Ferrous Gluconate [Iron] 256 mg PO DAILY 05/17/19 Vitamin B Complex 1 each PO DAILY 05/17/19 Levothyroxine [Synthroid -] 25 mcg PO DAILY 04/21/20 Meloxicam 7.5 mg PO DAILY 04/21/20 Prednisone See Taper PO DAILY #6 tablet 04/27/20 This patient is new to me today: No Emergency Visit: Yes ED Registration Date: 04/21/20 Care time: The patient presented to the Emergency Department on the above date and was hospitalized for further evaluation of their emergent condition. Critical Care patient: No - Discharge Referral Referred to [facility] Med P.C.: No ATTENDING PHYSICIAN STATEMENT I saw and evaluated the patient. I reviewed the resident's note and discussed the case with the resident. I agree with the resident's findings and plan as documented. SUBJECTIVE: OBJECTIVE: ASSESSMENT AND PLAN:
== END 2020-04-27 17:29 | disposition home or self-care (01) | DRG 189 ==
LOC: SUPCPDRO 13:21 → JER 13:21 → JERBED 16:45 → JICU 04-22 16:21
PROVIDERS: ADMIT Internal Medicine
DX: J96.22 Acute and chronic respiratory failure with hypercapnia (principal); J44.1 Chronic obstructive pulmonary disease with (acute) exacerbation; N17.9 Acute kidney failure, unspecified; J96.21 Acute and chronic respiratory failure with hypoxia; E87.2 Acidosis; E87.3 Alkalosis; J44.9 Chronic obstructive pulmonary disease, unspecified; E11.9 Type 2 diabetes mellitus without complications; E78.5 Hyperlipidemia, unspecified; E87.5 Hyperkalemia; E03.9 Hypothyroidism, unspecified; E83.39 Other disorders of phosphorus metabolism; D75.89 Other specified diseases of blood and blood-forming organs; I12.9 Hypertensive chronic kidney disease with stage 1 through stage 4 chronic kidney disease, or unspecified chronic kidney disease; N18.3 Chronic kidney disease, stage 3 (moderate)
CPT/HCPCS: 36415; 36600; 71045-TC-FY; 76775-TC; 80048; 80053; 81003; 82550; 82553; 82565; 82607; 82746; 82803; 82962; 83036; 83735; 84100; 84132; 84300; 84443; 84484; 85025; 85027; 93005; 93010; 94660; 94761; 99291; J1644; U0003